=== PATIENT | male | born 1970 | race Caucasian/White ===

== ENCOUNTER 2017-08-13 09:11 | Emergency (ER) | payer BC, OTHER ==
[2017-08-13 10:04] VITALS: BP 133/90
--- NOTE | 2017-08-13 10:28 | UC ---
FLU HPI - HPI Summary HPI Summary: 47 y/o male presents to the urgent care c/o fever, sweats body aches, nasal congestion w/ clear nasal discharge since this morning. Pt reports headache, subjective fever, chills,. He also states "tingling" right lateral leg for few minutes when he woke up this morning. Patient also stated he was seen at [facility] ED for chest pain last week, they did full work up. Everything normal except w/ artery was enlarged" and has an appointment with his PCP this coming Sunday. Pt denies SOB, chest pain, abdominal pain, N/V/D. - History of Current Complaint Chief Complaint: UCGeneralIllness Stated Complaint: FEVER Time Seen by Provider: 08/13/17 10:05 Hx Obtained From: Patient Onset/Duration: Gradual Onset, Lasting Days - this morning, Still Present Severity Currently: Mild Severity Initially: Mild Pain Intensity: 3 Pain Scale Used: 0-10 Numeric Associated Signs & Symptoms: Positive: Fever, Myalgia, Nasal Congestion, Headache - Risk Factors Influenza Risk Factors: Negative - Allergy/Home Medications Allergies/Adverse Reactions: Allergies Allergy/AdvReac Type Severity Reaction Status Date / Time No Known Allergies Allergy Verified 08/13/17 09:57 Home Medications: Home Medications Fluticasone NASAL SPRAY 50MCG* [Flonase NASAL SPRAY 50MCG*] 2 spray BOTH NARES DAILY 08/13/17 [History Confirmed 08/13/17] Ibuprofen TAB* [Advil TAB*] 400 mg PO Q6H PRN 08/13/17 [History Confirmed ] PMH/Surg Hx/FS Hx/Imm Hx Previously Healthy: Yes Respiratory History: Asthma GI/ History: Gastroesophageal Reflux - Surgical History Surgical History: Yes Surgery Procedure, Year, and Place: Nasal Polyps, 2017, Dr. Carey, Cholecystectomy and Umbilical Herniorrhaphy, 2015, [facility]; Endoscopy, 04/29/15 , [facility]; Colonscopy, ~2004, [place] - Family History Known Family History: Positive: None - Pt denies FMHX - Social History Occupation: Employed Full-time Lives: With Family Alcohol Use: "couple drinks every day" Substance Use Type: None Smoking Status (MU): Never Smoked Tobacco Review of Systems Constitutional: Fever, Chills, Other - body aches Skin: Negative Eyes: Negative ENT: Nasal Discharge, Sinus Congestion Respiratory: Negative Cardiovascular: Negative Gastrointestinal: Negative Genitourinary: Negative Motor: Negative Neurovascular: Negative Musculoskeletal: Negative Neurological: Headache Psychological: Negative Is Patient Immunocompromised?: No All Other Systems Reviewed And Are Negative: Yes Physical Exam Triage Information Reviewed: Yes Vital Signs: Initial Vital Signs Temp 98.3 F 08/13/17 09:55 Pulse 76 08/13/17 09:55 Resp 16 08/13/17 09:55 BP 133/90 08/13/17 09:55 Pulse Ox 98 08/13/17 09:55 - Additional Comments VITAL SIGNS: Reviewed. GENERAL: Patient is a well developed and nourished male who is sitting comfortable in the examining table. Patient is not in any acute respiratory distress. HEAD AND FACE: No signs of trauma. No ecchymosis, hematomas or skull depressions. No sinus tenderness. edematous erythematous nasal mucosa with yellowish discharge, EYES: PERRLA, EOMI x 2, No injected conjunctiva, clear watery eyes, no nystagmus. No photophobia. EARS: Hearing grossly intact. Ear canals and tympanic membranes are within normal limits. MOUTH: Positive pharynx with erythema, no exudates,no palatal petechiae. no B/L tonsillar enlargement Uvula in midline. NECK: Supple, trachea is midline, Positive anterior cervical lymphadenopathy, no JVD, no carotid bruit, no c-spine tenderness, neck with full ROM. No meningeal signs, no Kernig's or brudzinskis signs. CHEST: Symmetric, no tenderness at palpation LUNGS: Clear to auscultation bilaterally. No wheezing or crackles. CVS: Regular rate and rhythm, S1 and S2 present, no murmurs or gallops appreciated. ABDOMEN: Soft, non-tender. No signs of distention. No rebound no guarding, and no masses palpated. Bowel sounds are normal. EXTREMITIES: FROM in all major joints, no edema, no cyanosis or clubbing. NEURO: Alert and oriented x 3. No acute neurological deficits. Speech is normal and follows commands. SKIN: Dry and warm Flu Course/Dx - Course Course Of Treatment: 47 y/o male presents to the urgent care c/o fever, sweats body aches, nasal congestion w/ clear nasal discharge since this morning. Pt reports headache, subjective fever, chills,. He also states "tingling" right lateral leg for few minutes when he woke up this morning. Patient also stated he was seen at [facility] ED for chest pain last week, they did full work up. Everything normal except w/ artery was enlarged" and has an appointment with his PCP this coming Sunday for f/u. Pt denies SOB, chest pain, abdominal pain , N/V/D.Hx obtained. Pt with URI on examination. Most likely Viral syndrome. Infliuenza A&B ordered: negative. Pt Rx ibuprofen PO and Omeprazole PO to alleviates symptoms. Advised on hand washing and wear a mask to avoid spreading. Pt advised to rest, increase fluid intake, eat well and avoid strenuous exercise. If symptoms do not improve or worsen advised to return to the urgent care or f/u with her PCP for further evaluation and treatment. Pt's BP is elevated today advised to decrease salt in diet, monitor BP and f/u with PCP for further management.Pt understood and agreed with plan of care. - Differential Dx/Diagnosis Differential Diagnosis/HQI/PQRI: Bronchitis, Influenza, Upper Respiratory Infection Provider Diagnoses: 1- Viral syndrome. 2-Elevated BP w/ Hx of HTN. 3-GERD Discharge - Discharge Plan Condition: Stable Disposition: HOME Prescriptions: Omeprazole CAP* [Prilosec CAP* 20 MG] 20 mg PO DAILY #30 cap. Patient Education Materials: Gastroesophageal Reflux Disease (ED), Viral Syndrome (ED), Low-Sodium Diet (ED) Forms: *Work Release Referrals: Filiberto ESCOBAR,Vik [Primary Care Provider] - 3 Days Additional Instructions: 1-Please continue taking Ibuprofen PO q6-8hrs prn as instructed after meals to alleviate fever, and sore throat. Increase fluid intake, eat well, rest and avoid strenuous exercise 2-If symptoms do not improve or worsen please return to the urgent care or f/u with your PCP in 2 days for further evaluation and treatment. 3-Your BP is elevated today. please decrease salt in your diet, monitor BP and if it continues to be elevated please f/u with your PCP for further management
== END 2017-08-13 10:53 | disposition home or self-care (01) ==
LOC: UCCORT 09:11
DX: B34.9 Viral infection, unspecified (principal); R03.0 Elevated blood-pressure reading, without diagnosis of hypertension; Z72.89 Other problems related to lifestyle
CPT/HCPCS: 87502; 99212; G0463

== ENCOUNTER 2017-09-03 08:32 | Emergency (ER) | payer BC ==
[2017-09-03 09:21] VITALS: BP 131/85
--- NOTE | 2017-09-03 09:34 | ED ---
GI/ HPI - HPI Summary HPI Summary: 47 yr old male with Diarrhea. He denies vomiting. He states he has had 5 episodes of diarrhea, brown color. No antibiotics in the past couple of months. No fever, chills, abdominal pain. He needs a note for work for today. - History of Current Complaint Chief Complaint: UCGI Time Seen by Provider: 09/03/17 09:22 Stated Complaint: DIARRHEA Pain Intensity: 0 - Allergy/Home Medications Allergies/Adverse Reactions: Allergies Allergy/AdvReac Type Severity Reaction Status Date / Time No Known Allergies Allergy Verified 09/03/17 09:18 PMH/Surg Hx/FS Hx/Imm Hx - Surgical History Surgery Procedure, Year, and Place: Nasal Polyps, 2017, Dr. Carey, Cholecystectomy and Umbilical Herniorrhaphy, 2014, [facility]; Endoscopy, 04/29/15 , [facility]; Colonscopy, ~2004, [place] Infectious Disease History: No Infectious Disease History: Denies: Traveled Outside the [place] in Last 30 Days - Family History Known Family History: Positive: None - Pt denies FMHX - Social History Occupation: Employed Full-time Alcohol Use: Occasionally Substance Use Type: Reports: None Smoking Status (MU): Never Smoked Tobacco Review of Systems Constitutional: Negative Positive: Diarrhea All Other Systems Reviewed And Are Negative: Yes Physical Exam Triage Information Reviewed: Yes Vital Signs On Initial Exam: Initial Vitals Temp Pulse Resp BP Pulse Ox 98 F 74 14 131/85 98 09/03/17 09:16 09/03/17 09:16 09/03/17 09:16 09/03/17 09:16 09/03/17 09:16 Vital Signs Reviewed: Yes Appearance: Positive: Well-Appearing, No Pain Distress Skin: Positive: Warm, Skin Color Reflects Adequate Perfusion Head/Face: Positive: Normal Head/Face Inspection Eyes: Positive: EOMI ENT: Positive: Pharynx normal Respiratory/Lung Sounds: Positive: Clear to Auscultation, Breath Sounds Present Cardiovascular: Positive: RRR. Negative: Murmur Abdomen Description: Positive: Nontender Musculoskeletal: Positive: Strength/ROM Intact Neurological: Positive: Sensory/Motor Intact, Alert, Oriented to Person Place, Time, CN Intact II-III Psychiatric: Positive: Normal - Dejon Coma Scale Best Eye Response: 4 - Spontaneous Best Motor Response: 6 - Obeys Commands Best Verbal Response: 5 - Oriented Coma Scale Total: 15 Diagnostics - Vital Signs Vital Signs Temp Pulse Resp BP Pulse Ox 09/03/17 09:16 98 F 74 14 131/85 98 - Laboratory Lab Statement: Any lab studies that have been ordered have been reviewed, and results considered in the medical decision making process. GIGU Course/Dx - Course Course Of Treatment: 47 yr old with diarrhea just today. recommend clear liquids, rest, and follow up with pmd. he knows if he has abdominal pain or fever or worsening symptoms to go to the ER. - Diagnoses Provider Diagnoses: Diarrhea Discharge - Discharge Plan Condition: Good Disposition: HOME Patient Education Materials: Acute Diarrhea (ED) Forms: *Work Release Referrals: Vik De Los Santos MD [Primary Care Provider] - 2 Days
== END 2017-09-03 09:37 | disposition home or self-care (01) ==
LOC: UCCORT 08:32
DX: R19.7 Diarrhea, unspecified (principal)
CPT/HCPCS: 99211; G0463

== ENCOUNTER 2018-03-28 15:27 | Emergency (ER) | payer BC ==
--- OUTSIDE RECORDS SUMMARY | 2018-03-28 15:34 | XMS REPORT ---
:1970 External Reference #:[id number] Author Organization [facility] Address [address], [address] [place] [address] Phone [phone] Support Name Relationship Address Britney Manuel Mother [address] [phone] [place] [address] Care Team Providers Name Role Phone Vik De Los Santos MD Care Team Information Web Designer Unavailable Vik De Los Santos MD Primary Care Physician Unavailable Payers Type Date Identification Numbers Payment Provider Subscriber Commercial Policy Number: [id number] [facility] Malik Ann PayID: [id number] [address] [place] [address] Problems Date Description Provider Status Onset: 09/13/2016 Cough Chuck Suarez MD Active Onset: 09/13/2016 Vomiting, unspecified Chuck Suarez MD Active Onset: 09/13/2016 Abnormal findings diagnostic Chuck Suarez MD Active imaging of liver+biliary tract Onset: 01/11/2017 Adult health examination Vik De Los Santos M.D. Active Onset: 01/11/2017 Gastroesophageal reflux disease Vik De Los Santos M.D. Active Onset: 01/11/2017 Bronchiolectasis Vik De Los Santos M.D. Active Onset: 01/11/2017 Hyperlipidemia screening Vik De Los Santos M.D. Active Onset: 01/11/2017 Encounter for screening for Vik De Los Santos M.D. Active nutritional disorder Onset: 01/11/2017 Liver function tests abnormal Vik De Los Santos M.D. Active Onset: 01/22/2017 Headache Vik De Los Santos M.D. Active Onset: 01/30/2017 Chronic sinusitis Vik De Los Santos M.D. Active Onset: 01/30/2017 Hyperlipidemia Vik De Los Santos M.D. Active Onset: 03/20/2017 Immunization Vik De Los Santos M.D. Active Onset: 04/18/2017 Anxiety state Vik De Los Santos M.D. Active Onset: 05/04/2017 Right upper quadrant pain Chuck Suarez MD Active Onset: 08/15/2017 Infectious colitis, enteritis and Vik De Los Santos M.D. Active gastroenteritis Onset: 08/15/2017 Diverticular disease of colon Vik De Los Santos M.D. Active Onset: 08/15/2017 Aneurysm of thoracic aorta Vik De Los Santos M.D. Active Onset: 08/29/2017 Hematemesis Chuck Suarez MD Active Onset: 08/29/2017 Cough variant asthma Chuck Suarez MD Active Onset: 09/04/2017 Diarrhea Darek Sloan M.D. Active Onset: 09/12/2017 Gastrointestinal tract finding Chuck Suarez MD Active Onset: 09/12/2017 Chronic nonalcoholic liver disease Chuck Suarez MD Active Onset: 10/02/2017 Nausea and vomiting Vik De Los Santos M.D. Active Onset: 10/02/2017 Taking medication Vik De Los Santos M.D. Active Onset: 10/05/2017 Lymphocytic-plasmacytic colitis Chuck Suarez MD Active Onset: 10/19/2017 Gastro-esophageal reflux disease Chuck Suarez MD Active with esophagitis Onset: 10/19/2017 Abdominal pain Chuck Suarez MD Active Onset: 10/17/2017 Left lower quadrant pain Darek Sloan M.D. Active Onset: 11/02/2017 Acute sinusitis Vik De Los Santos M.D. Active Onset: 10/31/2017 Allergic rhinitis Vik De Los Santos M.D. Active Onset: 11/02/2017 Elevated blood-pressure reading Vik De Los Santos M.D. Active without diagnosis of hypertension Onset: 01/31/2018 Disorder of male genital organ Vik De Los Santos M.D. Active Onset: 03/04/2018 Genital warts Cici Carbajal M.D. Active Onset: 03/04/2018 Disorder of adrenal gland Solomon, Mahmoud, M.D. Active Family History Date Family Member(s) Problem(s) Comments General Non Contributory Father No Current Problems Mother Arthritis Social History Type Date Description Comments Marital Status Patient is Lives With Girlfriend Home Environment Lives With Girlfriend Occupation Maintenance Work Status Currently Working Cigarette Use Never Smoked Cigarettes ETOH Use Occasionally consumes alcohol Recreational Drug Use Denies Drug Use Smoking Patient has never smoked Daily Caffeine Patient consumes minimal amounts of caffeine Daily Caffeine Consumes on average 1 cup of regular coffee per day Exercise Type/Frequency Does not exercise Allergies, Adverse Reactions, Alerts Date Description Reaction Status Severity Comments 09/02/2009 NKDA active Medications Medication Date Status Form Strength Qnty SIG Indications Ordering Provider Hydrocortisone 03/13 Active Cream 2.5% 1unit 2 Times A s Day Pantoprazole 01/[address] 20mg 90tab 1 by mouth K21.0 Young Sodium s every day MD Erick every morning Vitamin B12 10/19 Active Tablets 100mcg 30tab 1 tab by R51 s carmencita Suarez MD every day Budesonide 10/[address] 3mg 90cap 2 cap by K52.832 Part s carmencita Suarez MD every day Flonase Sensimist Active Suspension 27.5mcg/S 2 sprays Unknown /0000 pray every day Allergy Active weekly ( Unknown Injections /0000 for molds) Dexamethasone 03/08 Hx Tablets 1mg 1tabs take at 11 Solomon at night Mahmoud, - night M.D. 03/22 blood test Ondansetron 12/05 Hx Tablets 4mg 90tab 1 tab by R11.10 Dispers s carmencita Suarez MD - three 01/11 times day as needed Amoxicillin 11/02 Hx Tablets 500mg 30tab take 1 J01.90 Filiberto, s tablet Andras, daily 3 M.D. times a day for 10 days Pantoprazole 10/[address] 40mg 90tab 1 by mouth K21.0 Young Sodium s every day MD Erick - every 01/31 Work Note 10/03 Hx Malik J41.0 Omar Seth was MD Marquise seen in the office today. Please excuse him. Ondansetron HCL 09/27 Hx Tablets 8mg 30tab 1 tab by Luther s mouth , - every 8 Darek, 01/11 hours as M.D. /2017 needed for nausea Pantoprazole 09/[address] 40mg 90tab 1 by mouth s every day MD Erick every morning Dulcolax 09/[address] 5mg 4tabs 4 tablets R93.3 taken a MD Erick - 8pm the 09/27 day before /2017 the procedure Citroma 09/12 Hx Solution 1.745GM/3 296ml 1 by mouth R93.3 0ML once MD Erick - 09/27 Golytely 09/12 Hx Solution 236gm 4000m drink half R93.3 Rec l the MD Erick - evening 09/27 before and /2017 half the morning of the procedure (1 cup every 10') Flovent HFA 05/30 Hx Aerosol 110mcg/Ac 12gm inhale 2 J45.991 Omar t puffs MD Marquise - twice 08/01 daily after albuterol nebulizer treatment* shake well *rinse mouth after use Proair HFA 05/30 Hx Aerosol 108(90Bas 8.500 take 2 J45.991 Omar e) gm puffs MD Marquise mcg/Act every 6 hours as needed for shortness of breath. Hydroxyzine HCL 04/18 Hx Tablets 25mg 30tab take 1 F41.9 Filiberto s tablet by Andhudson, mouth 3 M.D. times a day as needed for anxiety. Do not drink alcohol while on this medication Ondansetron HCL 03/20 Hx Tablets 4mg 30tab 1 tab Filiberto, s every 8hr Andras, as needed M.D. for nausea No Active 02/05 Hx Unknown Medications /2016 - 02/05 Ondansetron HCL 02/05 Hx Tablets 4mg 30tab 1 tab Filiberto, s every 6hr Andras, as needed M.D. for nausea Methylprednisolon 01/22 Hx TBPK 4mg 1dose take as R51 Filiberto, pack directed Andhudson, - M.D. 02/05 No Active 07/06 Hx Unknown Medications /2016 - 01/22 Proair HFA 12/05 Hx Aerosol 108(90Bas 8.500 take 2 J47.9 Kheti, /2017 e) gm puffs MD Marquise mcg/Act every 6 hours as needed for cough No Active 10/17 Hx Unknown Medications /2016 - 12/05 No Active 11/16 Hx Unknown Medications /2015 - 09/13 Nabumetone 10/19 Hx Tablets 750mg 60tab take 1 Pompo, s tablet by Leon, - mouth 2 M.D. 11/16 times day with food Naproxen Hx 500mg Unknown /0000 - 10/18 Nortriptyline HCL Hx 50mg Jessica, /0000 Carolina Aponte MD 10/19 Hydrocodone-Aceta Hx 5-500mg Robenstei minophen /0000 Siomara brandon, - 10/18 Omeprazole Hx 20mg Alejandro, /0000 Fadi Pratt MD 10/19 Amoxicillin Hx 500mg Battels, /0000 MD Omid - 10/18 Zofran Hx Tablets 4mg 1 tablet Unknown /0000 by mouth every 8 hours as needed for nausea Protonix Hx Tablets DR 20mg 1 po every Unknown /0000 day Fluticasone Hx Suspension 50mcg/Act Unknown Propionate /0000 - 02/05 Ondansetron HCL 00 Hx Tablets 4mg take 1 Unknown /0000 tablet by - mouth 09/04 every hours if needed for nausea Omeprazole Hx Capsules DR 20mg 60cap I tablet Unknown /0000 s twice - daily 09/27 Oxycodone-Acetami 00 Hx Tablets 5-325mg take 1-2 Unknown nophen /0000 tablets by mouth every 4 to 6 hours if needed maximum daily d Ciprofloxacin HCL /00 Hx Tablets 500mg take 1 Unknown /0000 tablet by - mouth 09/27 twice a day Metronidazole Hx Tablets 500mg 1 po qd Unknown /0000 - 10/02 Ondansetron 00 Hx Tablets 8mg 1 sl every Unknown /0000 Dispers 8 hrs prn - 03/04 Pantoprazole 00/[address] 20mg take 1 Unknown Sodium /0000 tablet by - mouth 01/31 morning Medications Administered in Office Medication Date Status Form Strength Qnty SIG Indications Ordering Provider Depmaria alejandra 80 Administered Injection mg Femi Alba [facility] Immunizations CPT Code Status Date Vaccine Lot # 30150 Given 03/20/2017 Influenza Virus Vaccine, Quadrivalent, Slit [place] Use [address] Given 01/11/2017 Tdap injection [id number] Vital Signs Date Vital Result Comment 03/22/2018 BP Systolic Sitting Left Arm 132 mmHg BP Diastolic Sitting Left Arm 95 mmHg Heart Rate 77 /min Respiratory Rate 16 /min Height 69 inches 5'9" Weight 191.00 lb BMI (Body Mass Index) 28.2 kg/m2 BSA (Body Surface Area) 2.03 m2 [place] body weight in kilograms 73 O2 % BldC Oximetry 98 % 03/04/2018 BP Systolic 135 mmHg BP Diastolic 92 mmHg Body Temperature 98.0 F Heart Rate 96 /min Respiratory Rate 18 /min Height 69 inches 5'9" Weight 190.00 lb BMI (Body Mass Index) 28.1 kg/m2 BSA (Body Surface Area) 2.02 m2 [place] body weight in kilograms 73 O2 % BldC Oximetry 97 % Pain Level 0 02/18/2018 BP Systolic Sitting Left Arm 126 mmHg BP Diastolic Sitting Left Arm 88 mmHg Body Temperature 98.1 F Heart Rate 73 /min Respiratory Rate 16 /min Height 69 inches 5'9" Weight 185.00 lb BMI (Body Mass Index) 27.3 kg/m2 BSA (Body Surface Area) 2.00 m2 [place] body weight in kilograms 73 O2 % BldC Oximetry 95 % Ra 01/31/2018 BP Systolic Sitting Left Arm 138 mmHg BP Diastolic Sitting Left Arm 96 mmHg Body Temperature 97.6 F Heart Rate 72 /min Respiratory Rate 20 /min Height 69 inches 5'9" Weight 191.00 lb BMI (Body Mass Index) 28.2 kg/m2 BSA (Body Surface Area) 2.03 m2 [place] body weight in kilograms 73 O2 % BldC Oximetry 96 % 01/11/2018 BP Systolic Sitting Right Arm 142 mmHg BP Diastolic Sitting Right Arm 84 mmHg Heart Rate 68 /min Respiratory Rate 20 /min Height 69 inches 5'9" Weight 192.00 lb BMI (Body Mass Index) 28.4 kg/m2 BSA (Body Surface Area) 2.03 m2 [place] body weight in kilograms 73 O2 % BldC Oximetry 96 % Ra Pain Level 8 while vomitting 12/05/2017 BP Systolic Sitting Left Arm 132 mmHg BP Diastolic Sitting Left Arm 96 mmHg Heart Rate 82 /min Respiratory Rate 18 /min Height 69 inches 5'9" Weight 188.00 lb BMI (Body Mass Index) 27.8 kg/m2 BSA (Body Surface Area) 2.01 m2 [place] body weight in kilograms 73 11/09/2017 BP Systolic Sitting Right Arm 134 mmHg BP Diastolic Sitting Right Arm 82 mmHg Heart Rate 81 /min Respiratory Rate 18 /min Height 69 inches 5'9" Weight 190.00 lb BMI (Body Mass Index) 28.1 kg/m2 BSA (Body Surface Area) 2.02 m2 [place] body weight in kilograms 73 11/02/2017 BP Systolic 151 mmHg BP Diastolic 98 mmHg Body Temperature 98.3 F Heart Rate 81 /min Respiratory Rate 16 /min Height 69 inches 5'9" Weight 189.12 lb BMI (Body Mass Index) 27.9 kg/m2 BSA (Body Surface Area) 2.02 m2 [place] body weight in kilograms 73 O2 % BldC Oximetry 97 % 10/31/2017 BP Systolic 124 mmHg BP Diastolic 90 mmHg Body Temperature 98.2 F Heart Rate 84 /min Respiratory Rate 16 /min Height 69 inches 5'9" Weight 187.00 lb BMI (Body Mass Index) 27.6 kg/m2 BSA (Body Surface Area) 2.01 m2 [place] body weight in kilograms 73 O2 % BldC Oximetry 95 % On Room Air 10/19/2017 BP Systolic Sitting Left Arm 162 mmHg BP Diastolic Sitting Left Arm 96 mmHg Heart Rate 91 /min Respiratory Rate 16 /min Height 69 inches 5'9" Weight 190.00 lb with boots BMI (Body Mass Index) 28.1 kg/m2 BSA (Body Surface Area) 2.02 m2 [place] body weight in kilograms 73 10/17/2017 BP Systolic 151 mmHg BP Diastolic 98 mmHg Heart Rate 72 /min Respiratory Rate 14 /min Height 69 inches 5'9" Weight 185.12 lb BMI (Body Mass Index) 27.3 kg/m2 BSA (Body Surface Area) 2.00 m2 [place] body weight in kilograms 73 O2 % BldC Oximetry 97 % 10/05/2017 BP Systolic Sitting Left Arm 130 mmHg BP Diastolic Sitting Left Arm 90 mmHg Heart Rate 76 /min Respiratory Rate 16 /min Height 69 inches 5'9" Weight 192.00 lb BMI (Body Mass Index) 28.4 kg/m2 BSA (Body Surface Area) 2.03 m2 [place] body weight in kilograms 73 10/03/2017 BP Systolic Sitting Left Arm 118 mmHg BP Diastolic Sitting Left Arm 88 mmHg Heart Rate 74 /min Respiratory Rate 16 /min Height 69 inches 5'9" Weight 191.00 lb BMI (Body Mass Index) 28.2 kg/m2 BSA (Body Surface Area) 2.03 m2 [place] body weight in kilograms 73 O2 % BldC Oximetry 98 % 10/02/2017 BP Systolic 137 mmHg BP Diastolic 85 mmHg Heart Rate 72 /min Respiratory Rate 14 /min Height 69 inches 5'9" Weight 190.12 lb BMI (Body Mass Index) 28.1 kg/m2 BSA (Body Surface Area) 2.02 m2 [place] body weight in kilograms 73 O2 % BldC Oximetry 97 % 09/27/2017 BP Systolic Sitting Left Arm 123 mmHg BP Diastolic Sitting Left Arm 83 mmHg Body Temperature 98.4 F Heart Rate 76 /min Respiratory Rate 18 /min Height 69 inches 5'9" Weight 186.00 lb BMI (Body Mass Index) 27.5 kg/m2 BSA (Body Surface Area) 2.00 m2 [place] body weight in kilograms 73 O2 % BldC Oximetry 94 % 09/12/2017 BP Systolic Sitting Left Arm 128 mmHg BP Diastolic Sitting Left Arm 84 mmHg Heart Rate 84 /min Respiratory Rate 16 /min Height 69 inches 5'9" Weight 192.00 lb BMI (Body Mass Index) 28.4 kg/m2 BSA (Body Surface Area) 2.03 m2 [place] body weight in kilograms 73 09/04/2017 BP Systolic Sitting Left Arm 122 mmHg BP Diastolic Sitting Left Arm 84 mmHg Body Temperature 97.2 F Heart Rate 72 /min Respiratory Rate 16 /min Height 69 inches 5'9" Weight 196.00 lb with steel toe boots BMI (Body Mass Index) 28.9 kg/m2 BSA (Body Surface Area) 2.05 m2 [place] body weight in kilograms 73 08/29/2017 BP Systolic Sitting Left Arm 122 mmHg BP Diastolic Sitting Left Arm 80 mmHg Heart Rate 74 /min Respiratory Rate 16 /min Height 69 inches 5'9" Weight 196.00 lb BMI (Body Mass Index) 28.9 kg/m2 BSA (Body Surface Area) 2.05 m2 [place] body weight in kilograms 73 08/15/2017 BP Systolic Sitting Right Arm 118 mmHg BP Diastolic Sitting Right Arm 81 mmHg Heart Rate 75 /min Height 69 inches 5'9" Weight 195.00 lb BMI (Body Mass Index) 28.8 kg/m2 BSA (Body Surface Area) 2.04 m2 [place] body weight in kilograms 73 O2 % BldC Oximetry 92 % ra 08/01/2017 BP Systolic Sitting Left Arm 136 mmHg BP Diastolic Sitting Left Arm 92 mmHg Heart Rate 72 /min Respiratory Rate 16 /min Height 69 inches 5'9" Weight 201.00 lb BMI (Body Mass Index) 29.7 kg/m2 BSA (Body Surface Area) 2.07 m2 [place] body weight in kilograms 73 O2 % BldC Oximetry 97 % 05/30/2017 BP Systolic Sitting Left Arm 128 mmHg BP Diastolic Sitting Left Arm 88 mmHg Heart Rate 71 /min Respiratory Rate 16 /min Height 69 inches 5'9" Weight 198.00 lb BMI (Body Mass Index) 29.2 kg/m2 BSA (Body Surface Area) 2.06 m2 [place] body weight in kilograms 73 O2 % BldC Oximetry 97 % 05/04/2017 BP Systolic Sitting Left Arm 120 mmHg BP Diastolic Sitting Left Arm 80 mmHg Heart Rate 70 /min Respiratory Rate 16 /min Height 69 inches 5'9" Weight 193.00 lb BMI (Body Mass Index) 28.5 kg/m2 BSA (Body Surface Area) 2.03 m2 [place] body weight in kilograms 73 04/18/2017 BP Systolic 133 mmHg BP Diastolic 91 mmHg Heart Rate 79 /min Respiratory Rate 14 /min Height 69 inches 5'9" Weight 190.12 lb BMI (Body Mass Index) 28.1 kg/m2 BSA (Body Surface Area) 2.02 m2 [place] body weight in kilograms 73 O2 % BldC Oximetry 96 % 03/20/2017 BP Systolic 137 mmHg BP Diastolic 89 mmHg Body Temperature 97.6 F Heart Rate 72 /min Respiratory Rate 16 /min Height 69 inches 5'9" Weight 186.25 lb BMI (Body Mass Index) 27.5 kg/m2 BSA (Body Surface Area) 2.00 m2 [place] body weight in kilograms 73 O2 % BldC Oximetry 97 % 02/14/2017 BP Systolic Sitting Left Arm 122 mmHg BP Diastolic Sitting Left Arm 80 mmHg Respiratory Rate 1675 /min Height 69 inches 5'9" Weight 189.00 lb BMI (Body Mass Index) 27.9 kg/m2 BSA (Body Surface Area) 2.02 m2 [place] body weight in kilograms 73 02/05/2017 BP Systolic 121 mmHg BP Diastolic 86 mmHg Body Temperature 97.7 F Heart Rate 80 /min Respiratory Rate 16 /min Height 69 inches 5'9" Weight 185.00 lb BMI (Body Mass Index) 27.3 kg/m2 BSA (Body Surface Area) 2.00 m2 [place] body weight in kilograms 73 O2 % BldC Oximetry 94 % 01/30/2017 BP Systolic 129 mmHg BP Diastolic 83 mmHg Heart Rate 73 /min Respiratory Rate 16 /min Height 69 inches 5'9" Weight 189.00 lb With Boots BMI (Body Mass Index) 27.9 kg/m2 BSA (Body Surface Area) 2.02 m2 [place] body weight in kilograms 73 O2 % BldC Oximetry 97 % 01/22/2017 BP Systolic Sitting Left Arm 140 mmHg BP Diastolic Sitting Left Arm 88 mmHg Body Temperature 98.0 F Heart Rate 79 /min Height 69 inches 5'9" Weight 185.00 lb BMI (Body Mass Index) 27.3 kg/m2 BSA (Body Surface Area) 2.00 m2 [place] body weight in kilograms 73 O2 % BldC Oximetry 98 % 01/11/2017 BP Systolic 125 mmHg BP Diastolic 85 mmHg Body Temperature 97.7 F Heart Rate 79 /min Respiratory Rate 16 /min Height 69 inches 5'9" Weight 186.00 lb BMI (Body Mass Index) 27.5 kg/m2 BSA (Body Surface Area) 2.00 m2 [place] body weight in kilograms 73 O2 % BldC Oximetry 96 % 12/05/2016 BP Systolic Sitting Left Arm 128 mmHg BP Diastolic Sitting Left Arm 80 mmHg Heart Rate 77 /min Respiratory Rate 16 /min Height 69 inches 5'9" Weight 192.00 lb BMI (Body Mass Index) 28.4 kg/m2 BSA (Body Surface Area) 2.03 m2 [place] body weight in kilograms 73 O2 % BldC Oximetry 96 % Room Air 10/17/2016 BP Systolic Sitting Left Arm 120 mmHg BP Diastolic Sitting Left Arm 86 mmHg Heart Rate 80 /min Respiratory Rate 18 /min Height 69 inches 5'9" Weight 194.00 lb BMI (Body Mass Index) 28.6 kg/m2 BSA (Body Surface Area) 2.04 m2 O2 % BldC Oximetry 96 % 09/13/2016 BP Systolic Sitting Left Arm 138 mmHg BP Diastolic Sitting Left Arm 80 mmHg Heart Rate 78 /min Respiratory Rate 16 /min Height 69 inches 5'9" Weight 198.00 lb BMI (Body Mass Index) 29.2 kg/m2 BSA (Body Surface Area) 2.06 m2 10/20/2015 BP Systolic Sitting Left Arm 150 mmHg BP Diastolic Sitting Left Arm 98 mmHg Height 69 inches 5'9" Weight 194.00 lb BMI (Body Mass Index) 28.6 kg/m2 BSA (Body Surface Area) 2.04 m2 08/11/2009 Height 7 inches 0'7" Weight 190.00 lb BMI (Body Mass Index) 2725.9 kg/m2 Results Test Date Test Result H/L Range Note CBC W/Automated Diff 03/19/2018 White Blood Count 8.3 K/uL 3.4-10.5 1 Red Blood Count 5.11 M/uL 4.20-5.80 1 Hemoglobin 15.8 gm/dL 12.8-17.0 1 Hematocrit 44.4 % 38.0-48.0 1 Mean Cell Volume 86.9 fl 80.0-96.0 1 Mean Corpuscular HGB 30.9 pg 27.0-33.0 1 Mean Corpuscular HGB Conc 35.6 g/dL 31.7-36.0 1 Platelet Count 250 K/uL 155-360 1 Red Cell Distri Width SD 39.2 fl 36-51 1 Red Cell Distri Width %CV 12.6 % 11.6-15.8 1 Mean Platelet Volume 9.0 fL 6.6-10.6 1 Neut% 68.3 % 33.0-73.0 1 Lymph % 19.2 % Low 20.0-42.0 1 [place] % 8.7 % 0.0-10.0 1 Eo% 3.6 % 0.0-6.6 1 Bas% 0.2 % 0.0-1.1 1 Neut# 5.68 K/uL 1.8-7.0 1 Lymph # 1.60 K/uL 1.0-4.0 1 Hockley # 0.72 K/uL 0.0-0.8 1 Eos # 0.30 K/uL 0.0-0.5 1 Baso # 0.02 K/uL 0.0-0.1 1 Ua RFX Micro & Culture II 03/19/2018 Urine Color YELLOW Yellow 1 Urine Clarity CLEAR Clear 1 Urine Glucose - Dipstick NEGATIVE mg/dL Negative 1 Urine Bilirubin - Dipstick NEGATIVE Negative 1 Urine Ketone NEGATIVE mg/dL Negative 1 Urine Specific Perry 1.020 1.010-1.030 1 Urine Blood NEGATIVE Negative 1 Urine PH 6.5 6.5-7.5 1 Urine Protein - Dipstick NEGATIVE mg/dL Negative 1 Urine Urobilinogen - Dipstick 0.2 E.U./dL 0.2-1.0 1 Urine Nitrite - Dipstick NEGATIVE Negative 1 Urine Leuk Esterase NEGATIVE Negative 1 Source: URINE, CLEAN CAT <SEE NOTE> 1, 2 Laboratory test 03/09/2018 Cortisol,Am 0.8 g/dL Low 6.2-19.4 3, 4 finding Metanephrines,Frac,Zohreh 03/09/2018 Normetanephrines,Plasma 29 pg/mL 0-145 3 sma Free Metanephrine, Plasma 12 pg/mL 0-62 3, 5 Serum or plasma free 03/09/2018 Serum or plasma free 12 0-62 metanephrine measurement metanephrine measurement (mas (mass/volume) Serum or plasma 03/09/2018 Serum or plasma 29 0-145 normetanephrine measurement normetanephrine measurement (mass/ (mass/volume) Urine Dipstick 03/04/2018 Ua Color yellow Yellow Ua Clarity clearn Clear Ua Leuko neg Negative Ua Nitrite neg Negative Ua Urobilinogen 17 High 0.2 - 1.0 E.U./dL Ua Protein neg Negative Ua PH 6.5 6.5-7.5 Ua Blood neg Negative Ua Specific Perry 1.020 1.010-1.030 Ua Ketones neg Negative Ua Bilirubin neg Negative Ua Glucose neg Negative Fibrin D-dimer Feu 02/14/2018 Fibrin D-dimer Feu 1.39 measurement in platelet measurement in platelet poor pl poor plasma (mass/volume) Globulin Ser Calc-mCnc 02/14/2018 Globulin Ser Calc-mCnc 3.8 1.9-4.3 Lymphocytes/leuk NFr Bld 02/14/2018 Lymphocytes/leuk NFr 19.0 Low 20.0-42 Auto Bld Auto .0 Monocytes/leuk NFr Bld 02/14/2018 Monocytes/leuk NFr Bld 8.5 0.0-10. Auto Auto 0 Neutrophils # Bld Auto 02/14/2018 Neutrophils # Bld Auto 4.66 1.8-7.0 Neutrophils/leuk NFr Bld 02/14/2018 Neutrophils/leuk NFr 69.8 33.0-73 Auto Bld Auto .0 Potassium SerPl-sCnc 02/14/2018 Potassium SerPl-sCnc 4.0 3.5-5.1 RDW RBC Auto 02/14/2018 RDW RBC Auto 39.3 36-51 RDW RBC Auto-Rto 02/14/2018 RDW RBC Auto-Rto 12.5 11.6-15 .8 Serum carbon dioxide 02/14/2018 Serum carbon dioxide 25 21-32 measurement measurement Serum or plasma albumin 02/14/2018 Serum or plasma albumin 3.8 3.4-5.0 measurement measurement (mass/volume) (mass/volume) Serum or plasma alkaline 02/14/2018 Serum or plasma 68 45-117 phosphatase measurement alkaline phosphatase ( measurement (enzymatic activity/volume) Serum or plasma 02/14/2018 Serum or plasma 30 15-37 aspartate aspartate aminotransferase measure aminotransferase measurement (enzymatic activity/volume) Serum or plasma calcium 02/14/2018 Serum or plasma calcium 8.8 8.5-10. measurement measurement 1 (mass/volume) (mass/volume) Serum or plasma 02/14/2018 Serum or plasma 1.0 0.6-1.3 creatinine measurement creatinine measurement (mass/volum (mass/volume) Serum or plasma glucose 02/14/2018 Serum or plasma glucose 104 74-106 measurement measurement (mass/volume) (mass/volume) Serum or plasma protein 02/14/2018 Serum or plasma protein 7.6 6.4-8.2 measurement measurement (mass/volume) (mass/volume) Serum or plasma total 02/14/2018 Serum or plasma total 0.6 0.2-1.0 bilirubin measurement bilirubin measurement (mass/ (mass/volume) Serum or plasma urea 02/14/2018 Serum or plasma urea 11 7-18 nitrogen measurement nitrogen measurement (mass/vo (mass/volume) Serum sodium measurement 02/14/2018 Serum sodium 143 136-145 measurement Laboratory test finding 02/14/2018 Troponin-I < 0.015 6, 7 ng/mL Comprehensive Metabolic 02/14/2018 Glucose 104 mg/dL 74-106 6 Panel BUN 11 mg/dL 7-18 6 Creatinine 1.0 mg/dL 0.6-1.3 6 Glom Filtration Rate, Estimate >60 mL/min >60 6 If >60 mL/min >60 6, 8 BUN/Creat 11.0 ratio 6 Sodium 143 mmol/L 136-145 6 Potassium 4.0 mmol/L 3.5-5.1 6 Chloride 109 mmol/L High 98-107 6 Carbon Dioxide 25 mmol/L 21-32 6 Anion Gap 9 mEq/L 8-16 6 Calcium 8.8 mg/dL 8.5-10.1 6 Total Protein 7.6 g/dL 6.4-8.2 6 Albumin 3.8 g/dL 3.4-5.0 6 Globulin 3.8 g/dL 1.9-4.3 6 Alb/Glob 1.0 ratio 6 Bilirubin,Total 0.6 mg/dL 0.2-1.0 6 Sgot/Ast 30 U/L 15-37 6 SGPT/Alt 39 U/L 12-78 6 Alkaline Phosphatase 68 U/L 45-117 6 Laboratory test finding 02/14/2018 CK 267 U/L 39-308 6 Troponin-I < 0.015 ng/mL 6, 9 CBS W/Automated Diff 02/14/2018 White Blood Count 6.7 K/uL 3.4-10.5 6 Red Blood Count 5.00 M/uL 4.20-5.80 6 Hemoglobin 15.5 gm/dL 12.8-17.0 6 Hematocrit 43.8 % 38.0-48.0 6 Mean Cell Volume 87.6 fl 80.0-96.0 6 Mean Corpuscular HGB 31.0 pg 27.0-33.0 6 Mean Corpuscular HGB Conc 35.4 g/dL 31.7-36.0 6 Platelet Count 238 K/uL 155-360 6 Red Cell Distri Width SD 39.3 fl 36-51 6 Red Cell Distri Width %CV 12.5 % 11.6-15.8 6 Mean Platelet Volume 8.8 fL 6.6-10.6 6 Neut% 69.8 % 33.0-73.0 6 Lymph % 19.0 % Low 20.0-42.0 6 [place] % 8.5 % 0.0-10.0 6 Eo% 2.4 % 0.0-6.6 6 Bas% 0.3 % 0.0-1.1 6 Neut# 4.66 K/uL 1.8-7.0 6 Lymph # 1.27 K/uL 1.0-4.0 6 [place] # 0.57 K/uL 0.0-0.8 6 Eos # 0.16 K/uL 0.0-0.5 6 Baso # 0.02 K/uL 0.0-0.1 6 Laboratory test 02/14/2018 D-Dimer, Quantitative 1.39 ug/mL High 6, 10 finding Alt SerPl-cCnc 02/14/2018 Alt SerPl-cCnc 39 12-78 Albumin/Glob SerPl 02/14/2018 Albumin/Glob SerPl 1.0 Anion Gap SerPl-sCnc 02/14/2018 Anion Gap SerPl-sCnc 9 8-16 Automated blood 02/14/2018 Automated blood 0.02 0.0-0.1 basophil count basophil count (count/volume) (count/volume) Automated blood 02/14/2018 Automated blood 0.16 0.0-0.5 eosinophil count eosinophil count Automated blood 02/14/2018 Automated blood 43.8 38.0-48. hematocrit (volume hematocrit (volume 0 fraction) fraction) Automated blood 02/14/2018 Automated blood 1.27 1.0-4.0 lymphocyte count lymphocyte count (number/volume) (number/volume) Automated blood 02/14/2018 Automated blood 238 155-360 platelet count platelet count Automated blood 02/14/2018 Automated blood 8.8 6.6-10.6 platelet mean volume platelet mean volume measurement measurement Automated erythrocyte 02/14/2018 Automated erythrocyte 31.0 27.0-33. mean corpuscular mean corpuscular 0 hemoglobin hemoglobin (mass per erythrocyte) Automated erythrocyte 02/14/2018 Automated erythrocyte 35.4 31.7-36. mean corpuscular mean corpuscular 0 hemoglobin hemoglobin concentration measurement (mass/volume) Automated erythrocyte 02/14/2018 Automated erythrocyte 87.6 80.0-96. mean corpuscular mean corpuscular 0 volume volume BUN/Creat SerPl 02/14/2018 BUN/Creat SerPl 11.0 Basophils/leuk NFr Bld 02/14/2018 Basophils/leuk NFr Bld 0.3 0.0-1.1 Auto Auto Blood erythrocytes 02/14/2018 Blood erythrocytes 5.00 4.20-5.8 automated count automated count 0 (number/volume) (number/volume) Blood hemoglobin 02/14/2018 Blood hemoglobin 15.5 12.8-17. measurement measurement 0 (mass/volume) (mass/volume) Eosinophil/leuk NFr 02/14/2018 Eosinophil/leuk NFr 2.4 0.0-6.6 Bld Auto Bld Auto Chloride SerPl-sCnc 02/14/2018 Chloride SerPl-sCnc 109 High 98-107 Blood monocytes 02/14/2018 Blood monocytes 0.57 0.0-0.8 automated count automated count (number/volume) (number/volume) Blood leukocytes 02/14/2018 Blood leukocytes 6.7 3.4-10.5 automated count automated count (number/volume) (number/volume) Comprehensive 12/05/2017 Glucose 100 mg/dL 74-106 11 Metabolic Panel BUN 12 mg/dL 7-18 11 Creatinine 0.9 mg/dL 0.6-1.3 11 Glom Filtration Rate, Estimate >60 mL/min >60 11 If >60 mL/min >60 11, 12 BUN/Creat 13.3 ratio 11 Sodium 139 mmol/L 136-145 11 Potassium 4.4 mmol/L 3.5-5.1 11 Chloride 106 mmol/L 98-107 11 Carbon Dioxide 25 mmol/L 21-32 11 Anion Gap 8 mEq/L 8-16 11 Calcium 9.5 mg/dL 8.5-10.1 11 Total Protein 8.2 g/dL 6.4-8.2 11 Albumin 4.0 g/dL 3.4-5.0 11 Globulin 4.2 g/dL 1.9-4.3 11 Alb/Glob 1.0 ratio 11 Bilirubin,Total 0.6 mg/dL 0.2-1.0 11 Sgot/Ast 38 U/L High 15-37 11 SGPT/Alt 45 U/L 12-78 11 Alkaline Phosphatase 74 U/L 45-117 11 Laboratory test finding 12/05/2017 Lipase 72 U/L 56-289 11 CBS W/Automated Diff 12/05/2017 White Blood Count 8.4 K/uL 3.4-10.5 11 Red Blood Count 5.25 M/uL 4.20-5.80 11 Hemoglobin 16.3 gm/dL 12.8-17.0 11 Hematocrit 46.7 % 38.0-48.0 11 Mean Cell Volume 89.0 fl 80.0-96.0 11 Mean Corpuscular HGB 31.0 pg 27.0-33.0 11 Mean Corpuscular HGB Conc 34.9 g/dL 31.7-36.0 11 Platelet Count 235 K/uL 155-360 11 Red Cell Distri Width SD 42.7 fl 36-51 11 Red Cell Distri Width %CV 13.2 % 11.6-15.8 11 Mean Platelet Volume 9.1 fL 6.6-10.6 11 Neut% 72.4 % 33.0-73.0 11 Lymph % 18.2 % Low 20.0-42.0 11 [place] % 7.3 % 0.0-10.0 11 Eo% 1.7 % 0.0-6.6 11 Bas% 0.4 % 0.0-1.1 11 Neut# 6.06 K/uL 1.8-7.0 11 Lymph # 1.52 K/uL 1.0-4.0 11 [place] # 0.61 K/uL 0.0-0.8 11 Eos # 0.14 K/uL 0.0-0.5 11 Baso # 0.03 K/uL 0.0-0.1 11 Serum or plasma lipase 12/05/2017 Serum or plasma lipase 72 56-289 measurement (enzymatic measurement (enzymatic acti activity/volume) Porphobilinogen,QN,24HR 10/26/2017 Porphobilinogen,QN,Urine 0.7 mg/L 0.0- 2.0 11 Urine Porphobilinogen, 24HR (U) 0.7 mg/24hr 0.0-1.5 11, 13 Ala Delta, 24 Hour Urine 10/26/2017 Delta Ala 3.2 mg/L Undefined 11 Delta Ala 3.4 mg/24hr 0.5-5.1 11, 14 Porphobilinogen 10/26/2017 Porphobilinogen 0.7 0.0-2.0 [Mass/volume] in 24 hour [Mass/volume] in 24 hour Urine Urine 24 hour urine 10/26/2017 24 hour urine 0.7 0.0-1.5 porphobilinogen porphobilinogen measurement (mass/ti measurement (mass/time) 24 hour urine delta 10/26/2017 24 hour urine delta 3.2 Undefined aminolevulinate aminolevulinate measurement (m measurement (mass/volume) 24 hour urine delta 10/26/2017 24 hour urine delta 3.4 0.5-5.1 aminolevulinate aminolevulinate measurement (m measurement (mass/time) RDW RBC Auto-Rto 10/15/2017 RDW RBC Auto-Rto 12.9 11.6-15.8 RDW RBC Auto 10/15/2017 RDW RBC Auto 40.3 36-51 Potassium SerPl-sCnc 10/15/2017 Potassium SerPl-sCnc 4.1 3.5-5.1 Neutrophils/leuk NFr Bld 10/15/2017 Neutrophils/leuk NFr Bld 63.3 33.0- 73.0 Auto Auto Neutrophils # Bld Auto 10/15/2017 Neutrophils # Bld Auto 4.28 1.8-7.0 Monocytes/leuk NFr Bld 10/15/2017 Monocytes/leuk NFr Bld 8.9 0.0-10.0 Auto Auto Lymphocytes/leuk NFr Bld 10/15/2017 Lymphocytes/leuk NFr Bld 25.0 20.0- 42.0 Auto Auto Hgb A1c MFr Bld 10/15/2017 Hgb A1c MFr Bld 5.3 4.2-6.3 Globulin Ser Calc-mCnc 10/15/2017 Globulin Ser Calc-mCnc 4.3 1.9-4.3 Eosinophil/leuk NFr Bld 10/15/2017 Eosinophil/leuk NFr Bld 2.4 0.0-6.6 Auto Auto Chloride SerPl-sCnc 10/15/2017 Chloride SerPl-sCnc 108 High 98-107 Blood monocytes 10/15/2017 Blood monocytes 0.60 0.0-0.8 automated count automated count (number/volume) (number/volume) Serum carbon dioxide 10/15/2017 Serum carbon dioxide 28 21-32 measurement measurement Serum or plasma albumin 10/15/2017 Serum or plasma albumin 3.9 3.4-5.0 measurement measurement (mass/volume) (mass/volume) Serum or plasma alkaline 10/15/2017 Serum or plasma alkaline 67 45-117 phosphatase measurement phosphatase measurement ( (enzymatic activity/volume) Serum or plasma 10/15/2017 Serum or plasma 20 15-37 aspartate aspartate aminotransferase measure aminotransferase measurement (enzymatic activity/volume) Serum or plasma calcium 10/15/2017 Serum or plasma calcium 9.3 8.5-10.1 measurement measurement (mass/volume) (mass/volume) Serum or plasma creatine 10/15/2017 Serum or plasma creatine 188 39-308 kinase measurement kinase measurement (enzym (enzymatic activity/volume) Serum or plasma 10/15/2017 Serum or plasma 0.9 0.6-1.3 creatinine measurement creatinine measurement (mass/volum (mass/volume) Serum or plasma glucose 10/15/2017 Serum or plasma glucose 101 74-106 measurement measurement (mass/volume) (mass/volume) Serum or plasma protein 10/15/2017 Serum or plasma protein 8.2 6.4-8.2 measurement measurement (mass/volume) (mass/volume) Serum or plasma total 10/15/2017 Serum or plasma total 0.5 0.2-1.0 bilirubin measurement bilirubin measurement (mass/ (mass/volume) Serum or plasma urea 10/15/2017 Serum or plasma urea 9 7-18 nitrogen measurement nitrogen measurement (mass/vo (mass/volume) Serum sodium measurement 10/15/2017 Serum sodium measurement 143 136-145 Ua RFX Micro & Culture 10/15/2017 Urine Color YELLOW Yellow 15 II Urine Clarity CLEAR Clear 15 Urine Glucose - Dipstick NEGATIVE mg/dL Negative 15 Urine Bilirubin - Dipstick NEGATIVE Negative 15 Urine Ketone NEGATIVE mg/dL Negative 15 Urine Specific [place] 1.020 1.010-1.030 15 Urine Blood NEGATIVE Negative 15 Urine PH 6.0 Low 6.5-7.5 15 Urine Protein - Dipstick NEGATIVE mg/dL Negative 15 Urine Urobilinogen - Dipstick 0.2 E.U./dL 0.2-1.0 15 Urine Nitrite - Dipstick NEGATIVE Negative 15 Urine Leuk Esterase NEGATIVE Negative 15 Source: URINE, CLEAN CAT <SEE NOTE> 15, 16 Color Ur 10/15/2017 Color Ur Yellow Yellow Ketones Ur 10/15/2017 Ketones Ur Negative Negative Strip.auto-mCnc Strip.auto-mCnc Leukocyte esterase Ur 10/15/2017 Leukocyte esterase Ur Negative Negative Ql Strip.auto Ql Strip.auto Nitrite Ur Ql 10/15/2017 Nitrite Ur Ql Negative Negative Strip.auto Strip.auto Prot Ur Strip.auto-mCnc 10/15/2017 Prot Ur Negative Negative Strip.auto-mCnc Specific gravity of 10/15/2017 Specific gravity of 1.020 1.010-1.030 Urine by Automated test Urine by Automated strip test strip Urine appearance 10/15/2017 Urine appearance Clear Clear determination determination Urine glucose 10/15/2017 Urine glucose Negative Negative measurement by measurement by automated test strip automated test strip (mass/volume) Urine hemoglobin 10/15/2017 Urine hemoglobin Negative Negative detection by automated detection by automated test strip test strip Urine total bilirubin 10/15/2017 Urine total bilirubin Negative Negative detection by automated detection by automated test test strip Urobilinogen Ur 10/15/2017 Urobilinogen Ur 0.2 0.2-1.0 Strip-aCnc Strip-aCnc pH Ur Strip.auto 10/15/2017 pH Ur Strip.auto 6.0 Low 6.5-7.5 CBS W/Automated Diff 10/15/2017 White Blood Count 6.8 K/uL 3.4-10.5 15 Red Blood Count 5.03 M/uL 4.20-5.80 15 Hemoglobin 15.4 gm/dL 12.8-17.0 15 Hematocrit 44.2 % 38.0-48.0 15 Mean Cell Volume 87.9 fl 80.0-96.0 15 Mean Corpuscular HGB 30.6 pg 27.0-33.0 15 Mean Corpuscular HGB Conc 34.8 g/dL 31.7-36.0 15 Platelet Count 246 K/uL 155-360 15 Red Cell Distri Width SD 40.3 fl 36-51 15 Red Cell Distri Width %CV 12.9 % 11.6-15.8 15 Mean Platelet Volume 9.1 fL 6.6-10.6 15 Neut% 63.3 % 33.0-73.0 15 Lymph % 25.0 % 20.0-42.0 15 [place] % 8.9 % 0.0-10.0 15 Eo% 2.4 % 0.0-6.6 15 Bas% 0.4 % 0.0-1.1 15 Neut# 4.28 K/uL 1.8-7.0 15 Lymph # 1.69 K/uL 1.0-4.0 15 [place] # 0.60 K/uL 0.0-0.8 15 Eos # 0.16 K/uL 0.0-0.5 15 Baso # 0.03 K/uL 0.0-0.1 15 Glycohemoglobin A1c 10/15/2017 Glycohemoglobin (A1c) 5.3 % 4.2-6.3 15, 17 eAG 105 mg/dL 15 Alt SerPl-cCnc 10/15/2017 Alt SerPl-cCnc 31 12-78 Blood leukocytes 10/15/2017 Blood leukocytes 6.8 3.4-10.5 automated count automated count (number/volume) (number/volume) Blood hemoglobin 10/15/2017 Blood hemoglobin 15.4 12.8-17.0 measurement measurement (mass/volume) (mass/volume) Blood estimated 10/15/2017 Blood estimated 105 average glucose average glucose determination by e determination by estimation from glycated hemoglobin (mass/volume) Blood erythrocytes 10/15/2017 Blood erythrocytes 5.03 4.20-5.80 automated count automated count (number/volume) (number/volume) Basophils/leuk NFr 10/15/2017 Basophils/leuk NFr 0.4 0.0-1.1 Bld Auto Bld Auto BUN/Creat SerPl 10/15/2017 BUN/Creat SerPl 10.0 Automated erythrocyte 10/15/2017 Automated erythrocyte 87.9 80.0-96.0 mean corpuscular mean corpuscular volume volume Automated erythrocyte 10/15/2017 Automated erythrocyte 34.8 31.7-36.0 mean corpuscular mean corpuscular hemoglobin hemoglobin concentration measurement (mass/volume) Automated erythrocyte 10/15/2017 Automated erythrocyte 30.6 27.0-33.0 mean corpuscular mean corpuscular hemoglobin hemoglobin (mass per erythrocyte) Albumin/Glob SerPl 10/15/2017 Albumin/Glob SerPl 0.9 Automated blood 10/15/2017 Automated blood 9.1 6.6-10.6 platelet mean volume platelet mean volume measurement measurement Automated blood 10/15/2017 Automated blood 246 155-360 platelet count platelet count Automated blood 10/15/2017 Automated blood 1.69 1.0-4.0 lymphocyte count lymphocyte count (number/volume) (number/volume) Automated blood 10/15/2017 Automated blood 44.2 38.0-48.0 hematocrit (volume hematocrit (volume fraction) fraction) Automated blood 10/15/2017 Automated blood 0.16 0.0-0.5 eosinophil count eosinophil count Automated blood 10/15/2017 Automated blood 0.03 0.0-0.1 basophil count basophil count (count/volume) (count/volume) Anion Gap SerPl-sCnc 10/15/2017 Anion Gap SerPl-sCnc 7 Low 8-16 Erythrocyte 09/12/2017 Erythrocyte 4 0-15 sedimentation rate by sedimentation rate by 15 minute readin 15 minute reading Laboratory test 09/12/2017 Triglycerides 220 mg/dL High <150 18, 19 finding Hepatitis C Antibody < 0.1 s/corat 0.0-0.9 18, 20 Ceruloplasmin 24.4 mg/dL 16.0-31.0 18, 21 Sedimentation Rate 4 mm/hr 0-15 18, 22 C-Reactive Protein,Cardiac 0.69 mg/L <3.0 18 Chloride SerPl-sCnc 09/11/2017 Chloride SerPl-sCnc 108 High 98-107 Eosinophil/leuk NFr 09/11/2017 Eosinophil/leuk NFr 3.5 0.0-6.6 Bld Auto Bld Auto Globulin Ser Calc-mCnc 09/11/2017 Globulin Ser Calc-mCnc 4.3 1.9-4.3 Lymphocytes/leuk NFr 09/11/2017 Lymphocytes/leuk NFr 22.1 20.0-42.0 Bld Auto Bld Auto Monocytes/leuk NFr Bld 09/11/2017 Monocytes/leuk NFr Bld 7.2 0.0-10.0 Auto Auto Neutrophils # Bld Auto 09/11/2017 Neutrophils # Bld Auto 4.57 1.8-7.0 Neutrophils/leuk NFr 09/11/2017 Neutrophils/leuk NFr 66.9 33.0-73.0 Bld Auto Bld Auto Potassium SerPl-sCnc 09/11/2017 Potassium SerPl-sCnc 4.1 3.5-5.1 RDW RBC Auto 09/11/2017 RDW RBC Auto 41.0 36-51 RDW RBC Auto-Rto 09/11/2017 RDW RBC Auto-Rto 13.1 11.6-15.8 Serum carbon dioxide 09/11/2017 Serum carbon dioxide 29 21-32 measurement measurement Serum or plasma 09/11/2017 Serum or plasma 4.1 3.4-5.0 albumin measurement albumin measurement (mass/volume) (mass/volume) Serum or plasma 09/11/2017 Serum or plasma 75 45-117 alkaline phosphatase alkaline phosphatase measurement ( measurement (enzymatic activity/volume) Serum or plasma 09/11/2017 Serum or plasma 41 High 15-37 aspartate aspartate aminotransferase aminotransferase measure measurement (enzymatic activity/volume) Serum or plasma 09/11/2017 Serum or plasma 9.3 8.5-10.1 calcium measurement calcium measurement (mass/volume) (mass/volume) Serum or plasma 09/11/2017 Serum or plasma 1.0 0.6-1.3 creatinine measurement creatinine measurement (mass/volum (mass/volume) Serum or plasma 09/11/2017 Serum or plasma 108 High 74-106 glucose measurement glucose measurement (mass/volume) (mass/volume) Serum or plasma lipase 09/11/2017 Serum or plasma lipase 72 56-289 measurement (enzymatic measurement (enzymatic acti activity/volume) Serum or plasma 09/11/2017 Serum or plasma 8.4 High 6.4-8.2 protein measurement protein measurement (mass/volume) (mass/volume) Serum or plasma total 09/11/2017 Serum or plasma total 0.8 0.2-1.0 bilirubin measurement bilirubin measurement (mass/ (mass/volume) Serum or plasma urea 09/11/2017 Serum or plasma urea 13 7-18 nitrogen measurement nitrogen measurement (mass/vo (mass/volume) Serum sodium 09/11/2017 Serum sodium 142 136-145 measurement measurement Urine glucose 09/11/2017 Urine glucose Negative Negative measurement by measurement by automated test strip automated test strip (mass/volume) Urine appearance 09/11/2017 Urine appearance Clear Clear determination determination Specific gravity of 09/11/2017 Specific gravity of 1.020 1.010-1.030 Urine by Automated Urine by Automated test strip test strip Prot Ur 09/11/2017 Prot Ur Negative Negative Strip.auto-mCnc Strip.auto-mCnc Nitrite Ur Ql 09/11/2017 Nitrite Ur Ql Negative Negative Strip.auto Strip.auto Leukocyte esterase Ur 09/11/2017 Leukocyte esterase Ur Negative Negative Ql Strip.auto Ql Strip.auto Ketones Ur 09/11/2017 Ketones Ur Negative Negative Strip.auto-mCnc Strip.auto-mCnc Color Ur 09/11/2017 Color Ur Yellow Yellow Ua RFX Micro & Culture 09/11/2017 Urine Color YELLOW Yellow 23 II Urine Clarity CLEAR Clear 23 Urine Glucose - Dipstick NEGATIVE mg/dL Negative 23 Urine Bilirubin - Dipstick NEGATIVE Negative 23 Urine Ketone NEGATIVE mg/dL Negative 23 Urine Specific [place] 1.020 1.010-1.030 23 Urine Blood TRACE Negative 23 Urine PH 6.0 Low 6.5-7.5 23 Urine Protein - Dipstick NEGATIVE mg/dL Negative 23 Urine Urobilinogen - Dipstick 0.2 E.U./dL 0.2-1.0 23 Urine Nitrite - Dipstick NEGATIVE Negative 23 Urine Leuk Esterase NEGATIVE Negative 23 Source: URINE, CLEAN CAT <SEE NOTE> 23, 24 Urine hemoglobin 09/11/2017 Urine hemoglobin Trace Negative detection by automated detection by automated test strip test strip Urine total bilirubin 09/11/2017 Urine total bilirubin Negative Negative detection by automated detection by automated test test strip Urobilinogen Ur 09/11/2017 Urobilinogen Ur 0.2 0.2-1.0 Strip-aCnc Strip-aCnc pH Ur Strip.auto 09/11/2017 pH Ur Strip.auto 6.0 Low 6.5-7.5 CBS W/Automated Diff 09/11/2017 White Blood Count 6.8 K/uL 3.4-10.5 23 Red Blood Count 5.56 M/uL 4.20-5.80 23 Hemoglobin 17.0 gm/dL 12.8-17.0 23 Hematocrit 48.1 % High 38.0-48.0 23 Mean Cell Volume 86.5 fl 80.0-96.0 23 Mean Corpuscular HGB 30.6 pg 27.0-33.0 23 Mean Corpuscular HGB Conc 35.3 g/dL 31.7-36.0 23 Platelet Count 233 K/uL 155-360 23 Red Cell Distri Width SD 41.0 fl 36-51 23 Red Cell Distri Width %CV 13.1 % 11.6-15.8 23 Mean Platelet Volume 9.3 fL 6.6-10.6 23 Neut% 66.9 % 33.0-73.0 23 Lymph % 22.1 % 20.0-42.0 23 [place] % 7.2 % 0.0-10.0 23 Eo% 3.5 % 0.0-6.6 23 Bas% 0.3 % 0.0-1.1 23 Neut# 4.57 K/uL 1.8-7.0 23 Lymph # 1.51 K/uL 1.0-4.0 23 [place] # 0.49 K/uL 0.0-0.8 23 Eos # 0.24 K/uL 0.0-0.5 23 Baso # 0.02 K/uL 0.0-0.1 23 Alt SerPl-cCnc 09/11/2017 Alt SerPl-cCnc 53 12-78 Albumin/Glob SerPl 09/11/2017 Albumin/Glob SerPl 1.0 Blood monocytes 09/11/2017 Blood monocytes 0.49 0.0-0.8 automated count automated count (number/volume) (number/volume) Blood leukocytes 09/11/2017 Blood leukocytes 6.8 3.4-10.5 automated count automated count (number/volume) (number/volume) Blood hemoglobin 09/11/2017 Blood hemoglobin 17.0 12.8-17.0 measurement measurement (mass/volume) (mass/volume) Blood erythrocytes 09/11/2017 Blood erythrocytes 5.56 4.20-5.80 automated count automated count (number/volume) (number/volume) Basophils/leuk NFr 09/11/2017 Basophils/leuk NFr 0.3 0.0-1.1 Bld Auto Bld Auto BUN/Creat SerPl 09/11/2017 BUN/Creat SerPl 13.0 Automated 09/11/2017 Automated 86.5 80.0-96.0 erythrocyte mean erythrocyte mean corpuscular volume corpuscular volume Automated 09/11/2017 Automated 35.3 31.7-36.0 erythrocyte mean erythrocyte mean corpuscular corpuscular hemoglobin hemoglobin concentration measurement (mass/volume) Automated 09/11/2017 Automated 30.6 27.0-33.0 erythrocyte mean erythrocyte mean corpuscular corpuscular hemoglobin hemoglobin (mass per erythrocyte) Anion Gap SerPl-sCnc 09/11/2017 Anion Gap 5 Low 8-16 SerPl-sCnc Automated blood 09/11/2017 Automated blood 0.02 0.0-0.1 basophil count basophil count (count/volume) (count/volume) Automated blood 09/11/2017 Automated blood 0.24 0.0-0.5 eosinophil count eosinophil count Automated blood 09/11/2017 Automated blood 48.1 High 38.0-48.0 hematocrit (volume hematocrit (volume fraction) fraction) Automated blood 09/11/2017 Automated blood 1.51 1.0-4.0 lymphocyte count lymphocyte count (number/volume) (number/volume) Automated blood 09/11/2017 Automated blood 233 155-360 platelet count platelet count Automated blood 09/11/2017 Automated blood 9.3 6.6-10.6 platelet mean volume platelet mean measurement volume measurement Giardia lamblia 09/10/2017 Giardia lamblia Negative For antigen assay antigen assay Giardia Specific Antigen. Stool 09/10/2017 Stool Negative For Cryptosporidium Cryptosporidium Cryptosporidium parvum antigen parvum antigen Specific Antigen detection by detection by immunoassay Stool bacteria 09/10/2017 Stool bacteria Organism: No identification by identification by Enteric Pathogens culture culture Isolated Stool Escherichia 09/10/2017 Stool Escherichia Shiga Toxin 1 Not coli Shiga-like coli Shiga-like Detected toxin 1 detectio toxin 1 detection by immunoassay Stool Escherichia 09/10/2017 Stool Escherichia See Note 25 coli Shiga toxin 2 coli Shiga toxin 2 detection by detection by immunoassay Clostridium 09/10/2017 Clostridium Negative for difficile Dna difficile Dna toxigenic C. detection by probe detection by probe difficile by PCR and t and target amplification method Serum carbon dioxide 09/07/2017 Serum carbon 27 21-32 measurement dioxide measurement RDW RBC Auto-Rto 09/07/2017 RDW RBC Auto-Rto 12.8 11.6-15.8 RDW RBC Auto 09/07/2017 RDW RBC Auto 39.8 36-51 Potassium SerPl-sCnc 09/07/2017 Potassium 3.7 3.5-5.1 SerPl-sCnc Neutrophils/leuk NFr 09/07/2017 Neutrophils/leuk 71.7 33.0-73.0 Bld Auto NFr Bld Auto Neutrophils # Bld 09/07/2017 Neutrophils # Bld 6.11 1.8-7.0 Auto Auto Monocytes/leuk NFr 09/07/2017 Monocytes/leuk NFr 7.8 0.0-10.0 Bld Auto Bld Auto Lymphocytes/leuk NFr 09/07/2017 Lymphocytes/leuk 17.9 Low 20.0-42.0 Bld Auto NFr Bld Auto Globulin Ser 09/07/2017 Globulin Ser 4.4 High 1.9-4.3 Calc-mCnc Calc-mCnc Eosinophil/leuk NFr 09/07/2017 Eosinophil/leuk NFr 2.4 0.0-6.6 Bld Auto Bld Auto Chloride SerPl-sCnc 09/07/2017 Chloride SerPl-sCnc 108 High 98-107 Serum or plasma 09/07/2017 Serum or plasma 3.9 3.4-5.0 albumin measurement albumin measurement (mass/volume) (mass/volume) Serum or plasma 09/07/2017 Serum or plasma 68 45-117 alkaline phosphatase alkaline measurement ( phosphatase measurement (enzymatic activity/volume) Serum or plasma 09/07/2017 Serum or plasma 31 15-37 aspartate aspartate aminotransferase aminotransferase measure measurement (enzymatic activity/volume) Serum or plasma 09/07/2017 Serum or plasma 9.1 8.5-10.1 calcium measurement calcium measurement (mass/volume) (mass/volume) Serum or plasma 09/07/2017 Serum or plasma 0.9 0.6-1.3 creatinine creatinine measurement measurement (mass/volum (mass/volume) Serum or plasma 09/07/2017 Serum or plasma 87 74-106 glucose measurement glucose measurement (mass/volume) (mass/volume) Serum or plasma 09/07/2017 Serum or plasma 74 56-289 lipase measurement lipase measurement (enzymatic acti (enzymatic activity/volume) Serum or plasma 09/07/2017 Serum or plasma 8.3 High 6.4-8.2 protein measurement protein measurement (mass/volume) (mass/volume) Serum or plasma 09/07/2017 Serum or plasma 0.6 0.2-1.0 total bilirubin total bilirubin measurement (mass/ measurement (mass/volume) Serum or plasma urea 09/07/2017 Serum or plasma 13 7-18 nitrogen measurement urea nitrogen (mass/vo measurement (mass/volume) Serum sodium 09/07/2017 Serum sodium 142 136-145 measurement measurement Ua RFX Micro & 09/07/2017 Urine Color YELLOW Yellow 26 Culture II Urine Clarity CLEAR Clear 26 Urine Glucose - Dipstick NEGATIVE mg/dL Negative 26 Urine Bilirubin - Dipstick NEGATIVE Negative 26 Urine Ketone NEGATIVE mg/dL Negative 26 Urine Specific [place] 1.010 1.010-1.030 26 Urine Blood NEGATIVE Negative 26 Urine PH 6.0 Low 6.5-7.5 26 Urine Protein - Dipstick NEGATIVE mg/dL Negative 26 Urine Urobilinogen - Dipstick 0.2 E.U./dL 0.2-1.0 26 Urine Nitrite - Dipstick NEGATIVE Negative 26 Urine Leuk Esterase NEGATIVE Negative 26 Source: URINE, CLEAN CAT <SEE NOTE> 26, 27 Color Ur 09/07/2017 Color Ur Yellow Yellow Ketones Ur 09/07/2017 Ketones Ur Negative Negative Strip.auto-mCnc Strip.auto-mCnc Leukocyte esterase Ur 09/07/2017 Leukocyte esterase Ur Negative Negative Ql Strip.auto Ql Strip.auto Nitrite Ur Ql 09/07/2017 Nitrite Ur Ql Negative Negative Strip.auto Strip.auto Prot Ur Strip.auto-mCnc 09/07/2017 Prot Ur Negative Negative Strip.auto-mCnc Specific gravity of 09/07/2017 Specific gravity of 1.010 1.010-1.030 Urine by Automated test Urine by Automated strip test strip Urine appearance 09/07/2017 Urine appearance Clear Clear determination determination Urine glucose 09/07/2017 Urine glucose Negative Negative measurement by measurement by automated test strip automated test strip (mass/volume) Urine hemoglobin 09/07/2017 Urine hemoglobin Negative Negative detection by automated detection by automated test strip test strip Urine total bilirubin 09/07/2017 Urine total bilirubin Negative Negative detection by automated detection by automated test test strip Urobilinogen Ur 09/07/2017 Urobilinogen Ur 0.2 0.2-1.0 Strip-aCnc Strip-aCnc pH Ur Strip.auto 09/07/2017 pH Ur Strip.auto 6.0 Low 6.5-7.5 CBS W/Automated Diff 09/07/2017 White Blood Count 8.5 K/uL 3.4-10.5 26 Red Blood Count 5.37 M/uL 4.20-5.80 26 Hemoglobin 16.5 gm/dL 12.8-17.0 26 Hematocrit 46.3 % 38.0-48.0 26 Mean Cell Volume 86.2 fl 80.0-96.0 26 Mean Corpuscular HGB 30.7 pg 27.0-33.0 26 Mean Corpuscular HGB Conc 35.6 g/dL 31.7-36.0 26 Platelet Count 230 K/uL 155-360 26 Red Cell Distri Width SD 39.8 fl 36-51 26 Red Cell Distri Width %CV 12.8 % 11.6-15.8 26 Mean Platelet Volume 9.1 fL 6.6-10.6 26 Neut% 71.7 % 33.0-73.0 26 Lymph % 17.9 % Low 20.0-42.0 26 [place] % 7.8 % 0.0-10.0 26 Eo% 2.4 % 0.0-6.6 26 Bas% 0.2 % 0.0-1.1 26 Neut# 6.11 K/uL 1.8-7.0 26 Lymph # 1.52 K/uL 1.0-4.0 26 [place] # 0.66 K/uL 0.0-0.8 26 Eos # 0.20 K/uL 0.0-0.5 26 Baso # 0.02 K/uL 0.0-0.1 26 Alt SerPl-cCnc 09/07/2017 Alt SerPl-cCnc 43 12-78 Albumin/Glob SerPl 09/07/2017 Albumin/Glob SerPl 0.9 Blood monocytes 09/07/2017 Blood monocytes 0.66 0.0-0.8 automated count automated count (number/volume) (number/volume) Blood leukocytes 09/07/2017 Blood leukocytes 8.5 3.4-10.5 automated count automated count (number/volume) (number/volume) Blood hemoglobin 09/07/2017 Blood hemoglobin 16.5 12.8-17.0 measurement measurement (mass/volume) (mass/volume) Blood erythrocytes 09/07/2017 Blood erythrocytes 5.37 4.20-5.80 automated count automated count (number/volume) (number/volume) Basophils/leuk NFr Bld 09/07/2017 Basophils/leuk NFr Bld 0.2 0.0-1.1 Auto Auto BUN/Creat SerPl 09/07/2017 BUN/Creat SerPl 14.4 Automated erythrocyte 09/07/2017 Automated erythrocyte 86.2 80.0-96.0 mean corpuscular volume mean corpuscular volume Automated erythrocyte 09/07/2017 Automated erythrocyte 35.6 31.7-36.0 mean corpuscular mean corpuscular hemoglobin hemoglobin concentration measurement (mass/volume) Automated erythrocyte 09/07/2017 Automated erythrocyte 30.7 27.0-33.0 mean corpuscular mean corpuscular hemoglobin hemoglobin (mass per erythrocyte) Automated blood platelet 09/07/2017 Automated blood platelet 9.1 6.6- 10.6 mean volume measurement mean volume measurement Automated blood platelet 09/07/2017 Automated blood platelet 230 155-360 count count Automated blood 09/07/2017 Automated blood 1.52 1.0-4.0 lymphocyte count lymphocyte count (number/volume) (number/volume) Automated blood 09/07/2017 Automated blood 46.3 38.0-48.0 hematocrit (volume hematocrit (volume fraction) fraction) Automated blood 09/07/2017 Automated blood 0.20 0.0-0.5 eosinophil count eosinophil count Automated blood basophil 09/07/2017 Automated blood basophil 0.02 0.0- 0.1 count (count/volume) count (count/volume) Anion Gap SerPl-sCnc 09/07/2017 Anion Gap SerPl-sCnc 7 Low 8-16 Ketones Ur 08/14/2017 Ketones Ur Trace High Negative Strip.auto-mCnc Strip.auto-mCnc Color Ur 08/14/2017 Color Ur Yellow Yellow Ua RFX Micro & Culture 08/14/2017 Urine Color YELLOW Yellow 28 II Urine Clarity CLEAR Clear 28 Urine Glucose - Dipstick NEGATIVE mg/dL Negative 28 Urine Bilirubin - Dipstick NEGATIVE Negative 28 Urine Ketone TRACE mg/dL High Negative 28 Urine Specific [place] 1.015 1.010-1.030 28 Urine Blood NEGATIVE Negative 28 Urine PH 6.0 Low 6.5-7.5 28 Urine Protein - Dipstick NEGATIVE mg/dL Negative 28 Urine Urobilinogen - Dipstick 0.2 E.U./dL 0.2-1.0 28 Urine Nitrite - Dipstick NEGATIVE Negative 28 Urine Leuk Esterase NEGATIVE Negative 28 Source: URINE, CLEAN CAT <SEE NOTE> 28, 29 WBC # Bld Auto 08/14/2017 WBC # Bld Auto 7.6 3.4-10.5 Serum sodium 08/14/2017 Serum sodium 140 136-145 measurement measurement Serum or plasma urea 08/14/2017 Serum or plasma urea 13 7-18 nitrogen measurement nitrogen measurement (mass/vo (mass/volume) Serum or plasma total 08/14/2017 Serum or plasma total 0.8 0.2-1.0 bilirubin measurement bilirubin measurement (mass/ (mass/volume) Serum or plasma 08/14/2017 Serum or plasma 8.2 6.4-8.2 protein measurement protein measurement (mass/volume) (mass/volume) Serum or plasma lipase 08/14/2017 Serum or plasma lipase 88 56-289 measurement (enzymatic measurement (enzymatic acti activity/volume) Serum or plasma 08/14/2017 Serum or plasma 107 High 74-106 glucose measurement glucose measurement (mass/volume) (mass/volume) Serum or plasma 08/14/2017 Serum or plasma 1.0 0.6-1.3 creatinine measurement creatinine measurement (mass/volum (mass/volume) Serum or plasma 08/14/2017 Serum or plasma 9.2 8.5-10.1 calcium measurement calcium measurement (mass/volume) (mass/volume) Leukocyte esterase Ur 08/14/2017 Leukocyte esterase Ur Negative Negative Ql Strip.auto Ql Strip.auto Nitrite Ur Ql 08/14/2017 Nitrite Ur Ql Negative Negative Strip.auto Strip.auto Prot Ur 08/14/2017 Prot Ur Negative Negative Strip.auto-mCnc Strip.auto-mCnc Specific gravity of 08/14/2017 Specific gravity of 1.015 1.010-1.030 Urine by Automated Urine by Automated test strip test strip Urine appearance 08/14/2017 Urine appearance Clear Clear determination determination Urine glucose 08/14/2017 Urine glucose Negative Negative measurement by measurement by automated test strip automated test strip (mass/volume) Urine hemoglobin 08/14/2017 Urine hemoglobin Negative Negative detection by automated detection by automated test strip test strip Urine total bilirubin 08/14/2017 Urine total bilirubin Negative Negative detection by automated detection by automated test test strip Urobilinogen Ur 08/14/2017 Urobilinogen Ur 0.2 0.2-1.0 Strip-aCnc Strip-aCnc pH Ur Strip.auto 08/14/2017 pH Ur Strip.auto 6.0 Low 6.5-7.5 Basophils/leuk NFr Bld 08/14/2017 Basophils/leuk NFr Bld 0.3 0.0-1.1 Auto Auto BUN/Creat SerPl 08/14/2017 BUN/Creat SerPl 13.0 Automated erythrocyte 08/14/2017 Automated erythrocyte 88.1 80.0-96.0 mean corpuscular mean corpuscular volume volume Automated erythrocyte 08/14/2017 Automated erythrocyte 35.2 31.7-36.0 mean corpuscular mean corpuscular hemoglobin hemoglobin concentration measurement (mass/volume) Automated erythrocyte 08/14/2017 Automated erythrocyte 31.0 27.0-33.0 mean corpuscular mean corpuscular hemoglobin hemoglobin (mass per erythrocyte) Automated blood 08/14/2017 Automated blood 9.1 6.6-10.6 platelet mean volume platelet mean volume measurement measurement Automated blood 08/14/2017 Automated blood 236 155-360 platelet count platelet count Automated blood 08/14/2017 Automated blood 1.30 1.0-4.0 lymphocyte count lymphocyte count (number/volume) (number/volume) Automated blood 08/14/2017 Automated blood 45.8 38.0-48.0 hematocrit (volume hematocrit (volume fraction) fraction) Automated blood 08/14/2017 Automated blood 0.19 0.0-0.5 eosinophil count eosinophil count Automated blood 08/14/2017 Automated blood 0.02 0.0-0.1 basophil count basophil count (count/volume) (count/volume) Anion Gap SerPl-sCnc 08/14/2017 Anion Gap SerPl-sCnc 5 Low 8-16 Albumin/Glob SerPl 08/14/2017 Albumin/Glob SerPl 1.0 Alt SerPl-cCnc 08/14/2017 Alt SerPl-cCnc 51 12-78 Laboratory test 08/14/2017 Lipase 88 U/L 56-289 28 finding Comprehensive 08/14/2017 Glucose 107 mg/dL High 74-106 28 Metabolic Panel BUN 13 mg/dL 7-18 28 Creatinine 1.0 mg/dL 0.6-1.3 28 Glom Filtration Rate, Estimate >60 mL/min >60 28 If >60 mL/min >60 28, 30 BUN/Creat 13.0 ratio 28 Sodium 140 mmol/L 136-145 28 Potassium 4.2 mmol/L 3.5-5.1 28 Chloride 107 mmol/L 98-107 28 Carbon Dioxide 28 mmol/L 21-32 28 Anion Gap 5 mEq/L Low 8-16 28 Calcium 9.2 mg/dL 8.5-10.1 28 Total Protein 8.2 g/dL 6.4-8.2 28 Albumin 4.1 g/dL 3.4-5.0 28 Globulin 4.1 g/dL 1.9-4.3 28 Alb/Glob 1.0 ratio 28 Bilirubin,Total 0.8 mg/dL 0.2-1.0 28 Sgot/Ast 36 U/L 15-37 28 SGPT/Alt 51 U/L 12-78 28 Alkaline Phosphatase 78 U/L 45-117 28 CBS W/Automated Diff 08/14/2017 White Blood Count 7.6 K/uL 3.4-10.5 28 Red Blood Count 5.20 M/uL 4.20-5.80 28 Hemoglobin 16.1 gm/dL 12.8-17.0 28 Hematocrit 45.8 % 38.0-48.0 28 Mean Cell Volume 88.1 fl 80.0-96.0 28 Mean Corpuscular HGB 31.0 pg 27.0-33.0 28 Mean Corpuscular HGB Conc 35.2 g/dL 31.7-36.0 28 Platelet Count 236 K/uL 155-360 28 Red Cell Distri Width SD 41.8 fl 36-51 28 Red Cell Distri Width %CV 13.1 % 11.6-15.8 28 Mean Platelet Volume 9.1 fL 6.6-10.6 28 Neut% 72.6 % 33.0-73.0 28 Lymph % 17.1 % Low 20.0-42.0 28 [place] % 7.5 % 0.0-10.0 28 Eo% 2.5 % 0.0-6.6 28 Bas% 0.3 % 0.0-1.1 28 Neut# 5.53 K/uL 1.8-7.0 28 Lymph # 1.30 K/uL 1.0-4.0 28 [place] # 0.57 K/uL 0.0-0.8 28 Eos # 0.19 K/uL 0.0-0.5 28 Baso # 0.02 K/uL 0.0-0.1 28 Serum or plasma 08/14/2017 Serum or plasma 36 15-37 aspartate aspartate aminotransferase measure aminotransferase measurement (enzymatic activity/volume) Serum or plasma alkaline 08/14/2017 Serum or plasma 78 45-117 phosphatase measurement alkaline phosphatase ( measurement (enzymatic activity/volume) Serum or plasma albumin 08/14/2017 Serum or plasma albumin 4.1 3.4-5.0 measurement measurement (mass/volume) (mass/volume) Serum carbon dioxide 08/14/2017 Serum carbon dioxide 28 21-32 measurement measurement RDW RBC Auto-Rto 08/14/2017 RDW RBC Auto-Rto 13.1 11.6-15.8 RDW RBC Auto 08/14/2017 RDW RBC Auto 41.8 36-51 Potassium SerPl-sCnc 08/14/2017 Potassium SerPl-sCnc 4.2 3.5-5.1 Neutrophils/leuk NFr Bld 08/14/2017 Neutrophils/leuk NFr 72.6 33.0-73.0 Auto Bld Auto Neutrophils # Bld Auto 08/14/2017 Neutrophils # Bld Auto 5.53 1.8-7.0 Monocytes/leuk NFr Bld 08/14/2017 Monocytes/leuk NFr Bld 7.5 0.0-10.0 Auto Auto Lymphocytes/leuk NFr Bld 08/14/2017 Lymphocytes/leuk NFr 17.1 Low 20.0- 42.0 Auto Bld Auto Globulin Ser Calc-mCnc 08/14/2017 Globulin Ser Calc-mCnc 4.1 1.9-4.3 Eosinophil/leuk NFr Bld 08/14/2017 Eosinophil/leuk NFr Bld 2.5 0.0-6.6 Auto Auto Chloride SerPl-sCnc 08/14/2017 Chloride SerPl-sCnc 107 98-107 Blood monocytes 08/14/2017 Blood monocytes 0.57 0.0-0.8 automated count automated count (number/volume) (number/volume) Blood hemoglobin 08/14/2017 Blood hemoglobin 16.1 12.8-17.0 measurement measurement (mass/volume) (mass/volume) Blood erythrocytes 08/14/2017 Blood erythrocytes 5.20 4.20-5.80 automated count automated count (number/volume) (number/volume) Rapid Influenza A & B 08/13/2017 Influenza A Molecular NEGATIVE Negative 31 Molecular Influenza B Molecular NEGATIVE Negative Serum or plasma 08/03/2017 Serum or plasma 101 74-106 glucose measurement glucose measurement (mass/volume) (mass/volume) Serum or plasma 08/03/2017 Serum or plasma 1.0 0.6-1.3 creatinine measurement creatinine measurement (mass/volum (mass/volume) Serum or plasma 08/03/2017 Serum or plasma 405 High 39-308 creatine kinase creatine kinase measurement (enzym measurement (enzymatic activity/volume) Serum or plasma 08/03/2017 Serum or plasma 9.2 8.5-10.1 calcium measurement calcium measurement (mass/volume) (mass/volume) Serum or plasma 08/03/2017 Serum or plasma 35 15-37 aspartate aspartate aminotransferase aminotransferase measure measurement (enzymatic activity/volume) Serum or plasma 08/03/2017 Serum or plasma 77 45-117 alkaline phosphatase alkaline phosphatase measurement ( measurement (enzymatic activity/volume) Serum or plasma 08/03/2017 Serum or plasma 4.1 3.4-5.0 albumin measurement albumin measurement (mass/volume) (mass/volume) Serum carbon dioxide 08/03/2017 Serum carbon dioxide 29 21-32 measurement measurement Serum or plasma 08/03/2017 Serum or plasma 8.2 6.4-8.2 protein measurement protein measurement (mass/volume) (mass/volume) Serum or plasma total 08/03/2017 Serum or plasma total 0.6 0.2-1.0 bilirubin measurement bilirubin measurement (mass/ (mass/volume) Serum or plasma urea 08/03/2017 Serum or plasma urea 16 7-18 nitrogen measurement nitrogen measurement (mass/vo (mass/volume) Serum sodium 08/03/2017 Serum sodium 140 136-145 measurement measurement WBC # Bld Auto 08/03/2017 WBC # Bld Auto 7.8 3.4-10.5 Laboratory test 08/03/2017 Troponin-I < 0.015 32, 33 finding ng/mL CBS W/Automated Diff 08/03/2017 White Blood Count 7.8 K/uL 3.4-10.5 32 Red Blood Count 5.28 M/uL 4.20-5.80 32 Hemoglobin 15.9 gm/dL 12.8-17.0 32 Hematocrit 45.6 % 38.0-48.0 32 Mean Cell Volume 86.4 fl 80.0-96.0 32 Mean Corpuscular HGB 30.1 pg 27.0-33.0 32 Mean Corpuscular HGB Conc 34.9 g/dL 31.7-36.0 32 Platelet Count 257 K/uL 155-360 32 Red Cell Distri Width SD 40.2 fl 36-51 32 Red Cell Distri Width %CV 13.0 % 11.6-15.8 32 Mean Platelet Volume 9.0 fL 6.6-10.6 32 Neut% 63.3 % 33.0-73.0 32 Lymph % 25.8 % 20.0-42.0 32 [place] % 7.3 % 0.0-10.0 32 Eo% 3.2 % 0.0-6.6 32 Bas% 0.4 % 0.0-1.1 32 Neut# 4.93 K/uL 1.8-7.0 32 Lymph # 2.01 K/uL 1.0-4.0 32 [place] # 0.57 K/uL 0.0-0.8 32 Eos # 0.25 K/uL 0.0-0.5 32 Baso # 0.03 K/uL 0.0-0.1 32 Alt SerPl-cCnc 08/03/2017 Alt SerPl-cCnc 50 12-78 Albumin/Glob SerPl 08/03/2017 Albumin/Glob SerPl 1.0 Anion Gap SerPl-sCnc 08/03/2017 Anion Gap SerPl-sCnc 4 Low 8-16 Automated blood basophil 08/03/2017 Automated blood basophil 0.03 0.0- 0.1 count (count/volume) count (count/volume) Automated blood 08/03/2017 Automated blood 0.25 0.0-0.5 eosinophil count eosinophil count Automated blood 08/03/2017 Automated blood 45.6 38.0-48.0 hematocrit (volume hematocrit (volume fraction) fraction) Automated blood 08/03/2017 Automated blood 2.01 1.0-4.0 lymphocyte count lymphocyte count (number/volume) (number/volume) Automated blood platelet 08/03/2017 Automated blood platelet 257 155-360 count count Automated blood platelet 08/03/2017 Automated blood platelet 9.0 6.6- 10.6 mean volume measurement mean volume measurement Automated erythrocyte 08/03/2017 Automated erythrocyte 30.1 27.0-33.0 mean corpuscular mean corpuscular hemoglobin hemoglobin (mass per erythrocyte) Automated erythrocyte 08/03/2017 Automated erythrocyte 34.9 31.7-36.0 mean corpuscular mean corpuscular hemoglobin hemoglobin concentration measurement (mass/volume) Automated erythrocyte 08/03/2017 Automated erythrocyte 86.4 80.0-96.0 mean corpuscular volume mean corpuscular volume RDW RBC Auto-Rto 08/03/2017 RDW RBC Auto-Rto 13.0 11.6-15.8 RDW RBC Auto 08/03/2017 RDW RBC Auto 40.2 36-51 Potassium SerPl-sCnc 08/03/2017 Potassium SerPl-sCnc 4.1 3.5-5.1 Neutrophils/leuk NFr Bld 08/03/2017 Neutrophils/leuk NFr Bld 63.3 33.0- 73.0 Auto Auto Neutrophils # Bld Auto 08/03/2017 Neutrophils # Bld Auto 4.93 1.8-7.0 Monocytes/leuk NFr Bld 08/03/2017 Monocytes/leuk NFr Bld 7.3 0.0-10.0 Auto Auto Lymphocytes/leuk NFr Bld 08/03/2017 Lymphocytes/leuk NFr Bld 25.8 20.0- 42.0 Auto Auto Globulin Ser Calc-mCnc 08/03/2017 Globulin Ser Calc-mCnc 4.1 1.9-4.3 Eosinophil/leuk NFr Bld 08/03/2017 Eosinophil/leuk NFr Bld 3.2 0.0-6.6 Auto Auto Chloride SerPl-sCnc 08/03/2017 Chloride SerPl-sCnc 107 98-107 Blood monocytes 08/03/2017 Blood monocytes automated 0.57 0.0-0.8 automated count count (number/volume) (number/volume) Blood hemoglobin 08/03/2017 Blood hemoglobin 15.9 12.8-17.0 measurement measurement (mass/volume) (mass/volume) Blood erythrocytes 08/03/2017 Blood erythrocytes 5.28 4.20-5.80 automated count automated count (number/volume) (number/volume) Basophils/leuk NFr Bld 08/03/2017 Basophils/leuk NFr Bld 0.4 0.0-1.1 Auto Auto BUN/Creat SerPl 08/03/2017 BUN/Creat SerPl 16.0 RDW RBC Auto-Rto 05/02/2017 RDW RBC Auto-Rto 12.9 11.6-15.8 RDW RBC Auto 05/02/2017 RDW RBC Auto 39.8 36-51 Potassium SerPl-sCnc 05/02/2017 Potassium SerPl-sCnc 4.3 3.5-5.1 Platelets [#/volume] in 05/02/2017 Platelets [#/volume] in 229 150-400 Blood by Automated count Blood by Automated count PMV Bld Auto 05/02/2017 PMV Bld Auto 9.0 6.6-10.6 Neutrophils/leuk NFr Bld 05/02/2017 Neutrophils/leuk NFr Bld 62.4 33.0- 73.0 Auto Auto Neutrophils # Bld Auto 05/02/2017 Neutrophils # Bld Auto 4.18 1.8-7.0 Monocytes/leuk NFr Bld 05/02/2017 Monocytes/leuk NFr Bld 8.7 0.0-10.0 Auto Auto Lymphocytes/leuk NFr Bld 05/02/2017 Lymphocytes/leuk NFr Bld 25.0 20.0- 42.0 Auto Auto Serum or plasma albumin 05/02/2017 Serum or plasma albumin 3.7 3.4-5.0 measurement measurement (mass/volume) (mass/volume) Serum or plasma alkaline 05/02/2017 Serum or plasma alkaline 79 45-117 phosphatase measurement phosphatase measurement ( (enzymatic activity/volume) Serum or plasma calcium 05/02/2017 Serum or plasma calcium 9.1 8.5-10.1 measurement measurement (mass/volume) (mass/volume) Serum or plasma 05/02/2017 Serum or plasma 1.0 0.6-1.3 creatinine measurement creatinine measurement (mass/volum (mass/volume) Serum or plasma lipase 05/02/2017 Serum or plasma lipase 92 56-289 measurement (enzymatic measurement (enzymatic acti activity/volume) Serum or plasma protein 05/02/2017 Serum or plasma protein 7.9 6.4-8.2 measurement measurement (mass/volume) (mass/volume) Serum or plasma total 05/02/2017 Serum or plasma total 0.6 0.2-1.0 bilirubin measurement bilirubin measurement (mass/ (mass/volume) Serum or plasma urea 05/02/2017 Serum or plasma urea 13 7-18 nitrogen measurement nitrogen measurement (mass/vo (mass/volume) Sodium SerPl-sCnc 05/02/2017 Sodium SerPl-sCnc 141 136-145 WBC # Bld Auto 05/02/2017 WBC # Bld Auto 6.7 3.4-10.5 Albumin/Glob SerPl 05/02/2017 Albumin/Glob SerPl 0.9 Ua RFX Micro & Culture 05/02/2017 Urine Color YELLOW Yellow 34 II Urine Clarity CLEAR Clear 34 Urine Glucose - Dipstick NEGATIVE mg/dL Negative 34 Urine Bilirubin - Dipstick NEGATIVE Negative 34 Urine Ketone NEGATIVE mg/dL Negative 34 Urine Specific [place] 1.020 1.010-1.030 34 Urine Blood NEGATIVE Negative 34 Urine PH 6.5 6.5-7.5 34 Urine Protein - Dipstick NEGATIVE mg/dL Negative 34 Urine Urobilinogen - Dipstick 0.2 E.U./dL 0.2-1.0 34 Urine Nitrite - Dipstick NEGATIVE Negative 34 Urine Leuk Esterase NEGATIVE Negative 34 Source: URINE, CLEAN CAT <SEE NOTE> 34, 35 Color Ur 05/02/2017 Color Ur Yellow Yellow Ketones Ur 05/02/2017 Ketones Ur Negative Negative Strip.auto-mCnc Strip.auto-mCnc Leukocyte esterase Ur Ql 05/02/2017 Leukocyte esterase Ur Negative Negative Strip.auto Ql Strip.auto Nitrite Ur Ql Strip.auto 05/02/2017 Nitrite Ur Ql Negative Negative Strip.auto Prot Ur Strip.auto-mCnc 05/02/2017 Prot Ur Strip.auto-mCnc Negative Negative Specific gravity of 05/02/2017 Specific gravity of 1.020 1.010-1.030 Urine by Automated test Urine by Automated test strip strip Urine appearance 05/02/2017 Urine appearance Clear Clear determination determination Urine glucose 05/02/2017 Urine glucose Negative Negative measurement by automated measurement by test strip automated test strip (mass/volume) Urine hemoglobin 05/02/2017 Urine hemoglobin Negative Negative detection by automated detection by automated test strip test strip Urine total bilirubin 05/02/2017 Urine total bilirubin Negative Negative detection by automated detection by automated test test strip Urobilinogen Ur 05/02/2017 Urobilinogen Ur 0.2 0.2-1.0 Strip-aCnc Strip-aCnc pH Ur Strip.auto 05/02/2017 pH Ur Strip.auto 6.5 6.5-7.5 CBS W/Automated Diff 05/02/2017 White Blood Count 6.7 K/uL 3.4-10.5 34 Red Blood Count 5.40 M/uL 4.20-5.80 34 Hemoglobin 16.2 gm/dL 12.8-17.0 34 Hematocrit 46.0 % 38.0-48.0 34 Mean Cell Volume 85.2 fl 80.0-96.0 34 Mean Corpuscular HGB 30.0 pg 27.0-33.0 34 Mean Corpuscular HGB Conc 35.2 g/dL 31.7-36.0 34 Platelet Count 229 K/uL 150-400 34 Red Cell Distri Width SD 39.8 fl 36-51 34 Red Cell Distri Width %CV 12.9 % 11.6-15.8 34 Mean Platelet Volume 9.0 fL 6.6-10.6 34 Neut% 62.4 % 33.0-73.0 34 Lymph % 25.0 % 20.0-42.0 34 [place] % 8.7 % 0.0-10.0 34 Eo% 3.6 % 0.0-6.6 34 Bas% 0.3 % 0.0-1.1 34 Neut# 4.18 K/uL 1.8-7.0 34 Lymph # 1.67 K/uL 1.0-4.0 34 [place] # 0.58 K/uL 0.0-0.8 34 Eos # 0.24 K/uL 0.0-0.5 34 Baso # 0.02 K/uL 0.0-0.1 34 Comprehensive Metabolic Panel 05/02/2017 Glucose 104 mg/dL 74-106 34 BUN 13 mg/dL 7-18 34 Creatinine 1.0 mg/dL 0.6-1.3 34 Glom Filtration Rate, Estimate >60 mL/min >60 34 If >60 mL/min >60 34, 36 BUN/Creat 13.0 ratio 34 Sodium 141 mmol/L 136-145 34 Potassium 4.3 mmol/L 3.5-5.1 34 Chloride 108 mmol/L High 98-107 34 Carbon Dioxide 29 mmol/L 21-32 34 Anion Gap 4 mEq/L Low 8-16 34 Calcium 9.1 mg/dL 8.5-10.1 34 Total Protein 7.9 g/dL 6.4-8.2 34 Albumin 3.7 g/dL 3.4-5.0 34 Globulin 4.2 g/dL 1.9-4.3 34 Alb/Glob 0.9 ratio 34 Bilirubin,Total 0.6 mg/dL 0.2-1.0 34 Sgot/Ast 34 U/L 15-37 34 SGPT/Alt 44 U/L 12-78 34 Alkaline Phosphatase 79 U/L 45-117 34 Laboratory test 05/02/2017 Lipase 92 U/L 56-289 34 finding Alt SerPl-cCnc 05/02/2017 Alt SerPl-cCnc 44 12-78 Lymphocytes [#/volume] 05/02/2017 Lymphocytes 1.67 1.0-4.0 in Blood by Automated [#/volume] in Blood count by Automated count Hct VFr Bld Auto 05/02/2017 Hct VFr Bld Auto 46.0 38.0-48.0 Glucose [Mass/volume] 05/02/2017 Glucose [Mass/volume] 104 74-106 in Serum or Plasma in Serum or Plasma Globulin Ser Calc-mCnc 05/02/2017 Globulin Ser 4.2 1.9-4.3 Calc-mCnc Eosinophil/leuk NFr 05/02/2017 Eosinophil/leuk NFr 3.6 0.0-6.6 Bld Auto Bld Auto Eosinophil # Bld Auto 05/02/2017 Eosinophil # Bld Auto 0.24 0.0-0.5 Chloride SerPl-sCnc 05/02/2017 Chloride SerPl-sCnc 108 High 98-107 Co2 SerPl-sCnc 05/02/2017 Co2 SerPl-sCnc 29 21-32 Blood monocytes 05/02/2017 Blood monocytes 0.58 0.0-0.8 automated count automated count (number/volume) (number/volume) Blood hemoglobin 05/02/2017 Blood hemoglobin 16.2 12.8-17.0 measurement measurement (mass/volume) (mass/volume) Blood erythrocytes 05/02/2017 Blood erythrocytes 5.40 4.20-5.80 automated count automated count (number/volume) (number/volume) Anion Gap SerPl-sCnc 05/02/2017 Anion Gap SerPl-sCnc 4 Low 8-16 Aspartate 05/02/2017 Aspartate 34 15-37 aminotransferase aminotransferase [Enzymatic [Enzymatic activity/vol activity/volume] in Serum or Plasma Automated erythrocyte 05/02/2017 Automated erythrocyte 30.0 27.0-33.0 mean corpuscular mean corpuscular hemoglobin hemoglobin (mass per erythrocyte) Automated erythrocyte 05/02/2017 Automated erythrocyte 35.2 31.7-36.0 mean corpuscular mean corpuscular hemoglobin hemoglobin concentration measurement (mass/volume) Automated erythrocyte 05/02/2017 Automated erythrocyte 85.2 80.0-96.0 mean corpuscular mean corpuscular volume volume BUN/Creat SerPl 05/02/2017 BUN/Creat SerPl 13.0 Basophils [#/volume] 05/02/2017 Basophils [#/volume] 0.02 0.0-0.1 in Blood by Automated in Blood by Automated count count Basophils/leuk NFr Bld 05/02/2017 Basophils/leuk NFr 0.3 0.0-1.1 Auto Bld Auto Serum or plasma 01/12/2017 Serum or plasma 31.3 30.0-100.0 25-hydroxyvitamin D 25-hydroxyvitamin D measurement (m measurement (mass/volume) Serum or plasma 01/12/2017 Serum or plasma 46 >40 cholesterol in HDL cholesterol in HDL measurement (ma measurement (mass/volume) Serum or plasma 01/12/2017 Serum or plasma 125 High 0-99 cholesterol in LDL cholesterol in LDL measurement by measurement by direct assay (mass/volume) Serum or plasma gamma 01/12/2017 Serum or plasma gamma 54 5-85 glutamyl transferase glutamyl transferase measure measurement (enzymatic activity/volume) Serum or plasma total 01/12/2017 Serum or plasma total 0.5 0.2-1.0 bilirubin measurement bilirubin measurement (mass/ (mass/volume) Serum or plasma 01/12/2017 Serum or plasma 109 <150 triglyceride triglyceride measurement (mass/vol measurement (mass/volume) Serum or plasma 01/12/2017 Serum or plasma 477 193-986 vitamin B12 vitamin B12 measurement (mass/volu measurement (mass/volume) Sodium SerPl-sCnc 01/12/2017 Sodium SerPl-sCnc 141 136-145 WBC # Bld Auto 01/12/2017 WBC # Bld Auto 7.9 3.4-10.5 Laboratory test 01/12/2017 Triglycerides 109 <150 37, 38 finding mg/dL Direct LDL Cholesterol 01/12/2017 LDL Chol. (Direct) 125 High 0-99 37, 39 mg/dL Laboratory test 01/12/2017 HDL Cholesterol 46 mg/dL >40 37, 40 finding Vitamin D,25-Hydroxy 31.3 ng/mL 30.0-100.0 37, 41 Vitamin B12 477 pg/mL 193-986 37, 42 Comprehensive Metabolic Panel 01/12/2017 Glucose 100 mg/dL 74-106 37 BUN 11 mg/dL 7-18 37 Creatinine 0.9 mg/dL 0.6-1.3 37 Glom Filtration Rate, Estimate >60 mL/min >60 37 If >60 mL/min >60 37, 43 BUN/Creat 12.2 ratio 37 Sodium 141 mmol/L 136-145 37 Potassium 4.5 mmol/L 3.5-5.1 37 Chloride 106 mmol/L 98-107 37 Carbon Dioxide 27 mmol/L 21-32 37 Anion Gap 8 mEq/L 8-16 37 Calcium 8.6 mg/dL 8.5-10.1 37 Total Protein 7.1 g/dL 6.4-8.2 37 Albumin 3.5 g/dL 3.4-5.0 37 Globulin 3.6 g/dL 1.9-4.3 37 Alb/Glob 1.0 ratio 37 Bilirubin,Total 0.5 mg/dL 0.2-1.0 37 Sgot/Ast 33 U/L 15-37 37 SGPT/Alt 38 U/L 12-78 37 Alkaline Phosphatase 73 U/L 45-117 37 CBS W/Automated Diff 01/12/2017 White Blood Count 7.9 K/uL 3.4-10.5 37 Red Blood Count 4.56 M/uL 4.20-5.80 37 Hemoglobin 14.0 gm/dL 12.8-17.0 37 Hematocrit 40.4 % 38.0-48.0 37 Mean Cell Volume 88.6 fl 80.0-96.0 37 Mean Corpuscular HGB 30.7 pg 27.0-33.0 37 Mean Corpuscular HGB Conc 34.7 g/dL 31.7-36.0 37 Platelet Count 300 K/uL 150-400 37 Red Cell Distri Width SD 40.0 fl 36-51 37 Red Cell Distri Width %CV 12.7 % 11.6-15.8 37 Mean Platelet Volume 9.8 fL 6.6-10.6 37 Neut% 65.3 % 33.0-73.0 37 Lymph % 21.7 % 20.0-42.0 37 [place] % 10.1 % High 0.0-10.0 37 Eo% 2.5 % 0.0-6.6 37 Bas% 0.4 % 0.0-1.1 37 Neut# 5.18 K/uL 1.8-7.0 37 Lymph # 1.72 K/uL 1.0-4.0 37 [place] # 0.80 K/uL 0.0-0.8 37 Eos # 0.20 K/uL 0.0-0.5 37 Baso # 0.03 K/uL 0.0-0.1 37 Laboratory test 01/12/2017 Gamma Glutamyl 54 U/L 5-85 37, 44 finding Transpeptidase Eosinophil # Bld 01/12/2017 Eosinophil # Bld 0.20 0.0-0.5 Auto Auto Creat SerPl-mCnc 01/12/2017 Creat SerPl-mCnc 0.9 0.6-1.3 Chloride SerPl-sCnc 01/12/2017 Chloride SerPl-sCnc 106 98-107 Calcium SerPl-mCnc 01/12/2017 Calcium SerPl-mCnc 8.6 8.5-10.1 Co2 SerPl-sCnc 01/12/2017 Co2 SerPl-sCnc 27 21-32 Blood monocytes 01/12/2017 Blood monocytes 0.80 0.0-0.8 automated count automated count (number/volume) (number/volume) Blood hemoglobin 01/12/2017 Blood hemoglobin 14.0 12.8-17.0 measurement measurement (mass/volume) (mass/volume) Blood erythrocytes 01/12/2017 Blood erythrocytes 4.56 4.20-5.80 automated count automated count (number/volume) (number/volume) Basophils/leuk NFr 01/12/2017 Basophils/leuk NFr 0.4 0.0-1.1 Bld Auto Bld Auto Basophils [#/volume] 01/12/2017 Basophils [#/volume] 0.03 0.0-0.1 in Blood by in Blood by Automated count Automated count BUN/Creat SerPl 01/12/2017 BUN/Creat SerPl 12.2 BUN SerPl-mCnc 01/12/2017 BUN SerPl-mCnc 11 7-18 Automated 01/12/2017 Automated 34.7 31.7-36.0 erythrocyte mean erythrocyte mean corpuscular corpuscular hemoglobin hemoglobin concentration measurement (mass/volume) Automated 01/12/2017 Automated 30.7 27.0-33.0 erythrocyte mean erythrocyte mean corpuscular corpuscular hemoglobin hemoglobin (mass per erythrocyte) Aspartate 01/12/2017 Aspartate 33 15-37 aminotransferase aminotransferase [Enzymatic [Enzymatic activity/vol activity/volume] in Serum or Plasma Anion Gap SerPl-sCnc 01/12/2017 Anion Gap SerPl-sCnc 8 8-16 Albumin/Glob SerPl 01/12/2017 Albumin/Glob SerPl 1.0 Albumin SerPl-mCnc 01/12/2017 Albumin SerPl-mCnc 3.5 3.4-5.0 Alt SerPl-cCnc 01/12/2017 Alt SerPl-cCnc 38 12-78 Alp SerPl-cCnc 01/12/2017 Alp SerPl-cCnc 73 45-117 Eosinophil/leuk NFr 01/12/2017 Eosinophil/leuk NFr 2.5 0.0-6.6 Bld Auto Bld Auto Globulin Ser 01/12/2017 Globulin Ser 3.6 1.9-4.3 Calc-mCnc Calc-mCnc PMV Bld Auto 01/12/2017 PMV Bld Auto 9.8 6.6-10.6 Platelets [#/volume] 01/12/2017 Platelets [#/volume] 300 150-400 in Blood by in Blood by Automated count Automated count Potassium SerPl-sCnc 01/12/2017 Potassium SerPl-sCnc 4.5 3.5-5.1 Prot SerPl-mCnc 01/12/2017 Prot SerPl-mCnc 7.1 6.4-8.2 RDW RBC Auto 01/12/2017 RDW RBC Auto 40.0 36-51 RDW RBC Auto-Rto 01/12/2017 RDW RBC Auto-Rto 12.7 11.6-15.8 Glucose 01/12/2017 Glucose 100 74-106 [Mass/volume] in [Mass/volume] in Serum or Plasma Serum or Plasma Hct VFr Bld Auto 01/12/2017 Hct VFr Bld Auto 40.4 38.0-48.0 Lymphocytes 01/12/2017 Lymphocytes 1.72 1.0-4.0 [#/volume] in Blood [#/volume] in Blood by Automated count by Automated count Lymphocytes/leuk NFr 01/12/2017 Lymphocytes/leuk NFr 21.7 20.0-42.0 Bld Auto Bld Auto MCV RBC Auto 01/12/2017 MCV RBC Auto 88.6 80.0-96.0 Monocytes/leuk NFr 01/12/2017 Monocytes/leuk NFr 10.1 High 0.0-10.0 Bld Auto Bld Auto Neutrophils # Bld 01/12/2017 Neutrophils # Bld 5.18 1.8-7.0 Auto Auto Neutrophils/leuk NFr 01/12/2017 Neutrophils/leuk NFr 65.3 33.0-73.0 Bld Auto Bld Auto Color Ur 12/11/2016 Color Ur Yellow Yellow Ketones Ur 12/11/2016 Ketones Ur Trace High Negative Strip.auto-mCnc Strip.auto-mCnc Leukocyte esterase 12/11/2016 Leukocyte esterase Negative Negative Ur Ql Strip.auto Ur Ql Strip.auto Nitrite Ur Ql 12/11/2016 Nitrite Ur Ql Negative Negative Strip.auto Strip.auto pH Ur Strip.auto 12/11/2016 pH Ur Strip.auto 5.5 Low 6.5-7.5 Urobilinogen Ur 12/11/2016 Urobilinogen Ur 0.2 0.2-1.0 Strip-aCnc Strip-aCnc Urine total 12/11/2016 Urine total Negative Negative bilirubin detection bilirubin detection by automated test by automated test strip Urine hemoglobin 12/11/2016 Urine hemoglobin Negative Negative detection by detection by automated test strip automated test strip Urine glucose 12/11/2016 Urine glucose Negative Negative measurement by measurement by automated test strip automated test strip (mass/volume) Urine appearance 12/11/2016 Urine appearance Clear Clear determination determination Prot Ur 12/11/2016 Prot Ur Negative Negative Strip.auto-mCnc Strip.auto-mCnc Laboratory test 09/13/2016 Anti-Nuclear Negative Negative 45 finding Antibodies Direct AU/mL Actin (Smooth Muscle) Antibody 7 units 0-19 45, 46 Mitochondrial (M2) Antibodies 3.0 units 0.0-20.0 45, 47 Obgdv-4-Tqiqqazrzqo,Serum 129 mg/dL 90-200 45 Ceruloplasmin 30.9 mg/dL 16.0-31.0 45 Protein Electro.,S 09/13/2016 Protein,Total,Serum 7.4 g/dL 6.0-8.5 45 Albumin 3.8 g/dL 2.9-4.4 45 Tikaw-6-Fdcgrydp 0.2 g/dL 0.0-0.4 45 Zkydu-6-Urclhtqk 0.6 g/dL 0.4-1.0 45 Beta Globulin 1.4 g/dL High 0.7-1.3 45 Gamma Globulin 1.3 g/dL 0.4-1.8 45 M-Mohamud Not Observed g/dL Not Observed 45 Globulin, Total 3.6 g/dL 2.2-3.9 45 A/G Ratio 1.1 0.7-1.7 45 Please Note: (SEE NOTE) 45, 48 P E Interpretation, Serum (SEE NOTE) 45, 49 Laboratory test 09/13/2016 Hepatitis A Nonreactive Nonreactive 45, 50 finding Antibody -IgM Hepatitis A AB, Total Negative Negative 45 Hepatitis B Core Antibody-IgM Nonreactive Nonreactive 45, 51 Hep B Core AB Total Negative Negative 45 Hepatitis C Antibody 09/13/2016 Hepatitis C Antibody Nonreactive Nonreactive 45 Signal/Cutoff ratio < 0.02 <0.80 45, 52 Iron-Tibc-%Sat 09/13/2016 Serum Iron 75 g/dL 65-175 45 Total Iron Binding Capacity 401 g/dL 250-450 45 Transferrin %Saturation 19 % 12-57 45 Laboratory test finding 09/13/2016 Ferritin 85 ng/mL 26-388 45 Hepatitis C Virus Rna (PCR)-QL Negative Negative 45, 53 Liver Function Tests 03/03/2009 Total Protein 7.4 g/dL 6.3-8.0 Albumin 3.9 g/dL 3.5-5.0 Bilirubin,Total 1.1 mg/dL 0.2-1.2 Bilirubin,Direct 0.2 mg/dL 0.1-0.4 Bilirubin,Indirect 0.9 mg/dL 0.0-0.9 Sgot/Ast 124 U/L High 16-40 SGPT/Alt 178 U/L High 30-65 Alkaline Phosphatase 87 U/L 50-136 Globulin 3.5 gm/dL 1.9-4.3 Alb/Glob 1.1 1 VOMITING SINCE THIS AM 2 URINE, CLEAN CATCH 3 E27.8 4 Performed at: - [facility] [address] [id number] Rn Behavioral Health: Lissett Perez MD, Phone: [phone] 5 Concentrations of Normetanephrine between 146 and 487 pg/mL, and Metanephrine between 63 and 255 pg/mL are considered indeterminate. Follow-up biochemical testing is recommended when patient levels fall within this indeterminate range. These tests include repeat testing of plasma/urinary fractionated metanephrines and plasma catecholamines. Performed at: - [facility] [address] [id number] Rn Behavioral Health: Kei London MD, Phone: [phone] 6 FEELS WARM 7 0.0 - 0.045 ng/mL: Normal 0.046 - 0.5 ng/mL: Suggestive 0.6 - 1.5 ng/mL: Consistent 8 Note: Persistent reduction for 3 months or more in an eGFR <60 mL/min/1.73 m2 defines CKD. Patients with eGFR values >/=60 mL/min/1.73 m2 may also have CKD if evidence of persistent proteinuria is present. The original MDRD equation for estimated GFR is not valid for patients less than 18 years of age. Additional information may be found at www.kdoqi.org. 9 0.0 - 0.045 ng/mL: Normal 0.046 - 0.5 ng/mL: Suggestive 0.6 - 1.5 ng/mL: Consistent 10 <=0.49 ug/mL - Low likelihood of DIC, DVT or Pulmonary Embolism >0.49 ug/mL - Additional testing should be done to rule out DIC, DVT, or Pulmonary embolism as clinically indicated. ([facility] has established a 97.89% negative predictive value for thrombotic disease when a cutoff value of 0.5 ug/mL is used.) 11 R10.9 12 Note: Persistent reduction for 3 months or more in an eGFR <60 mL/min/1.73 m2 defines CKD. Patients with eGFR values >/=60 mL/min/1.73 m2 may also have CKD if evidence of persistent proteinuria is present. The original MDRD equation for estimated GFR is not valid for patients less than 18 years of age. Additional information may be found at www.kdoqi.org. 13 This test was developed and its performance characteristics determined by [employer]. It has not been cleared or approved by the Food and Drug Administration. 14 This test was developed and its performance characteristics determined by [employer]. It has not been cleared or approved by the Food and Drug Administration. Performed at: [facility] [id number] Rn Behavioral Health: Kei London MD, Phone: [phone] 15 POSS REACTION TO MILK,BLURRED VISION,DIZZY 16 URINE, CLEAN CATCH 17 Elevated levels of HbA1c suggest the need for more aggressive treatment of glycemia. The [place] [employer] recommends that a primary goal of therapy should be a HbA1c of <7% and that physicians should re-evaluate the treatment regimen in patients with HbA1c values consistently >8%. 18 K76.0 19 Reference Guidelines*: Normal: ............. < 150 mg/dL Borderline High: .... 150-199 mg/dL High: ............... 200-499 mg/dL Very High: .......... > 500 mg/dL * Source: National Cholesterol Education Program (NCEP) 20 INFCE Result Units: s/co ratio Negative: < 0.8 Indeterminate: 0.8 - 0.9 Positive: > 0.9 The CDC recommends that a positive HCV antibody result be followed up with a HCV Nucleic Acid Amplification test (025321). Performed at: [address] [id number] Rn Behavioral Health: Lissett Perez MD, Phone: [phone] 21 Performed at: [facility] [address] [id number] Rn Behavioral Health: Lissett Perez MD, Phone: [phone] 22 Method: Sediplast Modified Westergren 23 DIARRHEA, POSSIBLE DEHYDRATION 24 URINE, CLEAN CATCH 25 Shiga Toxin 2 Not Detected Method: ImmunoCard Stat/Ehec Rapid Immunochromatographic Assay 26 DIARRHEA 27 URINE, CLEAN CATCH 28 N/V/D 29 URINE, CLEAN CATCH 30 Note: Persistent reduction for 3 months or more in an eGFR <60 mL/min/1.73 m2 defines CKD. Patients with eGFR values >/=60 mL/min/1.73 m2 may also have CKD if evidence of persistent proteinuria is present. The original MDRD equation for estimated GFR is not valid for patients less than 18 years of age. Additional information may be found at www.kdoqi.org. 31 V Belt Finisher: [id number] 32 CP, COLD CHILLS 33 0.0 - 0.045 ng/mL: Normal 0.046 - 0.5 ng/mL: Suggestive 0.6 - 1.5 ng/mL: Consistent 34 VOMITING 35 URINE, CLEAN CATCH 36 Note: Persistent reduction for 3 months or more in an eGFR <60 mL/min/1.73 m2 defines CKD. Patients with eGFR values >/=60 mL/min/1.73 m2 may also have CKD if evidence of persistent proteinuria is present. The original MDRD equation for estimated GFR is not valid for patients less than 18 years of age. Additional information may be found at www.kdoqi.org. 37 Z13.220 K21.9 R94.5 Z13.220 K21.9 R94.5 Z13.21 Z13.220 K21.9 R94.5 Z13.21 38 Reference Guidelines*: Normal: ............. < 150 mg/dL Borderline High: .... 150-199 mg/dL High: ............... 200-499 mg/dL Very High: .......... > 500 mg/dL * Source: National Cholesterol Education Program (NCEP) 39 Performed at: RN - [facility] [address] [place], [place] [id number] Rn Behavioral Health: Lissett Perez MD, Phone: [phone] 40 Reference Guidelines*: Low HDL: ..... < 40 mg/dL Normal: ..... 40-60 mg/dL Desirable: ... > 60 mg/dL *The National Cholesterol Education Program(NCEP) 41 Vitamin D deficiency has been defined by the [place] of Medicine and an Endocrine Society practice guideline as a level of serum 25-OH vitamin D less than 20 ng/mL (1,2). The Endocrine Society went on to further define vitamin D insufficiency as a level between 21 and 29 ng/mL (2). 1. IOM ([place] of Medicine). 2010. Dietary reference intakes for calcium and D. [place]: The National Academies Press. 2. Trena MF, Matthew NC, Loly-Tray WAYNE, et al. Evaluation, treatment, and prevention of vitamin D deficiency: an Endocrine Society clinical practice guideline. JCEM. 2010; 96(7):1911-30. Performed at: RN - [facility] [address] [id number] Rn Behavioral Health: Lissett Perez MD, Phone: [phone] 42 Is Patient Fasting? Fasting 43 Note: Persistent reduction for 3 months or more in an eGFR <60 mL/min/1.73 m2 defines CKD. Patients with eGFR values >/=60 mL/min/1.73 m2 may also have CKD if evidence of persistent proteinuria is present. The original MDRD equation for estimated GFR is not valid for patients less than 18 years of age. Additional information may be found at www.kdoqi.org. 44 Is Patient Fasting? Fasting 45 R93.2 46 Negative 0 - 19 Weak positive 20 - 30 Moderate to strong positive >30 Actin Antibodies are found in 52-85% of patients with autoimmune hepatitis or chronic active hepatitis and in 22% of patients with primary biliary cirrhosis. 47 Negative 0.0 - 20.0 Equivocal 20.1 - 24.9 Positive >24.9 Mitochondrial (M2) Antibodies are found in 90-96% of patients with primary biliary cirrhosis. 48 Protein electrophoresis scan will follow via computer, mail, or pinball machine repairer delivery. 49 The SPE pattern appears essentially unremarkable. Evidence of monoclonal protein is not apparent. 50 IgM antibodies to HAV not detected; does not exclude early acute or recovered HAV infection. 51 IgM anti-HBc not detected. Does not exclude the possibility of exposure to or infection with HBV. 52 Antibodies to HCV not detected; does not exclude early acute HCV infection. 53 Negative: HCV RNA Not Detected Performed at: - [facility] [id number] Rn Behavioral Health: Lissett Perez MD, Phone: [phone] Performed at: [facility] [id number] Rn Behavioral Health: Kei London MD, Phone: [phone] Procedures Date CPT Code Description Status Comment 03/04/2018 99129 Measurement Post Voiding Completed Residual Urine By Ultrasound,Non-Imaging 03/04/2018 15942 complex uroflowmetry Completed electronic 09/20/2017 90450 Colonoscopy With Biopsy Completed 09/20/2017 99528 EGD With Biopsy Completed 11/07/2016 77796 Bronchospasm Provocation Completed Evaluation Multi Spirometric Determinati 11/07/2016 47076 Spirometry Completed 11/17/2015 03598 Asp./Injection major joint Completed 02/05/2008 84278 Colonoscopy With Polypectomy Completed 02/05/2008 79440 EGD With Biopsy Completed 02/05/2008 Colonoscopy Completed Document: 02/05/08 - Op Report - Colon Document: 02/05/08 - Final Pathology Report Encounters Type Date Location Provider CPT E/M Dx Office Visit 03/22/2018 3:00[place] [address] R11.10 K76.0 K52.832 K21.0 Office Visit 03/04/2018 3:15p Urology Cici Carbajal M.D. 58869 A63.0 E27.8 Office Visit 02/18/2018 3:20p Primary Care Office Vik De Los Santos M.D. 90701 I71.2 R11.10 Office Visit 01/31/2018 2:40p Primary Care Office Vik De Los Santos M.D. 56880 R11.10 K76.0 R51 N50.89 Z79.899 Office Visit 01/11/2018 3:00[place] [address] R11.10 K52.832 K21.0 Office Visit 12/05/2017 10:15[place] [address] R11.10 R10.9 K52.832 K21.0 Office Visit 11/09/2017 2:45[place] [address] K52.832 K21.0 R51 J45.991 Office Visit 11/02/2017 11:00a Primary Care Office Vik De Los Santos M.D. 01878 J01.90 R51 R03.0 Office Visit 10/31/2017 3:40p Primary Care Office Vik De Los Santos M.D. 88417 R11.10 K21.0 K52.832 J30.9 Office Visit 10/19/2017 1:30[place] [address] R51 K52.832 K21.0 J45.991 R10.9 Office Visit 10/17/2017 10:30a Primary Care Office Darek Sloan 49606 R10.32 M.DLupe Office Visit 10/05/2017 3:15[place] [address] K52.832 K21.0 J45.991 R11.10 K76.0 Office Visit 10/03/2017 2:45p [place] [address] J41.0 Office Visit 10/02/2017 11:40a Primary Care Office Vik De Los Santos M.D. 45896 R11.2 K21.0 R19.7 Z79.899 Office Visit 09/27/2017 10:00a Primary Care Office Darek Sloan 86932 R11.2 M.D. Office Visit 09/12/2017 4:30[place] [address] R93.3 R19.7 K76.0 Office Visit 09/04/2017 9:00a Primary Care Office Darek Sloan 02637 R19.7 MLupeDLupe Office Visit 08/29/2017 3:00[place] [address] K92.0 J45.991 R11.10 Office Visit 08/15/2017 2:40p Primary Care Office Vik De Los Santos M.D. 94184 R11.10 A09 K57.30 I71.2 Office Visit 08/01/2017 2:45p [place] [address] J45.991 J47.9 Office Visit 05/30/2017 3:00[place] [address] R11.10 J45.991 Office Visit 05/04/2017 2:40[place] [address] R05 R11.10 R10.11 Office Visit 04/18/2017 2:20p Primary Care Office Vik De Los Santos M.D. 08512 F41.9 R11.10 Office Visit 03/20/2017 11:00a Primary Care Office Vik De Los Santos M.D. 71736 R11.10 Z23 Office Visit 02/14/2017 2:45[place] [address] R93.2 R11.10 Office Visit 02/05/2017 11:40a Primary Care Office Vik De Los Santos M.D. 78803 R11.10 R05 J32.9 Office Visit 01/30/2017 3:40p Primary Care Office Vik De Los Santos M.D. 00554 J32.9 E78.5 Office Visit 01/22/2017 10:40a Primary Care Office Vik De Los Santos M.D. 02550 R51 Office Visit 12/05/2016 3:15p [place] [address] J47.9 Office Visit 10/17/2016 2:00p [place] [address] J41.0 Office Visit 09/13/2016 10:15[place] [address] R05 R11.10 R93.2 Office Visit 12/16/2015 3:00p Orthopaedic Office Vianey Alba, 36613 M25.562 [facility] M76.52 Office Visit 10/20/2015 2:45p Orthopaedic Office Vianey Alba Jar[place], 10597 M25.562 [facility] M76.52 Office Visit 08/11/2009 9:00a Orthopaedic Office Fausto Leroy Jarrod, [address]9040 845.00 719.06 Office Visit 02/20/2008 2:45p [place] [address] 211.3 Office Visit 01/30/2008 2:45p [place] [address] 578.0 536.2 Plan of Care Future Appointment(s):05/07/2018 3:00 pm - Emiliano Bates MD at GI03/27/2018 11:30 am - Cici Carbajal M.D. at Operating Room04/08/2018 3:00 pm - Latha Perdue MD at Cardiology Oabsmg0005/16/2018 3:40 pm - Vik De Los Santos M.D. at Primary Care Bbbelf3203/22/2018 - Chuck Suarez, MDR11.10 Vomiting, unspecifiedComments:Excessive coughing triggering gag reflex resulting in vomiting - Dr Nelson has seen him but the etiology is unclearAwaiting Neurology inputFollow up:F/U in 6 bcuroU35.0 Fatty (change of) liver, not elsewhere classifiedComments:Lifestyle modification including exercise d/w pt Fortunately , his recent CT scan does not show evidence of fatty liver idpjgcfO98.832 Lymphocytic colitisComments:Diarrhea is resuming after lowering the dose to 6mg or 2 tablets once a day - because of his recent low cortisol he is concerned and would like to taper off budesonide now - will lower budesonide to 3mg or 1tablet once a day for one month and off - he is going use imodium as cahxxeZ16.0 Gastro-esophageal reflux disease with esophagitis
--- OUTSIDE RECORDS SUMMARY | 2018-03-28 15:35 | XMS REPORT ---
:1970 External Reference #:[id number] Author Organization [facility] Address [address], [address] [place] [address] Phone [phone] Support Name Relationship Address Britney Manuel Mother [address] [phone] [place] [address] Care Team Providers Name Role Phone Vik De Los Santos MD Care Team Information [employer] Consultant Unavailable Vik De Los Santos MD Primary Care Physician Unavailable Payers Type Date Identification Numbers Payment Provider Subscriber Commercial Policy Number: [id number] [facility] Malik Ann PayID: [id number] [address] [place] [address] Problems Date Description Provider Status Onset: 09/13/2016 [...] Liver function tests abnormal Vik De Los Sanots M.D. Active Onset: 01/22/2017 Headache Vik De [...] organ Vik De Los Santos M.D. Active Family History Date Family Member(s) [...] Form Strength Qnty SIG Indications Ordering Provider Pantoprazole 01/[address] 20mg 90tab 1 by mouth K21.0 Young Sodium s every day MD Erick every morning Vitamin B12 10/19 Active Tablets 100mcg 30tab 1 tab by R51 s mouth MD Erick every day Budesonide 10/[address] 3mg 90cap 2 cap by K52.832 Part s carmencita Suarez MD every day Flonase Sensimist Active Suspension 27.5mcg/S 2 sprays Unknown /0000 pray every day Allergy Active weekly ( Unknown Injections /0000 for molds) Ondansetron 12/05 Hx Tablets 4mg 90tab 1 tab by R11.10 Dispers s mouth MD Erick - three 01/11 times a day as needed Amoxicillin 11/02 Hx Tablets 500mg 30tab take 1 J01.90 Filiberto, s tablet Andras, daily 3 M.D. times a day for 10 days Pantoprazole 10/[address] 40mg 90tab 1 by mouth K21.0 Young Sodium s every day MD Erick - every 01/31 Work Note 10/03 Hx Malik J41.0 Marshalleti Wood was MD Marquise seen in the office today. Please excuse him. Ondansetron HCL 09/27 Hx Tablets 8mg 30tab 1 tab by Steencken s mouth , - every 8 Darek, 01/11 hours as M.D. needed for nausea Pantoprazole 09/[address] 40mg 90tab 1 by mouth Young Sodium s every day MD Erick every morning Dulcolax 09/[address] 5mg 4tabs 4 tablets R93.3 taken a MD Erick - 8pm the 09/27 day before the procedure Citroma 09/12 Hx Solution 1.745GM/3 296ml 1 by mouth R93.3 2018 0ML once MD Erick - 09/27 Golytely 09/12 Hx Solution 236gm 4000m drink half R93.3 2018 Rec l the MD Erick - evening 09/27 before and /2017 half the morning of the procedure (1 cup every 10') Flovent HFA 05/30 Hx Aerosol 110mcg/Ac 12gm inhale 2 J45.991 Marshalleti, t pujonathan [place] MD - twice 08/01 daily after albuterol nebulizer treatment* shake well *rinse mouth after use Proair HFA 05/30 Hx Aerosol 108(90Bas 8.500 take 2 J45.991 Kheti e) gm puffs MD Marquise mcg/Act every 6 hours as needed for shortness of breath. Hydroxyzine HCL 04/18 Hx Tablets 25mg 30tab take 1 F41.9 Filiberto, s tablet by Andhudson, mouth 3 M.D. [...] directed Andhudson, - M.D. 02/05 No Active 01/11 Hx Unknown Medications /2016 - 01/22 Proair HFA 12/05 Hx Aerosol 108(90Bas 8.500 take 2 J47.9 Kheti e) gm puffs MD Marquise mcg/Act every 6 hours as needed for cough No Active 10/17 Hx Unknown Medications /2016 - 12/05 No Active 11/16 Hx Unknown Medications /2015 - 09/13 Nabumetone 10/19 Hx Tablets 750mg 60tab take 1 Pompo, s tablet by Leon, - mouth 2 M.D. 11/16 times a day with food Naproxen 00 Hx 500mg Unknown /0000 - 10/18 Nortriptyline HCL 00 Hx 50mg Jessica, Carolina Aponte MD 10/19 Hydrocodone-Aceta Hx 5-500mg Robenstei minophen /0000 Siomara brandon - 10/18 Omeprazole Hx 20mg Syam, Fadi Pratt MD 10/19 Amoxicillin / Hx 500mg Battels, 0000 MD Omid - 10/18 Zofran Hx Tablets 4mg 1 tablet Unknown /0000 by mouth every 8 hours as needed for nausea Protonix [address] 20mg 1 po every Unknown /0000 day Fluticasone Hx Suspension 50mcg/Act Unknown Propionate /0000 - 02/05 Ondansetron HCL Hx Tablets 4mg take 1 Unknown /0000 tablet by - mouth 09/04 hours if needed for nausea Omeprazole 00/[address] 20mg 60cap I tablet Unknown / s twice - daily 09/27 Oxycodone-Acetami 00 Hx Tablets 5-325mg take 1-2 Unknown nophen /0000 tablets by mouth every 4 to 6 hours if needed maximum daily d Ciprofloxacin HCL Hx Tablets 500mg take 1 Unknown /0000 tablet by - mouth 09/27 twice day Metronidazole 00/ Hx Tablets 500mg 1 po qd Unknown /0000 - 10/02 Ondansetron 00 Hx Tablets 8mg 1 sl every Unknown /0000 Dispers 8 hrs prn - 03/[address] 20mg take 1 Unknown Sodium /0000 tablet by - mouth 01/31 morning Medications Administered in Office Medication Date Status Form Strength Qnty SIG Indications Ordering Provider Depomedrol 80 Administered Injection mg Femi Alba [facility] Immunizations CPT Code Status Date Vaccine Lot # [id number] Given 03/20/2017 Influenza Virus Vaccine, Quadrivalent, [place] [id number] Given 01/11/2017 Tdap injection [id number] Vital Signs Date Vital Result Comment 03/04/2018 BP Systolic 135 mmHg BP Diastolic 92 mmHg Body Temperature 98.0 F Heart Rate 96 /min Respiratory Rate 18 /min Height 69 inches 5'9" Weight 190.00 lb BMI (Body Mass Index) 28.1 kg/m2 BSA (Body Surface Area) 2.02 m2 [place] body weight in kilograms 73 O2 % BldC Oximetry 97 % Pain Level 0 02/18/2018 BP Systolic Sitting Left Arm 126 mmHg BP Diastolic Sitting Left Arm 88 mmHg Body Temperature 98.1 F Heart Rate 73 /min Respiratory Rate 16 /min Height 69 inches 5'9" Weight 185.00 lb BMI (Body Mass Index) 27.3 kg/m2 BSA (Body Surface Area) 2.00 m2 [place] body weight in kilograms 73 O2 % BldC Oximetry 95 % Ra 01/31/2018 BP Systolic Sitting Left Arm 138 mmHg BP Diastolic Sitting Left Arm 96 mmHg Body Temperature 97.6 F Heart Rate 72 /min Respiratory Rate 20 /min Height 69 inches 5'9" Weight 191.00 lb BMI (Body Mass Index) 28.2 kg/m2 BSA (Body Surface Area) 2.03 m2 [place] body weight in kilograms 73 O2 % BldC Oximetry 96 % 01/11/2018 BP Systolic Sitting Right Arm 142 mmHg BP Diastolic Sitting Right Arm 84 mmHg Heart Rate 68 /min Respiratory Rate 20 /min Height 69 inches 5'9" Weight 192.00 lb BMI (Body Mass Index) 28.4 kg/m2 BSA (Body Surface Area) 2.03 m2 [place] body weight in kilograms 73 O2 % BldC Oximetry 96 % Ra Pain Level 8 while vomitting 12/05/2017 BP Systolic Sitting Left Arm 132 mmHg BP Diastolic Sitting Left Arm 96 mmHg Heart Rate 82 /min Respiratory Rate 18 /min Height 69 inches 5'9" Weight 188.00 lb BMI (Body Mass Index) 27.8 kg/m2 BSA (Body Surface Area) 2.01 m2 [place] body weight in kilograms 73 11/09/2017 BP Systolic Sitting Right Arm 134 mmHg BP Diastolic Sitting Right Arm 82 mmHg Heart Rate 81 /min Respiratory Rate 18 /min Height 69 inches 5'9" Weight 190.00 lb BMI (Body Mass Index) 28.1 kg/m2 BSA (Body Surface Area) 2.02 m2 [place] body weight in kilograms 73 11/02/2017 BP Systolic 151 mmHg BP Diastolic 98 mmHg Body Temperature 98.3 F Heart Rate 81 /min Respiratory Rate 16 /min Height 69 inches 5'9" Weight 189.12 lb BMI (Body Mass Index) 27.9 kg/m2 BSA (Body Surface Area) 2.02 m2 [place] body weight in kilograms 73 O2 % BldC Oximetry 97 % 10/31/2017 BP Systolic 124 mmHg BP Diastolic 90 mmHg Body Temperature 98.2 F Heart Rate 84 /min Respiratory Rate 16 /min Height 69 inches 5'9" Weight 187.00 lb BMI (Body Mass Index) 27.6 kg/m2 BSA (Body Surface Area) 2.01 m2 [place] body weight in kilograms 73 O2 % BldC Oximetry 95 % On Room Air 10/19/2017 BP Systolic Sitting Left Arm 162 mmHg BP Diastolic Sitting Left Arm 96 mmHg Heart Rate 91 /min Respiratory Rate 16 /min Height 69 inches 5'9" Weight 190.00 lb with boots BMI (Body Mass Index) 28.1 kg/m2 BSA (Body Surface Area) 2.02 m2 [place] body weight in kilograms 73 10/17/2017 BP Systolic 151 mmHg BP Diastolic 98 mmHg Heart Rate 72 /min Respiratory Rate 14 /min Height 69 inches 5'9" Weight 185.12 lb BMI (Body Mass Index) 27.3 kg/m2 BSA (Body Surface Area) 2.00 m2 [place] body weight in kilograms 73 O2 % BldC Oximetry 97 % 10/05/2017 BP Systolic Sitting Left Arm 130 mmHg BP Diastolic Sitting Left Arm 90 mmHg Heart Rate 76 /min Respiratory Rate 16 /min Height 69 inches 5'9" Weight 192.00 lb BMI (Body Mass Index) 28.4 kg/m2 BSA (Body Surface Area) 2.03 m2 [place] body weight in kilograms 73 10/03/2017 BP Systolic Sitting Left Arm 118 mmHg BP Diastolic Sitting Left Arm 88 mmHg Heart Rate 74 /min Respiratory Rate 16 /min Height 69 inches 5'9" Weight 191.00 lb BMI (Body Mass Index) 28.2 kg/m2 BSA (Body Surface Area) 2.03 m2 [place] body weight in kilograms 73 O2 % BldC Oximetry 98 % 10/02/2017 BP Systolic 137 mmHg BP Diastolic 85 mmHg Heart Rate 72 /min Respiratory Rate 14 /min Height 69 inches 5'9" Weight 190.12 lb BMI (Body Mass Index) 28.1 kg/m2 BSA (Body Surface Area) 2.02 m2 [place] body weight in kilograms 73 O2 % BldC Oximetry 97 % 09/27/2017 BP Systolic Sitting Left Arm 123 mmHg BP Diastolic Sitting Left Arm 83 mmHg Body Temperature 98.4 F Heart Rate 76 /min Respiratory Rate 18 /min Height 69 inches 5'9" Weight 186.00 lb BMI (Body Mass Index) 27.5 kg/m2 BSA (Body Surface Area) 2.00 m2 [place] body weight in kilograms 73 O2 % BldC Oximetry 94 % 09/12/2017 BP Systolic Sitting Left Arm 128 mmHg BP Diastolic Sitting Left Arm 84 mmHg Heart Rate 84 /min Respiratory Rate 16 /min Height 69 inches 5'9" Weight 192.00 lb BMI (Body Mass Index) 28.4 kg/m2 BSA (Body Surface Area) 2.03 m2 [place] body weight in kilograms 73 09/04/2017 BP Systolic Sitting Left Arm 122 mmHg BP Diastolic Sitting Left Arm 84 mmHg Body Temperature 97.2 F Heart Rate 72 /min Respiratory Rate 16 /min Height 69 inches 5'9" Weight 196.00 lb with steel toe boots BMI (Body Mass Index) 28.9 kg/m2 BSA (Body Surface Area) 2.05 m2 [place] body weight in kilograms 73 08/29/2017 BP Systolic Sitting Left Arm 122 mmHg BP Diastolic Sitting Left Arm 80 mmHg Heart Rate 74 /min Respiratory Rate 16 /min Height 69 inches 5'9" Weight 196.00 lb BMI (Body Mass Index) 28.9 kg/m2 BSA (Body Surface Area) 2.05 m2 [place] body weight in kilograms 73 08/15/2017 BP Systolic Sitting Right Arm 118 mmHg BP Diastolic Sitting Right Arm 81 mmHg Heart Rate 75 /min Height 69 inches 5'9" Weight 195.00 lb BMI (Body Mass Index) 28.8 kg/m2 BSA (Body Surface Area) 2.04 m2 [place] body weight in kilograms 73 O2 % BldC Oximetry 92 % ra 08/01/2017 BP Systolic Sitting Left Arm 136 mmHg BP Diastolic Sitting Left Arm 92 mmHg Heart Rate 72 /min Respiratory Rate 16 /min Height 69 inches 5'9" Weight 201.00 lb BMI (Body Mass Index) 29.7 kg/m2 BSA (Body Surface Area) 2.07 m2 [place] body weight in kilograms 73 O2 % BldC Oximetry 97 % 05/30/2017 BP Systolic Sitting Left Arm 128 mmHg BP Diastolic Sitting Left Arm 88 mmHg Heart Rate 71 /min Respiratory Rate 16 /min Height 69 inches 5'9" Weight 198.00 lb BMI (Body Mass Index) 29.2 kg/m2 BSA (Body Surface Area) 2.06 m2 [place] body weight in kilograms 73 O2 % BldC Oximetry 97 % 05/04/2017 BP Systolic Sitting Left Arm 120 mmHg BP Diastolic Sitting Left Arm 80 mmHg Heart Rate 70 /min Respiratory Rate 16 /min Height 69 inches 5'9" Weight 193.00 lb BMI (Body Mass Index) 28.5 kg/m2 BSA (Body Surface Area) 2.03 m2 [place] body weight in kilograms 73 04/18/2017 BP Systolic 133 mmHg BP Diastolic 91 mmHg Heart Rate 79 /min Respiratory Rate 14 /min Height 69 inches 5'9" Weight 190.12 lb BMI (Body Mass Index) 28.1 kg/m2 BSA (Body Surface Area) 2.02 m2 [place] body weight in kilograms 73 O2 % BldC Oximetry 96 % 03/20/2017 BP Systolic 137 mmHg BP Diastolic 89 mmHg Body Temperature 97.6 F Heart Rate 72 /min Respiratory Rate 16 /min Height 69 inches 5'9" Weight 186.25 lb BMI (Body Mass Index) 27.5 kg/m2 BSA (Body Surface Area) 2.00 m2 [place] body weight in kilograms 73 O2 % BldC Oximetry 97 % 02/14/2017 BP Systolic Sitting Left Arm 122 mmHg BP Diastolic Sitting Left Arm 80 mmHg Respiratory Rate 1675 /min Height 69 inches 5'9" Weight 189.00 lb BMI (Body Mass Index) 27.9 kg/m2 BSA (Body Surface Area) 2.02 m2 [place] body weight in kilograms 73 02/05/2017 BP Systolic 121 mmHg BP Diastolic 86 mmHg Body Temperature 97.7 F Heart Rate 80 /min Respiratory Rate 16 /min Height 69 inches 5'9" Weight 185.00 lb BMI (Body Mass Index) 27.3 kg/m2 BSA (Body Surface Area) 2.00 m2 [place] body weight in kilograms 73 O2 % BldC Oximetry 94 % 01/30/2017 BP Systolic 129 mmHg BP Diastolic 83 mmHg Heart Rate 73 /min Respiratory Rate 16 /min Height 69 inches 5'9" Weight 189.00 lb With Boots BMI (Body Mass Index) 27.9 kg/m2 BSA (Body Surface Area) 2.02 m2 [place] body weight in kilograms 73 O2 % BldC Oximetry 97 % 01/22/2017 BP Systolic Sitting Left Arm 140 mmHg BP Diastolic Sitting Left Arm 88 mmHg Body Temperature 98.0 F Heart Rate 79 /min Height 69 inches 5'9" Weight 185.00 lb BMI (Body Mass Index) 27.3 kg/m2 BSA (Body Surface Area) 2.00 m2 [place] body weight in kilograms 73 O2 % BldC Oximetry 98 % 01/11/2017 BP Systolic 125 mmHg BP Diastolic 85 mmHg Body Temperature 97.7 F Heart Rate 79 /min Respiratory Rate 16 /min Height 69 inches 5'9" Weight 186.00 lb BMI (Body Mass Index) 27.5 kg/m2 BSA (Body Surface Area) 2.00 m2 [place] body weight in kilograms 73 O2 % BldC Oximetry 96 % 12/05/2016 BP Systolic Sitting Left Arm 128 mmHg BP Diastolic Sitting Left Arm 80 mmHg Heart Rate 77 /min Respiratory Rate 16 /min Height 69 inches 5'9" Weight 192.00 lb BMI (Body Mass Index) 28.4 kg/m2 BSA (Body Surface Area) 2.03 m2 [place] body weight in kilograms 73 O2 % [...] Test Date Test Result H/L Range Note Urine Dipstick 03/04/2018 Ua Color yellow Yellow Ua Clarity clearn Clear Ua Leuko neg Negative Ua Nitrite neg Negative Ua Urobilinogen 17 High 0.2 - 1.0 E.U./dL Ua Protein neg Negative Ua PH 6.5 6.5-7.5 Ua Blood neg Negative Ua Specific [place] 1.020 1.010-1.030 Ua Ketones neg Negative Ua Bilirubin neg Negative Ua Glucose neg Negative Eosinophil/leuk NFr Bld 02/14/2018 Eosinophil/leuk NFr Bld 2.4 0.0-6.6 Auto Auto Fibrin D-dimer Feu 02/14/2018 Fibrin D-dimer Feu 1.39 measurement in platelet measurement in platelet poor pl poor plasma (mass/volume) Globulin Ser Calc-mCnc 02/14/2018 Globulin Ser Calc-mCnc 3.8 1.9-4.3 Lymphocytes/leuk NFr 02/14/2018 Lymphocytes/leuk NFr 19.0 Low 20.0-42.0 Bld Auto Bld Auto Monocytes/leuk NFr Bld 02/14/2018 Monocytes/leuk NFr Bld 8.5 0.0-10.0 Auto Auto Neutrophils # Bld Auto 02/14/2018 Neutrophils # Bld Auto 4.66 1.8-7.0 Neutrophils/leuk NFr 02/14/2018 Neutrophils/leuk NFr 69.8 33.0-73.0 Bld Auto Bld Auto Potassium SerPl-sCnc 02/14/2018 Potassium SerPl-sCnc 4.0 3.5-5.1 RDW RBC Auto 02/14/2018 RDW RBC Auto 39.3 36-51 RDW RBC Auto-Rto 02/14/2018 RDW RBC Auto-Rto 12.5 11.6-15.8 Serum carbon dioxide 02/14/2018 Serum carbon dioxide 25 21-32 measurement measurement Serum or plasma albumin 02/14/2018 Serum or plasma albumin 3.8 3.4-5.0 measurement measurement (mass/volume) (mass/volume) Serum or plasma 02/14/2018 Serum or plasma 68 45-117 alkaline phosphatase alkaline phosphatase measurement ( measurement (enzymatic activity/volume) Serum or plasma 02/14/2018 Serum or plasma 30 15-37 aspartate aspartate aminotransferase aminotransferase measure measurement (enzymatic activity/volume) Serum or plasma calcium 02/14/2018 Serum or plasma calcium 8.8 8.5-10.1 measurement measurement (mass/volume) (mass/volume) Serum or plasma 02/14/2018 Serum [...] measurement nitrogen measurement (mass/vo (mass/volume) Serum sodium 02/14/2018 Serum sodium 143 136-145 measurement measurement Laboratory test finding 02/14/2018 Troponin-I < 0.015 1, 2 ng/mL Comprehensive Metabolic 02/14/2018 Glucose 104 mg/dL 74-106 1 Panel BUN 11 mg/dL 7-18 1 Creatinine 1.0 mg/dL 0.6-1.3 1 Glom Filtration Rate, Estimate >60 mL/min >60 1 If >60 mL/min >60 1, 3 BUN/Creat 11.0 ratio 1 Sodium 143 mmol/L 136-145 1 Potassium 4.0 mmol/L 3.5-5.1 1 Chloride 109 mmol/L High 98-107 1 Carbon Dioxide 25 mmol/L 21-32 1 Anion Gap 9 mEq/L 8-16 1 Calcium 8.8 mg/dL 8.5-10.1 1 Total Protein 7.6 g/dL 6.4-8.2 1 Albumin 3.8 g/dL 3.4-5.0 1 Globulin 3.8 g/dL 1.9-4.3 1 Alb/Glob 1.0 ratio 1 Bilirubin,Total 0.6 mg/dL 0.2-1.0 1 Sgot/Ast 30 U/L 15-37 1 SGPT/Alt 39 U/L 12-78 1 Alkaline Phosphatase 68 U/L 45-117 1 Laboratory test finding 02/14/2018 CK 267 U/L 39-308 1 Troponin-I < 0.015 ng/mL 1, 4 CBS W/Automated Diff 02/14/2018 White Blood Count 6.7 K/uL 3.4-10.5 1 Red Blood Count 5.00 M/uL 4.20-5.80 1 Hemoglobin 15.5 gm/dL 12.8-17.0 1 Hematocrit 43.8 % 38.0-48.0 1 Mean Cell Volume 87.6 fl 80.0-96.0 1 Mean Corpuscular HGB 31.0 pg 27.0-33.0 1 Mean Corpuscular HGB Conc 35.4 g/dL 31.7-36.0 1 Platelet Count 238 K/uL 155-360 1 Red Cell Distri Width SD 39.3 fl 36-51 1 Red Cell Distri Width %CV 12.5 % 11.6-15.8 1 Mean Platelet Volume 8.8 fL 6.6-10.6 1 Neut% 69.8 % 33.0-73.0 1 Lymph % 19.0 % Low 20.0-42.0 1 Emmet % 8.5 % 0.0-10.0 1 Eo% 2.4 % 0.0-6.6 1 Bas% 0.3 % 0.0-1.1 1 Neut# 4.66 K/uL 1.8-7.0 1 Lymph # 1.27 K/uL 1.0-4.0 1 Emmet # 0.57 K/uL 0.0-0.8 1 Eos # 0.16 K/uL 0.0-0.5 1 Baso # 0.02 K/uL 0.0-0.1 1 Laboratory test 02/14/2018 D-Dimer, Quantitative 1.39 ug/mL High 1, 5 finding Alt SerPl-cCnc 02/14/2018 Alt SerPl-cCnc 39 12-78 Albumin/Glob SerPl 02/14/2018 Albumin/Glob SerPl 1.0 Anion Gap SerPl-sCnc 02/14/2018 Anion Gap SerPl-sCnc 9 8-16 Automated blood 02/14/2018 Automated blood 0.02 0.0-0.1 basophil count basophil count (count/volume) (count/volume) Automated blood 02/14/2018 Automated blood 0.16 0.0-0.5 eosinophil count eosinophil count Automated blood 02/14/2018 Automated blood 43.8 38.0-48.0 hematocrit (volume hematocrit (volume fraction) fraction) Automated blood 02/14/2018 Automated blood 1.27 1.0-4.0 lymphocyte count lymphocyte count (number/volume) (number/volume) Automated blood 02/14/2018 Automated blood 238 155-360 platelet count platelet count Automated blood 02/14/2018 Automated blood 8.8 6.6-10.6 platelet mean volume platelet mean volume measurement measurement Automated erythrocyte 02/14/2018 Automated erythrocyte 31.0 27.0-33.0 mean corpuscular mean corpuscular hemoglobin hemoglobin (mass per erythrocyte) Automated erythrocyte 02/14/2018 Automated erythrocyte 35.4 31.7-36.0 mean corpuscular mean corpuscular hemoglobin hemoglobin concentration measurement (mass/volume) Automated erythrocyte 02/14/2018 Automated erythrocyte 87.6 80.0-96.0 mean corpuscular mean corpuscular volume volume BUN/Creat SerPl 02/14/2018 BUN/Creat SerPl 11.0 Basophils/leuk NFr Bld 02/14/2018 Basophils/leuk NFr Bld 0.3 0.0-1.1 Auto Auto Blood erythrocytes 02/14/2018 Blood erythrocytes 5.00 4.20-5.80 automated count automated count (number/volume) (number/volume) Blood hemoglobin 02/14/2018 Blood hemoglobin 15.5 12.8-17.0 measurement measurement (mass/volume) (mass/volume) Chloride SerPl-sCnc 02/14/2018 Chloride SerPl-sCnc 109 High 98-107 Blood monocytes 02/14/2018 Blood monocytes 0.57 0.0-0.8 automated count automated count (number/volume) (number/volume) Blood leukocytes 02/14/2018 Blood leukocytes 6.7 3.4-10.5 automated count automated count (number/volume) (number/volume) Comprehensive 12/05/2017 Glucose 100 mg/dL 74-106 6 Metabolic Panel BUN 12 mg/dL 7-18 6 Creatinine 0.9 mg/dL 0.6-1.3 6 Glom Filtration Rate, Estimate >60 mL/min >60 6 If >60 mL/min >60 6, 7 BUN/Creat 13.3 ratio 6 Sodium 139 mmol/L 136-145 6 Potassium 4.4 mmol/L 3.5-5.1 6 Chloride 106 mmol/L 98-107 6 Carbon Dioxide 25 mmol/L 21-32 6 Anion Gap 8 mEq/L 8-16 6 Calcium 9.5 mg/dL 8.5-10.1 6 Total Protein 8.2 g/dL 6.4-8.2 6 Albumin 4.0 g/dL 3.4-5.0 6 Globulin 4.2 g/dL 1.9-4.3 6 Alb/Glob 1.0 ratio 6 Bilirubin,Total 0.6 mg/dL 0.2-1.0 6 Sgot/Ast 38 U/L High 15-37 6 SGPT/Alt 45 U/L 12-78 6 Alkaline Phosphatase 74 U/L 45-117 6 Laboratory test finding 12/05/2017 Lipase 72 U/L 56-289 6 CBS W/Automated Diff 12/05/2017 White Blood Count 8.4 K/uL 3.4-10.5 6 Red Blood Count 5.25 M/uL 4.20-5.80 6 Hemoglobin 16.3 gm/dL 12.8-17.0 6 Hematocrit 46.7 % 38.0-48.0 6 Mean Cell Volume 89.0 fl 80.0-96.0 6 Mean Corpuscular HGB 31.0 pg 27.0-33.0 6 Mean Corpuscular HGB Conc 34.9 g/dL 31.7-36.0 6 Platelet Count 235 K/uL 155-360 6 Red Cell Distri Width SD 42.7 fl 36-51 6 Red Cell Distri Width %CV 13.2 % 11.6-15.8 6 Mean Platelet Volume 9.1 fL 6.6-10.6 6 Neut% 72.4 % 33.0-73.0 6 Lymph % 18.2 % Low 20.0-42.0 6 Emmet % 7.3 % 0.0-10.0 6 Eo% 1.7 % 0.0-6.6 6 Bas% 0.4 % 0.0-1.1 6 Neut# 6.06 K/uL 1.8-7.0 6 Lymph # 1.52 K/uL 1.0-4.0 6 Emmet # 0.61 K/uL 0.0-0.8 6 Eos # 0.14 K/uL 0.0-0.5 6 Baso # 0.03 K/uL 0.0-0.1 6 Serum or plasma lipase 12/05/2017 Serum or plasma lipase 72 56-289 measurement (enzymatic measurement (enzymatic acti activity/volume) Porphobilinogen,QN,24HR 10/26/2017 Porphobilinogen,QN,Urine 0.7 mg/L 0.0- 2.0 6 Urine Porphobilinogen, 24HR (U) 0.7 mg/24hr 0.0-1.5 6, 8 Porphobilinogen 10/26/2017 Porphobilinogen 0.7 0.0-2.0 [Mass/volume] in [...] 0.5-5.1 aminolevulinate aminolevulinate measurement (m measurement (mass/time) Ala Delta, 24 Hour Urine 10/26/2017 Delta Ala 3.2 mg/L Undefined 6 Delta Ala 3.4 mg/24hr 0.5-5.1 6, 9 RDW RBC Auto 10/15/2017 RDW RBC Auto [...] count automated count (number/volume) (number/volume) Blood leukocytes 10/15/2017 Blood leukocytes 6.8 3.4-10.5 automated count automated count (number/volume) (number/volume) RDW RBC Auto-Rto 10/15/2017 RDW RBC Auto-Rto 12.9 11.6-15.8 Serum carbon dioxide 10/15/2017 Serum carbon dioxide [...] & Culture 10/15/2017 Urine Color YELLOW Yellow 10 II Urine Clarity CLEAR Clear 10 Urine Glucose - Dipstick NEGATIVE mg/dL Negative 10 Urine Bilirubin - Dipstick NEGATIVE Negative 10 Urine Ketone NEGATIVE mg/dL Negative 10 Urine Specific [place] 1.020 1.010-1.030 10 Urine Blood NEGATIVE Negative 10 Urine PH 6.0 Low 6.5-7.5 10 Urine Protein - Dipstick NEGATIVE mg/dL Negative 10 Urine Urobilinogen - Dipstick 0.2 E.U./dL 0.2-1.0 10 Urine Nitrite - Dipstick NEGATIVE Negative 10 Urine Leuk Esterase NEGATIVE Negative 10 Source: URINE, CLEAN CAT <SEE NOTE> 10, 11 Color Ur 10/15/2017 Color Ur Yellow Yellow [...] 10/15/2017 White Blood Count 6.8 K/uL 3.4-10.5 10 Red Blood Count 5.03 M/uL 4.20-5.80 10 Hemoglobin 15.4 gm/dL 12.8-17.0 10 Hematocrit 44.2 % 38.0-48.0 10 Mean Cell Volume 87.9 fl 80.0-96.0 10 Mean Corpuscular HGB 30.6 pg 27.0-33.0 10 Mean Corpuscular HGB Conc 34.8 g/dL 31.7-36.0 10 Platelet Count 246 K/uL 155-360 10 Red Cell Distri Width SD 40.3 fl 36-51 10 Red Cell Distri Width %CV 12.9 % 11.6-15.8 10 Mean Platelet Volume 9.1 fL 6.6-10.6 10 Neut% 63.3 % 33.0-73.0 10 Lymph % 25.0 % 20.0-42.0 10 Emmet % 8.9 % 0.0-10.0 10 Eo% 2.4 % 0.0-6.6 10 Bas% 0.4 % 0.0-1.1 10 Neut# 4.28 K/uL 1.8-7.0 10 Lymph # 1.69 K/uL 1.0-4.0 10 Emmet # 0.60 K/uL 0.0-0.8 10 Eos # 0.16 K/uL 0.0-0.5 10 Baso # 0.03 K/uL 0.0-0.1 10 Glycohemoglobin A1c 10/15/2017 Glycohemoglobin (A1c) 5.3 % 4.2-6.3 10, 12 eAG 105 mg/dL 10 Alt SerPl-cCnc 10/15/2017 Alt SerPl-cCnc 31 12-78 Blood hemoglobin 10/15/2017 Blood hemoglobin 15.4 12.8-17.0 [...] hemoglobin hemoglobin (mass per erythrocyte) Automated blood 10/15/2017 Automated blood 9.1 6.6-10.6 [...] 10/15/2017 Anion Gap SerPl-sCnc 7 Low 8-16 Albumin/Glob SerPl 10/15/2017 Albumin/Glob SerPl 0.9 Laboratory test 09/12/2017 Triglycerides 220 mg/dL High <150 13, 14 finding Hepatitis C Antibody < 0.1 s/corat 0.0-0.9 13, 15 Ceruloplasmin 24.4 mg/dL 16.0-31.0 13, 16 Sedimentation Rate 4 mm/hr 0-15 13, 17 C-Reactive Protein,Cardiac 0.69 mg/L <3.0 13 Erythrocyte 09/12/2017 Erythrocyte 4 0-15 sedimentation rate by sedimentation rate by 15 minute readin 15 minute reading RDW RBC Auto-Rto 09/11/2017 RDW RBC Auto-Rto 13.1 11.6-15.8 RDW RBC Auto 09/11/2017 RDW RBC Auto 41.0 36-51 Potassium SerPl-sCnc 09/11/2017 Potassium SerPl-sCnc 4.1 3.5-5.1 Neutrophils/leuk NFr 09/11/2017 Neutrophils/leuk NFr 66.9 33.0-73.0 Bld Auto Bld Auto Neutrophils # Bld Auto 09/11/2017 Neutrophils # Bld Auto 4.57 1.8-7.0 Monocytes/leuk NFr Bld 09/11/2017 Monocytes/leuk NFr Bld 7.2 0.0-10.0 Auto Auto Lymphocytes/leuk NFr 09/11/2017 Lymphocytes/leuk NFr 22.1 20.0-42.0 Bld Auto Bld Auto Globulin Ser Calc-mCnc 09/11/2017 Globulin Ser Calc-mCnc 4.3 1.9-4.3 Eosinophil/leuk NFr 09/11/2017 Eosinophil/leuk NFr 3.5 0.0-6.6 Bld Auto Bld Auto Chloride SerPl-sCnc 09/11/2017 Chloride SerPl-sCnc 108 High 98-107 Blood monocytes 09/11/2017 Blood monocytes 0.49 0.0-0.8 automated count automated count (number/volume) (number/volume) Serum carbon dioxide 09/11/2017 Serum carbon dioxide [...] Serum sodium 142 136-145 measurement measurement Urine appearance 09/11/2017 Urine appearance Clear Clear [...] & Culture 09/11/2017 Urine Color YELLOW Yellow 18 II Urine Clarity CLEAR Clear 18 Urine Glucose - Dipstick NEGATIVE mg/dL Negative 18 Urine Bilirubin - Dipstick NEGATIVE Negative 18 Urine Ketone NEGATIVE mg/dL Negative 18 Urine Specific [place] 1.020 1.010-1.030 18 Urine Blood TRACE Negative 18 Urine PH 6.0 Low 6.5-7.5 18 Urine Protein - Dipstick NEGATIVE mg/dL Negative 18 Urine Urobilinogen - Dipstick 0.2 E.U./dL 0.2-1.0 18 Urine Nitrite - Dipstick NEGATIVE Negative 18 Urine Leuk Esterase NEGATIVE Negative 18 Source: URINE, CLEAN CAT <SEE NOTE> 18, 19 Urine glucose 09/11/2017 Urine glucose Negative Negative measurement by automated measurement by automated test strip test strip (mass/volume) Urine hemoglobin 09/11/2017 Urine hemoglobin Trace Negative [...] 09/11/2017 White Blood Count 6.8 K/uL 3.4-10.5 18 Red Blood Count 5.56 M/uL 4.20-5.80 18 Hemoglobin 17.0 gm/dL 12.8-17.0 18 Hematocrit 48.1 % High 38.0-48.0 18 Mean Cell Volume 86.5 fl 80.0-96.0 18 Mean Corpuscular HGB 30.6 pg 27.0-33.0 18 Mean Corpuscular HGB Conc 35.3 g/dL 31.7-36.0 18 Platelet Count 233 K/uL 155-360 18 Red Cell Distri Width SD 41.0 fl 36-51 18 Red Cell Distri Width %CV 13.1 % 11.6-15.8 18 Mean Platelet Volume 9.3 fL 6.6-10.6 18 Neut% 66.9 % 33.0-73.0 18 Lymph % 22.1 % 20.0-42.0 18 Emmet % 7.2 % 0.0-10.0 18 Eo% 3.5 % 0.0-6.6 18 Bas% 0.3 % 0.0-1.1 18 Neut# 4.57 K/uL 1.8-7.0 18 Lymph # 1.51 K/uL 1.0-4.0 18 Emmet # 0.49 K/uL 0.0-0.8 18 Eos # 0.24 K/uL 0.0-0.5 18 Baso # 0.02 K/uL 0.0-0.1 18 Alt SerPl-cCnc 09/11/2017 Alt SerPl-cCnc 53 12-78 Blood leukocytes 09/11/2017 Blood leukocytes 6.8 3.4-10.5 [...] corpuscular corpuscular hemoglobin hemoglobin (mass per erythrocyte) Albumin/Glob SerPl 09/11/2017 Albumin/Glob SerPl 1.0 Anion Gap SerPl-sCnc 09/11/2017 Anion Gap 5 [...] (number/volume) (number/volume) Automated blood 09/11/2017 Automated blood 9.3 6.6-10.6 platelet mean volume platelet mean measurement volume measurement Automated blood 09/11/2017 Automated blood 233 155-360 platelet count platelet count Stool bacteria 09/10/2017 Stool bacteria Organism: No identification by identification by Enteric Pathogens culture culture Isolated Stool Escherichia 09/10/2017 Stool Escherichia Shiga Toxin 1 Not coli Shiga-like coli Shiga-like Detected toxin 1 detectio toxin 1 detection by immunoassay Stool Escherichia 09/10/2017 Stool Escherichia See Note 20 coli Shiga toxin 2 coli Shiga toxin 2 detection by detection by immunoassay Clostridium 09/10/2017 Clostridium Negative for difficile Dna difficile Dna toxigenic C. detection by probe detection by probe difficile by PCR and t and target amplification method Stool 09/10/2017 Stool Negative For Cryptosporidium Cryptosporidium Cryptosporidium parvum antigen parvum antigen Specific Antigen detection by detection by immunoassay Giardia lamblia 09/10/2017 Giardia lamblia Negative For antigen assay antigen assay Giardia Specific Antigen. Serum carbon dioxide 09/07/2017 Serum carbon 27 [...] Micro & 09/07/2017 Urine Color YELLOW Yellow 21 Culture II Urine Clarity CLEAR Clear 21 Urine Glucose - Dipstick NEGATIVE mg/dL Negative 21 Urine Bilirubin - Dipstick NEGATIVE Negative 21 Urine Ketone NEGATIVE mg/dL Negative 21 Urine Specific [place] 1.010 1.010-1.030 21 Urine Blood NEGATIVE Negative 21 Urine PH 6.0 Low 6.5-7.5 21 Urine Protein - Dipstick NEGATIVE mg/dL Negative 21 Urine Urobilinogen - Dipstick 0.2 E.U./dL 0.2-1.0 21 Urine Nitrite - Dipstick NEGATIVE Negative 21 Urine Leuk Esterase NEGATIVE Negative 21 Source: URINE, CLEAN CAT <SEE NOTE> 21, 22 Color Ur 09/07/2017 Color Ur Yellow Yellow [...] 09/07/2017 White Blood Count 8.5 K/uL 3.4-10.5 21 Red Blood Count 5.37 M/uL 4.20-5.80 21 Hemoglobin 16.5 gm/dL 12.8-17.0 21 Hematocrit 46.3 % 38.0-48.0 21 Mean Cell Volume 86.2 fl 80.0-96.0 21 Mean Corpuscular HGB 30.7 pg 27.0-33.0 21 Mean Corpuscular HGB Conc 35.6 g/dL 31.7-36.0 21 Platelet Count 230 K/uL 155-360 21 Red Cell Distri Width SD 39.8 fl 36-51 21 Red Cell Distri Width %CV 12.8 % 11.6-15.8 21 Mean Platelet Volume 9.1 fL 6.6-10.6 21 Neut% 71.7 % 33.0-73.0 21 Lymph % 17.9 % Low 20.0-42.0 21 Emmet % 7.8 % 0.0-10.0 21 Eo% 2.4 % 0.0-6.6 21 Bas% 0.2 % 0.0-1.1 21 Neut# 6.11 K/uL 1.8-7.0 21 Lymph # 1.52 K/uL 1.0-4.0 21 Emmet # 0.66 K/uL 0.0-0.8 21 Eos # 0.20 K/uL 0.0-0.5 21 Baso # 0.02 K/uL 0.0-0.1 21 Alt SerPl-cCnc 09/07/2017 Alt SerPl-cCnc 43 12-78 [...] & Culture 08/14/2017 Urine Color YELLOW Yellow 23 II Urine Clarity CLEAR Clear 23 Urine Glucose - Dipstick NEGATIVE mg/dL Negative 23 Urine Bilirubin - Dipstick NEGATIVE Negative 23 Urine Ketone TRACE mg/dL High Negative 23 Urine Specific [place] 1.015 1.010-1.030 23 Urine Blood NEGATIVE Negative 23 Urine PH 6.0 Low 6.5-7.5 23 Urine Protein - Dipstick NEGATIVE mg/dL Negative 23 Urine Urobilinogen - Dipstick 0.2 E.U./dL 0.2-1.0 23 Urine Nitrite - Dipstick NEGATIVE Negative 23 Urine Leuk Esterase NEGATIVE Negative 23 Source: URINE, CLEAN CAT <SEE NOTE> 23, 24 WBC # Bld Auto 08/14/2017 WBC # [...] Laboratory test 08/14/2017 Lipase 88 U/L 56-289 23 finding Comprehensive 08/14/2017 Glucose 107 mg/dL High 74-106 23 Metabolic Panel BUN 13 mg/dL 7-18 23 Creatinine 1.0 mg/dL 0.6-1.3 23 Glom Filtration Rate, Estimate >60 mL/min >60 23 If >60 mL/min >60 23, 25 BUN/Creat 13.0 ratio 23 Sodium 140 mmol/L 136-145 23 Potassium 4.2 mmol/L 3.5-5.1 23 Chloride 107 mmol/L 98-107 23 Carbon Dioxide 28 mmol/L 21-32 23 Anion Gap 5 mEq/L Low 8-16 23 Calcium 9.2 mg/dL 8.5-10.1 23 Total Protein 8.2 g/dL 6.4-8.2 23 Albumin 4.1 g/dL 3.4-5.0 23 Globulin 4.1 g/dL 1.9-4.3 23 Alb/Glob 1.0 ratio 23 Bilirubin,Total 0.8 mg/dL 0.2-1.0 23 Sgot/Ast 36 U/L 15-37 23 SGPT/Alt 51 U/L 12-78 23 Alkaline Phosphatase 78 U/L 45-117 23 CBS W/Automated Diff 08/14/2017 White Blood Count 7.6 K/uL 3.4-10.5 23 Red Blood Count 5.20 M/uL 4.20-5.80 23 Hemoglobin 16.1 gm/dL 12.8-17.0 23 Hematocrit 45.8 % 38.0-48.0 23 Mean Cell Volume 88.1 fl 80.0-96.0 23 Mean Corpuscular HGB 31.0 pg 27.0-33.0 23 Mean Corpuscular HGB Conc 35.2 g/dL 31.7-36.0 23 Platelet Count 236 K/uL 155-360 23 Red Cell Distri Width SD 41.8 fl 36-51 23 Red Cell Distri Width %CV 13.1 % 11.6-15.8 23 Mean Platelet Volume 9.1 fL 6.6-10.6 23 Neut% 72.6 % 33.0-73.0 23 Lymph % 17.1 % Low 20.0-42.0 23 Emmet % 7.5 % 0.0-10.0 23 Eo% 2.5 % 0.0-6.6 23 Bas% 0.3 % 0.0-1.1 23 Neut# 5.53 K/uL 1.8-7.0 23 Lymph # 1.30 K/uL 1.0-4.0 23 Emmet # 0.57 K/uL 0.0-0.8 23 Eos # 0.19 K/uL 0.0-0.5 23 Baso # 0.02 K/uL 0.0-0.1 23 Serum or plasma 08/14/2017 Serum or plasma [...] B 08/13/2017 Influenza A Molecular NEGATIVE Negative 26 Molecular Influenza B Molecular NEGATIVE Negative Serum [...] 3.4-10.5 Laboratory test 08/03/2017 Troponin-I < 0.015 27, 28 finding ng/mL CBS W/Automated Diff 08/03/2017 White Blood Count 7.8 K/uL 3.4-10.5 27 Red Blood Count 5.28 M/uL 4.20-5.80 27 Hemoglobin 15.9 gm/dL 12.8-17.0 27 Hematocrit 45.6 % 38.0-48.0 27 Mean Cell Volume 86.4 fl 80.0-96.0 27 Mean Corpuscular HGB 30.1 pg 27.0-33.0 27 Mean Corpuscular HGB Conc 34.9 g/dL 31.7-36.0 27 Platelet Count 257 K/uL 155-360 27 Red Cell Distri Width SD 40.2 fl 36-51 27 Red Cell Distri Width %CV 13.0 % 11.6-15.8 27 Mean Platelet Volume 9.0 fL 6.6-10.6 27 Neut% 63.3 % 33.0-73.0 27 Lymph % 25.8 % 20.0-42.0 27 Emmet % 7.3 % 0.0-10.0 27 Eo% 3.2 % 0.0-6.6 27 Bas% 0.4 % 0.0-1.1 27 Neut# 4.93 K/uL 1.8-7.0 27 Lymph # 2.01 K/uL 1.0-4.0 27 Emmet # 0.57 K/uL 0.0-0.8 27 Eos # 0.25 K/uL 0.0-0.5 27 Baso # 0.03 K/uL 0.0-0.1 27 Alt SerPl-cCnc 08/03/2017 Alt SerPl-cCnc 50 12-78 [...] NFr Bld 25.0 20.0- 42.0 Auto Auto Lymphocytes [#/volume] 05/02/2017 Lymphocytes [#/volume] in 1.67 1.0-4.0 in Blood by Automated Blood by Automated count count Serum or plasma albumin 05/02/2017 Serum or [...] 3.4-10.5 Albumin/Glob SerPl 05/02/2017 Albumin/Glob SerPl 0.9 Alt SerPl-cCnc 05/02/2017 Alt SerPl-cCnc 44 12-78 Ua RFX Micro & Culture 05/02/2017 Urine Color YELLOW Yellow 29 II Urine Clarity CLEAR Clear 29 Urine Glucose - Dipstick NEGATIVE mg/dL Negative 29 Urine Bilirubin - Dipstick NEGATIVE Negative 29 Urine Ketone NEGATIVE mg/dL Negative 29 Urine Specific [place] 1.020 1.010-1.030 29 Urine Blood NEGATIVE Negative 29 Urine PH 6.5 6.5-7.5 29 Urine Protein - Dipstick NEGATIVE mg/dL Negative 29 Urine Urobilinogen - Dipstick 0.2 E.U./dL 0.2-1.0 29 Urine Nitrite - Dipstick NEGATIVE Negative 29 Urine Leuk Esterase NEGATIVE Negative 29 Source: URINE, CLEAN CAT <SEE NOTE> 29, 30 Color Ur 05/02/2017 Color Ur Yellow Yellow [...] 05/02/2017 White Blood Count 6.7 K/uL 3.4-10.5 29 Red Blood Count 5.40 M/uL 4.20-5.80 29 Hemoglobin 16.2 gm/dL 12.8-17.0 29 Hematocrit 46.0 % 38.0-48.0 29 Mean Cell Volume 85.2 fl 80.0-96.0 29 Mean Corpuscular HGB 30.0 pg 27.0-33.0 29 Mean Corpuscular HGB Conc 35.2 g/dL 31.7-36.0 29 Platelet Count 229 K/uL 150-400 29 Red Cell Distri Width SD 39.8 fl 36-51 29 Red Cell Distri Width %CV 12.9 % 11.6-15.8 29 Mean Platelet Volume 9.0 fL 6.6-10.6 29 Neut% 62.4 % 33.0-73.0 29 Lymph % 25.0 % 20.0-42.0 29 Emmet % 8.7 % 0.0-10.0 29 Eo% 3.6 % 0.0-6.6 29 Bas% 0.3 % 0.0-1.1 29 Neut# 4.18 K/uL 1.8-7.0 29 Lymph # 1.67 K/uL 1.0-4.0 29 Emmet # 0.58 K/uL 0.0-0.8 29 Eos # 0.24 K/uL 0.0-0.5 29 Baso # 0.02 K/uL 0.0-0.1 29 Comprehensive Metabolic Panel 05/02/2017 Glucose 104 mg/dL 74-106 29 BUN 13 mg/dL 7-18 29 Creatinine 1.0 mg/dL 0.6-1.3 29 Glom Filtration Rate, Estimate >60 mL/min >60 29 If >60 mL/min >60 29, 31 BUN/Creat 13.0 ratio 29 Sodium 141 mmol/L 136-145 29 Potassium 4.3 mmol/L 3.5-5.1 29 Chloride 108 mmol/L High 98-107 29 Carbon Dioxide 29 mmol/L 21-32 29 Anion Gap 4 mEq/L Low 8-16 29 Calcium 9.1 mg/dL 8.5-10.1 29 Total Protein 7.9 g/dL 6.4-8.2 29 Albumin 3.7 g/dL 3.4-5.0 29 Globulin 4.2 g/dL 1.9-4.3 29 Alb/Glob 0.9 ratio 29 Bilirubin,Total 0.6 mg/dL 0.2-1.0 29 Sgot/Ast 34 U/L 15-37 29 SGPT/Alt 44 U/L 12-78 29 Alkaline Phosphatase 79 U/L 45-117 29 Laboratory test 05/02/2017 Lipase 92 U/L 56-289 29 finding Hct VFr Bld Auto 05/02/2017 Hct VFr [...] Basophils/leuk NFr 0.3 0.0-1.1 Auto Bld Auto RDW RBC Auto-Rto 01/12/2017 RDW RBC Auto-Rto 12.7 11.6-15.8 Serum or plasma 01/12/2017 Serum or plasma [...] 3.4-10.5 Laboratory test 01/12/2017 Triglycerides 109 <150 32, 33 finding mg/dL Direct LDL Cholesterol 01/12/2017 LDL Chol. (Direct) 125 High 0-99 32, 34 mg/dL Laboratory test 01/12/2017 HDL Cholesterol 46 mg/dL >40 32, 35 finding Vitamin D,25-Hydroxy 31.3 ng/mL 30.0-100.0 32, 36 Vitamin B12 477 pg/mL 193-986 32, 37 Comprehensive Metabolic Panel 01/12/2017 Glucose 100 mg/dL 74-106 32 BUN 11 mg/dL 7-18 32 Creatinine 0.9 mg/dL 0.6-1.3 32 Glom Filtration Rate, Estimate >60 mL/min >60 32 If >60 mL/min >60 32, 38 BUN/Creat 12.2 ratio 32 Sodium 141 mmol/L 136-145 32 Potassium 4.5 mmol/L 3.5-5.1 32 Chloride 106 mmol/L 98-107 32 Carbon Dioxide 27 mmol/L 21-32 32 Anion Gap 8 mEq/L 8-16 32 Calcium 8.6 mg/dL 8.5-10.1 32 Total Protein 7.1 g/dL 6.4-8.2 32 Albumin 3.5 g/dL 3.4-5.0 32 Globulin 3.6 g/dL 1.9-4.3 32 Alb/Glob 1.0 ratio 32 Bilirubin,Total 0.5 mg/dL 0.2-1.0 32 Sgot/Ast 33 U/L 15-37 32 SGPT/Alt 38 U/L 12-78 32 Alkaline Phosphatase 73 U/L 45-117 32 CBS W/Automated Diff 01/12/2017 White Blood Count 7.9 K/uL 3.4-10.5 32 Red Blood Count 4.56 M/uL 4.20-5.80 32 Hemoglobin 14.0 gm/dL 12.8-17.0 32 Hematocrit 40.4 % 38.0-48.0 32 Mean Cell Volume 88.6 fl 80.0-96.0 32 Mean Corpuscular HGB 30.7 pg 27.0-33.0 32 Mean Corpuscular HGB Conc 34.7 g/dL 31.7-36.0 32 Platelet Count 300 K/uL 150-400 32 Red Cell Distri Width SD 40.0 fl 36-51 32 Red Cell Distri Width %CV 12.7 % 11.6-15.8 32 Mean Platelet Volume 9.8 fL 6.6-10.6 32 Neut% 65.3 % 33.0-73.0 32 Lymph % 21.7 % 20.0-42.0 32 Emmet % 10.1 % High 0.0-10.0 32 Eo% 2.5 % 0.0-6.6 32 Bas% 0.4 % 0.0-1.1 32 Neut# 5.18 K/uL 1.8-7.0 32 Lymph # 1.72 K/uL 1.0-4.0 32 Emmet # 0.80 K/uL 0.0-0.8 32 Eos # 0.20 K/uL 0.0-0.5 32 Baso # 0.03 K/uL 0.0-0.1 32 Laboratory test 01/12/2017 Gamma Glutamyl 54 U/L 5-85 32, 39 finding Transpeptidase Creat SerPl-mCnc 01/12/2017 Creat SerPl-mCnc 0.9 0.6-1.3 [...] Basophils [#/volume] 0.03 0.0-0.1 in Blood by Automated in Blood by Automated count count BUN/Creat SerPl 01/12/2017 BUN/Creat SerPl 12.2 BUN SerPl-mCnc 01/12/2017 BUN SerPl-mCnc 11 7-18 Automated erythrocyte 01/12/2017 Automated erythrocyte 34.7 31.7-36.0 mean corpuscular mean corpuscular hemoglobin hemoglobin concentration measurement (mass/volume) Automated erythrocyte 01/12/2017 Automated erythrocyte 30.7 27.0-33.0 mean corpuscular mean corpuscular hemoglobin hemoglobin (mass per erythrocyte) Aspartate 01/12/2017 Aspartate 33 15-37 aminotransferase aminotransferase [Enzymatic [Enzymatic activity/vol activity/volume] in Serum or Plasma Anion Gap SerPl-sCnc 01/12/2017 Anion Gap SerPl-sCnc 8 8-16 Albumin/Glob SerPl 01/12/2017 Albumin/Glob SerPl 1.0 Albumin SerPl-mCnc 01/12/2017 Albumin SerPl-mCnc 3.5 3.4-5.0 Alt SerPl-cCnc 01/12/2017 Alt SerPl-cCnc 38 12-78 Alp SerPl-cCnc 01/12/2017 Alp SerPl-cCnc 73 45-117 Eosinophil # Bld Auto 01/12/2017 Eosinophil # Bld Auto 0.20 0.0-0.5 Eosinophil/leuk NFr 01/12/2017 Eosinophil/leuk NFr 2.5 0.0-6.6 Bld Auto Bld Auto Globulin Ser 01/12/2017 Globulin Ser 3.6 1.9-4.3 Calc-mCnc Calc-mCnc Glucose [Mass/volume] 01/12/2017 Glucose [Mass/volume] 100 74-106 in Serum or Plasma in Serum or Plasma Hct VFr Bld Auto [...] NFr 65.3 33.0-73.0 Bld Auto Bld Auto PMV Bld Auto 01/12/2017 PMV Bld Auto 9.8 6.6-10.6 Platelets [#/volume] 01/12/2017 Platelets [#/volume] 300 150-400 in Blood by Automated in Blood by Automated count count Potassium SerPl-sCnc 01/12/2017 Potassium SerPl-sCnc 4.5 3.5-5.1 Prot SerPl-mCnc 01/12/2017 Prot SerPl-mCnc 7.1 6.4-8.2 RDW RBC Auto 01/12/2017 RDW RBC Auto 40.0 36-51 Color Ur 12/11/2016 Color Ur Yellow Yellow Ketones Ur 12/11/2016 Ketones Ur Trace High Negative Strip.auto-mCnc Strip.auto-mCnc Leukocyte esterase Ur 12/11/2016 Leukocyte esterase Ur Negative Negative Ql Strip.auto Ql Strip.auto Nitrite Ur Ql 12/11/2016 Nitrite Ur Ql Negative Negative Strip.auto Strip.auto Prot Ur 12/11/2016 Prot Ur Negative Negative Strip.auto-mCnc Strip.auto-mCnc Urine appearance 12/11/2016 Urine appearance Clear Clear determination determination Urine glucose 12/11/2016 Urine glucose Negative Negative measurement by measurement by automated test strip automated test strip (mass/volume) Urine hemoglobin 12/11/2016 Urine hemoglobin Negative Negative detection by detection by automated test strip automated test strip Urine total bilirubin 12/11/2016 Urine total bilirubin Negative Negative detection by detection by automated test automated test strip pH Ur Strip.auto 12/11/2016 pH Ur Strip.auto 5.5 Low 6.5-7.5 Urobilinogen Ur 12/11/2016 Urobilinogen Ur 0.2 0.2-1.0 Strip-aCnc Strip-aCnc Laboratory test 09/13/2016 Ferritin 85 ng/mL 26-388 40 finding Hepatitis C Virus Rna (PCR)-QL Negative Negative 40, 41 Iron-Tibc-%Sat 09/13/2016 Serum Iron 75 g/dL 65-175 40 Total Iron Binding Capacity 401 g/dL 250-450 40 Transferrin %Saturation 19 % 12-57 40 Hepatitis C Antibody 09/13/2016 Hepatitis C Antibody Nonreactive Nonreactive 40 Signal/Cutoff ratio < 0.02 <0.80 40, 42 Laboratory test 09/13/2016 Hepatitis A Nonreactive Nonreactive 40, 43 finding Antibody -IgM Hepatitis A AB, Total Negative Negative 40 Hepatitis B Core Antibody-IgM Nonreactive Nonreactive 40, 44 Hep B Core AB Total Negative Negative 40 Protein Electro.,S 09/13/2016 Protein,Total,Serum 7.4 g/dL 6.0-8.5 40 Albumin 3.8 g/dL 2.9-4.4 40 Ncrqo-7-Nonryrvg 0.2 g/dL 0.0-0.4 40 Gqitx-9-Qffraozr 0.6 g/dL 0.4-1.0 40 Beta Globulin 1.4 g/dL High 0.7-1.3 40 Gamma Globulin 1.3 g/dL 0.4-1.8 40 M-Mohamud Not Observed g/dL Not Observed 40 Globulin, Total 3.6 g/dL 2.2-3.9 40 A/G Ratio 1.1 0.7-1.7 40 Please Note: (SEE NOTE) 40, 45 P E Interpretation, Serum (SEE NOTE) 40, 46 Laboratory test 09/13/2016 Anti-Nuclear Antibodies Negative AU/mL Negative 40 finding Direct Actin (Smooth Muscle) Antibody 7 units 0-19 40, 47 Mitochondrial (M2) Antibodies 3.0 units 0.0-20.0 40, 48 Nmcjl-7-Dfurifsbdfg,Serum 129 mg/dL 90-200 40 Ceruloplasmin 30.9 mg/dL 16.0-31.0 40 Liver Function Tests 03/03/2009 Total Protein 7.4 g/dL 6.3-8.0 Albumin 3.9 g/dL 3.5-5.0 Bilirubin,Total 1.1 mg/dL 0.2-1.2 Bilirubin,Direct 0.2 mg/dL 0.1-0.4 Bilirubin,Indirect 0.9 mg/dL 0.0-0.9 Sgot/Ast 124 U/L High 16-40 SGPT/Alt 178 U/L High 30-65 Alkaline Phosphatase 87 U/L 50-136 Globulin 3.5 gm/dL 1.9-4.3 Alb/Glob 1.1 1 FEELS WARM 2 0.0 - 0.045 ng/mL: Normal 0.046 - 0.5 ng/mL: Suggestive 0.6 - 1.5 ng/mL: Consistent 3 Note: Persistent reduction for 3 months or more in an eGFR <60 mL/min/1.73 m2 defines CKD. Patients with eGFR values >/=60 mL/min/1.73 m2 may also have CKD if evidence of persistent proteinuria is present. The original MDRD equation for estimated GFR is not valid for patients less than 18 years of age. Additional information may be found at www.kdoqi.org. 4 0.0 - 0.045 ng/mL: Normal 0.046 - 0.5 ng/mL: Suggestive 0.6 - 1.5 ng/mL: Consistent 5 <=0.49 ug/mL - Low likelihood of DIC, DVT or Pulmonary Embolism >0.49 ug/mL - Additional testing should be done to rule out DIC, DVT, or Pulmonary embolism as clinically indicated. ([facility] has established a 97.89% negative predictive value for thrombotic disease when a cutoff value of 0.5 ug/mL is used.) 6 R10.9 7 Note: Persistent reduction for 3 months or more in an eGFR <60 mL/min/1.73 m2 defines CKD. Patients with eGFR values >/=60 mL/min/1.73 m2 may also have CKD if evidence of persistent proteinuria is present. The original MDRD equation for estimated GFR is not valid for patients less than 18 years of age. Additional information may be found at www.kdoqi.org. 8 This test was developed and its performance characteristics determined by [facility]. It has not been cleared or approved by the Food and Drug Administration. 9 This test was developed and its performance characteristics determined by [facility]. It has not been cleared or approved by the Food and Drug Administration. Performed at: [address] [id number] [employer] Driver: Kei London MD, Phone: [phone] 10 POSS REACTION TO MILK,BLURRED VISION,DIZZY 11 URINE, CLEAN CATCH 12 Elevated levels of HbA1c suggest the need for more aggressive treatment of glycemia. The [place] [employer] recommends that a primary goal of therapy should be a HbA1c of <7% and that physicians should re-evaluate the treatment regimen in patients with HbA1c values consistently >8%. 13 K76.0 14 Reference Guidelines*: Normal: ............. < 150 mg/dL Borderline High: .... 150-199 mg/dL High: ............... 200-499 mg/dL Very High: .......... > 500 mg/dL * Source: National Cholesterol Education Program (NCEP) 15 INFCE Result Units: s/co ratio Negative: < 0.8 Indeterminate: 0.8 - 0.9 Positive: > 0.9 The CDC recommends that a positive HCV antibody result be followed up with a HCV Nucleic Acid Amplification test (995504). Performed at: RN - [facility] [address] [id number] [employer] Driver: Lissett Perez MD, Phone: [phone] 16 Performed at: RN - [facility] [address] [id number] [employer] Driver: Lissett Perez MD, Phone: [phone] 17 Method: Sediplast Modified Westergren 18 DIARRHEA, POSSIBLE DEHYDRATION 19 URINE, CLEAN CATCH 20 Shiga Toxin 2 Not Detected Method: ImmunoCard Stat/Ehec Rapid Immunochromatographic Assay 21 DIARRHEA 22 URINE, CLEAN CATCH 23 N/V/D 24 URINE, CLEAN CATCH 25 Note: Persistent reduction for 3 months or more in an eGFR <60 mL/min/1.73 m2 defines CKD. Patients with eGFR values >/=60 mL/min/1.73 m2 may also have CKD if evidence of persistent proteinuria is present. The original MDRD equation for estimated GFR is not valid for patients less than 18 years of age. Additional information may be found at www.kdoqi.org. 26 Prepress Specialist: [id number] 27 CP, COLD CHILLS 28 0.0 - 0.045 ng/mL: Normal 0.046 - 0.5 ng/mL: Suggestive 0.6 - 1.5 ng/mL: Consistent 29 VOMITING 30 URINE, CLEAN CATCH 31 Note: Persistent reduction for 3 months or more in an eGFR <60 mL/min/1.73 m2 defines CKD. Patients with eGFR values >/=60 mL/min/1.73 m2 may also have CKD if evidence of persistent proteinuria is present. The original MDRD equation for estimated GFR is not valid for patients less than 18 years of age. Additional information may be found at www.kdoqi.org. 32 Z13.220 K21.9 R94.5 Z13.220 K21.9 R94.5 Z13.21 Z13.220 K21.9 R94.5 Z13.21 33 Reference Guidelines*: Normal: ............. < 150 mg/dL Borderline High: .... 150-199 mg/dL High: ............... 200-499 mg/dL Very High: .......... > 500 mg/dL * Source: National Cholesterol Education Program (NCEP) 34 Performed at: - [facility] [address] [id number] [employer] Driver: Lissett Perez MD, Phone: [phone] 35 Reference Guidelines*: Low HDL: ..... < 40 mg/dL Normal: ..... 40-60 mg/dL Desirable: ... > 60 mg/dL *The National Cholesterol Education Program(NCEP) 36 Vitamin D deficiency has been defined by the [place] of [employer] and an Endocrine Society practice guideline as a level of serum 25-OH vitamin D less than 20 ng/mL (1,2). The Endocrine Society went on to further define vitamin D insufficiency as a level between 21 and 29 ng/mL (2). 1. IOM ([place] of [employer]). 2010. Dietary reference intakes for calcium and D. [place]: The National Academies Press. 2. Trena MF, Matthew NC, Spencer WAYNE, et al. Evaluation, treatment, and prevention of vitamin D deficiency: an Endocrine Society clinical practice guideline. JCEM. 2010; 96(7):1911-30. Performed at: [facility] [address] [id number] [employer] Wel[employer] Driver: Lissett Perez MD, Phone: [phone] 37 Is Patient Fasting? Fasting 38 Note: Persistent reduction for 3 months or more in an eGFR <60 mL/min/1.73 m2 defines CKD. Patients with eGFR values >/=60 mL/min/1.73 m2 may also have CKD if evidence of persistent proteinuria is present. The original MDRD equation for estimated GFR is not valid for patients less than 18 years of age. Additional information may be found at www.kdoqi.org. 39 Is Patient Fasting? Fasting 40 R93.2 41 Negative: HCV RNA Not Detected Performed at: RN - [facility] [address] [id number] [employer] Driver: Lissett Perez MD, Phone: [phone] Performed at: - [facility] [address] [id number] [employer] Driver: Kei London MD, Phone: [phone] 42 Antibodies to HCV not detected; does not exclude early acute HCV infection. 43 IgM antibodies to HAV not detected; does not exclude early acute or recovered HAV infection. 44 IgM anti-HBc not detected. Does not exclude the possibility of exposure to or infection with HBV. 45 Protein electrophoresis scan will follow via computer, mail, or professor of spanish delivery. 46 The SPE pattern appears essentially unremarkable. Evidence of monoclonal protein is not apparent. 47 Negative 0 - 19 Weak positive 20 - 30 Moderate to strong positive >30 Actin Antibodies are found in 52-85% of patients with autoimmune hepatitis or chronic active hepatitis and in 22% of patients with primary biliary cirrhosis. 48 Negative 0.0 - 20.0 Equivocal 20.1 - 24.9 Positive >24.9 Mitochondrial (M2) Antibodies are found in 90-96% of patients with primary biliary cirrhosis. Procedures Date CPT Code Description Status Comment 09/20/2017 98792 Colonoscopy With Biopsy Completed 09/20/2017 73919 EGD With Biopsy Completed 11/07/2016 81570 Bronchospasm Provocation Completed Evaluation Multi Spirometric Determinati 11/07/2016 49077 Spirometry Completed 11/17/2015 79156 Asp./Injection major joint Completed 02/05/2008 61119 Colonoscopy With Polypectomy Completed 02/05/2008 61057 EGD With Biopsy Completed 02/05/2008 Colonoscopy Completed Document: 02/05/08 - Op Report - Colon Document: 02/05/08 - Final Pathology Report Encounters Type Date Location Provider CPT E/M Dx Office Visit 02/18/2018 3:20p [facility] Office Vik De Los Santos M.D. 51951 I71.2 R11.10 Office Visit 01/31/2018 2:40p [facility] Office Vik De Los Santos M.D. 71530 R11.10 K76.0 R51 N50.89 Z79.899 Office Visit 01/11/2018 3:00p [place] [address] R11.10 K52.832 K21.0 Office Visit 12/05/2017 10:15a [place] [address] R11.10 R10.9 K52.832 K21.0 Office Visit 11/09/2017 2:45p [place] [address] K52.832 K21.0 R51 J45.991 Office Visit 11/02/2017 11:00a Primary Care Office Vik De Los Santos M.D. 12238 J01.90 R51 R03.0 Office Visit 10/31/2017 3:40p Primary Care Office Vik De Los Santos M.D. 53327 R11.10 K21.0 K52.832 J30.9 Office Visit 10/19/2017 1:30[place] [address] R51 K52.832 K21.0 J45.991 R10.9 Office Visit 10/17/2017 10:30a Primary Care Office Darek Sloan 17770 R10.32 M.D. Office Visit 10/05/2017 3:15p [place] [address] K52.832 K21.0 J45.991 R11.10 K76.0 Office Visit 10/03/2017 2:45p [place] [address] J41.0 Office Visit 10/02/2017 11:40a Primary Care Office Vik De Los Santos M.D. 04675 R11.2 K21.0 R19.7 Z79.899 Office Visit 09/27/2017 10:00a Primary Care Office Darek Sloan 04481 R11.2 M.D. Office Visit 09/12/2017 4:30[place] [address] R93.3 R19.7 K76.0 Office Visit 09/04/2017 9:00a Primary Care Office Darek Sloan 76760 R19.7 M.D. Office Visit 08/29/2017 3:00[place] [address] K92.0 J45.991 R11.10 Office Visit 08/15/2017 2:40p Primary Care Office Vik De Los Santos M.D. 93448 R11.10 A09 K57.30 I71.2 Office Visit 08/01/2017 2:45p [place] [address] J45.991 J47.9 Office Visit 05/30/2017 3:00p [place] [address] R11.10 J45.991 Office Visit 05/04/2017 2:40p [place] [address] R05 R11.10 R10.11 Office Visit 04/18/2017 2:20p Primary Care Office Vik De Los Santos M.D. 24339 F41.9 R11.10 Office Visit 03/20/2017 11:00a Primary Care Office Vik De Los Santos M.D. 03817 R11.10 Z23 Office Visit 02/14/2017 2:45p [place] [address] R93.2 R11.10 Office Visit 02/05/2017 11:40a Primary Care Office Vik De Los Santos M.D. 22647 R11.10 R05 J32.9 Office Visit 01/30/2017 3:40p Primary Care Office Vik De Los Santos M.D. 50394 J32.9 E78.5 Office Visit 01/22/2017 10:40a Primary Care Office Vik De Los Santos M.D. 96862 R51 Office Visit 12/05/2016 3:15p [place] [address] J47.9 Office Visit 10/17/2016 2:00p [place] [address] J41.0 Office Visit 09/13/2016 10:15[place] [address] R05 R11.10 R93.2 Office Visit 12/16/2015 3:00p Orthopaedic Office Vianey Alba 35004 M25.562 RPAC M76.52 Office Visit 10/20/2015 2:45p Orthopaedic Office Vianey Alba 33389 M25.562 RPAC M76.52 Office Visit 08/11/2009 9:00a Orthopaedic Office Fausto Leroy, 67961 845.00 719.06 Office Visit 02/20/2008 2:45[place] [address] 211.3 Office Visit 01/30/2008 2:45[place] [address] 578.0 536.2 Plan of Care Future Appointment(s):03/22/2018 3:00 pm - Chuck Suarez MD at GI04/08/2018 3:00 pm - Latha Perdue MD at Cardiology [facility]0905/16/2018 3:40 pm - Vik De Los Santos M.D. at Primary Care Office
--- OUTSIDE RECORDS SUMMARY | 2018-03-28 15:37 | XMS REPORT ---
:1970 External Reference #:[id number] Author Organization [facility] Address [address], [address] [place] [address] Phone [phone] Support Name Relationship Address Britney Manuel Mother [address] [phone] [place] [address] Care Team Providers Name Role Phone Vik De Los Santos MD Care Team Information Career Professional Unavailable Vik De Los Santos MD Primary Care Physician Unavailable Payers Type Date Identification Numbers Payment Provider Subscriber Commercial Policy Number: [id number] [facility] Malik Ann PayID: [id number] [address] [place] [address] Problems Date Description Provider Status Onset: 09/13/2016 Cough Chuck Suarez MD Active Onset: 09/13/2016 Vomiting, unspecified Chuck Suarez MD Active Onset: 09/13/2016 Abnormal findings diagnostic imaging Chuck Suarez MD Active of liver+biliary tract Onset: 01/11/2017 Adult health [...] Date Description Comments Marital Status Patient is Home Environment Lives With Girlfriend Occupation Maintenance Work Status Currently Working Cigarette Use Never Smoked Cigarettes ETOH Use Occasionally consumes alcohol Recreational Drug Use Denies Drug Use Smoking Patient has never smoked Daily Caffeine Patient consumes minimal amounts of caffeine Exercise Type/Frequency Does not exercise Allergies, Adverse [...] 90cap 2 cap by K52.832 Part s mouth MD Erick every day Flonase Sensimist Active Suspension 27.5mcg/S 2 sprays Unknown /0000 pray every day Allergy Active weekly ( Unknown Injections / for molds) Ondansetron Active Tablets 8mg 1 sl every Unknown /0000 Dispers 8 hrs prn Ondansetron 12/05 Hx Tablets 4mg 90tab 1 tab by R11.10 Dispers s mouth MD Erick - three 01/11 times day as needed Amoxicillin 11/02 Hx Tablets 500mg 30tab take 1 J01.90 And s tablet Filiberto, daily 3 M.D. times a day for 10 days Pantoprazole 10/[address] 40mg 90tab 1 by mouth K21.0 s every day MD Erick - every 01/31 Work Note 10/03 Hx Malik J41.0 Wood was MD Omar seen in the office today. Please excuse him. Ondansetron HCL 09/27 Hx Tablets 8mg 30tab 1 tab by Darek s mouth [place] - every 8 , M.D. 07/06 hours needed for nausea Pantoprazole 09/[address] 40mg 90tab 1 by mouth Sodium s every day MD Erick every morning Dulcolax 09/[address] 5mg 4tabs 4 tablets R93.3 taken tatyana Suarez MD - 8pm the 09/27 day before the [...] Hx Aerosol 110mcg/Ac 12gm inhale 2 J45.991 t puffs MD Omar - twice 08/01 daily /2017 after albuterol nebulizer treatment* shake well *rinse mouth after use Proair HFA 05/30 Hx Aerosol 108(90Bas 8.500 take 2 J45.991 Marquise e) gm puffs MD Omar mcg/Act every 6 hours as needed for shortness of breath. Hydroxyzine HCL 04/18 Hx Tablets 25mg 30tab take 1 F41.9 And s tablet by Filiberto, mouth 3 M.D. times a day as needed for anxiety. Do not drink alcohol while on this medication Ondansetron HCL 03/20 Hx Tablets 4mg 30tab 1 tab And s every 8hr Filiberto, as needed M.D. for nausea No Active 02/05 Hx Unknown Medications /2016 - 02/05 Ondansetron HCL 02/05 Hx Tablets 4mg 30tab 1 tab And s every 6hr Filiberto, as needed M.D. for nausea Methylprednisolon 01/22 Hx TBPK 4mg 1dose take as R51 Andras e pack directed Fadi De Los Santos M.D. 02/05 No Active 01/11 Hx Unknown Medications /2016 - 01/22 Proair HFA 12/05 Hx Aerosol 108(90Bas 8.500 take 2 J47.9 e) gm puffs MD Omar mcg/Act every 6 hours as needed for cough No Active 10/17 Hx Unknown Medications /2016 - 12/05 No Active 11/16 Hx Unknown Medications /2015 - 09/13 Nabumetone 10/19 Hx Tablets 750mg 60tab take 1 s tablet by Leti, - mouth 2 M.D. 11/16 times day with food Naproxen 00/00 Hx 500mg Unknown /0000 - 10/18 Nortriptyline HCL 00/00 Hx 50mg Jessica, /0000 Carolina Aponte MD 10/19 Hydrocodone-Aceta 00/00 Hx 5-500mg Robenstei minophen /0000 Siomara brandon, - 10/18 Omeprazole 00/ Hx 20mg Ruam, /0000 Fadi Pratt MD 10/19 Amoxicillin / Hx 500mg Battels, /0000 MD Omid - 10/18 Zofran 00/00 Hx Tablets 4mg 1 tablet Unknown /0000 by mouth every 8 hours as needed for nausea Protonix 00/ Hx Tablets DR 20mg 1 po every Unknown /0000 day Fluticasone Hx Suspension 50mcg/Act Unknown Propionate /0000 - 02/05 Ondansetron HCL 00/ Hx Tablets 4mg take 1 Unknown /0000 tablet by - mouth 09/04 every hours if needed for nausea Omeprazole [address] 20mg 60cap I tablet Unknown /0000 s twice - daily 09/27 Oxycodone-Acetami 00/ Hx Tablets 5-325mg take 1-2 Unknown nophen /0000 tablets by mouth every 4 to 6 hours if needed maximum daily d Ciprofloxacin HCL 0000 Hx Tablets 500mg take 1 Unknown /0000 tablet by - mouth 09/27 twice day Metronidazole 00/00 Hx Tablets 500mg 1 po qd Unknown /0000 - 10/02 Pantoprazole [address] 20mg take 1 Unknown Sodium /0000 tablet by - mouth 01/31 morning Medications Administered in Office Medication Date Status Form Strength Qnty SIG Indications Ordering Provider Depomedrol 80 Administered Injection Vianey SLupe mg 016 AVIVA Alba Immunizations CPT Code Status Date Vaccine Lot # [id number] Given 03/20/2017 Influenza Virus Vaccine, Quadrivalent, Slit Virus, Im Use [id number] Given 01/11/2017 Tdap injection [id number] Vital Signs Date Vital Result Comment 02/18/2018 BP Systolic Sitting Left Arm 126 mmHg BP Diastolic Sitting Left Arm 88 mmHg Body Temperature 98.1 F Heart Rate 73 /min Respiratory Rate 16 /min Height 69 inches 5'9" Weight 185.00 lb BMI (Body Mass Index) 27.3 kg/m2 BSA (Body Surface Area) 2.00 m2 [place] body weight in kilograms 73 O2 % BldC Oximetry 95 % Ra 01/31/2018 BP Systolic Sitting Left Arm 138 mmHg BP Diastolic Sitting Left Arm 96 mmHg Body Temperature 97.6 F Heart Rate 72 /min Respiratory Rate 20 /min Height 69 inches 5'9" Weight 191.00 lb BMI (Body Mass Index) 28.2 kg/m2 BSA (Body Surface Area) 2.03 m2 [place] body weight in kilograms 73 O2 % BldC Oximetry 96 % 01/11/2018 BP Systolic Sitting Right Arm 142 mmHg BP Diastolic Sitting Right Arm 84 mmHg Heart Rate 68 /min Respiratory Rate 20 /min Height 69 inches 5'9" Weight 192.00 lb BMI (Body Mass Index) 28.4 kg/m2 BSA (Body Surface Area) 2.03 m2 [place] body weight in kilograms 73 O2 % BldC Oximetry 96 % Ra Pain Level 8 while vomitting 12/05/2017 BP Systolic Sitting Left Arm 132 mmHg BP Diastolic Sitting Left Arm 96 mmHg Heart Rate 82 /min Respiratory Rate 18 /min Height 69 inches 5'9" Weight 188.00 lb BMI (Body Mass Index) 27.8 kg/m2 BSA (Body Surface Area) 2.01 m2 [place] body weight in kilograms 73 11/09/2017 BP Systolic Sitting Right Arm 134 mmHg BP Diastolic Sitting Right Arm 82 mmHg Heart Rate 81 /min Respiratory Rate 18 /min Height 69 inches 5'9" Weight 190.00 lb BMI (Body Mass Index) 28.1 kg/m2 BSA (Body Surface Area) 2.02 m2 [place] body weight in kilograms 73 11/02/2017 BP Systolic 151 mmHg BP Diastolic 98 mmHg Body Temperature 98.3 F Heart Rate 81 /min Respiratory Rate 16 /min Height 69 inches 5'9" Weight 189.12 lb BMI (Body Mass Index) 27.9 kg/m2 BSA (Body Surface Area) 2.02 m2 [place] body weight in kilograms 73 O2 % BldC Oximetry 97 % 10/31/2017 BP Systolic 124 mmHg BP Diastolic 90 mmHg Body Temperature 98.2 F Heart Rate 84 /min Respiratory Rate 16 /min Height 69 inches 5'9" Weight 187.00 lb BMI (Body Mass Index) 27.6 kg/m2 BSA (Body Surface Area) 2.01 m2 [place] body weight in kilograms 73 O2 % BldC Oximetry 95 % On Room Air 10/19/2017 BP Systolic Sitting Left Arm 162 mmHg BP Diastolic Sitting Left Arm 96 mmHg Heart Rate 91 /min Respiratory Rate 16 /min Height 69 inches 5'9" Weight 190.00 lb with boots BMI (Body Mass Index) 28.1 kg/m2 BSA (Body Surface Area) 2.02 m2 [place] body weight in kilograms 73 10/17/2017 BP Systolic 151 mmHg BP Diastolic 98 mmHg Heart Rate 72 /min Respiratory Rate 14 /min Height 69 inches 5'9" Weight 185.12 lb BMI (Body Mass Index) 27.3 kg/m2 BSA (Body Surface Area) 2.00 m2 [place] body weight in kilograms 73 O2 % BldC Oximetry 97 % 10/05/2017 BP Systolic Sitting Left Arm 130 mmHg BP Diastolic Sitting Left Arm 90 mmHg Heart Rate 76 /min Respiratory Rate 16 /min Height 69 inches 5'9" Weight 192.00 lb BMI (Body Mass Index) 28.4 kg/m2 BSA (Body Surface Area) 2.03 m2 [place] body weight in kilograms 73 10/03/2017 BP Systolic Sitting Left Arm 118 mmHg BP Diastolic Sitting Left Arm 88 mmHg Heart Rate 74 /min Respiratory Rate 16 /min Height 69 inches 5'9" Weight 191.00 lb BMI (Body Mass Index) 28.2 kg/m2 BSA (Body Surface Area) 2.03 m2 [place] body weight in kilograms 73 O2 % BldC Oximetry 98 % 10/02/2017 BP Systolic 137 mmHg BP Diastolic 85 mmHg Heart Rate 72 /min Respiratory Rate 14 /min Height 69 inches 5'9" Weight 190.12 lb BMI (Body Mass Index) 28.1 kg/m2 BSA (Body Surface Area) 2.02 m2 [place] body weight in kilograms 73 O2 % BldC Oximetry 97 % 09/27/2017 BP Systolic Sitting Left Arm 123 mmHg BP Diastolic Sitting Left Arm 83 mmHg Body Temperature 98.4 F Heart Rate 76 /min Respiratory Rate 18 /min Height 69 inches 5'9" Weight 186.00 lb BMI (Body Mass Index) 27.5 kg/m2 BSA (Body Surface Area) 2.00 m2 [place] body weight in kilograms 73 O2 % BldC Oximetry 94 % 09/12/2017 BP Systolic Sitting Left Arm 128 mmHg BP Diastolic Sitting Left Arm 84 mmHg Heart Rate 84 /min Respiratory Rate 16 /min Height 69 inches 5'9" Weight 192.00 lb BMI (Body Mass Index) 28.4 kg/m2 BSA (Body Surface Area) 2.03 m2 [place] body weight in kilograms 73 09/04/2017 BP Systolic Sitting Left Arm 122 mmHg BP Diastolic Sitting Left Arm 84 mmHg Body Temperature 97.2 F Heart Rate 72 /min Respiratory Rate 16 /min Height 69 inches 5'9" Weight 196.00 lb with steel toe boots BMI (Body Mass Index) 28.9 kg/m2 BSA (Body Surface Area) 2.05 m2 [place] body weight in kilograms 73 08/29/2017 BP Systolic Sitting Left Arm 122 mmHg BP Diastolic Sitting Left Arm 80 mmHg Heart Rate 74 /min Respiratory Rate 16 /min Height 69 inches 5'9" Weight 196.00 lb BMI (Body Mass Index) 28.9 kg/m2 BSA (Body Surface Area) 2.05 m2 [place] body weight in kilograms 73 08/15/2017 BP Systolic Sitting Right Arm 118 mmHg BP Diastolic Sitting Right Arm 81 mmHg Heart Rate 75 /min Height 69 inches 5'9" Weight 195.00 lb BMI (Body Mass Index) 28.8 kg/m2 BSA (Body Surface Area) 2.04 m2 [place] body weight in kilograms 73 O2 % BldC Oximetry 92 % ra 08/01/2017 BP Systolic Sitting Left Arm 136 mmHg BP Diastolic Sitting Left Arm 92 mmHg Heart Rate 72 /min Respiratory Rate 16 /min Height 69 inches 5'9" Weight 201.00 lb BMI (Body Mass Index) 29.7 kg/m2 BSA (Body Surface Area) 2.07 m2 [place] body weight in kilograms 73 O2 % BldC Oximetry 97 % 05/30/2017 BP Systolic Sitting Left Arm 128 mmHg BP Diastolic Sitting Left Arm 88 mmHg Heart Rate 71 /min Respiratory Rate 16 /min Height 69 inches 5'9" Weight 198.00 lb BMI (Body Mass Index) 29.2 kg/m2 BSA (Body Surface Area) 2.06 m2 [place] body weight in kilograms 73 O2 % BldC Oximetry 97 % 05/04/2017 BP Systolic Sitting Left Arm 120 mmHg BP Diastolic Sitting Left Arm 80 mmHg Heart Rate 70 /min Respiratory Rate 16 /min Height 69 inches 5'9" Weight 193.00 lb BMI (Body Mass Index) 28.5 kg/m2 BSA (Body Surface Area) 2.03 m2 [place] body weight in kilograms 73 04/18/2017 BP Systolic 133 mmHg BP Diastolic 91 mmHg Heart Rate 79 /min Respiratory Rate 14 /min Height 69 inches 5'9" Weight 190.12 lb BMI (Body Mass Index) 28.1 kg/m2 BSA (Body Surface Area) 2.02 m2 [place] body weight in kilograms 73 O2 % BldC Oximetry 96 % 03/20/2017 BP Systolic 137 mmHg BP Diastolic 89 mmHg Body Temperature 97.6 F Heart Rate 72 /min Respiratory Rate 16 /min Height 69 inches 5'9" Weight 186.25 lb BMI (Body Mass Index) 27.5 kg/m2 BSA (Body Surface Area) 2.00 m2 [place] body weight in kilograms 73 O2 % BldC Oximetry 97 % 02/14/2017 BP Systolic Sitting Left Arm 122 mmHg BP Diastolic Sitting Left Arm 80 mmHg Respiratory Rate 1675 /min Height 69 inches 5'9" Weight 189.00 lb BMI (Body Mass Index) 27.9 kg/m2 BSA (Body Surface Area) 2.02 m2 [place] body weight in kilograms 73 02/05/2017 BP Systolic 121 mmHg BP Diastolic 86 mmHg Body Temperature 97.7 F Heart Rate 80 /min Respiratory Rate 16 /min Height 69 inches 5'9" Weight 185.00 lb BMI (Body Mass Index) 27.3 kg/m2 BSA (Body Surface Area) 2.00 m2 [place] body weight in kilograms 73 O2 % BldC Oximetry 94 % 01/30/2017 BP Systolic 129 mmHg BP Diastolic 83 mmHg Heart Rate 73 /min Respiratory Rate 16 /min Height 69 inches 5'9" Weight 189.00 lb With Boots BMI (Body Mass Index) 27.9 kg/m2 BSA (Body Surface Area) 2.02 m2 [place] body weight in kilograms 73 O2 % BldC Oximetry 97 % 01/22/2017 BP Systolic Sitting Left Arm 140 mmHg BP Diastolic Sitting Left Arm 88 mmHg Body Temperature 98.0 F Heart Rate 79 /min Height 69 inches 5'9" Weight 185.00 lb BMI (Body Mass Index) 27.3 kg/m2 BSA (Body Surface Area) 2.00 m2 [place] body weight in kilograms 73 O2 % BldC Oximetry 98 % 01/11/2017 BP Systolic 125 mmHg BP Diastolic 85 mmHg Body Temperature 97.7 F Heart Rate 79 /min Respiratory Rate 16 /min Height 69 inches 5'9" Weight 186.00 lb BMI (Body Mass Index) 27.5 kg/m2 BSA (Body Surface Area) 2.00 m2 [place] body weight in kilograms 73 O2 % BldC Oximetry 96 % 12/05/2016 BP Systolic Sitting Left Arm 128 mmHg BP Diastolic Sitting Left Arm 80 mmHg Heart Rate 77 /min Respiratory Rate 16 /min Height 69 inches 5'9" Weight 192.00 lb BMI (Body Mass Index) 28.4 kg/m2 BSA (Body Surface Area) 2.03 m2 [place] body weight in kilograms 73 O2 % [...] Test Date Test Result H/L Range Note Eosinophil/leuk NFr 02/14/2018 Eosinophil/leuk NFr 2.4 0.0-6.6 Bld Auto Bld Auto Fibrin D-dimer Feu 02/14/2018 Fibrin D-dimer Feu 1.39 measurement in measurement in platelet poor pl platelet poor plasma (mass/volume) Globulin Ser Calc-mCnc 02/14/2018 [...] 25 21-32 measurement measurement Serum or plasma 02/14/2018 Serum or plasma 3.8 3.4-5.0 albumin measurement albumin measurement (mass/volume) (mass/volume) Serum or plasma 02/14/2018 Serum or plasma 68 45-117 alkaline phosphatase alkaline phosphatase measurement ( measurement (enzymatic activity/volume) Serum or plasma 02/14/2018 Serum or plasma 30 15-37 aspartate aspartate aminotransferase aminotransferase measure measurement (enzymatic activity/volume) Serum or plasma 02/14/2018 Serum or plasma 8.8 8.5-10.1 calcium measurement calcium measurement (mass/volume) (mass/volume) Serum or plasma 02/14/2018 Serum or plasma 1.0 0.6-1.3 creatinine measurement creatinine measurement (mass/volum (mass/volume) Serum or plasma 02/14/2018 Serum or plasma 104 74-106 glucose measurement glucose measurement (mass/volume) (mass/volume) Serum or plasma 02/14/2018 Serum or plasma 7.6 6.4-8.2 protein measurement protein measurement (mass/volume) (mass/volume) Serum or plasma total 02/14/2018 Serum or plasma total 0.6 0.2-1.0 bilirubin measurement bilirubin measurement (mass/ (mass/volume) Serum or plasma urea 02/14/2018 Serum or plasma urea 11 7-18 nitrogen measurement nitrogen measurement (mass/vo (mass/volume) Serum sodium 02/14/2018 Serum sodium 143 136-145 measurement measurement Laboratory test 02/14/2018 Troponin-I < 0.015 1, 2 finding ng/mL Comprehensive 02/14/2018 Glucose 104 mg/dL 74-106 1 Metabolic Panel BUN 11 mg/dL 7-18 1 Creatinine [...] Lymph % 19.0 % Low 20.0-42.0 1 [place] % 8.5 % 0.0-10.0 1 Eo% 2.4 % 0.0-6.6 1 Bas% 0.3 % 0.0-1.1 1 Neut# 4.66 K/uL 1.8-7.0 1 Lymph # 1.27 K/uL 1.0-4.0 1 [place] # 0.57 K/uL 0.0-0.8 1 Eos # [...] measurement (mass/volume) (mass/volume) Chloride SerPl-sCnc 02/14/2018 Chloride [facility] 109 High 98-107 Blood monocytes 02/14/2018 Blood [...] Lymph % 18.2 % Low 20.0-42.0 6 [place] % 7.3 % 0.0-10.0 6 Eo% 1.7 % 0.0-6.6 6 Bas% 0.4 % 0.0-1.1 6 Neut# 6.06 K/uL 1.8-7.0 6 Lymph # 1.52 K/uL 1.0-4.0 6 [place] # 0.61 K/uL 0.0-0.8 6 Eos # [...] Ketone NEGATIVE mg/dL Negative 10 Urine Specific [place] 1.020 1.010-1.030 10 Urine Blood NEGATIVE Negative [...] 10 Lymph % 25.0 % 20.0-42.0 10 [place] % 8.9 % 0.0-10.0 10 Eo% 2.4 % 0.0-6.6 10 Bas% 0.4 % 0.0-1.1 10 Neut# 4.28 K/uL 1.8-7.0 10 Lymph # 1.69 K/uL 1.0-4.0 10 [place] # 0.60 K/uL 0.0-0.8 10 Eos # [...] Ketone NEGATIVE mg/dL Negative 18 Urine Specific [place] 1.020 1.010-1.030 18 Urine Blood TRACE Negative [...] 18 Lymph % 22.1 % 20.0-42.0 18 [place] % 7.2 % 0.0-10.0 18 Eo% 3.5 % 0.0-6.6 18 Bas% 0.3 % 0.0-1.1 18 Neut# 4.57 K/uL 1.8-7.0 18 Lymph # 1.51 K/uL 1.0-4.0 18 [place] # 0.49 K/uL 0.0-0.8 18 Eos # [...] Ketone NEGATIVE mg/dL Negative 21 Urine Specific [place] 1.010 1.010-1.030 21 Urine Blood NEGATIVE Negative [...] Lymph % 17.9 % Low 20.0-42.0 21 [place] % 7.8 % 0.0-10.0 21 Eo% 2.4 % 0.0-6.6 21 Bas% 0.2 % 0.0-1.1 21 Neut# 6.11 K/uL 1.8-7.0 21 Lymph # 1.52 K/uL 1.0-4.0 21 [place] # 0.66 K/uL 0.0-0.8 21 Eos # [...] TRACE mg/dL High Negative 23 Urine Specific [place] 1.015 1.010-1.030 23 Urine Blood NEGATIVE Negative [...] Lymph % 17.1 % Low 20.0-42.0 23 [place] % 7.5 % 0.0-10.0 23 Eo% 2.5 % 0.0-6.6 23 Bas% 0.3 % 0.0-1.1 23 Neut# 5.53 K/uL 1.8-7.0 23 Lymph # 1.30 K/uL 1.0-4.0 23 [place] # 0.57 K/uL 0.0-0.8 23 Eos # [...] 27 Lymph % 25.8 % 20.0-42.0 27 [place] % 7.3 % 0.0-10.0 27 Eo% 3.2 % 0.0-6.6 27 Bas% 0.4 % 0.0-1.1 27 Neut# 4.93 K/uL 1.8-7.0 27 Lymph # 2.01 K/uL 1.0-4.0 27 [place] # 0.57 K/uL 0.0-0.8 27 Eos # [...] Ketone NEGATIVE mg/dL Negative 29 Urine Specific [place] 1.020 1.010-1.030 29 Urine Blood NEGATIVE Negative [...] 29 Lymph % 25.0 % 20.0-42.0 29 [place] % 8.7 % 0.0-10.0 29 Eo% 3.6 % 0.0-6.6 29 Bas% 0.3 % 0.0-1.1 29 Neut# 4.18 K/uL 1.8-7.0 29 Lymph # 1.67 K/uL 1.0-4.0 29 [place] # 0.58 K/uL 0.0-0.8 29 Eos # [...] 32 Lymph % 21.7 % 20.0-42.0 32 [place] % 10.1 % High 0.0-10.0 32 Eo% 2.5 % 0.0-6.6 32 Bas% 0.4 % 0.0-1.1 32 Neut# 5.18 K/uL 1.8-7.0 32 Lymph # 1.72 K/uL 1.0-4.0 32 [place] # 0.80 K/uL 0.0-0.8 32 Eos # [...] 6.0-8.5 40 Albumin 3.8 g/dL 2.9-4.4 40 Rumep-0-Zkvmtxwe 0.2 g/dL 0.0-0.4 40 Voijh-8-Yskojyhb 0.6 g/dL 0.4-1.0 40 Beta Globulin 1.4 [...] (M2) Antibodies 3.0 units 0.0-20.0 40, 48 Twkln-9-Ldrzreoxwjg,Serum 129 mg/dL 90-200 40 Ceruloplasmin 30.9 mg/dL [...] DVT, or Pulmonary embolism as clinically indicated. ([facility] has established a 97.89% negative predictive [...] developed and its performance characteristics determined by [facility]. It has not been cleared or approved by the Food and Drug Administration. 9 This test was developed and its performance characteristics determined by [facility]. It has not been cleared or approved by the Food and Drug Administration. Performed at: [address] [id number] Inorganic Chemistry Professor: Kei London MD, Phone: [phone] POSS REACTION TO MILK,BLURRED VISION,DIZZY 11 URINE, CLEAN CATCH 12 Elevated levels of HbA1c suggest the need for more aggressive treatment of glycemia. The [place] [employer] recommends that a primary goal [...] with a HCV Nucleic Acid Amplification test (651125). Performed at: [address] [id number] Inorganic Chemistry Professor: Lissett Perez MD, Phone: [phone] 16 Performed at: [address] [id number] Inorganic Chemistry Professor: Lissett Perez MD, Phone: [phone] 17 Method: Sediplast Modified Westergren 18 DIARRHEA, [...] information may be found at www.[email or web address].org. 26 Thread Grinder: [id number] 27 CP, COLD CHILLS 28 0.0 - [...] Cholesterol Education Program (NCEP) 34 Performed at: RN - [facility] [address] [id number] Inorganic Chemistry Professor: Lissett Perez MD, Phone: [phone] 35 Reference Guidelines*: Low HDL: ..... < 40 mg/dL Normal: ..... 40-60 mg/dL Desirable: ... > 60 mg/dL *The National Cholesterol Education Program(NCEP) 36 Vitamin D deficiency has been defined by the [place] of Medicine and an Endocrine Society practice guideline as a level of serum 25-OH vitamin D less than 20 ng/mL (1,2). The Endocrine Society went on to further define vitamin D insufficiency as a level between 21 and 29 ng/mL (2). 1. IOM ([place] of Medicine). 2010. Dietary reference intakes for calcium and D. [place]: The National Academies Press. 2. Trena MF, Matthew RODNEY, Spencer WAYNE, et al. Evaluation, treatment, and prevention of vitamin D deficiency: an Endocrine Society clinical practice guideline. JCEM. 2010; 96(7):1911-30. Performed at: - [facility] [address] [id number] Inorganic Chemistry Professor: Lissett Perez MD, Phone: [phone] 37 Is Patient Fasting? Fasting 38 Note: [...] Negative: HCV RNA Not Detected Performed at: [facility] [address] [id number] Inorganic Chemistry Professor: Lissett Perez MD, Phone: [phone] Performed at: [facility] [address] [id number] Inorganic Chemistry Professor: Kei London MD, Phone: [phone] 42 Antibodies to HCV not detected; does not exclude early acute HCV infection. 43 IgM antibodies to HAV not detected; does not exclude early acute or recovered HAV infection. 44 IgM anti-HBc not detected. Does not exclude the possibility of exposure to or infection with HBV. 45 Protein electrophoresis scan will follow via computer, mail, or professor of genetics delivery. 46 The SPE pattern appears essentially [...] Date CPT Code Description Status Comment 09/20/2017 91034 Colonoscopy With Biopsy Completed 09/20/2017 50061 EGD With Biopsy Completed 11/07/2016 81719 Bronchospasm Provocation Completed Evaluation Multi Spirometric Determinati 11/07/2016 82473 Spirometry Completed 11/17/2015 41234 Asp./Injection major joint Completed 02/05/2008 37343 Colonoscopy With Polypectomy Completed 02/05/2008 56235 EGD With Biopsy Completed 02/05/2008 Colonoscopy Completed Document: 02/05/08 - Op Report - Colon Document: 02/05/08 - Final Pathology Report Encounters Type Date Location Provider CPT E/M Dx Office Visit 02/18/2018 3:20p Primary Care Office Vik De Los Santos M.D. 99127 I71.2 R11.10 Office Visit 01/31/2018 2:40p Primary Care Office Vik De Los Santos M.D. 86141 R11.10 K76.0 R51 N50.89 Z79.899 Office Visit 01/11/2018 3:00p [place] [address] R11.10 K52.832 K21.0 Office Visit 12/05/2017 10:15a [place] [address] R11.10 R10.9 K52.832 K21.0 Office Visit 11/09/2017 2:45p [place] [address] K52.832 K21.0 R51 J45.991 Office Visit 11/02/2017 11:00a Primary Care Office Vik De Los Santos M.D. 24422 J01.90 R51 R03.0 Office Visit 10/31/2017 3:40p Primary Care Office Vik De Los Santos M.D. 86386 R11.10 K21.0 K52.832 J30.9 Office Visit 10/19/2017 1:30[place] [address] R51 K52.832 K21.0 J45.991 R10.9 Office Visit 10/17/2017 10:30a Primary Care Office Darek Sloan 57749 R10.32 MLupeDLupe Office Visit 10/05/2017 3:15[place] [address] K52.832 K21.0 J45.991 R11.10 K76.0 Office Visit 10/03/2017 2:45p [place] [address] J41.0 Office Visit 10/02/2017 11:40a Primary Care Office Vik De Los Santos M.D. 18960 R11.2 K21.0 R19.7 Z79.899 Office Visit 09/27/2017 10:00a Primary Care Office Darek Sloan 03269 R11.2 M.D. Office Visit 09/12/2017 4:30[place] [address] R93.3 R19.7 K76.0 Office Visit 09/04/2017 9:00a Primary Care Office Darek Sloan 49320 R19.7 M.D. Office Visit 08/29/2017 3:00p [place] [address] K92.0 J45.991 R11.10 Office Visit 08/15/2017 2:40p Primary Care Office Vik De Los Santos M.D. 22704 R11.10 A09 K57.30 I71.2 Office Visit 08/01/2017 2:45p [place] [address] J45.991 J47.9 Office Visit 05/30/2017 3:00p [place] [address] R11.10 J45.991 Office Visit 05/04/2017 2:40p [place] [address] R05 R11.10 R10.11 Office Visit 04/18/2017 2:20p Primary Care Office Vik De Los Santos M.D. 68599 F41.9 R11.10 Office Visit 03/20/2017 11:00a Primary Care Office Vik De Los Santos M.D. 00755 R11.10 Z23 Office Visit 02/14/2017 2:45[place] [address] R93.2 R11.10 Office Visit 02/05/2017 11:40a Primary Care Office Vik De Los Santos M.D. 85022 R11.10 R05 J32.9 Office Visit 01/30/2017 3:40p Primary Care Office Vik De Los Santos M.D. 55982 J32.9 E78.5 Office Visit 01/22/2017 10:40a Primary Care Office Vik De Los Santos M.D. 34275 R51 Office Visit 12/05/2016 3:15p [place] [address] J47.9 Office Visit 10/17/2016 2:00p [place] [address] J41.0 Office Visit 09/13/2016 10:15[place] [address] R05 R11.10 R93.2 Office Visit 12/16/2015 3:00p Orthopaedic Office Vianey Alba, 25854 M25.562 RPAC M76.52 Office Visit 10/20/2015 2:45p Orthopaedic Office Vianey Alba, [address] M25.562 RPAC M76.52 Office Visit 08/11/2009 9:00a Orthopaedic Office Fausto Leroy, [address] 845.00 M.DLupe 719.06 Office Visit 02/20/2008 2:45p [place] [address] 211.3 Office Visit 01/30/2008 2:45p [place] [address] 578.0 536.2 Plan of Care Future Appointment(s):03/22/2018 3:00 pm - Chuck Suarez MD at GI04/08/2018 3:00 pm - Latha Perdue MD at Cardiology Raoryd7005/16/2018 3:40 pm - Vik De Los Santos M.D. at Primary Care Office
--- NOTE | 2018-03-28 16:17 | UC ---
Neck Pain HPI - HPI Summary HPI Summary: 2 day history of neck and low back pain, began over a short period of time evening of 03/26 without precipitating acitivity. Aware of having bilateral hand tingling for the past 2 days, without hand weakness. Paresthesias involve the palm and all digits of both hands. Has not used analgesics, did use a topical rub with mild relief. 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 Has upcoming visit with Dr. Butler, neurologist, for evaluation of cyclic vomiting , but has also realized in the past several weeks that he has a left arm tremor , worsened when he places weight on the elbow. No balance loss, gait disturbance or leg weakness. - History of Current Complaint Stated Complaint: NECK/BACK PAIN Time Seen by Provider: 03/28/18 16:07 Hx Obtained From: Patient Onset/Duration Of Injury/Symptoms: Days - 2 Onset/Duration: Sudden Onset Severity: Moderate Pain Intensity: 8 Pain Scale Used: 0-10 Numeric Character: Dull, Aching, Throbbing Aggravating Factors: Movement Alleviating Factors: Position Associated Signs & Symptoms: Positive: Paresthesia - both hands - Allergies/Home Medications Allergies/Adverse Reactions: Allergies Allergy/AdvReac Type Severity Reaction Status Date / Time No Known Allergies Allergy Verified 09/03/17 09:18 PMH/Surg Hx/FS Hx/Imm Hx Previously Healthy: No - history of vomiting 5 days per week for the past 15 years. GI/ History: Gastroesophageal Reflux Neurological History: Other - vomiting syndrome - Surgical History Surgical History: Yes Surgery Procedure, Year, and Place: Nasal Polyps, 2017, Dr. Carey, Cholecystectomy and Umbilical Herniorrhaphy, 2014, [facility]; Endoscopy, 04/29/15 , [facility]; Colonscopy, ~[facility] - Family History Known Family History: Positive: None - No history of degenerative neuro conditions, parents living and well. - Social History Occupation: Employed Full-time Alcohol Use: Daily - about 2 beers per night Substance Use Type: None Smoking Status (MU): Never Smoked Tobacco Review Of Systems Constitutional: Positive: Negative Skin: Positive: Other - excision of nevus from scrotal area yesterday. Eyes: Positive: Negative ENT: Positive: Negative Respiratory: Positive: Negative Cardiovascular: Positive: Negative Gastrointestinal: Positive: Negative Genitourinary: Positive: Negative Musculoskeletal: Positive: Negative Neurological: Positive: Paresthesia - bilateral hands, Other - new onset tremor Psychological: Positive: Negative All Other Systems Reviewed And Are Negative: Yes Physical Exam Triage Information Reviewed: Yes Appearance: Well-Nourished, Ill-Appearing - looks chronically unwell., Pain Distress - moderate Eyes: Positive: Conjunctiva Clear ENT: Positive: Pharynx normal Neck: Positive: Supple - limited range of motion with FF to 20 degrees, rotation to right to 30 degrees, decreased lateral bending, No Lymphadenopathy Respiratory: Positive: Lungs clear, Normal breath sounds Cardiovascular: Positive: RRR, No Murmur Musculoskeletal: Positive: Strength Intact, ROM Intact Neurological: Positive: Alert, Muscle Tone Normal, Other: - DTR's in UE are 2+, symmetrical. Has a hand tremor, bilateral, both are resting tremor, increases on the left side. Skin Exam: Normal Diagnostics - Laboratory Diagnostic Studies Completed/Ordered: cervical and lumbar spine films with mild lumbar degenerative change, otherwise normal. reviewed. Dr. Das confirmed radiology read. Neck Pain Course/Dx - Course Course Of Treatment: ibuprofen for pain control, heat and stretching. - Differential Dx/Diagnosis Differential Dx/HQI/PQRI: Strain, Torticollis Provider Diagnoses: cervical and lumbar strain, unknown precipitant. Discharge - Sign-Out/Discharge Documenting (check all that apply): Patient Departure All imaging exams completed and their final reports reviewed: Yes - Discharge Plan Condition: Stable Disposition: HOME Patient Education Materials: Low Back Strain (ED), Cervical Sprain (ED) Forms: *Work Release Referrals: Vik De Los Santos MD [Primary Care Provider] - Additional Instructions: Use ibuprofen 600mg three times daily for control of pain, and use additional heat to the neck and low back. Follow up with Dr. Butler as arranged. I would avoid chiropractic treatment until you have a neurological evaluation. Follow up with Dr. De Los Santos as needed. - Billing Disposition and Condition Condition: STABLE Disposition: Home
[2018-03-28] MEDS ORDERED: Ibuprofen TAB* 400 MG PO ONE (16:48)
--- NOTE | 2018-03-28 17:16 | RAD ---
HISTORY: neck pain with bilateral hand tingling x 2 days COMPARISONS: None VIEWS: 6 , Frontal, lateral, open-mouth odontoid, and bilateral oblique views of the cervical spine. FINDINGS: The cervical spine is visualized from the skull base through T1 . ALIGNMENT: The alignment is normal. VERTEBRAL BODIES: The odontoid process is intact. The atlantoaxial intervals are symmetric. JOINTS: There is no subluxation or dislocation. The facet joints are unremarkable. There is no osseous neural foraminal narrowing on the oblique views. INTERVERTEBRAL DISCS: There is mild diffuse loss of intervertebral disc height. SOFT TISSUE: The prevertebral soft tissues are normal. OTHER: The skull base is normal. The lung apices are clear. IMPRESSION: UNREMARKABLE RADIOGRAPHS OF THE CERVICAL SPINE
--- NOTE | 2018-03-28 17:17 | RAD ---
HISTORY: cervical and low back pain COMPARISONS: March 17, 2016 VIEWS: 5 , Frontal, lateral, coned-down lateral sacral, and bilateral oblique views of the lumbar spine. FINDINGS: ALIGNMENT: The alignment is normal. VERTEBRAL BODIES: There is mild anterolateral marginal osteophyte formation at L3-L4 and L4-L5. JOINTS: The facet joints are normal. INTERVERTEBRAL DISCS: There is mild diffuse loss of intervertebral disc height. SOFT TISSUE: Unremarkable. OTHER: The pelvis is unremarkable. The lung bases are clear. IMPRESSION: MILD DEGENERATIVE DISC DISEASE.
== END 2018-03-28 17:44 | disposition home or self-care (01) ==
LOC: UCCORT 15:27
DX: S16.1XXA Strain of muscle, fascia and tendon at neck level, initial encounter (principal); S39.012A Strain of muscle, fascia and tendon of lower back, initial encounter; X58.XXXA Exposure to other specified factors, initial encounter; Y93.9 Activity, unspecified; Y92.9 Unspecified place or not applicable
CPT/HCPCS: 72050; 72110; 99212; A9270-GY; G0463

== ENCOUNTER 2018-10-07 15:38 | Emergency (ER) | payer BC, OTHER ==
--- OUTSIDE RECORDS SUMMARY | 2018-10-07 15:55 | XMS REPORT | Continuity of Care Document ---
:1970 External Reference #:[id number] Author Name Liss Reese Care Team Providers Name Role Phone Lavelle Garcia MD Primary Care Physician Unavailable Payers Date Identification Numbers Payment Provider Subscriber Policy Number: [id number] [facility] Malik Ann PayID: [id number] [address] [place] [address] Advance Directives Description No Information Available Problems Date Description Provider Status Onset: 09/11/2018 Nausea and vomiting Prasanna Butler M.D. Active Onset: 05/07/2018 Headache Prasanna Butler M.D. Active Family History Date Family Member(s) Observation Comments Father No Current Problems Mother No Current Problems Social History Type Date Description Comments Sex Unknown Hand Dominance Right-handed Tobacco Use Start: Unknown Never Smoked Cigarettes Smoking Status Reviewed: 09/11/18 Never Smoked Cigarettes ETOH Use Currently consumes alcohol 2 drinks per day Tobacco Use Start: Unknown Patient has never smoked Recreational Drug Use Denies Drug Use Allergies, Adverse Reactions, Alerts Description No Known Drug Allergies Medications Medication Date Status Form Strength Qnty SIG Indications Ordering Provider Topamax 09/11 Active Tablets 25mg 60tab 1 pill by R51 Prasanna /Sana s mouth twice Alfonso Butler a day Pantoprazole Active Tablets DR 20mg 1 by mouth Unknown Sodium /0000 every day Vitamin B-12 Active Tablets 100mcg 1 by mouth Unknown /0000 every day Flonase Active Suspension 27.5mcg/S 1 squirt Unknown Sensimist / pray each nostril once a day Allergy Active injections Unknown Relief /0000 Ondansetron Active Tablets 4mg take 1 Unknown /0000 Dispers tablet by mouth every 8 hours if needed for nausea Prednisone Active Tablets 10mg take 5 Unknown /0000 tablets by mouth once daily for 3 days [address] Hx C[address] 3mg take three Unknown /0000 Part capsules by - mouth every Ondansetron Hx Tablets 8mg one by Unknown HCL /0000 mouth every - 8 hours as 05/06 needed for nausea and vomiting Immunizations Description No Information Available Vital Signs Date Vital Result Comment 09/11/2018 10:09am Height 70 inches 5'10" Weight 201.50 lb with boots Heart Rate 81 /min BP Systolic Sitting 126 mmHg BP Diastolic Sitting 88 mmHg Respiratory Rate 16 /min Pain Level 0 O2 % BldC Oximetry 96 % BMI (Body Mass Index) 28.9 kg/m2 05/07/2018 8:25am Height 70 inches 5'10" Weight 185.00 lb Heart Rate 68 /min BP Systolic 104 mmHg BP Diastolic 80 mmHg Respiratory Rate 14 /min BMI (Body Mass Index) 26.5 kg/m2 Results Description No Information Available Procedures Description No Information Available Encounters Type Date Location Provider Dx Diagnosis Office Visit 05/07/2018 [facility] Prasanna Butler M.D. R51 Headache 8:[facility]a [facility] Plan of Treatment Future Appointment(s):01/01/2019 8:15 am - Prasanna Butler M.D. at [place]/ [facility]09/11/2018 - Prasanna Butler M.D.R51 HeadacheNew Medication:Topamax 25 mg - 1 pill by mouth twice a dayFollow up:3 monthsRecommendations:stay well hydrated.R11.2 Nausea with vomiting, unspecified
--- OUTSIDE RECORDS SUMMARY | 2018-10-07 15:55 | XMS REPORT | Continuity of Care Document ---
:1970 External Reference #:[id number] Author Name Lavelle Garcia MD Address [address] [place] [address] Care Team Providers Name Role Phone Lavelle Garcia MD Care Team Information Manager Code Unavailable Lavelle Garcia MD Primary Care Physician Unavailable Payers Date Identification Numbers Payment Provider Subscriber Policy Number: [id number] [facility] Malik Ann PayID: [id number] [address] [place] [address] Advance Directives Description No Information Available Problems Date Description Provider Status Onset: 09/13/2016 [...] Active Onset: 03/04/2018 Disorder of adrenal gland Cici Carbajal M.D. Active Onset: 04/11/2018 Senile hyperkerCici Gonzalez M.D. Active Family History Date Family Member(s) Observation Comments General Non Contributory Father No Current Problems Mother Arthritis Social History Type Date Description Comments Sex Unknown Marital Status Patient is Lives With Girlfriend Home Environment Lives With Girlfriend Occupation Maintenance Work Status Currently Working Tobacco Use Start: Unknown Never Smoked Cigarettes ETOH Use Occasionally consumes alcohol Recreational Drug Use Denies Drug Use Tobacco Use Start: Unknown Patient has never smoked Smoking Status Reviewed: 09/23/18 Patient has never smoked Exercise Type/Frequency Does not exercise Allergies, Adverse Reactions, Alerts Description No Known Drug Allergies Medications Medication Date Status Form Strength Qnty SIG Indications Ordering Provider Flonase Active Suspension 27.5mcg/S 2 sprays Unknown Sensimist 00 pray every day Allergy Active weekly ( Unknown Injections 00 for molds) Omeprazole Active Capsules 20mg [address] mouth every day Topiramate Active Tablets 25mg 1 tab bid Unknown 00 Allergy 04/08/20 Hx Perdue, Injections Mini Azul MD Unknown Hydrocortisone 03/13/20 Hx Cream 2.5% 1unit 2 Times A Unknown 18 - s Day 06/17/20 18 Dexamethasone 03/08/20 Hx Tablets 1mg 1tabs take at [facility], 18 - at [facility], 03/22/20 night M.D. 18 night before blood test Pantoprazole 01/12/[address] 20mg 90tab 1 by K21.0 Chuck Sodium Mini Aponte s carmencita Suarez MD 06/17/20 every day 18 every morning Ondansetron 12/06/19 Hx Tablets 4mg 90tab 1 tab by R11.10 Chuck Aponte Dispers stevenson Suarez MD 01/12/20 three 18 times a day as needed Amoxicillin 11/03/19 Hx Tablets 500mg 30tab take 1 J01.90 Filiberto 18 - s tablet Andras, Unknown daily 3 M.D. times a day for 10 days Vitamin B12 10/20/19 Hx Tablets 100mcg 30tab 1 tab by R51 Chuck Suarez MD 09/24/19 every day 19 Budesonide 10/06/[address] 3mg 90cap 2 cap by K52.832 Young 18 - Part s mouth MD Erick 05/07/20 every day 18 Pantoprazole 10/06/[address] 40mg 90tab 1 by K21.0 Chuck Sodium 18 - s mouth MD Erick 02/01/20 every day 18 every morning Work Note 10/04/19 Hx Malik J41.0 Mini Nelson - Wood was MD Marquise Unknown seen in the office today. Please excuse him. Ondansetron HCL 09/28/19 Hx Tablets 8mg 30tab 1 tab by Luther 18 - s mouth , 01/12/20 every 8 Darek, 18 hours as M.D. needed for nausea Pantoprazole 09/21/[address] 40mg 90tab 1 by Chuck Sodium 18 - s mouth MD Erick Unknown every day every morning Dulcolax 09/13/[address] 5mg 4tabs 4 tablets R93.3 Chuck 18 - taken a MD Erick 09/28/19 8pm the 18 day before the procedure Citroma 09/13/19 Hx Solution 1.745GM/3 296ml 1 by Luke93.3 Chuck 18 - 0ML mouth MD Erick 09/28/19 once 18 Golytely 09/13/19 Hx Solution 236gm 4000m drink R93.3 Chuck 18 - Rec l half the MD Erick 09/28/19 evening 18 before and half the morning of the procedure (1 cup every 10') Flovent HFA 05/30/20 Hx Aerosol 110mcg/Ac 12gm inhale 2 J45.991 Omar 17 - t puffs MD Marquise 08/01/19 twice 18 daily after albuterol nebulizer treatment *shake well *rinse mouth after use Proair HFA 05/30/20 Hx Aerosol 108(90Bas 8.500 take 2 J45.991 Omar 17 - e) gm puffs MD Marquise Unknown mcg/Act every 6 hours as needed for shortness of breath. Hydroxyzine HCL 04/18/20 Hx Tablets 25mg 30tab take 1 F41.9 Filiberto, 17 - s tablet by Vik, Unknown mouth 3 M.D. times a day as needed for anxiety. Do not drink alcohol while on this medicatio n Ondansetron HCL 03/20/20 Hx Tablets 4mg 30tab 1 tab Filiberto, 17 - s every 8hr Andras, Unknown as needed M.D. for nausea No Active 02/06/20 Hx Unknown Medications - 02/06/20 17 Ondansetron HCL 02/06/20 Hx Tablets 4mg 30tab 1 tab Filiberto, 17 - s every 6hr Andras, Unknown as needed M.D. for nausea Methylprednisolo 01/23/20 Hx TBPK 4mg 1dose take as R51 barb De Los Santos 17 - pack directed Andras, 02/06/20 M.D. 17 No Active 01/12/20 Hx Unknown Medications - 01/23/20 17 Proair HFA 12/06/19 Hx Aerosol 108(90Bas 8.500 take 2 J47.9 Marshalleti, 17 - e) gm puffs MD Marquise Unknown mcg/Act every 6 hours as needed for cough No Active 10/18/19 Hx Unknown Medications - 12/06/19 17 No Active 11/17/19 Hx Unknown Medications - 09/14/19 17 Nabumetone 10/20/19 Hx Tablets 750mg 60tab take 1 Pompo, 16 - s tablet by Leon, 11/17/19 mouth 2 M.D. 16 times a day with food Naproxen Hx 500mg Unknown - 10/19/19 16 Nortriptyline Hx 50mg Jessica, HCL 00 - Carolina 10/20/19 MD 16 Hydrocodone-Acet Hx 5-500mg Robenstei aminophen 00 - Siomara brandon, 10/19/19 DO 16 Omeprazole Hx 20mg Syam, 00 - Bisadina, 10/20/19 16 Amoxicillin Hx 500mg Battels, 00 - MD Omid 10/19/19 16 Zofran Hx Tablets 4mg 1 tablet Unknown 00 - by mouth Unknown every 8 hours as needed for nausea Protonix Hx Tablets DR 20mg 1 po Unknown 00 - every day Unknown Fluticasone Hx Suspension 50mcg/Act Unknown Propionate - 02/06/20 17 Ondansetron HCL Hx Tablets 4mg take 1 Unknown 00 - tablet by 09/04/19 mouth 18 every 8 hours if needed for nausea Omeprazole Hx Capsules 20mg 60cap I tablet Unknown 00 - DR s twice 09/28/19 daily 18 Oxycodone-Acetam Hx Tablets 5-325mg take 1-2 Unknown inophen 00 - tablets Unknown by mouth every 4 to 6 hours if needed maximum daily d Ciprofloxacin Hx Tablets 500mg take 1 Unknown HCL 00 - tablet by 09/28/19 mouth 18 twice a day Metronidazole Hx Tablets 500mg 1 po qd Unknown - 10/03/19 18 Ondansetron Hx Tablets 8mg 1 sl Unknown 00 - Dispers every 8 03/04/20 hrs prn [address] 20mg take 1 Unknown Sodium 00 - tablet by 02/01/20 mouth 18 every morning Prednisone Hx Tablets 20mg take one Unknown 00 - tablet 06/17/20 daily 18 Amoxicillin/Clav Hx Tablets 875-125mg take 1 jake Carey 00 - tablet by MD Godwin Potassium 06/17/20 mouth 18 twice a day for 7 days Medications Administered in Office Medication Date Status Form Strength Qnty SIG Indications Ordering Provider Methylprednisolone 11/16 Administered Injection rodney Alba Vianey (Depomedrol) 80mg S., RPA injection Immunizations CPT Code Status Date Vaccine Lot # [id number] Given 03/20/2017 Influenza Virus Vaccine, Quadrivalent, Slit Virus, [place] Use [id number] Given 01/11/2017 Tdap injection [id number] Vital Signs Date Vital Result Comment 09/23/2018 9:41am BP Systolic 122 mmHg BP Diastolic 88 mmHg Heart Rate 72 /min Respiratory Rate 18 /min Height 69 inches 5'9" Weight 185.00 lb BMI (Body Mass Index) 27.3 kg/m2 BSA (Body Surface Area) 2.00 m2 [place] body weight in kilograms 73 kg O2 % BldC Oximetry 96 % Ra 06/17/2018 10:31am BP Systolic Sitting Left Arm 118 mmHg BP Diastolic Sitting Left Arm 84 mmHg Body Temperature 98.0 F Heart Rate 70 /min Respiratory Rate 18 /min Height 69 inches 5'9" Weight 191.00 lb BMI (Body Mass Index) 28.2 kg/m2 BSA (Body Surface Area) 2.03 m2 [place] body weight in kilograms 73 kg O2 % BldC Oximetry 96 % Ra 05/07/2018 3:18pm BP Systolic Sitting Left Arm 122 mmHg BP Diastolic Sitting Left Arm 90 mmHg Heart Rate 83 /min Respiratory Rate 16 /min Height 69 inches 5'9" Weight 192.00 lb BMI (Body Mass Index) 28.4 kg/m2 BSA (Body Surface Area) 2.03 m2 [place] body weight in kilograms 73 kg O2 % BldC Oximetry 97 % 04/11/2018 2:19pm BP Systolic 134 mmHg BP Diastolic 88 mmHg Body Temperature 98.1 F Heart Rate 77 /min Respiratory Rate 16 /min Height 69 inches 5'9" Weight 188.25 lb BMI (Body Mass Index) 27.8 kg/m2 BSA (Body Surface Area) 2.01 m2 [place] body weight in kilograms 73 kg O2 % BldC Oximetry 95 % Pain Level 0 04/10/2018 11:17am BP Systolic Sitting Left Arm 135 mmHg BP Diastolic Sitting Left Arm 90 mmHg Body Temperature 97.3 F Heart Rate 75 /min Respiratory Rate 18 /min Height 69 inches 5'9" Weight 188.00 lb BMI (Body Mass Index) 27.8 kg/m2 BSA (Body Surface Area) 2.01 m2 [place] body weight in kilograms 73 kg O2 % BldC Oximetry 98 % Ra 04/08/2018 2:52pm BP Systolic Sitting Left Arm 120 mmHg BP Diastolic Sitting Left Arm 65 mmHg Heart Rate 74 /min Respiratory Rate 16 /min Height 69 inches 5'9" Weight 191.00 lb BMI (Body Mass Index) 28.2 kg/m2 BSA (Body Surface Area) 2.03 m2 [place] body weight in kilograms 73 kg O2 % BldC Oximetry 96 % 03/22/2018 2:57pm BP Systolic Sitting Left Arm 132 mmHg BP Diastolic Sitting Left Arm 95 mmHg Heart Rate 77 /min Respiratory Rate 16 /min Height 69 inches 5'9" Weight 191.00 lb BMI (Body Mass Index) 28.2 kg/m2 BSA (Body Surface Area) 2.03 m2 [place] body weight in kilograms 73 kg O2 % BldC Oximetry 98 % 03/04/2018 2:55pm BP Systolic 135 mmHg BP Diastolic 92 mmHg Body Temperature 98.0 F Heart Rate 96 /min Respiratory Rate 18 /min Height 69 inches 5'9" Weight 190.00 lb BMI (Body Mass Index) 28.1 kg/m2 BSA (Body Surface Area) 2.02 m2 [place] body weight in kilograms 73 kg O2 % BldC Oximetry 97 % Pain Level 0 02/18/2018 4:08pm BP Systolic Sitting Left Arm 126 mmHg BP Diastolic Sitting Left Arm 88 mmHg Body Temperature 98.1 F Heart Rate 73 /min Respiratory Rate 16 /min Height 69 inches 5'9" Weight 185.00 lb BMI (Body Mass Index) 27.3 kg/m2 BSA (Body Surface Area) 2.00 m2 [place] body weight in kilograms 73 kg O2 % BldC Oximetry 95 % Ra 01/31/2018 2:52pm BP Systolic Sitting Left Arm 138 mmHg BP Diastolic Sitting Left Arm 96 mmHg Body Temperature 97.6 F Heart Rate 72 /min Respiratory Rate 20 /min Height 69 inches 5'9" Weight 191.00 lb BMI (Body Mass Index) 28.2 kg/m2 BSA (Body Surface Area) 2.03 m2 [place] body weight in kilograms 73 kg O2 % BldC Oximetry 96 % 01/11/2018 2:50pm BP Systolic Sitting Right Arm 142 mmHg BP Diastolic Sitting Right Arm 84 mmHg Heart Rate 68 /min Respiratory Rate 20 /min Height 69 inches 5'9" Weight 192.00 lb BMI (Body Mass Index) 28.4 kg/m2 BSA (Body Surface Area) 2.03 m2 [place] body weight in kilograms 73 kg O2 % BldC Oximetry 96 % Ra Pain Level 8 while vomitting 12/05/2017 10:10am BP Systolic Sitting Left Arm 132 mmHg BP Diastolic Sitting Left Arm 96 mmHg Heart Rate 82 /min Respiratory Rate 18 /min Height 69 inches 5'9" Weight 188.00 lb BMI (Body Mass Index) 27.8 kg/m2 BSA (Body Surface Area) 2.01 m2 [place] body weight in kilograms 73 kg 11/09/2017 2:45pm BP Systolic Sitting Right Arm 134 mmHg BP Diastolic Sitting Right Arm 82 mmHg Heart Rate 81 /min Respiratory Rate 18 /min Height 69 inches 5'9" Weight 190.00 lb BMI (Body Mass Index) 28.1 kg/m2 BSA (Body Surface Area) 2.02 m2 [place] body weight in kilograms 73 kg 11/02/2017 10:53am BP Systolic 151 mmHg BP Diastolic 98 mmHg Body Temperature 98.3 F Heart Rate 81 /min Respiratory Rate 16 /min Height 69 inches 5'9" Weight 189.12 lb BMI (Body Mass Index) 27.9 kg/m2 BSA (Body Surface Area) 2.02 m2 [place] body weight in kilograms 73 kg O2 % BldC Oximetry 97 % 10/31/2017 3:41pm BP Systolic 124 mmHg BP Diastolic 90 mmHg Body Temperature 98.2 F Heart Rate 84 /min Respiratory Rate 16 /min Height 69 inches 5'9" Weight 187.00 lb BMI (Body Mass Index) 27.6 kg/m2 BSA (Body Surface Area) 2.01 m2 [place] body weight in kilograms 73 kg O2 % BldC Oximetry 95 % On Room Air 10/19/2017 1:23pm BP Systolic Sitting Left Arm 162 mmHg BP Diastolic Sitting Left Arm 96 mmHg Heart Rate 91 /min Respiratory Rate 16 /min Height 69 inches 5'9" Weight 190.00 lb with boots BMI (Body Mass Index) 28.1 kg/m2 BSA (Body Surface Area) 2.02 m2 [place] body weight in kilograms 73 kg 10/17/2017 10:19am BP Systolic 151 mmHg BP Diastolic 98 mmHg Heart Rate 72 /min Respiratory Rate 14 /min Height 69 inches 5'9" Weight 185.12 lb BMI (Body Mass Index) 27.3 kg/m2 BSA (Body Surface Area) 2.00 m2 [place] body weight in kilograms 73 kg O2 % BldC Oximetry 97 % 10/05/2017 3:04pm BP Systolic Sitting Left Arm 130 mmHg BP Diastolic Sitting Left Arm 90 mmHg Heart Rate 76 /min Respiratory Rate 16 /min Height 69 inches 5'9" Weight 192.00 lb BMI (Body Mass Index) 28.4 kg/m2 BSA (Body Surface Area) 2.03 m2 [place] body weight in kilograms 73 kg 10/03/2017 2:49pm BP Systolic Sitting Left Arm 118 mmHg BP Diastolic Sitting Left Arm 88 mmHg Heart Rate 74 /min Respiratory Rate 16 /min Height 69 inches 5'9" Weight 191.00 lb BMI (Body Mass Index) 28.2 kg/m2 BSA (Body Surface Area) 2.03 m2 [place] body weight in kilograms 73 kg O2 % BldC Oximetry 98 % 10/02/2017 11:39am BP Systolic 137 mmHg BP Diastolic 85 mmHg Heart Rate 72 /min Respiratory Rate 14 /min Height 69 inches 5'9" Weight 190.12 lb BMI (Body Mass Index) 28.1 kg/m2 BSA (Body Surface Area) 2.02 m2 [place] body weight in kilograms 73 kg O2 % BldC Oximetry 97 % 09/27/2017 9:54am BP Systolic Sitting Left Arm 123 mmHg BP Diastolic Sitting Left Arm 83 mmHg Body Temperature 98.4 F Heart Rate 76 /min Respiratory Rate 18 /min Height 69 inches 5'9" Weight 186.00 lb BMI (Body Mass Index) 27.5 kg/m2 BSA (Body Surface Area) 2.00 m2 [place] body weight in kilograms 73 kg O2 % BldC Oximetry 94 % 09/12/2017 4:17pm BP Systolic Sitting Left Arm 128 mmHg BP Diastolic Sitting Left Arm 84 mmHg Heart Rate 84 /min Respiratory Rate 16 /min Height 69 inches 5'9" Weight 192.00 lb BMI (Body Mass Index) 28.4 kg/m2 BSA (Body Surface Area) 2.03 m2 [place] body weight in kilograms 73 kg 09/04/2017 9:06am BP Systolic Sitting Left Arm 122 mmHg BP Diastolic Sitting Left Arm 84 mmHg Body Temperature 97.2 F Heart Rate 72 /min Respiratory Rate 16 /min Height 69 inches 5'9" Weight 196.00 lb with steel toe boots BMI (Body Mass Index) 28.9 kg/m2 BSA (Body Surface Area) 2.05 m2 [place] body weight in kilograms 73 kg 08/29/2017 3:11pm BP Systolic Sitting Left Arm 122 mmHg BP Diastolic Sitting Left Arm 80 mmHg Heart Rate 74 /min Respiratory Rate 16 /min Height 69 inches 5'9" Weight 196.00 lb BMI (Body Mass Index) 28.9 kg/m2 BSA (Body Surface Area) 2.05 m2 [place] body weight in kilograms 73 kg 08/15/2017 2:42pm BP Systolic Sitting Right Arm 118 mmHg BP Diastolic Sitting Right Arm 81 mmHg Heart Rate 75 /min Height 69 inches 5'9" Weight 195.00 lb BMI (Body Mass Index) 28.8 kg/m2 BSA (Body Surface Area) 2.04 m2 [place] body weight in kilograms 73 kg O2 % BldC Oximetry 92 % ra 08/01/2017 2:55pm BP Systolic Sitting Left Arm 136 mmHg BP Diastolic Sitting Left Arm 92 mmHg Heart Rate 72 /min Respiratory Rate 16 /min Height 69 inches 5'9" Weight 201.00 lb BMI (Body Mass Index) 29.7 kg/m2 BSA (Body Surface Area) 2.07 m2 [place] body weight in kilograms 73 kg O2 % BldC Oximetry 97 % 05/30/2017 3:08pm BP Systolic Sitting Left Arm 128 mmHg BP Diastolic Sitting Left Arm 88 mmHg Heart Rate 71 /min Respiratory Rate 16 /min Height 69 inches 5'9" Weight 198.00 lb BMI (Body Mass Index) 29.2 kg/m2 BSA (Body Surface Area) 2.06 m2 [place] body weight in kilograms 73 kg O2 % BldC Oximetry 97 % 05/04/2017 3:14pm BP Systolic Sitting Left Arm 120 mmHg BP Diastolic Sitting Left Arm 80 mmHg Heart Rate 70 /min Respiratory Rate 16 /min Height 69 inches 5'9" Weight 193.00 lb BMI (Body Mass Index) 28.5 kg/m2 BSA (Body Surface Area) 2.03 m2 [place] body weight in kilograms 73 kg 04/18/2017 2:30pm BP Systolic 133 mmHg BP Diastolic 91 mmHg Heart Rate 79 /min Respiratory Rate 14 /min Height 69 inches 5'9" Weight 190.12 lb BMI (Body Mass Index) 28.1 kg/m2 BSA (Body Surface Area) 2.02 m2 [place] body weight in kilograms 73 kg O2 % BldC Oximetry 96 % 03/20/2017 11:00am BP Systolic 137 mmHg BP Diastolic 89 mmHg Body Temperature 97.6 F Heart Rate 72 /min Respiratory Rate 16 /min Height 69 inches 5'9" Weight 186.25 lb BMI (Body Mass Index) 27.5 kg/m2 BSA (Body Surface Area) 2.00 m2 [place] body weight in kilograms 73 kg O2 % BldC Oximetry 97 % 02/14/2017 2:57pm BP Systolic Sitting Left Arm 122 mmHg BP Diastolic Sitting Left Arm 80 mmHg Respiratory Rate 1675 /min Height 69 inches 5'9" Weight 189.00 lb BMI (Body Mass Index) 27.9 kg/m2 BSA (Body Surface Area) 2.02 m2 [place] body weight in kilograms 73 kg 02/05/2017 11:29am BP Systolic 121 mmHg BP Diastolic 86 mmHg Body Temperature 97.7 F Heart Rate 80 /min Respiratory Rate 16 /min Height 69 inches 5'9" Weight 185.00 lb BMI (Body Mass Index) 27.3 kg/m2 BSA (Body Surface Area) 2.00 m2 [place] body weight in kilograms 73 kg O2 % BldC Oximetry 94 % 01/30/2017 3:01pm BP Systolic 129 mmHg BP Diastolic 83 mmHg Heart Rate 73 /min Respiratory Rate 16 /min Height 69 inches 5'9" Weight 189.00 lb With Boots BMI (Body Mass Index) 27.9 kg/m2 BSA (Body Surface Area) 2.02 m2 [place] body weight in kilograms 73 kg O2 % BldC Oximetry 97 % 01/22/2017 10:39am BP Systolic Sitting Left Arm 140 mmHg BP Diastolic Sitting Left Arm 88 mmHg Body Temperature 98.0 F Heart Rate 79 /min Height 69 inches 5'9" Weight 185.00 lb BMI (Body Mass Index) 27.3 kg/m2 BSA (Body Surface Area) 2.00 m2 [place] body weight in kilograms 73 kg O2 % BldC Oximetry 98 % 01/11/2017 2:44pm BP Systolic 125 mmHg BP Diastolic 85 mmHg Body Temperature 97.7 F Heart Rate 79 /min Respiratory Rate 16 /min Height 69 inches 5'9" Weight 186.00 lb BMI (Body Mass Index) 27.5 kg/m2 BSA (Body Surface Area) 2.00 m2 [place] body weight in kilograms 73 kg O2 % BldC Oximetry 96 % 12/05/2016 3:22pm BP Systolic Sitting Left Arm 128 mmHg BP Diastolic Sitting Left Arm 80 mmHg Heart Rate 77 /min Respiratory Rate 16 /min Height 69 inches 5'9" Weight 192.00 lb BMI (Body Mass Index) 28.4 kg/m2 BSA (Body Surface Area) 2.03 m2 [place] body weight in kilograms 73 kg O2 % BldC Oximetry 96 % Room Air 10/17/2016 1:49pm BP Systolic Sitting Left Arm 120 mmHg BP Diastolic Sitting Left Arm 86 mmHg Heart Rate 80 /min Respiratory Rate 18 /min Height 69 inches 5'9" Weight 194.00 lb BMI (Body Mass Index) 28.6 kg/m2 BSA (Body Surface Area) 2.04 m2 O2 % BldC Oximetry 96 % 09/13/2016 10:38am BP Systolic Sitting Left Arm 138 mmHg BP Diastolic Sitting Left Arm 80 mmHg Heart Rate 78 /min Respiratory Rate 16 /min Height 69 inches 5'9" Weight 198.00 lb BMI (Body Mass Index) 29.2 kg/m2 BSA (Body Surface Area) 2.06 m2 10/20/2015 2:58pm BP Systolic Sitting Left Arm 150 mmHg BP Diastolic Sitting Left Arm 98 mmHg Height 69 inches 5'9" Weight 194.00 lb BMI (Body Mass Index) 28.6 kg/m2 BSA (Body Surface Area) 2.04 m2 08/11/2009 3:17pm Height 7 inches 0'7" Weight 190.00 lb BMI (Body Mass Index) 2725.9 kg/m2 Results Test Date Facility Test Result H/L Range Note Basic Metabolic Panel 09/05/2018 [facility] Glucose 97 mg/dL N 74-106 [address] [place], [place] [id number] [phone] BUN 11 mg/dL N 7-18 Creatinine 1.1 mg/dL N 0.6-1.3 Glom Filtration Rate, Estimate >60 mL/min >60 If >60 mL/min >60 2 BUN/Creat 10.0 ratio Sodium 142 mmol/L N 136-145 Potassium 3.8 mmol/L N 3.5-5.1 Chloride 107 mmol/L N 98-107 Carbon Dioxide 27 mmol/L N 21-32 Anion Gap 8 mEq/L N 8-16 Calcium 8.9 mg/dL N 8.5-10.1 Laboratory test 09/05/2018 [facility] Rapid Strep A Negative Negative 3 finding [address] [place] [address] [phone] Throat Strep Screen NO BETA STREPTOC <SEE NOTE> 4 Serum carbon 04/12/2018 N2N/CCD Import Serum carbon 27 21-32 dioxide measurement dioxide measurement RDW RBC Auto-Rto 04/12/2018 N2N/CCD Import RDW RBC Auto-Rto 12.6 11.6- 15.8 RDW RBC Auto 04/12/2018 N2N/CCD Import RDW RBC Auto 39.8 36-51 Potassium 04/12/2018 N2N/CCD Import Potassium 4.2 3.5-5.1 SerPl-sCnc SerPl-sCnc Neutrophils/leuk 04/12/2018 N2N/CCD Import Neutrophils/leuk 69.6 33.0- 73.0 NFr Bld Auto NFr Bld Auto Neutrophils # Bld 04/12/2018 N2N/CCD Import Neutrophils # Bld 4.59 1.8- 7.0 Auto Auto Monocytes/leuk NFr 04/12/2018 N2N/CCD Import Monocytes/leuk NFr 7.4 0.0- 10.0 Bld Auto Bld Auto Lymphocytes/leuk 04/12/2018 N2N/CCD Import Lymphocytes/leuk 20.5 20.0- 42.0 NFr Bld Auto NFr Bld Auto Globulin Ser 04/12/2018 N2N/CCD Import Globulin Ser 4.7 High 1.9-4.3 Calc-mCnc Calc-mCnc Eosinophil/leuk NFr 04/12/2018 N2N/CCD Import Eosinophil/leuk 2.0 0.0- 6.6 Bld Auto NFr Bld Auto Chloride SerPl-sCnc 04/12/2018 N2N/CCD Import Chloride 106 98-107 SerPl-sCnc Blood monocytes 04/12/2018 N2N/CCD Import Blood monocytes 0.49 0.0-0.8 automated count automated count (number/volume) (number/volume) Serum or plasma 04/12/2018 N2N/CCD Import Serum or plasma 4.1 3.4-5.0 albumin measurement albumin (mass/volume) measurement (mass/volume) Serum or plasma 04/12/2018 N2N/CCD Import Serum or plasma 77 45-117 alkaline alkaline phosphatase phosphatase measurement ( measurement (enzymatic activity/volume) Serum or plasma 04/12/2018 N2N/CCD Import Serum or plasma 26 15-37 aspartate aspartate aminotransferase aminotransferase measure measurement (enzymatic activity/volume) Serum or plasma 04/12/2018 N2N/CCD Import Serum or plasma 9.3 8.5-10.1 calcium measurement calcium (mass/volume) measurement (mass/volume) Serum or plasma 04/12/2018 N2N/CCD Import Serum or plasma 1.0 0.6-1.3 creatinine creatinine measurement measurement (mass/volum (mass/volume) Serum or plasma 04/12/2018 N2N/CCD Import Serum or plasma 101 74-106 glucose measurement glucose (mass/volume) measurement (mass/volume) Serum or plasma 04/12/2018 N2N/CCD Import Serum or plasma 84 56-289 lipase measurement lipase measurement (enzymatic acti (enzymatic activity/volume) Serum or plasma 04/12/2018 N2N/CCD Import Serum or plasma 8.8 High 6.4- 8.2 protein measurement protein (mass/volume) measurement (mass/volume) Serum or plasma 04/12/2018 N2N/CCD Import Serum or plasma 0.5 0.2-1.0 total bilirubin total bilirubin measurement (mass/ measurement (mass/volume) Serum or plasma 04/12/2018 N2N/CCD Import Serum or plasma 7 7-18 urea nitrogen urea nitrogen measurement measurement (mass/vo (mass/volume) Serum or plasma 04/12/2018 N2N/CCD Import Serum or plasma 7.0 urea urea nitrogen/creatinine nitrogen/creatinin mass rati e mass ratio Serum sodium 04/12/2018 N2N/CCD Import Serum sodium 142 136-145 measurement measurement Ketones Ur 04/12/2018 N2N/CCD Import Ketones Ur Negative Negative Strip.auto-mCnc Strip.auto-mCnc Leukocyte esterase 04/12/2018 N2N/CCD Import Leukocyte esterase Negative Negative Ur Ql Strip.auto Ur Ql Strip.auto Nitrite Ur Ql 04/12/2018 N2N/CCD Import Nitrite Ur Ql Negative Negative Strip.auto Strip.auto Color Ur 04/12/2018 N2N/CCD Import Color Ur Yellow Yellow Prot Ur 04/12/2018 N2N/CCD Import Prot Ur Negative Negative Strip.auto-mCnc Strip.auto-mCnc Ua RFX Micro & 04/12/2018 [facility] Urine Color YELLOW Yellow 5 Culture II [address] [place] [address] [phone] Urine Clarity CLEAR Clear Urine Glucose - Dipstick NEGATIVE mg/dL Negative Urine Bilirubin - Dipstick NEGATIVE Negative Urine Ketone NEGATIVE mg/dL Negative Urine Specific [place] 1.010 N 1.010-1.030 Urine Blood NEGATIVE Negative Urine PH 7.0 N 6.5-7.5 Urine Protein - Dipstick NEGATIVE mg/dL Negative Urine Urobilinogen - Dipstick 0.2 E.U./dL N 0.2-1.0 Urine Nitrite - Dipstick NEGATIVE Negative Urine Leuk Esterase NEGATIVE Negative Source: URINE, CLEAN CAT <SEE NOTE> 6 Specific gravity 04/12/2018 N2N/CCD Import Specific gravity 1.010 1.010- 1.030 of Urine by of Urine by Automated test Automated test strip strip Urine appearance 04/12/2018 N2N/CCD Import Urine appearance Clear Clear determination determination Urine glucose 04/12/2018 N2N/CCD Import Urine glucose Negative Negative measurement by measurement by automated test automated test strip strip (mass/volume) Urine hemoglobin 04/12/2018 N2N/CCD Import Urine hemoglobin Negative Negative detection by detection by automated test automated test strip strip Urine total 04/12/2018 N2N/CCD Import Urine total Negative Negative bilirubin bilirubin detection by detection by automated test automated test strip Urobilinogen Ur 04/12/2018 N2N/CCD Import Urobilinogen Ur 0.2 0.2-1.0 Strip-aCnc Strip-aCnc pH Ur Strip.auto 04/12/2018 N2N/CCD Import pH Ur Strip.auto 7.0 6.5-7.5 CBC W/Automated 04/12/2018 [facility] White Blood Count 6.6 K/uL N 3.4-10.5 Diff [address] [place] [address] [phone] Red Blood Count 5.34 M/uL N 4.20-5.80 Hemoglobin 16.4 gm/dL N 12.8-17.0 Hematocrit 46.7 % N 38.0-48.0 Mean Cell Volume 87.5 fl N 80.0-96.0 Mean Corpuscular HGB 30.7 pg N 27.0-33.0 Mean Corpuscular HGB Conc 35.1 g/dL N 31.7-36.0 Platelet Count 253 K/uL N 155-360 Red Cell Distri Width SD 39.8 fl N 36-51 Red Cell Distri Width %CV 12.6 % N 11.6-15.8 Mean Platelet Volume 9.1 fL N 6.6-10.6 Neut% 69.6 % N 33.0-73.0 Lymph % 20.5 % N 20.0-42.0 Henderson % 7.4 % N 0.0-10.0 Eo% 2.0 % N 0.0-6.6 Bas% 0.5 % N 0.0-1.1 Neut# 4.59 K/uL N 1.8-7.0 Lymph # 1.35 K/uL N 1.0-4.0 Henderson # 0.49 K/uL N 0.0-0.8 Eos # 0.13 K/uL N 0.0-0.5 Baso # 0.03 K/uL N 0.0-0.1 Alt SerPl-cCnc 04/12/2018 N2N/CCD Import Alt SerPl-cCnc 40 12-78 Albumin/Glob SerPl 04/12/2018 N2N/CCD Import Albumin/Glob SerPl 0.9 Anion Gap SerPl-sCnc 04/12/2018 N2N/CCD Import Anion Gap SerPl-sCnc 9 8- 16 Automated blood 04/12/2018 N2N/CCD Import Automated blood 0.03 0.0-0.1 basophil count basophil count (count/volume) (count/volume) Automated blood 04/12/2018 N2N/CCD Import Automated blood 0.13 0.0-0.5 eosinophil count eosinophil count Automated blood 04/12/2018 N2N/CCD Import Automated blood 46.7 38.0- 48.0 hematocrit (volume hematocrit (volume fraction) fraction) Automated blood 04/12/2018 N2N/CCD Import Automated blood 1.35 1.0-4.0 lymphocyte count lymphocyte count (number/volume) (number/volume) Automated blood 04/12/2018 N2N/CCD Import Automated blood 253 155-360 platelet count platelet count Automated blood 04/12/2018 N2N/CCD Import Automated blood 9.1 6.6-10.6 platelet mean volume platelet mean volume measurement measurement Automated erythrocyte 04/12/2018 N2N/CCD Import Automated erythrocyte 30.7 27.0-33.0 mean corpuscular mean corpuscular hemoglobin hemoglobin (mass per erythrocyte) Automated erythrocyte 04/12/2018 N2N/CCD Import Automated erythrocyte 35.1 31.7-36.0 mean corpuscular mean corpuscular hemoglobin hemoglobin concentration measurement (mass/volume) Automated erythrocyte 04/12/2018 N2N/CCD Import Automated erythrocyte 87.5 80.0-96.0 mean corpuscular mean corpuscular volume volume Basophils/leuk NFr 04/12/2018 N2N/CCD Import Basophils/leuk NFr 0.5 0.0- 1.1 Bld Auto Bld Auto Blood erythrocytes 04/12/2018 N2N/CCD Import Blood erythrocytes 5.34 4.20-5.80 automated count automated count (number/volume) (number/volume) Blood hemoglobin 04/12/2018 N2N/CCD Import Blood hemoglobin 16.4 12.8- 17.0 measurement measurement (mass/volume) (mass/volume) Blood leukocytes 04/12/2018 N2N/CCD Import Blood leukocytes 6.6 3.4- 10.5 automated count automated count (number/volume) (number/volume) Neutrophils/leuk NFr 04/07/2018 N2N/CCD Import Neutrophils/leuk NFr 56.1 33.0-73.0 Bld Auto Bld Auto Potassium SerPl-sCnc 04/07/2018 N2N/CCD Import Potassium SerPl-sCnc 3.5 3.5-5.1 RDW RBC Auto 04/07/2018 N2N/CCD Import RDW RBC Auto 38.8 36-51 RDW RBC Auto-Rto 04/07/2018 N2N/CCD Import RDW RBC Auto-Rto 12.5 11.6- 15.8 Serum carbon dioxide 04/07/2018 N2N/CCD Import Serum carbon dioxide 26 21-32 measurement measurement Serum or plasma 04/07/2018 N2N/CCD Import Serum or plasma 4.0 3.4-5.0 albumin measurement albumin measurement (mass/volume) (mass/volume) Serum or plasma 04/07/2018 N2N/CCD Import Serum or plasma 77 45-117 alkaline phosphatase alkaline phosphatase measurement ( measurement (enzymatic activity/volume) Serum or plasma 04/07/2018 N2N/CCD Import Serum or plasma 33 15-37 aspartate aspartate aminotransferase aminotransferase measure measurement (enzymatic activity/volume) Serum or plasma 04/07/2018 N2N/CCD Import Serum or plasma 8.5 8.5-10.1 calcium measurement calcium measurement (mass/volume) (mass/volume) Serum or plasma 04/07/2018 N2N/CCD Import Serum or plasma 0.9 0.6-1.3 creatinine creatinine measurement measurement (mass/volum (mass/volume) Serum or plasma 04/07/2018 N2N/CCD Import Serum or plasma 89 74-106 glucose measurement glucose measurement (mass/volume) (mass/volume) Serum or plasma 04/07/2018 N2N/CCD Import Serum or plasma 8.2 6.4-8.2 protein measurement protein measurement (mass/volume) (mass/volume) Serum or plasma total 04/07/2018 N2N/CCD Import Serum or plasma total 0.6 0.2-1.0 bilirubin measurement bilirubin measurement (mass/ (mass/volume) Serum or plasma urea 04/07/2018 N2N/CCD Import Serum or plasma urea 10 7 -18 nitrogen measurement nitrogen measurement (mass/vo (mass/volume) Serum or plasma urea 04/07/2018 N2N/CCD Import Serum or plasma urea 11.1 nitrogen/creatinine nitrogen/creatinine mass rati mass ratio Serum sodium 04/07/2018 N2N/CCD Import Serum sodium 139 136-145 measurement measurement Automated blood 04/07/2018 N2N/CCD Import Automated blood 2.82 1.0-4.0 lymphocyte count lymphocyte count (number/volume) (number/volume) Automated blood 04/07/2018 N2N/CCD Import Automated blood 43.9 38.0- 48.0 hematocrit (volume hematocrit (volume fraction) fraction) Automated blood 04/07/2018 N2N/CCD Import Automated blood 0.30 0.0-0.5 eosinophil count eosinophil count Automated blood 04/07/2018 N2N/CCD Import Automated blood 0.04 0.0-0.1 basophil count basophil count (count/volume) (count/volume) Anion Gap SerPl-sCnc 04/07/2018 N2N/CCD Import Anion Gap SerPl-sCnc 10 8 -16 Albumin/Glob SerPl 04/07/2018 N2N/CCD Import Albumin/Glob SerPl 1.0 Alt SerPl-cCnc 04/07/2018 N2N/CCD Import Alt SerPl-cCnc 44 12-78 CBC W/Automated Diff 04/07/2018 [facility] White Blood Count 8.7 N 3.4-10.[address] K/[place] [address] [phone] Red Blood Count 5.07 M/uL N 4.20-5.80 Hemoglobin 15.7 gm/dL N 12.8-17.0 Hematocrit 43.9 % N 38.0-48.0 Mean Cell Volume 86.6 fl N 80.0-96.0 Mean Corpuscular HGB 31.0 pg N 27.0-33.0 Mean Corpuscular HGB Conc 35.8 g/dL N 31.7-36.0 Platelet Count 248 K/uL N 155-360 Red Cell Distri Width SD 38.8 fl N 36-51 Red Cell Distri Width %CV 12.5 % N 11.6-15.8 Mean Platelet Volume 8.8 fL N 6.6-10.6 Neut% 56.1 % N 33.0-73.0 Lymph % 32.5 % N 20.0-42.0 Henderson % 7.4 % N 0.0-10.0 Eo% 3.5 % N 0.0-6.6 Bas% 0.5 % N 0.0-1.1 Neut# 4.87 K/uL N 1.8-7.0 Lymph # 2.82 K/uL N 1.0-4.0 Henderson # 0.64 K/uL N 0.0-0.8 Eos # 0.30 K/uL N 0.0-0.5 Baso # 0.04 K/uL N 0.0-0.1 Automated blood 04/07/2018 N2N/CCD Import Automated blood 248 155-360 platelet count platelet count Automated blood 04/07/2018 N2N/CCD Import Automated blood 8.8 6.6-10.6 platelet mean platelet mean volume measurement volume measurement Automated 04/07/2018 N2N/CCD Import Automated 31.0 27.0-33.0 erythrocyte mean erythrocyte mean corpuscular corpuscular hemoglobin hemoglobin (mass per erythrocyte) Automated 04/07/2018 N2N/CCD Import Automated 35.8 31.7-36.0 erythrocyte mean erythrocyte mean corpuscular corpuscular hemoglobin hemoglobin concentration measurement (mass/volume) Neutrophils # Bld 04/07/2018 N2N/CCD Import Neutrophils # Bld 4.87 1.8- 7.0 Auto Auto Monocytes/leuk NFr 04/07/2018 N2N/CCD Import Monocytes/leuk NFr 7.4 0.0- 10.0 Bld Auto Bld Auto Lymphocytes/leuk 04/07/2018 N2N/CCD Import Lymphocytes/leuk 32.5 20.0- 42.0 NFr Bld Auto NFr Bld Auto Globulin Ser 04/07/2018 N2N/CCD Import Globulin Ser 4.2 1.9-4.3 Calc-mCnc Calc-mCnc Eosinophil/leuk NFr 04/07/2018 N2N/CCD Import Eosinophil/leuk NFr 3.5 0.0-6.6 Bld Auto Bld Auto Chloride SerPl-sCnc 04/07/2018 N2N/CCD Import Chloride SerPl-sCnc 103 98 -107 Blood monocytes 04/07/2018 N2N/CCD Import Blood monocytes 0.64 0.0-0.8 automated count automated count (number/volume) (number/volume) Blood leukocytes 04/07/2018 N2N/CCD Import Blood leukocytes 8.7 3.4- 10.5 automated count automated count (number/volume) (number/volume) Blood hemoglobin 04/07/2018 N2N/CCD Import Blood hemoglobin 15.7 12.8- 17.0 measurement measurement (mass/volume) (mass/volume) Blood erythrocytes 04/07/2018 N2N/CCD Import Blood erythrocytes 5.07 4.20-5.80 automated count automated count (number/volume) (number/volume) Basophils/leuk NFr 04/07/2018 N2N/CCD Import Basophils/leuk NFr 0.5 0.0- 1.1 Bld Auto Bld Auto Automated 04/07/2018 N2N/CCD Import Automated 86.6 80.0-96.0 erythrocyte mean erythrocyte mean corpuscular volume corpuscular volume Color Ur 03/19/2018 N2N/CCD Import Color Ur Yellow Yellow Ua RFX Micro & 03/19/2018 [facility] Urine Color YELLOW Yellow 8 Culture II [address] [place] [address] [phone] Urine Clarity CLEAR Clear Urine Glucose - Dipstick NEGATIVE mg/dL Negative Urine Bilirubin - Dipstick NEGATIVE Negative Urine Ketone NEGATIVE mg/dL Negative Urine Specific [place] 1.020 N 1.010-1.030 Urine Blood NEGATIVE Negative Urine PH 6.5 N 6.5-7.5 Urine Protein - Dipstick NEGATIVE mg/dL Negative Urine Urobilinogen - Dipstick 0.2 E.U./dL N 0.2-1.0 Urine Nitrite - Dipstick NEGATIVE Negative Urine Leuk Esterase NEGATIVE Negative Source: URINE, CLEAN CAT <SEE NOTE> 9 Serum sodium 03/19/2018 N2N/CCD Import Serum sodium 142 136-145 measurement measurement Serum or plasma 03/19/2018 N2N/CCD Import Serum or plasma 10.0 urea urea nitrogen/creatinin nitrogen/creatinin e mass rati e mass ratio Serum or plasma 03/19/2018 N2N/CCD Import Serum or plasma 11 7-18 urea nitrogen urea nitrogen measurement measurement (mass/vo (mass/volume) Serum or plasma 03/19/2018 N2N/CCD Import Serum or plasma 0.8 0.2-1.0 total bilirubin total bilirubin measurement (mass/ measurement (mass/volume) Serum or plasma 03/19/2018 N2N/CCD Import Serum or plasma 7.8 6.4-8.2 protein protein measurement measurement (mass/volume) (mass/volume) Serum or plasma 03/19/2018 N2N/CCD Import Serum or plasma 75 56-289 lipase measurement lipase measurement (enzymatic acti (enzymatic activity/volume) Serum or plasma 03/19/2018 N2N/CCD Import Serum or plasma 104 74-106 glucose glucose measurement measurement (mass/volume) (mass/volume) Serum or plasma 03/19/2018 N2N/CCD Import Serum or plasma 1.1 0.6-1.3 creatinine creatinine measurement measurement (mass/volum (mass/volume) Ketones Ur 03/19/2018 N2N/CCD Import Ketones Ur Negative Negative Strip.auto-mCnc Strip.auto-mCnc Leukocyte esterase 03/19/2018 N2N/CCD Import Leukocyte esterase Negative Negative Ur Ql Strip.auto Ur Ql Strip.auto Nitrite Ur Ql 03/19/2018 N2N/CCD Import Nitrite Ur Ql Negative Negative Strip.auto Strip.auto Prot Ur 03/19/2018 N2N/CCD Import Prot Ur Negative Negative Strip.auto-mCnc Strip.auto-mCnc Specific gravity 03/19/2018 N2N/CCD Import Specific gravity 1.020 1.010- 1.030 of Urine by of Urine by Automated test Automated test strip strip Urine appearance 03/19/2018 N2N/CCD Import Urine appearance Clear Clear determination determination Urine glucose 03/19/2018 N2N/CCD Import Urine glucose Negative Negative measurement by measurement by automated test automated test strip strip (mass/volume) Urine hemoglobin 03/19/2018 N2N/CCD Import Urine hemoglobin Negative Negative detection by detection by automated test automated test strip strip Urine total 03/19/2018 N2N/CCD Import Urine total Negative Negative bilirubin bilirubin detection by detection by automated test automated test strip Urobilinogen Ur 03/19/2018 N2N/CCD Import Urobilinogen Ur 0.2 0.2-1.0 Strip-aCnc Strip-aCnc pH Ur Strip.auto 03/19/2018 N2N/CCD Import pH Ur Strip.auto 6.5 6.5-7.5 CBC W/Automated 03/19/2018 [facility] White Blood Count 8.3 K/uL N 3.4-10.5 Diff [address] [place] [address] [phone] Red Blood Count 5.11 M/uL N 4.20-5.80 Hemoglobin 15.8 gm/dL N 12.8-17.0 Hematocrit 44.4 % N 38.0-48.0 Mean Cell Volume 86.9 fl N 80.0-96.0 Mean Corpuscular HGB 30.9 pg N 27.0-33.0 Mean Corpuscular HGB Conc 35.6 g/dL N 31.7-36.0 Platelet Count 250 K/uL N 155-360 Red Cell Distri Width SD 39.2 fl N 36-51 Red Cell Distri Width %CV 12.6 % N 11.6-15.8 Mean Platelet Volume 9.0 fL N 6.6-10.6 Neut% 68.3 % N 33.0-73.0 Lymph % 19.2 % Low 20.0-42.0 Henderson % 8.7 % N 0.0-10.0 Eo% 3.6 % N 0.0-6.6 Bas% 0.2 % N 0.0-1.1 Neut# 5.68 K/uL N 1.8-7.0 Lymph # 1.60 K/uL N 1.0-4.0 Henderson # 0.72 K/uL N 0.0-0.8 Eos # 0.30 K/uL N 0.0-0.5 Baso # 0.02 K/uL N 0.0-0.1 Alt SerPl-cCnc 03/19/2018 N2N/CCD Import Alt SerPl-cCnc 35 12-78 Albumin/Glob SerPl 03/19/2018 N2N/CCD Import Albumin/Glob SerPl 0.9 Anion Gap SerPl-sCnc 03/19/2018 N2N/CCD Import Anion Gap SerPl-sCnc 5 Low 8-16 Automated blood 03/19/2018 N2N/CCD Import Automated blood 0.02 0.0-0.1 basophil count basophil count (count/volume) (count/volume) Automated blood 03/19/2018 N2N/CCD Import Automated blood 0.30 0.0-0.5 eosinophil count eosinophil count Automated blood 03/19/2018 N2N/CCD Import Automated blood 44.4 38.0-48. hematocrit (volume hematocrit (volume 0 fraction) fraction) Automated blood 03/19/2018 N2N/CCD Import Automated blood 1.60 1.0-4.0 lymphocyte count lymphocyte count (number/volume) (number/volume) Automated blood 03/19/2018 N2N/CCD Import Automated blood 250 155-360 platelet count platelet count Automated blood 03/19/2018 N2N/CCD Import Automated blood 9.0 6.6-10.6 platelet mean volume platelet mean volume measurement measurement Automated 03/19/2018 N2N/CCD Import Automated 30.9 27.0-33. erythrocyte mean erythrocyte mean 0 corpuscular corpuscular hemoglobin hemoglobin (mass per erythrocyte) Automated 03/19/2018 N2N/CCD Import Automated 35.6 31.7-36. erythrocyte mean erythrocyte mean 0 corpuscular corpuscular hemoglobin hemoglobin concentration measurement (mass/volume) Automated 03/19/2018 N2N/CCD Import Automated 86.9 80.0-96. erythrocyte mean erythrocyte mean 0 corpuscular volume corpuscular volume Basophils/leuk NFr 03/19/2018 N2N/CCD Import Basophils/leuk NFr 0.2 0.0- 1.1 Bld Auto Bld Auto Blood erythrocytes 03/19/2018 N2N/CCD Import Blood erythrocytes 5.11 4.20-5.8 automated count automated count 0 (number/volume) (number/volume) Blood hemoglobin 03/19/2018 N2N/CCD Import Blood hemoglobin 15.8 12.8- 17. measurement measurement 0 (mass/volume) (mass/volume) Serum or plasma 03/19/2018 N2N/CCD Import Serum or plasma 9.0 8.5-10.1 calcium measurement calcium measurement (mass/volume) (mass/volume) Serum or plasma 03/19/2018 N2N/CCD Import Serum or plasma 25 15-37 aspartate aspartate aminotransferase aminotransferase measure measurement (enzymatic activity/volume) Serum or plasma 03/19/2018 N2N/CCD Import Serum or plasma 73 45-117 alkaline phosphatase alkaline phosphatase measurement ( measurement (enzymatic activity/volume) Serum or plasma 03/19/2018 N2N/CCD Import Serum or plasma 3.7 3.4-5.0 albumin measurement albumin measurement (mass/volume) (mass/volume) Serum carbon dioxide 03/19/2018 N2N/CCD Import Serum carbon dioxide 29 21-32 measurement measurement RDW RBC Auto-Rto 03/19/2018 N2N/CCD Import RDW RBC Auto-Rto 12.6 11.6- 15. 8 RDW RBC Auto 03/19/2018 N2N/CCD Import RDW RBC Auto 39.2 36-51 Potassium SerPl-sCnc 03/19/2018 N2N/CCD Import Potassium SerPl-sCnc 4.1 3.5-5.1 Neutrophils/leuk NFr 03/19/2018 N2N/CCD Import Neutrophils/leuk NFr 68.3 33.0-73. Bld Auto Bld Auto 0 Neutrophils # Bld 03/19/2018 N2N/CCD Import Neutrophils # Bld 5.68 1.8- 7.0 Auto Auto Monocytes/leuk NFr 03/19/2018 N2N/CCD Import Monocytes/leuk NFr 8.7 0.0- 10.0 Bld Auto Bld Auto Blood leukocytes 03/19/2018 N2N/CCD Import Blood leukocytes 8.3 3.4- 10.5 automated count automated count (number/volume) (number/volume) Lymphocytes/leuk NFr 03/19/2018 N2N/CCD Import Lymphocytes/leuk NFr 19.2 Low 20.0-42. Bld Auto Bld Auto 0 Globulin Ser 03/19/2018 N2N/CCD Import Globulin Ser 4.1 1.9-4.3 Calc-mCnc Calc-mCnc Eosinophil/leuk NFr 03/19/2018 N2N/CCD Import Eosinophil/leuk NFr 3.6 0.0-6.6 Bld Auto Bld Auto Chloride SerPl-sCnc 03/19/2018 N2N/CCD Import Chloride SerPl-sCnc 108 High 98-107 Blood monocytes 03/19/2018 N2N/CCD Import Blood monocytes 0.72 0.0-0.8 automated count automated count (number/volume) (number/volume) Serum or plasma 03/09/2018 N2N/CCD Import Serum or plasma 29 0-145 normetanephrine normetanephrine measurement (mass/ measurement (mass/volume) Serum or plasma free 03/09/2018 N2N/CCD Import Serum or plasma free 12 0 -62 metanephrine metanephrine measurement (mas measurement (mass/volume) Metanephrines,Frac,P 03/09/2018 [facility] Normetanephrines,Zohreh 29 0-145 [address] sma pg/[place] [address] [phone] Metanephrine, Plasma 12 pg/mL 0-62 11 Laboratory test 03/09/2018 [facility] Cortisol,Am 0.8 g/dL Low 6.2-19.4 12 finding [address] [place] [address] [phone] Urine Dipstick 03/04/2018 [facility] Ua Color yellow Yellow Ua Clarity clearn Clear Ua Leuko neg Negative Ua Nitrite neg Negative Ua Urobilinogen 17 High 0.2 - 1.0 E.U./dL Ua Protein neg Negative Ua PH 6.5 6.5-7.5 Ua Blood neg Negative Ua Specific [place] 1.020 1.010-1.030 Ua Ketones neg Negative Ua Bilirubin neg Negative Ua Glucose neg Negative Serum or plasma 02/14/2018 N2N/CCD Import Serum or plasma 30 15-37 aspartate aspartate aminotransferase aminotransferase measure measurement (enzymatic activity/volume) Serum or plasma 02/14/2018 N2N/CCD Import Serum or plasma 8.8 8.5-10.1 calcium measurement calcium measurement (mass/volume) (mass/volume) Serum or plasma 02/14/2018 N2N/CCD Import Serum or plasma 68 45-117 alkaline phosphatase alkaline measurement ( phosphatase measurement (enzymatic activity/volume) Serum or plasma 02/14/2018 N2N/CCD Import Serum or plasma 3.8 3.4-5.0 albumin measurement albumin measurement (mass/volume) (mass/volume) Serum carbon dioxide 02/14/2018 N2N/CCD Import Serum carbon 25 21-32 measurement dioxide measurement RDW RBC Auto-Rto 02/14/2018 N2N/CCD Import RDW RBC Auto-Rto 12.5 11.6- 15. 8 RDW RBC Auto 02/14/2018 N2N/CCD Import RDW RBC Auto 39.3 36-51 Potassium SerPl-sCnc 02/14/2018 N2N/CCD Import Potassium 4.0 3.5-5.1 SerPl-sCnc Serum or plasma 02/14/2018 N2N/CCD Import Serum or plasma 1.0 0.6-1.3 creatinine creatinine measurement measurement (mass/volum (mass/volume) Serum or plasma 02/14/2018 N2N/CCD Import Serum or plasma 104 74-106 glucose measurement glucose measurement (mass/volume) (mass/volume) Serum or plasma 02/14/2018 N2N/CCD Import Serum or plasma 7.6 6.4-8.2 protein measurement protein measurement (mass/volume) (mass/volume) Serum or plasma 02/14/2018 N2N/CCD Import Serum or plasma 0.6 0.2-1.0 total bilirubin total bilirubin measurement (mass/ measurement (mass/volume) Serum or plasma urea 02/14/2018 N2N/CCD Import Serum or plasma 11 7-18 nitrogen measurement urea nitrogen (mass/vo measurement (mass/volume) Serum sodium 02/14/2018 N2N/CCD Import Serum sodium 143 136-145 measurement measurement Automated blood 02/14/2018 N2N/CCD Import Automated blood 43.8 38.0-48. hematocrit (volume hematocrit (volume 0 fraction) fraction) Automated blood 02/14/2018 N2N/CCD Import Automated blood 0.16 0.0-0.5 eosinophil count eosinophil count Automated blood 02/14/2018 N2N/CCD Import Automated blood 0.02 0.0-0.1 basophil count basophil count (count/volume) (count/volume) Automated blood 02/14/2018 N2N/CCD Import Automated blood 1.27 1.0-4.0 lymphocyte count lymphocyte count (number/volume) (number/volume) Automated blood 02/14/2018 N2N/CCD Import Automated blood 238 155-360 platelet count platelet count Automated blood 02/14/2018 N2N/CCD Import Automated blood 8.8 6.6-10.6 platelet mean volume platelet mean measurement volume measurement Automated 02/14/2018 N2N/CCD Import Automated 31.0 27.0-33. erythrocyte mean erythrocyte mean 0 corpuscular corpuscular hemoglobin hemoglobin (mass per erythrocyte) Automated 02/14/2018 N2N/CCD Import Automated 35.4 31.7-36. erythrocyte mean erythrocyte mean 0 corpuscular corpuscular hemoglobin hemoglobin concentration measurement (mass/volume) Anion Gap SerPl-sCnc 02/14/2018 N2N/CCD Import Anion Gap 9 8-16 SerPl-sCnc Albumin/Glob SerPl 02/14/2018 N2N/CCD Import Albumin/Glob SerPl 1.0 Alt SerPl-cCnc 02/14/2018 N2N/CCD Import Alt SerPl-cCnc 39 12-78 Laboratory test 02/14/2018 [facility] D-Dimer, 1.39 High 13, finding [address] Quantitative ug/mL 14 [place] [address] [phone] CBS W/Automated Diff 02/14/2018 [facility] White Blood Count 6.7 N 3.4-10.[address] K/[place] [address] [phone] Red Blood Count 5.00 M/uL N 4.20-5.80 Hemoglobin 15.5 gm/dL N 12.8-17.0 Hematocrit 43.8 % N 38.0-48.0 Mean Cell Volume 87.6 fl N 80.0-96.0 Mean Corpuscular HGB 31.0 pg N 27.0-33.0 Mean Corpuscular HGB Conc 35.4 g/dL N 31.7-36.0 Platelet Count 238 K/uL N 155-360 Red Cell Distri Width SD 39.3 fl N 36-51 Red Cell Distri Width %CV 12.5 % N 11.6-15.8 Mean Platelet Volume 8.8 fL N 6.6-10.6 Neut% 69.8 % N 33.0-73.0 Lymph % 19.0 % Low 20.0-42.0 [place] % 8.5 % N 0.0-10.0 Eo% 2.4 % N 0.0-6.6 Bas% 0.3 % N 0.0-1.1 Neut# 4.66 K/uL N 1.8-7.0 Lymph # 1.27 K/uL N 1.0-4.0 [place] # 0.57 K/uL N 0.0-0.8 Eos # 0.16 K/uL N 0.0-0.5 Baso # 0.02 K/uL N 0.0-0.1 Laboratory test finding 02/14/2018 [facility] CK 267 U/L N 39-308 [address] [place] [address] [phone] Troponin-I < 0.015 ng/mL 15 Comprehensive Metabolic 02/14/2018 [facility] Glucose 104 mg/dL N 74-106 Panel [address] [place] [address] [phone] BUN 11 mg/dL N 7-18 Creatinine 1.0 mg/dL N 0.6-1.3 Glom Filtration Rate, Estimate >60 mL/min >60 If >60 mL/min >60 16 BUN/Creat 11.0 ratio Sodium 143 mmol/L N 136-145 Potassium 4.0 mmol/L N 3.5-5.1 Chloride 109 mmol/L High 98-107 Carbon Dioxide 25 mmol/L N 21-32 Anion Gap 9 mEq/L N 8-16 Calcium 8.8 mg/dL N 8.5-10.1 Total Protein 7.6 g/dL N 6.4-8.2 Albumin 3.8 g/dL N 3.4-5.0 Globulin 3.8 g/dL N 1.9-4.3 Alb/Glob 1.0 ratio Bilirubin,Total 0.6 mg/dL N 0.2-1.0 Sgot/Ast 30 U/L N 15-37 SGPT/Alt 39 U/L N 12-78 Alkaline Phosphatase 68 U/L N 45-117 Laboratory test 02/14/2018 [facility] Troponin-I < 0.015 [address] ng/[place] [address] [phone] Neutrophils/leuk 02/14/2018 N2N/CCD Import Neutrophils/leuk 69.8 33.0 NFr Bld Auto NFr Bld Auto -73. 0 Neutrophils # Bld 02/14/2018 N2N/CCD Import Neutrophils # 4.66 1.8- Auto Bld Auto 7.0 Monocytes/leuk NFr 02/14/2018 N2N/CCD Import Monocytes/leuk 8.5 0.0- Bld Auto NFr Bld Auto 10.0 Lymphocytes/leuk 02/14/2018 N2N/CCD Import Lymphocytes/leuk 19.0 Low 20.0 NFr Bld Auto NFr Bld Auto -42. 0 Globulin Ser 02/14/2018 N2N/CCD Import Globulin Ser 3.8 1.9- Calc-mCnc Calc-mCnc 4.3 Fibrin D-dimer Feu 02/14/2018 N2N/CCD Import Fibrin D-dimer 1.39 *H measurement in Feu measurement platelet poor pl in platelet poor plasma (mass/volume) Eosinophil/leuk 02/14/2018 N2N/CCD Import Eosinophil/leuk 2.4 0.0- NFr Bld Auto NFr Bld Auto 6.6 Chloride 02/14/2018 N2N/CCD Import Chloride 109 High 98-1 SerPl-sCnc SerPl-sCnc 07 Blood monocytes 02/14/2018 N2N/CCD Import Blood monocytes 0.57 0.0- automated count automated count 0.8 (number/volume) (number/volume) Blood leukocytes 02/14/2018 N2N/CCD Import Blood leukocytes 6.7 3.4- automated count automated count 10.5 (number/volume) (number/volume) Blood hemoglobin 02/14/2018 N2N/CCD Import Blood hemoglobin 15.5 12.8 measurement measurement -17. (mass/volume) (mass/volume) 0 Blood erythrocytes 02/14/2018 N2N/CCD Import Blood 5.00 4.20 automated count erythrocytes -5.8 (number/volume) automated count 0 (number/volume) Basophils/leuk NFr 02/14/2018 N2N/CCD Import Basophils/leuk 0.3 0.0- Bld Auto NFr Bld Auto 1.1 BUN/Creat SerPl 02/14/2018 N2N/CCD Import BUN/Creat SerPl 11.0 Automated 02/14/2018 N2N/CCD Import Automated 87.6 80.0 erythrocyte mean erythrocyte mean -96. corpuscular volume corpuscular 0 volume Comprehensive 12/05/2017 [facility] Glucose 100 mg/dL N 74-1 18 Metabolic Panel [address] [place] [address] [phone] BUN 12 mg/dL N 7-18 Creatinine 0.9 mg/dL N 0.6-1.3 Glom Filtration Rate, Estimate >60 mL/min >60 If >60 mL/min >60 19 BUN/Creat 13.3 ratio Sodium 139 mmol/L N 136-145 Potassium 4.4 mmol/L N 3.5-5.1 Chloride 106 mmol/L N 98-107 Carbon Dioxide 25 mmol/L N 21-32 Anion Gap 8 mEq/L N 8-16 Calcium 9.5 mg/dL N 8.5-10.1 Total Protein 8.2 g/dL N 6.4-8.2 Albumin 4.0 g/dL N 3.4-5.0 Globulin 4.2 g/dL N 1.9-4.3 Alb/Glob 1.0 ratio Bilirubin,Total 0.6 mg/dL N 0.2-1.0 Sgot/Ast 38 U/L High 15-37 SGPT/Alt 45 U/L N 12-78 Alkaline Phosphatase 74 U/L N 45-117 Laboratory test 12/05/2017 [facility] Lipase 72 U/L N 56-[address] [place] [address] [phone] CBS W/Automated 12/05/2017 [facility] White Blood 8.4 K/uL N 3.4-10.[address] [place] [address] [phone] Red Blood Count 5.25 M/uL N 4.20-5.80 Hemoglobin 16.3 gm/dL N 12.8-17.0 Hematocrit 46.7 % N 38.0-48.0 Mean Cell Volume 89.0 fl N 80.0-96.0 Mean Corpuscular HGB 31.0 pg N 27.0-33.0 Mean Corpuscular HGB Conc 34.9 g/dL N 31.7-36.0 Platelet Count 235 K/uL N 155-360 Red Cell Distri Width SD 42.7 fl N 36-51 Red Cell Distri Width %CV 13.2 % N 11.6-15.8 Mean Platelet Volume 9.1 fL N 6.6-10.6 Neut% 72.4 % N 33.0-73.0 Lymph % 18.2 % Low 20.0-42.0 Henderson % 7.3 % N 0.0-10.0 Eo% 1.7 % N 0.0-6.6 Bas% 0.4 % N 0.0-1.1 Neut# 6.06 K/uL N 1.8-7.0 Lymph # 1.52 K/uL N 1.0-4.0 Henderson # 0.61 K/uL N 0.0-0.8 Eos # 0.14 K/uL N 0.0-0.5 Baso # 0.03 K/uL N 0.0-0.1 Serum or plasma 12/05/2017 N2N/CCD Import Serum or plasma 72 56-289 lipase measurement lipase measurement (enzymatic acti (enzymatic activity/volume) 24 hour urine delta 10/26/2017 N2N/CCD Import 24 hour urine delta 3.2 Undefined aminolevulinate aminolevulinate measurement (m measurement (mass/volume) 24 hour urine delta 10/26/2017 N2N/CCD Import 24 hour urine delta 3.4 0.5-5.1 aminolevulinate aminolevulinate measurement (m measurement (mass/time) Ala Delta, 24 Hour 10/26/2017 [facility] Delta Ala 3.2 Undefined Urine [address] mg/L [place], [place] [id number] [phone] Delta Ala 3.4 mg/24hr 0.5-5.1 20 Porphobilinogen,QN,24HR 10/26/2017 [facility] Porphobilinogen,QN,Urine 0.7 0.0 -2.[address] mg/L [place], [place] [id number] [phone] Porphobilinogen, 24HR (U) 0.7 mg/24hr 0.0-1.5 21 24 hour urine 10/26/2017 N2N/CCD Import 24 hour urine 0.7 0.0-1.5 porphobilinogen porphobilinogen measurement (mass/ti measurement (mass/time) Porphobilinogen 10/26/2017 N2N/CCD Import Porphobilinogen 0.7 0.0-2.0 [Mass/volume] in 24 [Mass/volume] in 24 hour Urine hour Urine Serum or plasma 10/15/2017 N2N/CCD Import Serum or plasma 67 45-117 alkaline phosphatase alkaline measurement ( phosphatase measurement (enzymatic activity/volume) Serum or plasma 10/15/2017 N2N/CCD Import Serum or plasma 3.9 3.4-5.0 albumin measurement albumin measurement (mass/volume) (mass/volume) Serum carbon dioxide 10/15/2017 N2N/CCD Import Serum carbon 28 21-32 measurement dioxide measurement RDW RBC Auto-Rto 10/15/2017 N2N/CCD Import RDW RBC Auto-Rto 12.9 11.6- 15.8 RDW RBC Auto 10/15/2017 N2N/CCD Import RDW RBC Auto 40.3 36-51 Potassium SerPl-sCnc 10/15/2017 N2N/CCD Import Potassium 4.1 3.5-5.1 SerPl-sCnc Neutrophils/leuk NFr 10/15/2017 N2N/CCD Import Neutrophils/leuk 63.3 33.0-73.0 Bld Auto NFr Bld Auto Neutrophils # Bld 10/15/2017 N2N/CCD Import Neutrophils # Bld 4.28 1.8- 7.0 Auto Auto Monocytes/leuk NFr 10/15/2017 N2N/CCD Import Monocytes/leuk NFr 8.9 0.0- 10.0 Bld Auto Bld Auto Serum or plasma 10/15/2017 N2N/CCD Import Serum or plasma 20 15-37 aspartate aspartate aminotransferase aminotransferase measure measurement (enzymatic activity/volume) Serum or plasma 10/15/2017 N2N/CCD Import Serum or plasma 9.3 8.5-10.1 calcium measurement calcium measurement (mass/volume) (mass/volume) Serum or plasma 10/15/2017 N2N/CCD Import Serum or plasma 188 39-308 creatine kinase creatine kinase measurement (enzym measurement (enzymatic activity/volume) Serum or plasma 10/15/2017 N2N/CCD Import Serum or plasma 0.9 0.6-1.3 creatinine creatinine measurement measurement (mass/volum (mass/volume) Serum or plasma 10/15/2017 N2N/CCD Import Serum or plasma 101 74-106 glucose measurement glucose measurement (mass/volume) (mass/volume) Serum or plasma 10/15/2017 N2N/CCD Import Serum or plasma 8.2 6.4-8.2 protein measurement protein measurement (mass/volume) (mass/volume) Serum or plasma 10/15/2017 N2N/CCD Import Serum or plasma 0.5 0.2-1.0 total bilirubin total bilirubin measurement (mass/ measurement (mass/volume) Serum or plasma urea 10/15/2017 N2N/CCD Import Serum or plasma 9 7-18 nitrogen measurement urea nitrogen (mass/vo measurement (mass/volume) Serum sodium 10/15/2017 N2N/CCD Import Serum sodium 143 136-145 measurement measurement Automated blood 10/15/2017 N2N/CCD Import Automated blood 0.16 0.0-0.5 eosinophil count eosinophil count Automated blood 10/15/2017 N2N/CCD Import Automated blood 0.03 0.0-0.1 basophil count basophil count (count/volume) (count/volume) Anion Gap SerPl-sCnc 10/15/2017 N2N/CCD Import Anion Gap 7 Low 8-16 SerPl-sCnc Albumin/Glob SerPl 10/15/2017 N2N/CCD Import Albumin/Glob SerPl 0.9 Alt SerPl-cCnc 10/15/2017 N2N/CCD Import Alt SerPl-[facility] 31 12-78 Glycohemoglobin A1c 10/15/2017 [facility] Glycohemoglobin 5.3 % N 4.2-6.3 22, [address] (A1c) 23 [place] [address] [phone] eAG 105 mg/dL CBS W/Automated Diff 10/15/2017 [facility] White Blood 6.8 K/uL N 3.4-10.[address] [place] [address] [phone] Red Blood Count 5.03 M/uL N 4.20-5.80 Hemoglobin 15.4 gm/dL N 12.8-17.0 Hematocrit 44.2 % N 38.0-48.0 Mean Cell Volume 87.9 fl N 80.0-96.0 Mean Corpuscular HGB 30.6 pg N 27.0-33.0 Mean Corpuscular HGB Conc 34.8 g/dL N 31.7-36.0 Platelet Count 246 K/uL N 155-360 Red Cell Distri Width SD 40.3 fl N 36-51 Red Cell Distri Width %CV 12.9 % N 11.6-15.8 Mean Platelet Volume 9.1 fL N 6.6-10.6 Neut% 63.3 % N 33.0-73.0 Lymph % 25.0 % N 20.0-42.0 Henderson % 8.9 % N 0.0-10.0 Eo% 2.4 % N 0.0-6.6 Bas% 0.4 % N 0.0-1.1 Neut# 4.28 K/uL N 1.8-7.0 Lymph # 1.69 K/uL N 1.0-4.0 Henderson # 0.60 K/uL N 0.0-0.8 Eos # 0.16 K/uL N 0.0-0.5 Baso # 0.03 K/uL N 0.0-0.1 pH Ur Strip.auto 10/15/2017 N2N/CCD Import pH Ur Strip.auto 6.0 Low 6.5- 7.5 Urobilinogen Ur 10/15/2017 N2N/CCD Import Urobilinogen Ur 0.2 0.2-1.0 Strip-aCnc Strip-aCnc Urine total 10/15/2017 N2N/CCD Import Urine total Negative Negative bilirubin bilirubin detection by detection by automated test automated test strip Urine hemoglobin 10/15/2017 N2N/CCD Import Urine hemoglobin Negative Negative detection by detection by automated test automated test strip strip Urine glucose 10/15/2017 N2N/CCD Import Urine glucose Negative Negative measurement by measurement by automated test automated test strip strip (mass/volume) Urine appearance 10/15/2017 N2N/CCD Import Urine appearance Clear Clear determination determination Specific gravity 10/15/2017 N2N/CCD Import Specific gravity 1.020 1.010- 1.030 of Urine by of Urine by Automated test Automated test strip strip Prot Ur 10/15/2017 N2N/CCD Import Prot Ur Negative Negative Strip.auto-mCnc Strip.auto-mCnc Nitrite Ur Ql 10/15/2017 N2N/CCD Import Nitrite Ur Ql Negative Negative Strip.auto Strip.auto Leukocyte esterase 10/15/2017 N2N/CCD Import Leukocyte Negative Negative Ur Ql Strip.auto esterase Ur Ql Strip.auto Ketones Ur 10/15/2017 N2N/CCD Import Ketones Ur Negative Negative Strip.auto-mCnc Strip.auto-mCnc Color Ur 10/15/2017 N2N/CCD Import Color Ur Yellow Yellow Ua RFX Micro & 10/15/2017 [facility] Urine Color YELLOW Yellow Culture II [address] [place] [address] [phone] Urine Clarity CLEAR Clear Urine Glucose - Dipstick NEGATIVE mg/dL Negative Urine Bilirubin - Dipstick NEGATIVE Negative Urine Ketone NEGATIVE mg/dL Negative Urine Specific [place] 1.020 N 1.010-1.030 Urine Blood NEGATIVE Negative Urine PH 6.0 Low 6.5-7.5 Urine Protein - Dipstick NEGATIVE mg/dL Negative Urine Urobilinogen - Dipstick 0.2 E.U./dL N 0.2-1.0 Urine Nitrite - Dipstick NEGATIVE Negative Urine Leuk Esterase NEGATIVE Negative Source: URINE, CLEAN CAT <SEE NOTE> 24 Hgb A1c MFr Bld 10/15/2017 N2N/CCD Import Hgb A1c MFr Bld 5.3 4.2-6.3 Globulin Ser 10/15/2017 N2N/CCD Import Globulin Ser 4.3 1.9-4.3 Calc-mCnc Calc-mCnc Eosinophil/leuk 10/15/2017 N2N/CCD Import Eosinophil/leuk 2.4 0.0-6.6 NFr Bld Auto NFr Bld Auto Chloride 10/15/2017 N2N/CCD Import Chloride 108 High 98-107 SerPl-sCnc SerPl-sCnc Blood monocytes 10/15/2017 N2N/CCD Import Blood monocytes 0.60 0.0-0.8 automated count automated count (number/volume) (number/volume) Blood leukocytes 10/15/2017 N2N/CCD Import Blood leukocytes 6.8 3.4- 10.5 automated count automated count (number/volume) (number/volume) Blood hemoglobin 10/15/2017 N2N/CCD Import Blood hemoglobin 15.4 12.8- 17.0 measurement measurement (mass/volume) (mass/volume) Blood estimated 10/15/2017 N2N/CCD Import Blood estimated 105 average glucose average glucose determination by e determination by estimation from glycated hemoglobin (mass/volume) Blood erythrocytes 10/15/2017 N2N/CCD Import Blood 5.03 4.20-5.80 automated count erythrocytes (number/volume) automated count (number/volume) Basophils/leuk NFr 10/15/2017 N2N/CCD Import Basophils/leuk 0.4 0.0-1.1 Bld Auto NFr Bld Auto BUN/Creat SerPl 10/15/2017 N2N/CCD Import BUN/Creat SerPl 10.0 Automated 10/15/2017 N2N/CCD Import Automated 87.9 80.0-96.0 erythrocyte mean erythrocyte mean corpuscular volume corpuscular volume Automated 10/15/2017 N2N/CCD Import Automated 34.8 31.7-36.0 erythrocyte mean erythrocyte mean corpuscular corpuscular hemoglobin hemoglobin concentration measurement (mass/volume) Automated 10/15/2017 N2N/CCD Import Automated 30.6 27.0-33.0 erythrocyte mean erythrocyte mean corpuscular corpuscular hemoglobin hemoglobin (mass per erythrocyte) Automated blood 10/15/2017 N2N/CCD Import Automated blood 9.1 6.6-10.6 platelet mean platelet mean volume measurement volume measurement Automated blood 10/15/2017 N2N/CCD Import Automated blood 246 155-360 platelet count platelet count Automated blood 10/15/2017 N2N/CCD Import Automated blood 1.69 1.0-4.0 lymphocyte count lymphocyte count (number/volume) (number/volume) Automated blood 10/15/2017 N2N/CCD Import Automated blood 44.2 38.0- 48.0 hematocrit (volume hematocrit fraction) (volume fraction) Lymphocytes/leuk 10/15/2017 N2N/CCD Import Lymphocytes/leuk 25.0 20.0- 42.0 NFr Bld Auto NFr Bld Auto Laboratory test 09/12/2017 [facility] Triglycerides 220 High <150 25, [address] mg/[place] [address] [phone] Hepatitis C Antibody < 0.1 s/corat 0.0-0.9 27 Ceruloplasmin 24.4 mg/dL 16.0-31.0 28 Sedimentation Rate 4 mm/hr N 0-15 29 C-Reactive Protein,Cardiac 0.69 mg/L <3.0 Erythrocyte 09/12/2017 N2N/CCD Import Erythrocyte 4 0-15 sedimentation rate sedimentation rate by 15 minute readin by 15 minute reading Neutrophils/leuk NFr 09/11/2017 N2N/CCD Import Neutrophils/leuk NFr 66.9 33.0-73. Bld Auto Bld Auto 0 Potassium SerPl-sCnc 09/11/2017 N2N/CCD Import Potassium SerPl-sCnc 4.1 3.5-5.1 RDW RBC Auto 09/11/2017 N2N/CCD Import RDW RBC Auto 41.0 36-51 RDW RBC Auto-Rto 09/11/2017 N2N/CCD Import RDW RBC Auto-Rto 13.1 11.6- 15. 8 Serum carbon dioxide 09/11/2017 N2N/CCD Import Serum carbon dioxide 29 21-32 measurement measurement Serum or plasma 09/11/2017 N2N/CCD Import Serum or plasma 4.1 3.4-5.0 albumin measurement albumin measurement (mass/volume) (mass/volume) Serum or plasma 09/11/2017 N2N/CCD Import Serum or plasma 75 45-117 alkaline phosphatase alkaline phosphatase measurement ( measurement (enzymatic activity/volume) Serum or plasma 09/11/2017 N2N/CCD Import Serum or plasma 41 High 15-37 aspartate aspartate aminotransferase aminotransferase measure measurement (enzymatic activity/volume) Serum or plasma 09/11/2017 N2N/CCD Import Serum or plasma 9.3 8.5-10.1 calcium measurement calcium measurement (mass/volume) (mass/volume) Serum or plasma 09/11/2017 N2N/CCD Import Serum or plasma 1.0 0.6-1.3 creatinine creatinine measurement measurement (mass/volum (mass/volume) Serum or plasma 09/11/2017 N2N/CCD Import Serum or plasma 108 High 74- 106 glucose measurement glucose measurement (mass/volume) (mass/volume) Serum or plasma 09/11/2017 N2N/CCD Import Serum or plasma 72 56-289 lipase measurement lipase measurement (enzymatic acti (enzymatic activity/volume) Serum or plasma 09/11/2017 N2N/CCD Import Serum or plasma 8.4 High 6.4- 8.2 protein measurement protein measurement (mass/volume) (mass/volume) Serum or plasma 09/11/2017 N2N/CCD Import Serum or plasma 0.8 0.2-1.0 total bilirubin total bilirubin measurement (mass/ measurement (mass/volume) Serum or plasma urea 09/11/2017 N2N/CCD Import Serum or plasma urea 13 7 -18 nitrogen measurement nitrogen measurement (mass/vo (mass/volume) Serum sodium 09/11/2017 N2N/CCD Import Serum sodium 142 136-145 measurement measurement Automated blood 09/11/2017 N2N/CCD Import Automated blood 1.51 1.0-4.0 lymphocyte count lymphocyte count (number/volume) (number/volume) Automated blood 09/11/2017 N2N/CCD Import Automated blood 48.1 High 38.0- 48. hematocrit (volume hematocrit (volume 0 fraction) fraction) Automated blood 09/11/2017 N2N/CCD Import Automated blood 0.24 0.0-0.5 eosinophil count eosinophil count Automated blood 09/11/2017 N2N/CCD Import Automated blood 0.02 0.0-0.1 basophil count basophil count (count/volume) (count/volume) Anion Gap SerPl-sCnc 09/11/2017 N2N/CCD Import Anion Gap SerPl-sCnc 5 Low 8-16 Albumin/Glob SerPl 09/11/2017 N2N/CCD Import Albumin/Glob SerPl 1.0 Alt SerPl-cCnc 09/11/2017 N2N/CCD Import Alt SerPl-cCnc 53 12-78 CBS W/Automated Diff 09/11/2017 [facility] White Blood Count 6.8 N 3.4-10.[address] K/[place] [address] [phone] Red Blood Count 5.56 M/uL N 4.20-5.80 Hemoglobin 17.0 gm/dL N 12.8-17.0 Hematocrit 48.1 % High 38.0-48.0 Mean Cell Volume 86.5 fl N 80.0-96.0 Mean Corpuscular HGB 30.6 pg N 27.0-33.0 Mean Corpuscular HGB Conc 35.3 g/dL N 31.7-36.0 Platelet Count 233 K/uL N 155-360 Red Cell Distri Width SD 41.0 fl N 36-51 Red Cell Distri Width %CV 13.1 % N 11.6-15.8 Mean Platelet Volume 9.3 fL N 6.6-10.6 Neut% 66.9 % N 33.0-73.0 Lymph % 22.1 % N 20.0-42.0 Henderson % 7.2 % N 0.0-10.0 Eo% 3.5 % N 0.0-6.6 Bas% 0.3 % N 0.0-1.1 Neut# 4.57 K/uL N 1.8-7.0 Lymph # 1.51 K/uL N 1.0-4.0 Henderson # 0.49 K/uL N 0.0-0.8 Eos # 0.24 K/uL N 0.0-0.5 Baso # 0.02 K/uL N 0.0-0.1 pH Ur Strip.auto 09/11/2017 N2N/CCD Import pH Ur Strip.auto 6.0 Low 6.5- 7.5 Urobilinogen Ur 09/11/2017 N2N/CCD Import Urobilinogen Ur 0.2 0.2-1.0 Strip-aCnc Strip-aCnc Urine total 09/11/2017 N2N/CCD Import Urine total Negative Negative bilirubin bilirubin detection by detection by automated test automated test strip Urine hemoglobin 09/11/2017 N2N/CCD Import Urine hemoglobin Trace Negative detection by detection by automated test automated test strip strip Urine glucose 09/11/2017 N2N/CCD Import Urine glucose Negative Negative measurement by measurement by automated test automated test strip strip (mass/volume) Urine appearance 09/11/2017 N2N/CCD Import Urine appearance Clear Clear determination determination Specific gravity 09/11/2017 N2N/CCD Import Specific gravity 1.020 1.010- 1.030 of Urine by of Urine by Automated test Automated test strip strip Prot Ur 09/11/2017 N2N/CCD Import Prot Ur Negative Negative Strip.auto-mCnc Strip.auto-mCnc Nitrite Ur Ql 09/11/2017 N2N/CCD Import Nitrite Ur Ql Negative Negative Strip.auto Strip.auto Leukocyte esterase 09/11/2017 N2N/CCD Import Leukocyte Negative Negative Ur Ql Strip.auto esterase Ur Ql Strip.auto Ketones Ur 09/11/2017 N2N/CCD Import Ketones Ur Negative Negative Strip.auto-mCnc Strip.auto-mCnc Color Ur 09/11/2017 N2N/CCD Import Color Ur Yellow Yellow Ua RFX Micro & 09/11/2017 [facility] Urine Color YELLOW Yellow Culture II [address] [place] [id number] [phone] Urine Clarity CLEAR Clear Urine Glucose - Dipstick NEGATIVE mg/dL Negative Urine Bilirubin - Dipstick NEGATIVE Negative Urine Ketone NEGATIVE mg/dL Negative Urine Specific [place] 1.020 N 1.010-1.030 Urine Blood TRACE Negative Urine PH 6.0 Low 6.5-7.5 Urine Protein - Dipstick NEGATIVE mg/dL Negative Urine Urobilinogen - Dipstick 0.2 E.U./dL N 0.2-1.0 Urine Nitrite - Dipstick NEGATIVE Negative Urine Leuk Esterase NEGATIVE Negative Source: URINE, CLEAN CAT <SEE NOTE> 31 Blood leukocytes 09/11/2017 N2N/CCD Import Blood leukocytes 6.8 3.4- 10.5 automated count automated count (number/volume) (number/volume) Blood hemoglobin 09/11/2017 N2N/CCD Import Blood hemoglobin 17.0 12.8- 17.0 measurement measurement (mass/volume) (mass/volume) Blood 09/11/2017 N2N/CCD Import Blood 5.56 4.20-5.80 erythrocytes erythrocytes automated count automated count (number/volume) (number/volume) Basophils/leuk 09/11/2017 N2N/CCD Import Basophils/leuk 0.3 0.0-1.1 NFr Bld Auto NFr Bld Auto BUN/Creat SerPl 09/11/2017 N2N/CCD Import BUN/Creat SerPl 13.0 Automated 09/11/2017 N2N/CCD Import Automated 86.5 80.0-96.0 erythrocyte mean erythrocyte mean corpuscular corpuscular volume volume Automated 09/11/2017 N2N/CCD Import Automated 35.3 31.7-36.0 erythrocyte mean erythrocyte mean corpuscular corpuscular hemoglobin hemoglobin concentration measurement (mass/volume) Automated 09/11/2017 N2N/CCD Import Automated 30.6 27.0-33.0 erythrocyte mean erythrocyte mean corpuscular corpuscular hemoglobin hemoglobin (mass per erythrocyte) Blood monocytes 09/11/2017 N2N/CCD Import Blood monocytes 0.49 0.0-0.8 automated count automated count (number/volume) (number/volume) Automated blood 09/11/2017 N2N/CCD Import Automated blood 9.3 6.6-10.6 platelet mean platelet mean volume volume measurement measurement Automated blood 09/11/2017 N2N/CCD Import Automated blood 233 155-360 platelet count platelet count Chloride 09/11/2017 N2N/CCD Import Chloride 108 High 98-107 SerPl-sCnc SerPl-sCnc Eosinophil/leuk 09/11/2017 N2N/CCD Import Eosinophil/leuk 3.5 0.0-6.6 NFr Bld Auto NFr Bld Auto Globulin Ser 09/11/2017 N2N/CCD Import Globulin Ser 4.3 1.9-4.3 Calc-mCnc Calc-mCnc Lymphocytes/leuk 09/11/2017 N2N/CCD Import Lymphocytes/leuk 22.1 20.0- 42.0 NFr Bld Auto NFr Bld Auto Monocytes/leuk 09/11/2017 N2N/CCD Import Monocytes/leuk 7.2 0.0-10.0 NFr Bld Auto NFr Bld Auto Neutrophils # Bld 09/11/2017 N2N/CCD Import Neutrophils # Bld 4.57 1.8- 7.0 Auto Auto Giardia lamblia 09/10/2017 N2N/CCD Import Giardia lamblia Negative For antigen assay antigen assay Giardia Specific Antigen. Stool 09/10/2017 N2N/CCD Import Stool Negative For Cryptosporidium Cryptosporidium Cryptosporidium parvum antigen parvum antigen Specific detection by detection by Antigen immunoassay Clostridium 09/10/2017 N2N/CCD Import Clostridium Negative for difficile Dna difficile Dna toxigenic C. detection by detection by difficile by probe and t probe and target PCR amplification method Stool Escherichia 09/10/2017 N2N/CCD Import Stool Escherichia See Note 32 coli Shiga toxin coli Shiga toxin 2 detection by 2 detection by immunoassay Stool bacteria 09/10/2017 N2N/CCD Import Stool bacteria Organism: No identification by identification by Enteric culture culture Pathogens Isolated Stool Escherichia 09/10/2017 N2N/CCD Import Stool Escherichia Shiga Toxin 1 coli Shiga-like coli Shiga-like Not Detected toxin 1 detectio toxin 1 detection by immunoassay Neutrophils/leuk 09/07/2017 N2N/CCD Import Neutrophils/leuk 71.7 33.0- 73.0 NFr Bld Auto NFr Bld Auto Potassium 09/07/2017 N2N/CCD Import Potassium 3.7 3.5-5.1 SerPl-sCnc SerPl-sCnc RDW RBC Auto 09/07/2017 N2N/CCD Import RDW RBC Auto 39.8 36-51 RDW RBC Auto-Rto 09/07/2017 N2N/CCD Import RDW RBC Auto-Rto 12.8 11.6- 15.8 Serum carbon 09/07/2017 N2N/CCD Import Serum carbon 27 21-32 dioxide dioxide measurement measurement Serum or plasma 09/07/2017 N2N/CCD Import Serum or plasma 3.9 3.4-5.0 albumin albumin measurement measurement (mass/volume) (mass/volume) Serum or plasma 09/07/2017 N2N/CCD Import Serum or plasma 68 45-117 alkaline alkaline phosphatase phosphatase measurement ( measurement (enzymatic activity/volume) Serum or plasma 09/07/2017 N2N/CCD Import Serum or plasma 31 15-37 aspartate aspartate aminotransferase aminotransferase measure measurement (enzymatic activity/volume) Serum or plasma 09/07/2017 N2N/CCD Import Serum or plasma 9.1 8.5-10.1 calcium calcium measurement measurement (mass/volume) (mass/volume) Serum or plasma 09/07/2017 N2N/CCD Import Serum or plasma 0.9 0.6-1.3 creatinine creatinine measurement measurement (mass/volum (mass/volume) Serum or plasma 09/07/2017 N2N/CCD Import Serum or plasma 87 74-106 glucose glucose measurement measurement (mass/volume) (mass/volume) Serum or plasma 09/07/2017 N2N/CCD Import Serum or plasma 74 56-289 lipase lipase measurement measurement (enzymatic acti (enzymatic activity/volume) Serum or plasma 09/07/2017 N2N/CCD Import Serum or plasma 8.3 High 6.4- 8.2 protein protein measurement measurement (mass/volume) (mass/volume) Serum or plasma 09/07/2017 N2N/CCD Import Serum or plasma 0.6 0.2-1.0 total bilirubin total bilirubin measurement measurement (mass/ (mass/volume) Serum or plasma 09/07/2017 N2N/CCD Import Serum or plasma 13 7-18 urea nitrogen urea nitrogen measurement measurement (mass/vo (mass/volume) Serum sodium 09/07/2017 N2N/CCD Import Serum sodium 142 136-145 measurement measurement Leukocyte 09/07/2017 N2N/CCD Import Leukocyte Negative Negative esterase Ur Ql esterase Ur Ql Strip.auto Strip.auto Nitrite Ur Ql 09/07/2017 N2N/CCD Import Nitrite Ur Ql Negative Negative Strip.auto Strip.auto Prot Ur 09/07/2017 N2N/CCD Import Prot Ur Negative Negative Strip.auto-mCnc Strip.auto-mCnc Specific gravity 09/07/2017 N2N/CCD Import Specific gravity 1.010 1.010- 1.0 of Urine by of Urine by 30 Automated test Automated test strip strip Urine appearance 09/07/2017 N2N/CCD Import Urine appearance Clear Clear determination determination Urine glucose 09/07/2017 N2N/CCD Import Urine glucose Negative Negative measurement by measurement by automated test automated test strip strip (mass/volume) Urine hemoglobin 09/07/2017 N2N/CCD Import Urine hemoglobin Negative Negative detection by detection by automated test automated test strip strip Urine total 09/07/2017 N2N/CCD Import Urine total Negative Negative bilirubin bilirubin detection by detection by automated test automated test strip Urobilinogen Ur 09/07/2017 N2N/CCD Import Urobilinogen Ur 0.2 0.2-1.0 Strip-aCnc Strip-aCnc pH Ur Strip.auto 09/07/2017 N2N/CCD Import pH Ur Strip.auto 6.0 Low 6.5- 7.5 CBS W/Automated 09/07/2017 [facility] White Blood Count 8.5 K/uL N 3.4-10.5 33 Diff [address] [place] [address] [phone] Red Blood Count 5.37 M/uL N 4.20-5.80 Hemoglobin 16.5 gm/dL N 12.8-17.0 Hematocrit 46.3 % N 38.0-48.0 Mean Cell Volume 86.2 fl N 80.0-96.0 Mean Corpuscular HGB 30.7 pg N 27.0-33.0 Mean Corpuscular HGB Conc 35.6 g/dL N 31.7-36.0 Platelet Count 230 K/uL N 155-360 Red Cell Distri Width SD 39.8 fl N 36-51 Red Cell Distri Width %CV 12.8 % N 11.6-15.8 Mean Platelet Volume 9.1 fL N 6.6-10.6 Neut% 71.7 % N 33.0-73.0 Lymph % 17.9 % Low 20.0-42.0 [place] % 7.8 % N 0.0-10.0 Eo% 2.4 % N 0.0-6.6 Bas% 0.2 % N 0.0-1.1 Neut# 6.11 K/uL N 1.8-7.0 Lymph # 1.52 K/uL N 1.0-4.0 [place] # 0.66 K/uL N 0.0-0.8 Eos # 0.20 K/uL N 0.0-0.5 Baso # 0.02 K/uL N 0.0-0.1 Alt SerPl-cCnc 09/07/2017 N2N/CCD Import Alt SerPl-cCnc 43 12-78 Albumin/Glob SerPl 09/07/2017 N2N/CCD Import Albumin/Glob 0.9 SerPl Anion Gap 09/07/2017 N2N/CCD Import Anion Gap 7 Low 8-16 SerPl-sCnc SerPl-sCnc Automated blood 09/07/2017 N2N/CCD Import Automated blood 0.02 0.0-0.1 basophil count basophil count (count/volume) (count/volume) Automated blood 09/07/2017 N2N/CCD Import Automated blood 0.20 0.0-0.5 eosinophil count eosinophil count Automated blood 09/07/2017 N2N/CCD Import Automated blood 46.3 38.0- 48.0 hematocrit (volume hematocrit fraction) (volume fraction) Automated blood 09/07/2017 N2N/CCD Import Automated blood 1.52 1.0-4.0 lymphocyte count lymphocyte count (number/volume) (number/volume) Automated blood 09/07/2017 N2N/CCD Import Automated blood 230 155-360 platelet count platelet count Neutrophils # Bld 09/07/2017 N2N/CCD Import Neutrophils # Bld 6.11 1.8- 7.0 Auto Auto Monocytes/leuk NFr 09/07/2017 N2N/CCD Import Monocytes/leuk 7.8 0.0- 10.0 Bld Auto NFr Bld Auto Lymphocytes/leuk 09/07/2017 N2N/CCD Import Lymphocytes/leuk 17.9 Low 20.0 -42.0 NFr Bld Auto NFr Bld Auto Globulin Ser 09/07/2017 N2N/CCD Import Globulin Ser 4.4 High 1.9-4.3 Calc-mCnc Calc-mCnc Eosinophil/leuk 09/07/2017 N2N/CCD Import Eosinophil/leuk 2.4 0.0-6.6 NFr Bld Auto NFr Bld Auto Chloride 09/07/2017 N2N/CCD Import Chloride 108 High 98-107 SerPl-sCnc SerPl-sCnc Blood monocytes 09/07/2017 N2N/CCD Import Blood monocytes 0.66 0.0-0.8 automated count automated count (number/volume) (number/volume) Blood leukocytes 09/07/2017 N2N/CCD Import Blood leukocytes 8.5 3.4- 10.5 automated count automated count (number/volume) (number/volume) Blood hemoglobin 09/07/2017 N2N/CCD Import Blood hemoglobin 16.5 12.8- 17.0 measurement measurement (mass/volume) (mass/volume) Blood erythrocytes 09/07/2017 N2N/CCD Import Blood 5.37 4.20-5.80 automated count erythrocytes (number/volume) automated count (number/volume) Ketones Ur 09/07/2017 N2N/CCD Import Ketones Ur Negative Negative Strip.auto-mCnc Strip.auto-mCnc Color Ur 09/07/2017 N2N/CCD Import Color Ur Yellow Yellow Ua RFX Micro & 09/07/2017 [facility] Urine Color YELLOW Yellow Culture II [address] [place] [address] [phone] Urine Clarity CLEAR Clear Urine Glucose - Dipstick NEGATIVE mg/dL Negative Urine Bilirubin - Dipstick NEGATIVE Negative Urine Ketone NEGATIVE mg/dL Negative Urine Specific [place] 1.010 N 1.010-1.030 Urine Blood NEGATIVE Negative Urine PH 6.0 Low 6.5-7.5 Urine Protein - Dipstick NEGATIVE mg/dL Negative Urine Urobilinogen - Dipstick 0.2 E.U./dL N 0.2-1.0 Urine Nitrite - Dipstick NEGATIVE Negative Urine Leuk Esterase NEGATIVE Negative Source: URINE, CLEAN CAT <SEE NOTE> 34 Automated blood 09/07/2017 N2N/CCD Import Automated blood 9.1 6.6-10.6 platelet mean platelet mean volume measurement volume measurement Automated 09/07/2017 N2N/CCD Import Automated 30.7 27.0-33.0 erythrocyte mean erythrocyte mean corpuscular corpuscular hemoglobin hemoglobin (mass per erythrocyte) Automated 09/07/2017 N2N/CCD Import Automated 35.6 31.7-36.0 erythrocyte mean erythrocyte mean corpuscular corpuscular hemoglobin hemoglobin concentration measurement (mass/volume) Automated 09/07/2017 N2N/CCD Import Automated 86.2 80.0-96.0 erythrocyte mean erythrocyte mean corpuscular volume corpuscular volume BUN/Creat SerPl 09/07/2017 N2N/CCD Import BUN/Creat SerPl 14.4 Basophils/leuk NFr 09/07/2017 N2N/CCD Import Basophils/leuk NFr 0.2 0.0- 1.1 Bld Auto Bld Auto Serum or plasma 08/14/2017 N2N/CCD Import Serum or plasma 13 7-18 urea nitrogen urea nitrogen measurement measurement (mass/vo (mass/volume) Serum sodium 08/14/2017 N2N/CCD Import Serum sodium 140 136-145 measurement measurement WBC # Bld Auto 08/14/2017 N2N/CCD Import WBC # Bld Auto 7.6 3.4-10.5 Ua RFX Micro & 08/14/2017 [facility] Urine Color YELLOW Yellow 35 Culture II [address] [place] [address] [phone] Urine Clarity CLEAR Clear Urine Glucose - Dipstick NEGATIVE mg/dL Negative Urine Bilirubin - Dipstick NEGATIVE Negative Urine Ketone TRACE mg/dL High Negative Urine Specific [place] 1.015 N 1.010-1.030 Urine Blood NEGATIVE Negative Urine PH 6.0 Low 6.5-7.5 Urine Protein - Dipstick NEGATIVE mg/dL Negative Urine Urobilinogen - Dipstick 0.2 E.U./dL N 0.2-1.0 Urine Nitrite - Dipstick NEGATIVE Negative Urine Leuk Esterase NEGATIVE Negative Source: URINE, CLEAN CAT <SEE NOTE> 36 Color Ur 08/14/2017 N2N/CCD Import Color Ur Yellow Yellow Ketones Ur 08/14/2017 N2N/CCD Import Ketones Ur Trace High Negative Strip.auto-mCnc Strip.auto-mCnc Leukocyte 08/14/2017 N2N/CCD Import Leukocyte Negative Negative esterase Ur Ql esterase Ur Ql Strip.auto Strip.auto Nitrite Ur Ql 08/14/2017 N2N/CCD Import Nitrite Ur Ql Negative Negative Strip.auto Strip.auto Prot Ur 08/14/2017 N2N/CCD Import Prot Ur Negative Negative Strip.auto-mCnc Strip.auto-mCnc Specific gravity 08/14/2017 N2N/CCD Import Specific gravity 1.015 1.010- 1.030 of Urine by of Urine by Automated test Automated test strip strip Urine appearance 08/14/2017 N2N/CCD Import Urine appearance Clear Clear determination determination Urine glucose 08/14/2017 N2N/CCD Import Urine glucose Negative Negative measurement by measurement by automated test automated test strip strip (mass/volume) Urine hemoglobin 08/14/2017 N2N/CCD Import Urine hemoglobin Negative Negative detection by detection by automated test automated test strip strip Urine total 08/14/2017 N2N/CCD Import Urine total Negative Negative bilirubin bilirubin detection by detection by automated test automated test strip Urobilinogen Ur 08/14/2017 N2N/CCD Import Urobilinogen Ur 0.2 0.2-1.0 Strip-aCnc Strip-aCnc pH Ur Strip.auto 08/14/2017 N2N/CCD Import pH Ur Strip.auto 6.0 Low 6.5- 7.5 Blood monocytes 08/14/2017 N2N/CCD Import Blood monocytes 0.57 0.0-0.8 automated count automated count (number/volume) (number/volume) Blood hemoglobin 08/14/2017 N2N/CCD Import Blood hemoglobin 16.1 12.8- 17.0 measurement measurement (mass/volume) (mass/volume) Blood 08/14/2017 N2N/CCD Import Blood 5.20 4.20-5.80 erythrocytes erythrocytes automated count automated count (number/volume) (number/volume) Basophils/leuk 08/14/2017 N2N/CCD Import Basophils/leuk 0.3 0.0-1.1 NFr Bld Auto NFr Bld Auto BUN/Creat SerPl 08/14/2017 N2N/CCD Import BUN/Creat SerPl 13.0 Automated 08/14/2017 N2N/CCD Import Automated 88.1 80.0-96.0 erythrocyte mean erythrocyte mean corpuscular corpuscular volume volume Automated 08/14/2017 N2N/CCD Import Automated 35.2 31.7-36.0 erythrocyte mean erythrocyte mean corpuscular corpuscular hemoglobin hemoglobin concentration measurement (mass/volume) Automated 08/14/2017 N2N/CCD Import Automated 31.0 27.0-33.0 erythrocyte mean erythrocyte mean corpuscular corpuscular hemoglobin hemoglobin (mass per erythrocyte) Automated blood 08/14/2017 N2N/CCD Import Automated blood 9.1 6.6-10.6 platelet mean platelet mean volume volume measurement measurement Automated blood 08/14/2017 N2N/CCD Import Automated blood 236 155-360 platelet count platelet count Automated blood 08/14/2017 N2N/CCD Import Automated blood 1.30 1.0-4.0 lymphocyte count lymphocyte count (number/volume) (number/volume) Automated blood 08/14/2017 N2N/CCD Import Automated blood 45.8 38.0- 48.0 hematocrit hematocrit (volume fraction) (volume fraction) Automated blood 08/14/2017 N2N/CCD Import Automated blood 0.19 0.0-0.5 eosinophil count eosinophil count Automated blood 08/14/2017 N2N/CCD Import Automated blood 0.02 0.0-0.1 basophil count basophil count (count/volume) (count/volume) Anion Gap 08/14/2017 N2N/CCD Import Anion Gap 5 Low 8-16 SerPl-sCnc SerPl-sCnc Albumin/Glob 08/14/2017 N2N/CCD Import Albumin/Glob 1.0 SerPl SerPl Alt SerPl-cCnc 08/14/2017 N2N/CCD Import Alt SerPl-cCnc 51 12-78 Laboratory test 08/14/2017 [facility] Lipase 88 U/L N 56-289 finding [address] [place] [address] [phone] Comprehensive 08/14/2017 [facility] Glucose 107 mg/dL High 74-106 Metabolic Panel [address] [place] [address] [phone] BUN 13 mg/dL N 7-18 Creatinine 1.0 mg/dL N 0.6-1.3 Glom Filtration Rate, Estimate >60 mL/min >60 If >60 mL/min >60 37 BUN/Creat 13.0 ratio Sodium 140 mmol/L N 136-145 Potassium 4.2 mmol/L N 3.5-5.1 Chloride 107 mmol/L N 98-107 Carbon Dioxide 28 mmol/L N 21-32 Anion Gap 5 mEq/L Low 8-16 Calcium 9.2 mg/dL N 8.5-10.1 Total Protein 8.2 g/dL N 6.4-8.2 Albumin 4.1 g/dL N 3.4-5.0 Globulin 4.1 g/dL N 1.9-4.3 Alb/Glob 1.0 ratio Bilirubin,Total 0.8 mg/dL N 0.2-1.0 Sgot/Ast 36 U/L N 15-37 SGPT/Alt 51 U/L N 12-78 Alkaline Phosphatase 78 U/L N 45-117 CBS W/Automated Diff 08/14/2017 [facility] White Blood 7.6 K/uL N 3.4-10.[address] [place] [address] [phone] Red Blood Count 5.20 M/uL N 4.20-5.80 Hemoglobin 16.1 gm/dL N 12.8-17.0 Hematocrit 45.8 % N 38.0-48.0 Mean Cell Volume 88.1 fl N 80.0-96.0 Mean Corpuscular HGB 31.0 pg N 27.0-33.0 Mean Corpuscular HGB Conc 35.2 g/dL N 31.7-36.0 Platelet Count 236 K/uL N 155-360 Red Cell Distri Width SD 41.8 fl N 36-51 Red Cell Distri Width %CV 13.1 % N 11.6-15.8 Mean Platelet Volume 9.1 fL N 6.6-10.6 Neut% 72.6 % N 33.0-73.0 Lymph % 17.1 % Low 20.0-42.0 [place] % 7.5 % N 0.0-10.0 Eo% 2.5 % N 0.0-6.6 Bas% 0.3 % N 0.0-1.1 Neut# 5.53 K/uL N 1.8-7.0 Lymph # 1.30 K/uL N 1.0-4.0 [place] # 0.57 K/uL N 0.0-0.8 Eos # 0.19 K/uL N 0.0-0.5 Baso # 0.02 K/uL N 0.0-0.1 Serum or plasma 08/14/2017 N2N/CCD Import Serum or plasma 0.8 0.2-1.0 total bilirubin total bilirubin measurement (mass/ measurement (mass/volume) Serum or plasma 08/14/2017 N2N/CCD Import Serum or plasma 8.2 6.4-8.2 protein protein measurement measurement (mass/volume) (mass/volume) Serum or plasma 08/14/2017 N2N/CCD Import Serum or plasma 88 56-289 lipase measurement lipase measurement (enzymatic acti (enzymatic activity/volume) Serum or plasma 08/14/2017 N2N/CCD Import Serum or plasma 107 High 74- 106 glucose glucose measurement measurement (mass/volume) (mass/volume) Serum or plasma 08/14/2017 N2N/CCD Import Serum or plasma 1.0 0.6-1.3 creatinine creatinine measurement measurement (mass/volum (mass/volume) Serum or plasma 08/14/2017 N2N/CCD Import Serum or plasma 9.2 8.5-10.1 calcium calcium measurement measurement (mass/volume) (mass/volume) Serum or plasma 08/14/2017 N2N/CCD Import Serum or plasma 36 15-37 aspartate aspartate aminotransferase aminotransferase measure measurement (enzymatic activity/volume) Serum or plasma 08/14/2017 N2N/CCD Import Serum or plasma 78 45-117 alkaline alkaline phosphatase phosphatase measurement ( measurement (enzymatic activity/volume) Serum or plasma 08/14/2017 N2N/CCD Import Serum or plasma 4.1 3.4-5.0 albumin albumin measurement measurement (mass/volume) (mass/volume) Serum carbon 08/14/2017 N2N/CCD Import Serum carbon 28 21-32 dioxide dioxide measurement measurement RDW RBC Auto-Rto 08/14/2017 N2N/CCD Import RDW RBC Auto-Rto 13.1 11.6- 15.8 RDW RBC Auto 08/14/2017 N2N/CCD Import RDW RBC Auto 41.8 36-51 Potassium 08/14/2017 N2N/CCD Import Potassium 4.2 3.5-5.1 SerPl-sCnc SerPl-sCnc Neutrophils/leuk 08/14/2017 N2N/CCD Import Neutrophils/leuk 72.6 33.0- 73.0 NFr Bld Auto NFr Bld Auto Neutrophils # Bld 08/14/2017 N2N/CCD Import Neutrophils # Bld 5.53 1.8- 7.0 Auto Auto Monocytes/leuk NFr 08/14/2017 N2N/CCD Import Monocytes/leuk NFr 7.5 0.0- 10.0 Bld Auto Bld Auto Lymphocytes/leuk 08/14/2017 N2N/CCD Import Lymphocytes/leuk 17.1 Low 20.0 -42.0 NFr Bld Auto NFr Bld Auto Globulin Ser 08/14/2017 N2N/CCD Import Globulin Ser 4.1 1.9-4.3 Calc-mCnc Calc-mCnc Eosinophil/leuk 08/14/2017 N2N/CCD Import Eosinophil/leuk 2.5 0.0-6.6 NFr Bld Auto NFr Bld Auto Chloride 08/14/2017 N2N/CCD Import Chloride 107 98-107 SerPl-sCnc SerPl-sCnc Rapid Influenza A 08/13/2017 [facility] Influenza A NEGATIVE Negative 38 & B Molecular [phone] Molecular Influenza B Molecular NEGATIVE Negative Serum or plasma 08/03/2017 N2N/CCD Import Serum or plasma 1.0 0.6-1.3 creatinine creatinine measurement measurement (mass/volum (mass/volume) Serum or plasma 08/03/2017 N2N/CCD Import Serum or plasma 101 74-106 glucose glucose measurement measurement (mass/volume) (mass/volume) Serum or plasma 08/03/2017 N2N/CCD Import Serum or plasma 8.2 6.4-8.2 protein protein measurement measurement (mass/volume) (mass/volume) Serum or plasma 08/03/2017 N2N/CCD Import Serum or plasma 0.6 0.2-1.0 total bilirubin total bilirubin measurement (mass/ measurement (mass/volume) Serum or plasma 08/03/2017 N2N/CCD Import Serum or plasma 16 7-18 urea nitrogen urea nitrogen measurement measurement (mass/vo (mass/volume) Serum sodium 08/03/2017 N2N/CCD Import Serum sodium 140 136-145 measurement measurement WBC # Bld Auto 08/03/2017 N2N/CCD Import WBC # Bld Auto 7.8 3.4-10.5 Blood hemoglobin 08/03/2017 N2N/CCD Import Blood hemoglobin 15.9 12.8- 17.0 measurement measurement (mass/volume) (mass/volume) Blood erythrocytes 08/03/2017 N2N/CCD Import Blood erythrocytes 5.28 4.20-5.80 automated count automated count (number/volume) (number/volume) Basophils/leuk NFr 08/03/2017 N2N/CCD Import Basophils/leuk NFr 0.4 0.0- 1.1 Bld Auto Bld Auto BUN/Creat SerPl 08/03/2017 N2N/CCD Import BUN/Creat SerPl 16.0 Automated 08/03/2017 N2N/CCD Import Automated 86.4 80.0-96.0 erythrocyte mean erythrocyte mean corpuscular volume corpuscular volume Automated 08/03/2017 N2N/CCD Import Automated 34.9 31.7-36.0 erythrocyte mean erythrocyte mean corpuscular corpuscular hemoglobin hemoglobin concentration measurement (mass/volume) Automated 08/03/2017 N2N/CCD Import Automated 30.1 27.0-33.0 erythrocyte mean erythrocyte mean corpuscular corpuscular hemoglobin hemoglobin (mass per erythrocyte) Automated blood 08/03/2017 N2N/CCD Import Automated blood 9.0 6.6-10.6 platelet mean platelet mean volume measurement volume measurement Automated blood 08/03/2017 N2N/CCD Import Automated blood 257 155-360 platelet count platelet count Automated blood 08/03/2017 N2N/CCD Import Automated blood 2.01 1.0-4.0 lymphocyte count lymphocyte count (number/volume) (number/volume) Automated blood 08/03/2017 N2N/CCD Import Automated blood 45.6 38.0- 48.0 hematocrit (volume hematocrit (volume fraction) fraction) Automated blood 08/03/2017 N2N/CCD Import Automated blood 0.25 0.0-0.5 eosinophil count eosinophil count Automated blood 08/03/2017 N2N/CCD Import Automated blood 0.03 0.0-0.1 basophil count basophil count (count/volume) (count/volume) Anion Gap 08/03/2017 N2N/CCD Import Anion Gap 4 Low 8-16 SerPl-sCnc SerPl-sCnc Albumin/Glob SerPl 08/03/2017 N2N/CCD Import Albumin/Glob SerPl 1.0 Alt SerPl-cCnc 08/03/2017 N2N/CCD Import Alt SerPl-cCnc 50 12-78 CBS W/Automated 08/03/2017 [facility] White Blood Count 7.8 K/uL N 3.4-10.5 [address] [place] [address] [phone] Red Blood Count 5.28 M/uL N 4.20-5.80 Hemoglobin 15.9 gm/dL N 12.8-17.0 Hematocrit 45.6 % N 38.0-48.0 Mean Cell Volume 86.4 fl N 80.0-96.0 Mean Corpuscular HGB 30.1 pg N 27.0-33.0 Mean Corpuscular HGB Conc 34.9 g/dL N 31.7-36.0 Platelet Count 257 K/uL N 155-360 Red Cell Distri Width SD 40.2 fl N 36-51 Red Cell Distri Width %CV 13.0 % N 11.6-15.8 Mean Platelet Volume 9.0 fL N 6.6-10.6 Neut% 63.3 % N 33.0-73.0 Lymph % 25.8 % N 20.0-42.0 [place] % 7.3 % N 0.0-10.0 Eo% 3.2 % N 0.0-6.6 Bas% 0.4 % N 0.0-1.1 Neut# 4.93 K/uL N 1.8-7.0 Lymph # 2.01 K/uL N 1.0-4.0 [place] # 0.57 K/uL N 0.0-0.8 Eos # 0.25 K/uL N 0.0-0.5 Baso # 0.03 K/uL N 0.0-0.1 Laboratory test 08/03/2017 [facility] Troponin-I < 0.015 [address] ng/[place] [address] [phone] Serum or plasma 08/03/2017 N2N/CCD Import Serum or plasma 405 High 39- 308 creatine kinase creatine kinase measurement (enzym measurement (enzymatic activity/volume) Serum or plasma 08/03/2017 N2N/CCD Import Serum or plasma 9.2 8.5-10. calcium calcium 1 measurement measurement (mass/volume) (mass/volume) Serum or plasma 08/03/2017 N2N/CCD Import Serum or plasma 35 15-37 aspartate aspartate aminotransferase aminotransferase measure measurement (enzymatic activity/volume) Serum or plasma 08/03/2017 N2N/CCD Import Serum or plasma 77 45-117 alkaline alkaline phosphatase phosphatase measurement ( measurement (enzymatic activity/volume) Serum or plasma 08/03/2017 N2N/CCD Import Serum or plasma 4.1 3.4-5.0 albumin albumin measurement measurement (mass/volume) (mass/volume) Serum carbon 08/03/2017 N2N/CCD Import Serum carbon 29 21-32 dioxide dioxide measurement measurement RDW RBC Auto-Rto 08/03/2017 N2N/CCD Import RDW RBC Auto-Rto 13.0 11.6- 15 .8 RDW RBC Auto 08/03/2017 N2N/CCD Import RDW RBC Auto 40.2 36-51 Potassium 08/03/2017 N2N/CCD Import Potassium 4.1 3.5-5.1 SerPl-sCnc SerPl-sCnc Neutrophils/leuk 08/03/2017 N2N/CCD Import Neutrophils/leuk 63.3 33.0- 73 NFr Bld Auto NFr Bld Auto .0 Neutrophils # Bld 08/03/2017 N2N/CCD Import Neutrophils # Bld 4.93 1.8- 7.0 Auto Auto Monocytes/leuk NFr 08/03/2017 N2N/CCD Import Monocytes/leuk NFr 7.3 0.0- 10. Bld Auto Bld Auto 0 Lymphocytes/leuk 08/03/2017 N2N/CCD Import Lymphocytes/leuk 25.8 20.0- 42 NFr Bld Auto NFr Bld Auto .0 Globulin Ser 08/03/2017 N2N/CCD Import Globulin Ser 4.1 1.9-4.3 Calc-mCnc Calc-mCnc Eosinophil/leuk 08/03/2017 N2N/CCD Import Eosinophil/leuk 3.2 0.0-6.6 NFr Bld Auto NFr Bld Auto Chloride 08/03/2017 N2N/CCD Import Chloride 107 98-107 SerPl-sCnc SerPl-sCnc Blood monocytes 08/03/2017 N2N/CCD Import Blood monocytes 0.57 0.0-0.8 automated count automated count (number/volume) (number/volume) Potassium 05/02/2017 N2N/CCD Import Potassium 4.3 3.5-5.1 SerPl-sCnc SerPl-sCnc RDW RBC Auto 05/02/2017 N2N/CCD Import RDW RBC Auto 39.8 36-51 RDW RBC Auto-Rto 05/02/2017 N2N/CCD Import RDW RBC Auto-Rto 12.9 11.6- 15 .8 Serum or plasma 05/02/2017 N2N/CCD Import Serum or plasma 3.7 3.4-5.0 albumin albumin measurement measurement (mass/volume) (mass/volume) Serum or plasma 05/02/2017 N2N/CCD Import Serum or plasma 79 45-117 alkaline alkaline phosphatase phosphatase measurement ( measurement (enzymatic activity/volume) Serum or plasma 05/02/2017 N2N/CCD Import Serum or plasma 9.1 8.5-10. calcium calcium 1 measurement measurement (mass/volume) (mass/volume) Serum or plasma 05/02/2017 N2N/CCD Import Serum or plasma 1.0 0.6-1.3 creatinine creatinine measurement measurement (mass/volum (mass/volume) Serum or plasma 05/02/2017 N2N/CCD Import Serum or plasma 92 56-289 lipase measurement lipase measurement (enzymatic acti (enzymatic activity/volume) Serum or plasma 05/02/2017 N2N/CCD Import Serum or plasma 7.9 6.4-8.2 protein protein measurement measurement (mass/volume) (mass/volume) Serum or plasma 05/02/2017 N2N/CCD Import Serum or plasma 0.6 0.2-1.0 total bilirubin total bilirubin measurement (mass/ measurement (mass/volume) Serum or plasma 05/02/2017 N2N/CCD Import Serum or plasma 13 7-18 urea nitrogen urea nitrogen measurement measurement (mass/vo (mass/volume) Sodium SerPl-sCnc 05/02/2017 N2N/CCD Import Sodium SerPl-sCnc 141 136- 145 WBC # Bld Auto 05/02/2017 N2N/CCD Import WBC # Bld Auto 6.7 3.4-10. 5 Ua RFX Micro & 05/02/2017 [facility] Urine Color YELLOW Yellow 41 Culture II [address] [place] [address] [phone] Urine Clarity CLEAR Clear Urine Glucose - Dipstick NEGATIVE mg/dL Negative Urine Bilirubin - Dipstick NEGATIVE Negative Urine Ketone NEGATIVE mg/dL Negative Urine Specific [place] 1.020 N 1.010-1.030 Urine Blood NEGATIVE Negative Urine PH 6.5 N 6.5-7.5 Urine Protein - Dipstick NEGATIVE mg/dL Negative Urine Urobilinogen - Dipstick 0.2 E.U./dL N 0.2-1.0 Urine Nitrite - Dipstick NEGATIVE Negative Urine Leuk Esterase NEGATIVE Negative Source: URINE, CLEAN CAT <SEE NOTE> 42 Color Ur 05/02/2017 N2N/CCD Import Color Ur Yellow Yellow Ketones Ur 05/02/2017 N2N/CCD Import Ketones Ur Negative Negative Strip.auto-mCnc Strip.auto-mCnc Leukocyte esterase 05/02/2017 N2N/CCD Import Leukocyte esterase Negative Negative Ur Ql Strip.auto Ur Ql Strip.auto Nitrite Ur Ql 05/02/2017 N2N/CCD Import Nitrite Ur Ql Negative Negative Strip.auto Strip.auto Prot Ur 05/02/2017 N2N/CCD Import Prot Ur Negative Negative Strip.auto-mCnc Strip.auto-mCnc Specific gravity 05/02/2017 N2N/CCD Import Specific gravity 1.020 1.010- 1.030 of Urine by of Urine by Automated test Automated test strip strip Urine appearance 05/02/2017 N2N/CCD Import Urine appearance Clear Clear determination determination Urine glucose 05/02/2017 N2N/CCD Import Urine glucose Negative Negative measurement by measurement by automated test automated test strip strip (mass/volume) Urine hemoglobin 05/02/2017 N2N/CCD Import Urine hemoglobin Negative Negative detection by detection by automated test automated test strip strip Urine total 05/02/2017 N2N/CCD Import Urine total Negative Negative bilirubin bilirubin detection by detection by automated test automated test strip Urobilinogen Ur 05/02/2017 N2N/CCD Import Urobilinogen Ur 0.2 0.2-1.0 Strip-aCnc Strip-aCnc pH Ur Strip.auto 05/02/2017 N2N/CCD Import pH Ur Strip.auto 6.5 6.5-7.5 CBS W/Automated 05/02/2017 [facility] White Blood Count 6.7 K/uL N 3.4-10.5 Diff [address] [place] [address] [phone] Red Blood Count 5.40 M/uL N 4.20-5.80 Hemoglobin 16.2 gm/dL N 12.8-17.0 Hematocrit 46.0 % N 38.0-48.0 Mean Cell Volume 85.2 fl N 80.0-96.0 Mean Corpuscular HGB 30.0 pg N 27.0-33.0 Mean Corpuscular HGB Conc 35.2 g/dL N 31.7-36.0 Platelet Count 229 K/uL N 150-400 Red Cell Distri Width SD 39.8 fl N 36-51 Red Cell Distri Width %CV 12.9 % N 11.6-15.8 Mean Platelet Volume 9.0 fL N 6.6-10.6 Neut% 62.4 % N 33.0-73.0 Lymph % 25.0 % N 20.0-42.0 [place] % 8.7 % N 0.0-10.0 Eo% 3.6 % N 0.0-6.6 Bas% 0.3 % N 0.0-1.1 Neut# 4.18 K/uL N 1.8-7.0 Lymph # 1.67 K/uL N 1.0-4.0 [place] # 0.58 K/uL N 0.0-0.8 Eos # 0.24 K/uL N 0.0-0.5 Baso # 0.02 K/uL N 0.0-0.1 Comprehensive Metabolic 05/02/2017 [facility] Glucose 104 mg/dL N 74-106 Panel [address] [place] [address] [phone] BUN 13 mg/dL N 7-18 Creatinine 1.0 mg/dL N 0.6-1.3 Glom Filtration Rate, Estimate >60 mL/min >60 If >60 mL/min >60 43 BUN/Creat 13.0 ratio Sodium 141 mmol/L N 136-145 Potassium 4.3 mmol/L N 3.5-5.1 Chloride 108 mmol/L High 98-107 Carbon Dioxide 29 mmol/L N 21-32 Anion Gap 4 mEq/L Low 8-16 Calcium 9.1 mg/dL N 8.5-10.1 Total Protein 7.9 g/dL N 6.4-8.2 Albumin 3.7 g/dL N 3.4-5.0 Globulin 4.2 g/dL N 1.9-4.3 Alb/Glob 0.9 ratio Bilirubin,Total 0.6 mg/dL N 0.2-1.0 Sgot/Ast 34 U/L N 15-37 SGPT/Alt 44 U/L N 12-78 Alkaline Phosphatase 79 U/L N 45-117 Blood monocytes 05/02/2017 N2N/CCD Import Blood monocytes 0.58 0.0-0.8 automated count automated count (number/volume) (number/volume) Blood hemoglobin 05/02/2017 N2N/CCD Import Blood hemoglobin 16.2 12.8- 17.0 measurement measurement (mass/volume) (mass/volume) Blood erythrocytes 05/02/2017 N2N/CCD Import Blood erythrocytes 5.40 4.20-5.80 automated count automated count (number/volume) (number/volume) Basophils/leuk NFr 05/02/2017 N2N/CCD Import Basophils/leuk NFr 0.3 0.0- 1.1 Bld Auto Bld Auto Basophils 05/02/2017 N2N/CCD Import Basophils 0.02 0.0-0.1 [#/volume] in Blood [#/volume] in Blood by Automated count by Automated count BUN/Creat SerPl 05/02/2017 N2N/CCD Import BUN/Creat SerPl 13.0 Automated 05/02/2017 N2N/CCD Import Automated 85.2 80.0-96.0 erythrocyte mean erythrocyte mean corpuscular volume corpuscular volume Automated 05/02/2017 N2N/CCD Import Automated 35.2 31.7-36.0 erythrocyte mean erythrocyte mean corpuscular corpuscular hemoglobin hemoglobin concentration measurement (mass/volume) Automated 05/02/2017 N2N/CCD Import Automated 30.0 27.0-33.0 erythrocyte mean erythrocyte mean corpuscular corpuscular hemoglobin hemoglobin (mass per erythrocyte) Aspartate 05/02/2017 N2N/CCD Import Aspartate 34 15-37 aminotransferase aminotransferase [Enzymatic [Enzymatic activity/vol activity/volume] in Serum or Plasma Anion Gap 05/02/2017 N2N/CCD Import Anion Gap 4 Low 8-16 SerPl-sCnc SerPl-sCnc Albumin/Glob SerPl 05/02/2017 N2N/CCD Import Albumin/Glob SerPl 0.9 Alt SerPl-cCnc 05/02/2017 N2N/CCD Import Alt SerPl-cCnc 44 12-78 Laboratory test 05/02/2017 [facility] Lipase 92 U/L N 56-289 finding [address] [place] [address] [phone] Co2 SerPl-sCnc 05/02/2017 N2N/CCD Import Co2 SerPl-sCnc 29 21-32 Chloride SerPl-sCnc 05/02/2017 N2N/CCD Import Chloride SerPl-sCnc 108 High 98-107 Eosinophil # Bld 05/02/2017 N2N/CCD Import Eosinophil # Bld 0.24 0.0- 0.5 Auto Auto Eosinophil/leuk NFr 05/02/2017 N2N/CCD Import Eosinophil/leuk NFr 3.6 0.0-6.6 Bld Auto Bld Auto Globulin Ser 05/02/2017 N2N/CCD Import Globulin Ser 4.2 1.9-4.3 Calc-mCnc Calc-mCnc Glucose 05/02/2017 N2N/CCD Import Glucose 104 74-106 [Mass/volume] in [Mass/volume] in Serum or Plasma Serum or Plasma Hct VFr Bld Auto 05/02/2017 N2N/CCD Import Hct VFr Bld Auto 46.0 38.0- 48.0 Lymphocytes 05/02/2017 N2N/CCD Import Lymphocytes 1.67 1.0-4.0 [#/volume] in Blood [#/volume] in Blood by Automated count by Automated count Lymphocytes/leuk 05/02/2017 N2N/CCD Import Lymphocytes/leuk 25.0 20.0- 42.0 NFr Bld Auto NFr Bld Auto Monocytes/leuk NFr 05/02/2017 N2N/CCD Import Monocytes/leuk NFr 8.7 0.0- 10.0 Bld Auto Bld Auto Neutrophils # Bld 05/02/2017 N2N/CCD Import Neutrophils # Bld 4.18 1.8- 7.0 Auto Auto Neutrophils/leuk 05/02/2017 N2N/CCD Import Neutrophils/leuk 62.4 33.0- 73.0 NFr Bld Auto NFr Bld Auto PMV Bld Auto 05/02/2017 N2N/CCD Import PMV Bld Auto 9.0 6.6-10.6 Platelets 05/02/2017 N2N/CCD Import Platelets 229 150-400 [#/volume] in Blood [#/volume] in Blood by Automated count by Automated count Laboratory test 01/12/2017 [facility] Gamma Glutamyl 54 U/L N 5-85 44, finding [address] Transpeptidase [address] [place] [address] [phone] CBS W/Automated 01/12/2017 [facility] White Blood Count 7.9 N 3.4-10.[address] K/[place] [address] [phone] Red Blood Count 4.56 M/uL N 4.20-5.80 Hemoglobin 14.0 gm/dL N 12.8-17.0 Hematocrit 40.4 % N 38.0-48.0 Mean Cell Volume 88.6 fl N 80.0-96.0 Mean Corpuscular HGB 30.7 pg N 27.0-33.0 Mean Corpuscular HGB Conc 34.7 g/dL N 31.7-36.0 Platelet Count 300 K/uL N 150-400 Red Cell Distri Width SD 40.0 fl N 36-51 Red Cell Distri Width %CV 12.7 % N 11.6-15.8 Mean Platelet Volume 9.8 fL N 6.6-10.6 Neut% 65.3 % N 33.0-73.0 Lymph % 21.7 % N 20.0-42.0 Henderson % 10.1 % High 0.0-10.0 Eo% 2.5 % N 0.0-6.6 Bas% 0.4 % N 0.0-1.1 Neut# 5.18 K/uL N 1.8-7.0 Lymph # 1.72 K/uL N 1.0-4.0 Henderson # 0.80 K/uL N 0.0-0.8 Eos # 0.20 K/uL N 0.0-0.5 Baso # 0.03 K/uL N 0.0-0.1 Blood monocytes 01/12/2017 N2N/CCD Import Blood monocytes 0.80 0.0-0.8 automated count automated count (number/volume) (number/volume) Blood hemoglobin 01/12/2017 N2N/CCD Import Blood hemoglobin 14.0 12.8- 17.0 measurement measurement (mass/volume) (mass/volume) Blood erythrocytes 01/12/2017 N2N/CCD Import Blood erythrocytes 4.56 4.20-5.80 automated count automated count (number/volume) (number/volume) Basophils/leuk NFr 01/12/2017 N2N/CCD Import Basophils/leuk NFr 0.4 0.0- 1.1 Bld Auto Bld Auto Basophils [#/volume] 01/12/2017 N2N/CCD Import Basophils 0.03 0.0-0.1 in Blood by [#/volume] in Blood Automated count by Automated count BUN/Creat SerPl 01/12/2017 N2N/CCD Import BUN/Creat SerPl 12.2 BUN SerPl-mCnc 01/12/2017 N2N/CCD Import BUN SerPl-mCnc 11 7-18 Automated 01/12/2017 N2N/CCD Import Automated 34.7 31.7-36.0 erythrocyte mean erythrocyte mean corpuscular corpuscular hemoglobin hemoglobin concentration measurement (mass/volume) Automated 01/12/2017 N2N/CCD Import Automated 30.7 27.0-33.0 erythrocyte mean erythrocyte mean corpuscular corpuscular hemoglobin hemoglobin (mass per erythrocyte) Aspartate 01/12/2017 N2N/CCD Import Aspartate 33 15-37 aminotransferase aminotransferase [Enzymatic [Enzymatic activity/vol activity/volume] in Serum or Plasma Anion Gap SerPl-sCnc 01/12/2017 N2N/CCD Import Anion Gap 8 8-16 SerPl-sCnc Albumin/Glob SerPl 01/12/2017 N2N/CCD Import Albumin/Glob SerPl 1.0 Albumin SerPl-mCnc 01/12/2017 N2N/CCD Import Albumin SerPl-mCnc 3.5 3.4- 5.0 Alt SerPl-cCnc 01/12/2017 N2N/CCD Import Alt SerPl-cCnc 38 12-78 Alp SerPl-cCnc 01/12/2017 N2N/CCD Import Alp SerPl-cCnc 73 45-117 Platelets [#/volume] 01/12/2017 N2N/CCD Import Platelets 300 150-400 in Blood by [#/volume] in Blood Automated count by Automated count PMV Bld Auto 01/12/2017 N2N/CCD Import PMV Bld Auto 9.8 6.6-10.6 Neutrophils/leuk NFr 01/12/2017 N2N/CCD Import Neutrophils/leuk 65.3 33.0-73.0 Bld Auto NFr Bld Auto Neutrophils # Bld 01/12/2017 N2N/CCD Import Neutrophils # Bld 5.18 1.8- 7.0 Auto Auto Monocytes/leuk NFr 01/12/2017 N2N/CCD Import Monocytes/leuk NFr 10.1 High 0.0-10.0 Bld Auto Bld Auto MCV RBC Auto 01/12/2017 N2N/CCD Import MCV RBC Auto 88.6 80.0-96.0 Lymphocytes/leuk NFr 01/12/2017 N2N/CCD Import Lymphocytes/leuk 21.7 20.0-42.0 Bld Auto NFr Bld Auto Lymphocytes 01/12/2017 N2N/CCD Import Lymphocytes 1.72 1.0-4.0 [#/volume] in Blood [#/volume] in Blood by Automated count by Automated count Hct VFr Bld Auto 01/12/2017 N2N/CCD Import Hct VFr Bld Auto 40.4 38.0- 48.0 Glucose 01/12/2017 N2N/CCD Import Glucose 100 74-106 [Mass/volume] in [Mass/volume] in Serum or Plasma Serum or Plasma Globulin Ser 01/12/2017 N2N/CCD Import Globulin Ser 3.6 1.9-4.3 Calc-mCnc Calc-mCnc Eosinophil/leuk NFr 01/12/2017 N2N/CCD Import Eosinophil/leuk NFr 2.5 0.0-6.6 Bld Auto Bld Auto Eosinophil # Bld 01/12/2017 N2N/CCD Import Eosinophil # Bld 0.20 0.0- 0.5 Auto Auto Creat SerPl-mCnc 01/12/2017 N2N/CCD Import Creat SerPl-mCnc 0.9 0.6-1.3 Chloride SerPl-sCnc 01/12/2017 N2N/CCD Import Chloride SerPl-sCnc 106 98 -107 Calcium SerPl-mCnc 01/12/2017 N2N/CCD Import Calcium SerPl-mCnc 8.6 8.5- 10.1 Co2 SerPl-sCnc 01/12/2017 N2N/CCD Import Co2 SerPl-sCnc 27 21-32 Comprehensive 01/12/2017 [facility] Glucose 100 N 74-106 Metabolic Panel [address] mg/dL [place], [place] [id number] [phone] BUN 11 mg/dL N 7-18 Creatinine 0.9 mg/dL N 0.6-1.3 Glom Filtration Rate, Estimate >60 mL/min >60 If >60 mL/min >60 46 BUN/Creat 12.2 ratio Sodium 141 mmol/L N 136-145 Potassium 4.5 mmol/L N 3.5-5.1 Chloride 106 mmol/L N 98-107 Carbon Dioxide 27 mmol/L N 21-32 Anion Gap 8 mEq/L N 8-16 Calcium 8.6 mg/dL N 8.5-10.1 Total Protein 7.1 g/dL N 6.4-8.2 Albumin 3.5 g/dL N 3.4-5.0 Globulin 3.6 g/dL N 1.9-4.3 Alb/Glob 1.0 ratio Bilirubin,Total 0.5 mg/dL N 0.2-1.0 Sgot/Ast 33 U/L N 15-37 SGPT/Alt 38 U/L N 12-78 Alkaline Phosphatase 73 U/L N 45-117 Laboratory test 01/12/2017 [facility] HDL Cholesterol 46 mg/dL >40 [address] [place] [address] [phone] Vitamin D,25-Hydroxy 31.3 ng/mL 30.0-100.0 48 Vitamin B12 477 pg/mL N 193-986 49 Direct LDL 01/12/2017 [facility] LDL Chol. 125 mg/dL High 0-99 [address] (Direct) [place] [address] [phone] Laboratory test 01/12/2017 [facility] Triglycerides 109 mg/dL <150 [address] [place] [address] [phone] WBC # Bld Auto 01/12/2017 N2N/CCD Import WBC # Bld Auto 7.9 3.4-10.5 Sodium 01/12/2017 N2N/CCD Import Sodium 141 136-145 SerPl-sCnc SerPl-sCnc Serum or plasma 01/12/2017 N2N/CCD Import Serum or plasma 477 193-986 vitamin B12 vitamin B12 measurement measurement (mass/volu (mass/volume) Serum or plasma 01/12/2017 N2N/CCD Import Serum or plasma 109 <150 triglyceride triglyceride measurement measurement (mass/vol (mass/volume) Serum or plasma 01/12/2017 N2N/CCD Import Serum or plasma 0.5 0.2-1.0 total bilirubin total bilirubin measurement measurement (mass/ (mass/volume) Serum or plasma 01/12/2017 N2N/CCD Import Serum or plasma 54 5-85 gamma glutamyl gamma glutamyl transferase transferase measure measurement (enzymatic activity/volume ) Serum or plasma 01/12/2017 N2N/CCD Import Serum or plasma 125 High 0-99 cholesterol in cholesterol in LDL measurement LDL measurement by by direct assay (mass/volume) Serum or plasma 01/12/2017 N2N/CCD Import Serum or plasma 46 >40 cholesterol in cholesterol in HDL measurement HDL measurement (ma (mass/volume) Serum or plasma 01/12/2017 N2N/CCD Import Serum or plasma 31.3 30.0- 100.0 25-hydroxyvitam 25-hydroxyvitam in D in D measurement (m measurement (mass/volume) RDW RBC 01/12/2017 N2N/CCD Import RDW RBC 12.7 11.6-15.8 Auto-Rto Auto-Rto RDW RBC Auto 01/12/2017 N2N/CCD Import RDW RBC Auto 40.0 36-51 Prot SerPl-mCnc 01/12/2017 N2N/CCD Import Prot SerPl-mCnc 7.1 6.4-8.2 Potassium 01/12/2017 N2N/CCD Import Potassium 4.5 3.5-5.1 SerPl-sCnc SerPl-sCnc Urobilinogen Ur 12/11/2016 N2N/CCD Import Urobilinogen Ur 0.2 0.2-1.0 Strip-aCnc Strip-aCnc Urine total 12/11/2016 N2N/CCD Import Urine total Negative Negative bilirubin bilirubin detection by detection by automated test automated test strip Urine 12/11/2016 N2N/CCD Import Urine Negative Negative hemoglobin hemoglobin detection by detection by automated test automated test strip strip Urine glucose 12/11/2016 N2N/CCD Import Urine glucose Negative Negative measurement by measurement by automated test automated test strip strip (mass/volume) Urine 12/11/2016 N2N/CCD Import Urine Clear Clear appearance appearance determination determination Prot Ur 12/11/2016 N2N/CCD Import Prot Ur Negative Negative Strip.auto-mCnc Strip.auto-mCnc Nitrite Ur Ql 12/11/2016 N2N/CCD Import Nitrite Ur Ql Negative Negative Strip.auto Strip.auto pH Ur 12/11/2016 N2N/CCD Import pH Ur 5.5 Low 6.5-7.5 Strip.auto Strip.auto Leukocyte 12/11/2016 N2N/CCD Import Leukocyte Negative Negative esterase Ur Ql esterase Ur Ql Strip.auto Strip.auto Ketones Ur 12/11/2016 N2N/CCD Import Ketones Ur Trace High Negative Strip.auto-mCnc Strip.auto-mCnc Color Ur 12/11/2016 N2N/CCD Import Color Ur Yellow Yellow Laboratory test 09/13/2016 [facility] Anti-Nuclear Negative Negative 52 finding [address] [facility] Antibodies AU/[place] [address] Direct [phone] Actin (Smooth Muscle) Antibody 7 units 0-19 53 Mitochondrial (M2) Antibodies 3.0 units 0.0-20.0 54 Agwqx-7-Wpojoccrsfc,Serum 129 mg/dL 90-200 Ceruloplasmin 30.9 mg/dL 16.0-31.0 Protein 09/13/2016 [facility] Protein,Total,Serum 7.4 g/dL 6.0-8.5 Electro.,S [address] [place], [place] [id number] [phone] Albumin 3.8 g/dL 2.9-4.4 Suvlk-4-Mdxxpqxd 0.2 g/dL 0.0-0.4 Pyvdr-0-Vbqfqevl 0.6 g/dL 0.4-1.0 Beta Globulin 1.4 g/dL High 0.7-1.3 Gamma Globulin 1.3 g/dL 0.4-1.8 M-Mohamud Not Observed g/dL Not Observed Globulin, Total 3.6 g/dL 2.2-3.9 A/G Ratio 1.1 0.7-1.7 Please Note: (SEE NOTE) 55 P E Interpretation, Serum (SEE NOTE) 56 Laboratory 09/13/2016 [facility] Hepatitis A Nonreactive Nonreactive 57 test finding [address] [place] [address] -IgM [phone] Hepatitis A AB, Total Negative Negative Hepatitis B Core Antibody-IgM Nonreactive Nonreactive 58 Hep B Core AB Total Negative Negative Hepatitis C 09/13/2016 [facility] Hepatitis C Nonreactive Nonreactive Antibody [address] [facility] [place] [address] [phone] Signal/Cutoff ratio < 0.02 <0.80 59 Iron-Tibc-%Sat 09/13/2016 [facility] Serum Iron 75 g/dL N 65-175 [address] [place] [address] [phone] Total Iron Binding Capacity 401 g/dL N 250-450 Transferrin %Saturation 19 % N 12-57 Laboratory test finding 09/13/2016 [facility] Ferritin 85 ng/mL N 26-388 [address] [place] [address] [phone] Hepatitis C Virus Rna (PCR)-QL Negative Negative 60 Liver Function Tests 03/03/2009 [facility] Total Protein 7.4 g/dL 6.3-8.0 [address] [place] [address] [phone] Albumin 3.9 g/dL 3.5-5.0 Bilirubin,Total 1.1 mg/dL 0.2-1.2 Bilirubin,Direct 0.2 mg/dL 0.1-0.4 Bilirubin,Indirect 0.9 mg/dL 0.0-0.9 Sgot/Ast 124 U/L High 16-40 SGPT/Alt 178 U/L High 30-65 Alkaline Phosphatase 87 U/L 50-136 Globulin 3.5 gm/dL 1.9-4.3 Alb/Glob 1.1 1 SORE THROAT, VOMITING 2 Note: Persistent reduction for 3 months or more in an eGFR <60 mL/min/1.73 m2 defines CKD. Patients with eGFR values >/=60 mL/min/1.73 m2 may also have CKD if evidence of persistent proteinuria is present. The original MDRD equation for estimated GFR is not valid for patients less than 18 years of age. Additional information may be found at www.kdoqi.org. 3 Infection due to Strep A cannot be ruled-out because the antigen present in the sample may be below the detection limit of the test. Culture confirmation of negative result is in progress Method: BD Veritor Chromatographic immunoassay 4 NO BETA STREPTOCOCCI ISOLATED 5 VOMITING 6 URINE, CLEAN CATCH 7 CHEST PAIN, TROUBLE SWOLLOWING 8 VOMITING SINCE THIS AM 9 URINE, CLEAN CATCH 10 E27.8 11 Concentrations of Normetanephrine between 146 and 487 pg/mL, and Metanephrine between 63 and 255 pg/mL are considered indeterminate. Follow-up biochemical testing is recommended when patient levels fall within this indeterminate range. These tests include repeat testing of plasma/urinary fractionated metanephrines and plasma catecholamines. Performed at: - [facility] [address] [id number] Freelance Director: Kei London MD, Phone: [phone] 12 Performed at: - [facility] [address] [id number] Freelance Director: Lissett Perez MD, Phone: [phone] 13 FEELS WARM 14 <=0.49 ug/mL - Low likelihood of DIC, DVT or Pulmonary Embolism >0.49 ug/mL - Additional testing should be done to rule out DIC, DVT, or Pulmonary embolism as clinically indicated. ([facility] has established a 97.89% negative predictive value for thrombotic disease when a cutoff value of 0.5 ug/mL is used.) 15 0.0 - 0.045 ng/mL: Normal 0.046 - 0.5 ng/mL: Suggestive 0.6 - 1.5 ng/mL: Consistent 16 Note: Persistent reduction for 3 months or more in an eGFR <60 mL/min/1.73 m2 defines CKD. Patients with eGFR values >/=60 mL/min/1.73 m2 may also have CKD if evidence of persistent proteinuria is present. The original MDRD equation for estimated GFR is not valid for patients less than 18 years of age. Additional information may be found at www.kdoqi.org. 17 0.0 - 0.045 ng/mL: Normal 0.046 - 0.5 ng/mL: Suggestive 0.6 - 1.5 ng/mL: Consistent 18 R10.9 19 Note: Persistent reduction for 3 months or more in an eGFR <60 mL/min/1.73 m2 defines CKD. Patients with eGFR values >/=60 mL/min/1.73 m2 may also have CKD if evidence of persistent proteinuria is present. The original MDRD equation for estimated GFR is not valid for patients less than 18 years of age. Additional information may be found at www.kdoqi.org. 20 This test was developed and its performance characteristics determined by [facility]. It has not been cleared or approved by the Food and Drug Administration. Performed at: [address] [id number] Freelance Director: Kei London MD, Phone: [phone] 21 This test was developed and its performance characteristics determined by [employer]. It has not been cleared or approved by the Food and Drug Administration. 22 POSS REACTION TO MILK,BLURRED VISION,DIZZY 23 Elevated levels of HbA1c suggest the need for more aggressive treatment of glycemia. The [place] [employer] recommends that a primary goal of therapy should be a HbA1c of <7% and that physicians should re-evaluate the treatment regimen in patients with HbA1c values consistently >8%. 24 URINE, CLEAN CATCH 25 K76.0 26 Reference Guidelines*: Normal: ............. < 150 mg/dL Borderline High: .... 150-199 mg/dL High: ............... 200-499 mg/dL Very High: .......... > 500 mg/dL * Source: National Cholesterol Education Program (NCEP) 27 INFCE Result Units: s/co ratio Negative: < 0.8 Indeterminate: 0.8 - 0.9 Positive: > 0.9 The CDC recommends that a positive HCV antibody result be followed up with a HCV Nucleic Acid Amplification test (250254). Performed at: [address] [id number] Freelance Director: Lissett Perez MD, Phone: [phone] 28 Performed at: [address] [id number] Freelance Director: Lissett Perez MD, Phone: [phone] 29 Method: Sediplast Modified Westergren 30 DIARRHEA, POSSIBLE DEHYDRATION 31 URINE, CLEAN CATCH 32 Shiga Toxin 2 Not Detected Method: ImmunoCard Stat/Ehec Rapid Immunochromatographic Assay 33 DIARRHEA 34 URINE, CLEAN CATCH 35 N/V/D 36 URINE, CLEAN CATCH 37 Note: Persistent reduction for 3 months or more in an eGFR <60 mL/min/1.73 m2 defines CKD. Patients with eGFR values >/=60 mL/min/1.73 m2 may also have CKD if evidence of persistent proteinuria is present. The original MDRD equation for estimated GFR is not valid for patients less than 18 years of age. Additional information may be found at www.kdoqi.org. 38 It Technical Specialist: [id number] 39 CP, COLD CHILLS 40 0.0 - 0.045 ng/mL: Normal 0.046 - 0.5 ng/mL: Suggestive 0.6 - 1.5 ng/mL: Consistent 41 VOMITING 42 URINE, CLEAN CATCH 43 Note: Persistent reduction for 3 months or more in an eGFR <60 mL/min/1.73 m2 defines CKD. Patients with eGFR values >/=60 mL/min/1.73 m2 may also have CKD if evidence of persistent proteinuria is present. The original MDRD equation for estimated GFR is not valid for patients less than 18 years of age. Additional information may be found at www.kdoqi.org. 44 Z13.220 K21.9 R94.5 Z13.220 K21.9 R94.5 Z13.21 Z13.220 K21.9 R94.5 Z13.21 45 Is Patient Fasting? Fasting 46 Note: Persistent reduction for 3 months or more in an eGFR <60 mL/min/1.73 m2 defines CKD. Patients with eGFR values >/=60 mL/min/1.73 m2 may also have CKD if evidence of persistent proteinuria is present. The original MDRD equation for estimated GFR is not valid for patients less than 18 years of age. Additional information may be found at www.kdoqi.org. 47 Reference Guidelines*: Low HDL: ..... < 40 mg/dL Normal: ..... 40-60 mg/dL Desirable: ... > 60 mg/dL *The National Cholesterol Education Program(NCEP) 48 Vitamin D deficiency has been defined by the [place] of [employer] and an Endocrine Society practice guideline as a level of serum 25-OH vitamin D less than 20 ng/mL (1,2). The Endocrine Society went on to further define vitamin D insufficiency as a level between 21 and 29 ng/mL (2). 1. IOM ([place] of Medicine). 2010. Dietary reference intakes for calcium and D. [place]: The National Academies Press. 2. Trena MF, Matthew RODNEY, Spencer WAYNE, et al. Evaluation, treatment, and prevention of vitamin D deficiency: an Endocrine Society clinical practice guideline. JCEM. 2010; 96(7):1911-30. Performed at: [address] [id number] Freelance Director: Lissett Perez MD, Phone: [phone] 49 Is Patient Fasting? Fasting 50 Performed at: [address] [id number] Freelance Director: Lissett Perez MD, Phone: [phone] 51 Reference Guidelines*: Normal: ............. < 150 mg/dL Borderline High: .... 150-199 mg/dL High: ............... 200-499 mg/dL Very High: .......... > 500 mg/dL * Source: National Cholesterol Education Program (NCEP) 52 R93.2 53 Negative 0 - 19 Weak positive 20 - 30 Moderate to strong positive >30 Actin Antibodies are found in 52-85% of patients with autoimmune hepatitis or chronic active hepatitis and in 22% of patients with primary biliary cirrhosis. 54 Negative 0.0 - 20.0 Equivocal 20.1 - 24.9 Positive >24.9 Mitochondrial (M2) Antibodies are found in 90-96% of patients with primary biliary cirrhosis. 55 Protein electrophoresis scan will follow via computer, mail, or machine bander and cellophaner helper delivery. 56 The SPE pattern appears essentially unremarkable. Evidence of monoclonal protein is not apparent. 57 IgM antibodies to HAV not detected; does not exclude early acute or recovered HAV infection. 58 IgM anti-HBc not detected. Does not exclude the possibility of exposure to or infection with HBV. 59 Antibodies to HCV not detected; does not exclude early acute HCV infection. 60 Negative: HCV RNA Not Detected Performed at: [address] [id number] Freelance Director: Lissett Perez MD, Phone: [phone] Performed at: [facility] - [facility] [id number] Freelance Director: Kei London MD, Phone: [phone] Procedures Date Code Description Status 05/13/2018 42892 Echocardiogram Complete Completed 04/08/2018 35601 EKG-Tracing And Report Completed 03/27/2018 80593 Destruction Penis Lesion(S) Simple Laser Surgery Completed 03/04/2018 68660 Measurement Post Voiding Residual Urine By Completed Ultrasound,Non-Imaging 03/04/2018 05995 complex uroflowmetry electronic Completed 09/20/2017 49882 Colonoscopy With Biopsy Completed 09/20/2017 17026 EGD With Biopsy Completed 11/07/2016 25240 Bronchospasm Provocation Evaluation Multi Spirometric Completed Determinati 11/07/2016 47454 Spirometry Completed 11/17/2015 12268 Asp./Injection major joint Completed 02/05/2008 87885 Colonoscopy With Polypectomy Completed 02/05/2008 61276 EGD With Biopsy Completed 02/05/2008 36720899 Colonoscopy Completed Encounters Type Date Location Provider Dx Diagnosis Office Visit 06/17/2018 Primary Care Vik De Los Santos, R11.10 Vomiting, 10:40a Office M.D. unspecified K76.0 Fatty (change of) liver, not elsewhere classified K21.0 Gastro-esophageal reflux disease with esophagitis Z79.899 Other long term care pharmacist (current) drug therapy Office Visit 05/07/2018 3:00p Emiliano Villalpando MD R11.10 Vomiting, unspecified K52.832 Lymphocytic colitis Office Visit 04/11/2018 2:30p Urology Solomon L82.1 Other seborrheic Alfonso Bolanos keratosis Office Visit 04/10/2018 10:40a Primary Care Vik De Los Santos, R11.10 Vomiting , Office M.D. 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 aneurysm, without rupture R11.10 Vomiting, unspecified Office Visit 01/31/2018 2:40p Primary Care Vik De Los Santos, R11.10 Vomiting , Office M.D. unspecified K76.0 Fatty (change of) liver, not elsewhere classified R51 Headache N50.89 Other specified disorders of the male genital organs Z79.899 Other long term care pharmacist (current) drug therapy Office Visit 01/11/2018 3:00p MARAH Suarez MD R11.10 Vomiting, unspecified K52.832 Lymphocytic colitis K21.0 Gastro-esophageal reflux disease with esophagitis Office Visit 12/05/2017 10:15a MARAH Suarez MD R11.10 Vomiting, unspecified R10.9 Unspecified abdominal pain K52.832 Lymphocytic colitis K21.0 Gastro-esophageal reflux disease with esophagitis Office Visit 11/09/2017 2:45p MARAH Suarez MD K52.832 Lymphocytic colitis K21.0 Gastro-esophageal reflux disease with esophagitis R51 Headache J45.991 Cough variant asthma Office Visit 11/02/2017 11:00a Primary Care Vik De Los Santos, J01.90 Acute sinusitis, Office M.D. unspecified R51 Headache R03.0 Elevated blood-pressure reading, w/o diagnosis of htn Office Visit 10/31/2017 3:40p Primary Care Vik De Los Santos, R11.10 Vomiting , Office M.D. unspecified K21.0 Gastro-esophageal reflux disease with esophagitis K52.832 Lymphocytic colitis J30.9 Allergic rhinitis, unspecified Office Visit 10/19/2017 1:30p MARAH Suarez MD R51 Headache K52.832 Lymphocytic colitis K21.0 Gastro-esophageal reflux disease with esophagitis J45.991 Cough variant asthma R10.9 Unspecified abdominal pain Office Visit 10/17/2017 10:30a Primary Care Luther, R10.32 Left lower Office Alfonso Oswald quadrant pain Office Visit 10/05/2017 3:15p MARAH Suarez MD K52.832 Lymphocytic colitis K21.0 Gastro-esophageal reflux disease with esophagitis J45.991 Cough variant asthma R11.10 Vomiting, unspecified K76.0 Fatty (change of) liver, not elsewhere classified Office Visit 10/03/2017 2:45p Pulmonology Marquise Nelson, J41.0 Simple chronic MD bronchitis Office Visit 10/02/2017 11:40a Primary Care Miriam De Los Santos1.2 Nausea with Office Alfonso Chery vomiting, unspecified K21.0 Gastro-esophageal reflux disease with esophagitis R19.7 Diarrhea, unspecified Z79.899 Other long-term (current) drug therapy Office Visit 09/27/2017 10:00a Primary Care Luther R11.2 Nausea with Office Alfonso Oswald vomiting, unspecified Office Visit 09/12/2017 4:30p MARAH Suarez MD R93.3 Abnormal findings on dx imaging of prt digestive tract R19.7 Diarrhea, unspecified K76.0 Fatty (change of) liver, not elsewhere classified Office Visit 09/04/2017 9:00a Primary Care Miriam Sloan9.7 Diarrhea, Office Alfonso Oswald unspecified Office Visit 08/29/2017 3:00p MARAH Suarez MD K92.0 Hematemesis J45.991 Cough variant asthma R11.10 Vomiting, unspecified Office Visit 08/15/2017 2:40p Primary Care Vik De Los Santos R11.10 Vomiting , Office M.DLupe unspecified A09 Infectious gastroenteritis and colitis, unspecified K57.30 Dvrtclos of lg int w/o perforation or abscess w/o bleeding I71.2 Thoracic aortic aneurysm, without rupture Office Visit 08/01/2017 2:45p Pulmonology Marquise Nelson MD J45.991 Cough variant asthma J47.9 Bronchiectasis, uncomplicated Office Visit 05/30/2017 3:00p Pulmonology Marquise Nelson, R11.10 Hilda, unspecified J45.991 Cough variant asthma Office Visit 05/04/2017 2:40p MARAH Suarez MD R05 Cough R11.10 Vomiting, unspecified R10.11 Right upper quadrant pain Office Visit 04/18/2017 2:20p Primary Care Vik De Los Santos, F41.9 Anxiety disorder, Office M.D. unspecified R11.10 Vomiting, unspecified Office Visit 03/20/2017 11:00a Primary Care Vik De Los Santos, R11.10 Vomiting , Office M.D. unspecified Z23 Encounter for immunization Office Visit 02/14/2017 2:45p MARAH Suarez MD R93.2 Abnormal findings on dx imaging of liver and biliary tract R11.10 Vomiting, unspecified Office Visit 02/05/2017 11:40a Primary Care Vik De Los Santos, R11.10 Vomiting , Office M.D. unspecified R05 Cough J32.9 Chronic sinusitis, unspecified Office Visit 01/30/2017 3:40p Primary Care Vik De Los Santos J32.9 Chronic sinusitis, Office M.D. unspecified E78.5 Hyperlipidemia, unspecified Office Visit 01/22/2017 10:40a Primary Care Filiberto R51 Headache Office [place] MVirgen. Office Visit 12/05/2016 3:15p Pulmonology Marquise Nelson J47.9 Bronchiectasis, MD uncomplicated Office Visit 10/17/2016 2:00p Pulmonology Marquise Nelson J41.0 Simple chronic MD bronchitis Office Visit 09/13/2016 10:15a MARAH Suarez MD R05 Cough R11.10 Vomiting, unspecified R93.2 Abnormal findings on dx imaging of liver and biliary tract Office Visit 12/16/2015 3:00p Orthopaedic Office Vianey Alba M25.562 Pain in S., [facility] left knee M76.52 Patellar tendinitis, left knee Office Visit 10/20/2015 2:45p Orthopaedic Office Vianey Alba M25.562 Pain in S., RPAC left knee M76.52 Patellar tendinitis, left knee Office Visit 08/11/2009 9:00a Orthopaedic Office Fausto Leroy 845.00 Corina & SMD Lupe Strains Ankle Unspec Site 719.06 Effusion Joint Lower Leg Office Visit 02/20/2008 2:45p Juan Francisco Johnson MD 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 at Mrmghqd3807/2018 2:45 pm - Latha Perdue MD at Cardiology Gczhsn1409/23/2018 - Lavelle Garcia , MDR11.10 Vomiting, ofuiperzskuW98.0 Fatty (change of) liver, not elsewhere [id number] Encounter for screening for cardiovascular disordersNew Labs: CBC W/Automated Diff, Ordered: 09/23/18Comprehensive Metabolic Panel, Ordered: 09/23/18LDL Cholesterol Profile, Ordered: 09/23/18Glycohemoglobin A1c, Ordered: 09/23/18T7/TSH, Ordered: 09/23/18E66.3 Overweight
[2018-10-07 16:17] VITALS: BP 122/83
--- NOTE | 2018-10-07 16:58 | UC ---
Complaint Male HPI - HPI Summary HPI Summary: 48 year old male with long standing history of vomtiing upon waking due to coughing, 2-3 times a week occurring for years, has been following with GI, had a scope but years ago. Patient states had sinus pressure, pain, post-nasal drip which is making symptoms worse. coughing causes vomiting throughout the day no fever, chills. - History of Current Complaint Chief Complaint: UCAbdominalPain Stated Complaint: VOMITING x2 DAYS Time Seen by Provider: 10/07/18 16:54 Hx Obtained From: Patient Onset/Duration: Sudden Onset, Lasting Days Timing: Constant Pain Intensity: 7 - Allergies/Home Medications Allergies/Adverse Reactions: Allergies Allergy/AdvReac Type Severity Reaction Status Date / Time No Known Allergies Allergy Verified 10/07/18 16:10 Home Medications: Home Medications Allergy Shots 1 udc IM WEEKLY 10/07/18 [History Confirmed 10/07/18] PMH/Surg Hx/FS Hx/Imm Hx Previously Healthy: Yes - Surgical History Surgical History: Yes Surgery Procedure, Year, and Place: Nasal Polyps, 2017, Dr. Carey, Cholecystectomy and Umbilical Herniorrhaphy, 2014, [facility]; Endoscopy, 04/29/15 , [facility]; Colonscopy, ~2004, [place] - Family History Known Family History: Positive: None - No history of degenerative neuro conditions, parents living and well. - Social History Alcohol Use: Rare Substance Use Type: None Smoking Status (MU): Never Smoked Tobacco Review of Systems All Other Systems Reviewed And Are Negative: Yes Constitutional: Positive: Negative Skin: Positive: Negative Respiratory: Positive: Cough Cardiovascular: Positive: Negative Gastrointestinal: Positive: Abdominal Pain. Negative: Diarrhea, Nausea Musculoskeletal: Positive: Negative Neurological: Positive: Negative Psychological: Positive: Negative Is Patient Immunocompromised?: No Physical Exam Triage Information Reviewed: Yes Appearance: Well-Appearing, No Pain Distress, Well-Nourished Vital Signs: Initial Vital Signs Temp 98.9 F 10/07/18 16:12 Pulse 84 10/07/18 16:12 Resp 18 10/07/18 16:12 BP 122/83 10/07/18 16:12 Pulse Ox 97 10/07/18 16:12 Vital Signs Reviewed: Yes Eyes: Positive: Conjunctiva Clear ENT: Positive: Pharynx normal, Nasal congestion, Nasal drainage, TMs normal, Sinus tenderness - b/l frontal. Negative: Pharyngeal erythema, TM dull, TM red , Tonsillar swelling, Tonsillar exudate Neck: Positive: Supple, Nontender, Enlarged Nodes @ - b/l submand. Respiratory: Positive: Chest non-tender, Lungs clear, Normal breath sounds, No respiratory distress, No accessory muscle use. Negative: Respiratory distress, Crackles, Rhonchi, Stridor, Wheezing Cardiovascular: Positive: RRR, No Murmur Abdomen Description: Positive: Nontender - epigastric tenderness, No Organomegaly. Negative: Splenomegaly Neurological Exam: Normal Skin Exam: Normal Complaint Male Course/Dx - Course Course Of Treatment: sinusitis, abx given. FOllow up with GI re: cyclic vomiting, epigastric pain, morning cough. - Differential Dx/Diagnosis Provider Diagnosis: Sinusitis Discharge - Sign-Out/Discharge Documenting (check all that apply): Patient Departure All imaging exams completed and their final reports reviewed: No Studies - Discharge Plan Condition: Good Disposition: HOME Prescriptions: Amoxicillin/Clavulanate TAB* [Augmentin TAB 875*] 875 mg PO BID #14 tab Gaviscon CHEW TAB* 2 tab.chew PO Q6H PRN #60 tab.chew PRN Reason: indigestion Patient Education Materials: Sinusitis (ED), Waggoner Esophagus (ED) Referrals: Lavelle Garcia MD [Primary Care Provider] - Additional Instructions: - FOllow up with GI doctor due to increased abdominal pain, vomiting - Antibiotics for sinusitis to help with cough - over the counter antihistamines to decrease sinus congestion - Gaviscon to possibly help with morning cough, indigestion - Billing Disposition and Condition Condition: GOOD Disposition: Home
== END 2018-10-07 17:39 | disposition home or self-care (01) ==
LOC: UCCORT 15:38
DX: J32.9 Chronic sinusitis, unspecified (principal); R11.10 Vomiting, unspecified; R10.9 Unspecified abdominal pain
CPT/HCPCS: 99212; G0463

== ENCOUNTER 2019-01-11 08:20 | Emergency (ER) | payer BC ==
--- OUTSIDE RECORDS SUMMARY | 2019-01-11 08:30 | XMS REPORT | Continuity of Care Document ---
:1970 External Reference #:[id number] Author Name Cici Carbajal M.D. Address [address] [place] [address] Care Team Providers Name Role Phone Lavelle Garcia MD Care Team Information Regulatory Administrator Unavailable Lavelle Garcia MD Primary Care Physician Unavailable Payers Date Identification Numbers Payment Provider Subscriber Policy Number: [id number] [facility] Malik Ann PayID: [id number] [address] [place] [address] Problems Active Problems Provider Date Cough Chuck Suarez MD Onset: 09/13/2016 Vomiting, unspecified Chuck Suarez MD Onset: 09/13/2016 Abnormal findings diagnostic imaging of Chuck Suarez MD Onset: 09/13/2016 liver+biliary tract Adult health examination Vik De Los Santos M.D. Onset: 01/11/2017 Gastroesophageal reflux disease Vik De Los Santos M.D. Onset: 01/11/2017 Bronchiolectasis Vik De Los Santos M.D. Onset: 01/11/2017 Hyperlipidemia screening Vik De Los Santos M.D. Onset: 01/11/2017 Encounter for screening for nutritional Vik De Los Santos M.D. Onset: 01/11/2017 disorder Liver function tests abnormal Vik De Los Santos M.D. Onset: 01/11/2017 Headache Vik De Los Santos M.D. Onset: 01/22/2017 Chronic sinusitis Vik De Los Santos M.D. Onset: 01/30/2017 Hyperlipidemia Vik De Los Santos M.D. Onset: 01/30/2017 Immunization Vik De Los Santos M.D. Onset: 03/20/2017 Anxiety state Vki De Los Santos M.D. Onset: 04/18/2017 Right upper quadrant pain Chuck Suarez MD Onset: 05/04/2017 Infectious colitis, enteritis and Vik De Los Santos M.D. Onset: 08/15/2017 gastroenteritis Diverticular disease of colon Vik De Los Santos M.D. Onset: 08/15/2017 Aneurysm of thoracic aorta Vik De Los Santos M.D. Onset: 08/15/2017 Hematemesis Chuck Suarez MD Onset: 08/29/2017 Cough variant asthma Chuck Suarez MD Onset: 08/29/2017 Diarrhea Darek Sloan M.D. Onset: 09/04/2017 Gastrointestinal tract finding Chuck Suarez MD Onset: 09/12/2017 Chronic nonalcoholic liver disease Chuck Suarez MD Onset: 09/12/2017 Nausea and vomiting Vik De Los Santos M.D. Onset: 10/02/2017 Taking medication Vik De Los Santos M.D. Onset: 10/02/2017 Lymphocytic-plasmacytic colitis Chuck Suarez MD Onset: 10/05/2017 Gastro-esophageal reflux disease with Chuck Suarez MD Onset: 10/19/2017 esophagitis Abdominal pain Chuck Suarez MD Onset: 10/19/2017 Left lower quadrant pain Darek Sloan M.D. Onset: 10/17/2017 Acute sinusitis Vik De Los Santos M.D. Onset: 11/02/2017 Allergic rhinitis Vik De Los Santos M.D. Onset: 10/31/2017 Elevated blood-pressure reading without Vik De Los Santos M.D. Onset: 11/02/2017 diagnosis of hypertension Disorder of male genital organ Vik De Los Santos M.D. Onset: 01/31/2018 Disorder of adrenal gland Cici Carbajal M.D. Onset: 03/04/2018 Senile hyperkeratosis Cici Carbajal M.D. Onset: 04/11/2018 Screening for malignant neoplasm of Cici Carbajal M.D. Onset: 12/30/2018 prostate Inactive Problems Genital warts Cici Carbajal M.D. Onset: 03/04/2018 Inactive: 12/30/2018 Family History Date Family Member(s) Observation Comments [...] Patient has never smoked Smoking Status Reviewed: 12/17/18 Patient has never smoked Exercise Type/Frequency Does not exercise Allergies, Adverse Reactions, Alerts Description No Known Drug Allergies Medications Active Medications SIG Qnty Indications Ordering Provider Date Omeprazole I tablet twice 60caps Lavelle Garcia MD 10/21/[address] Marinelli Sensimist 2 sprays every Unknown day 27.5mcg/[place] Suspension Allergy Injections weekly ( for Unknown molds) History Medications Cyclobenzaprine HCL 1 tab by mouth 21tabs M54.5 Lavelle Garcia, 10/21/2018 - 5mg three times a 12/30/2018 Tablets day as needed Allergy Injections Latha Perdue, 04/08/2018 - MD Unknown Hydrocortisone 2 Times A Day 1units Unknown 03/13/2018 - 2.5% Cream 06/17/2018 Dexamethasone take at 11 at 1tabs Solomon, 03/08/2018 - 1mg Tablets night night [facility], 03/22/2018 before blood M.DLupe test Pantoprazole Sodium 1 by mouth every 90tabs K21.0 Chuck Suarez, 01/11/2018 - 20mg day every MD 06/17/[address] bob Ondansetron 1 tab by mouth 90tabs R11.10 Chuck Suarez, 12/05/2017 - 4mg Tablets three times a 01/11/2018 Dispers day as needed Amoxicillin take 1 tablet 30tabs J01.90 Filiberto, 11/02/2017 - 500mg Tablets daily 3 times a Alfonso Chery Unknown day for 10 days Vitamin B12 1 tab by mouth 30tabs R51 Chuck Suarez 10/19/2017 - 100mcg Tablets every day 09/23/2018 Pantoprazole Sodium 1 by mouth every 90tabs K21.0 Chuck Suarez 10/05/2017 - 40mg day every MD 01/31/2018 Tablets morning Budesonide 2 cap by mouth 90caps K52.832 Chuck Suarez, 10/05/2017 - 3mg Caps DR Workman every day 05/07/2018 Work Note Malik Ann was J41.0 Omar, 10/03/2017 - seen in the MD Marquise Unknown office today. Please excuse him. Ondansetron HCL 1 tab by mouth 30tabs Luther 09/27/2017 - 8mg Tablets every 8 hours as Darek 01/11/2018 needed for M.D. nausea Pantoprazole Sodium 1 by mouth every 90tabs Chuck Suarez, 09/20/2017 - 40mg day every Unknown Tablets morning Dulcolax 4 tablets taken 4tabs R93.3 Chuck Suarez, 09/12/2017 - 5mg Tablets DR joe 8pm the day 09/27/2017 before the procedure Citroma 1 by mouth once 296ml R93.3 Chuck Suarez 09/12/2017 - 1.745GM/30ML Solution 09/27/2017 Golytely drink half the 4000ml R93.3 Chuck Suarez 09/12/2017 - 236gm Solution Rec evening before 09/27/2017 and half the morning of the procedure (1 cup every 10') Flovent HFA inhale 2 puffs 12gm J45.991 Omar, 05/30/2017 - 110mcg/Act twice daily MD Marquise 08/01/2017 Aerosol after albuterol nebulizer treatment*shake well *rinse mouth after use Proair HFA take 2 puffs 8.500gm J45.991 Omar, 05/30/2017 - 108(90Base) every 6 hours as MD Marquise Unknown mcg/Act Aerosol needed for shortness of breath. Hydroxyzine HCL take 1 tablet by 30tabs F41.9 Filiberto, 04/18/2017 - 25mg Tablets mouth 3 times a Alfonso Chery Unknown day as needed for anxiety. Do not drink alcohol while on this medication Ondansetron HCL 1 tab every 8hr 30tabs Filiberto, 03/20/2017 - 4mg Tablets as needed for Alfonso Chery Unknown nausea No Active Medications Unknown 02/05/2017 - 02/05/2017 Ondansetron HCL 1 tab every 6hr 30tabs Filiberto, 02/05/2017 - 4mg Tablets as needed for Alfonso Chery Unknown nausea Methylprednisolone take as directed 1dosepack R51 Filiberto, 01/22/2017 - 4mg TBPK Alfonso Chery 02/05/2017 No Active Medications Unknown 01/11/2017 - 01/22/2017 Proair HFA take 2 puffs 8.500gm J47.9 Kheti, 12/05/2016 - 108(90Base) every 6 hours as MD Marquise Unknown mcg/Act Aerosol needed for cough No Active Medications Unknown 10/17/2016 - 12/05/2016 No Active Medications Unknown 11/17/2015 - 09/13/2016 Nabumetone take 1 tablet by 60tabs Leti, 10/20/2015 - 750mg Tablets mouth 2 times a Alfonso Quintero 11/17/2015 day with food Topiramate 1 tab bid Unknown - 25mg Tablets 10/21/2018 Omeprazole 1 by mouth every Unknown - 20mg Capsules DR day 10/21/2018 Amoxicillin/Clavulanate take 1 tablet by Aurelio, - Potassium mouth twice a MD Godwin 06/17/2018 875-125mg Tablets day for 7 days Prednisone take one tablet Unknown - 20mg Tablets daily 06/17/2018 Pantoprazole Sodium take 1 tablet by Unknown - 20mg mouth every 01/31/[address] morning Ondansetron 1 sl every 8 hrs Unknown - 8mg Tablets prn 03/04/2018 Dispers Metronidazole 1 po qd Unknown - 500mg Tablets 10/02/2017 Ciprofloxacin HCL take 1 tablet by Unknown - 500mg mouth twice a 09/27/2017 Tablets day Oxycodone-Acetaminophen take 1-2 tablets Unknown - by mouth every 4 Unknown 5-325mg Tablets to 6 hours if needed maximum daily d Omeprazole I tablet twice 60caps Unknown - 20mg Capsules DR daily 09/27/2017 Ondansetron HCL take 1 tablet by Unknown - 4mg Tablets mouth every 8 09/04/2017 hours if needed for nausea Fluticasone Propionate Unknown - 02/05/2017 50mcg/Act Suspension Protonix 1 po every day Unknown - 20mg Tablets DR Henriquez Zofran 1 tablet by Unknown - 4mg Tablets mouth every 8 Unknown hours as needed for nausea Amoxicillin Lillie, - 500mg MD Omid 10/19/2015 Omeprazole Syarely, - 20mg MD Terence 10/20/2015 Hydrocodone-Acetaminophe Robenstein, - n DO Siomara 10/19/2015 5-500mg Nortriptyline HCL Jessica, - 50mg Carolina, 10/20/2015 Naproxen Unknown - 500mg 10/19/2015 Medications Administered in Office Medication SIG Qnty Indications Ordering Provider Date Methylprednisolone acetate Vianey Alba, 11/17/2015 (Depomedrol) 80mg injection RPAC Injection Immunizations CPT Code Status Date Vaccine Lot # 60830 Given 03/20/2017 Influenza Virus Vaccine, Quadrivalent, Slit Virus, Im Use 33690 Given 01/11/2017 Tdap injection [id number] Vital Signs Date Vital Result Comment 12/30/2018 2:06pm BP Systolic 131 mmHg BP Diastolic 92 mmHg Body Temperature 98.6 F Heart Rate 79 /min Respiratory Rate 17 /min Height 69 inches 5'9" Weight 191.12 lb BMI (Body Mass Index) 28.2 kg/m2 BSA (Body Surface Area) 2.03 m2 Sharps body weight in kilograms 73 kg O2 % BldC Oximetry 95 % Pain Level 0 11/15/2018 8:38am BP Systolic Sitting Left Arm 112 mmHg BP Diastolic Sitting Left Arm 78 mmHg Heart Rate 85 /min Respiratory Rate 16 /min Height 69 inches 5'9" Weight 194.00 lb BMI (Body Mass Index) 28.6 kg/m2 BSA (Body Surface Area) 2.04 m2 Sharps body weight in kilograms 73 kg O2 Saturation Level with Exercise 97 % 10/21/2018 8:45am BP Systolic Sitting Left Arm 126 mmHg BP Diastolic Sitting Left Arm 78 mmHg Heart Rate 88 /min Respiratory Rate 18 /min Height 69 inches 5'9" Weight 196.00 lb BMI (Body Mass Index) 28.9 kg/m2 BSA (Body Surface Area) 2.05 m2 Sharps body weight in kilograms 73 kg 09/23/2018 9:41am BP Systolic 122 mmHg BP Diastolic 88 mmHg Heart Rate 72 /min Respiratory Rate 18 /min Height 69 inches 5'9" Weight 185.00 lb BMI (Body Mass Index) 27.3 kg/m2 BSA (Body Surface Area) 2.00 m2 Sharps body weight in kilograms 73 kg O2 % BldC Oximetry 96 % Ra 06/17/2018 10:31am BP Systolic Sitting Left Arm 118 mmHg BP Diastolic Sitting Left Arm 84 mmHg Body Temperature 98.0 F Heart Rate 70 /min Respiratory Rate 18 /min Height 69 inches 5'9" Weight 191.00 lb BMI (Body Mass Index) 28.2 kg/m2 BSA (Body Surface Area) 2.03 m2 Sharps body weight in kilograms 73 kg O2 % BldC Oximetry 96 % Ra 05/07/2018 3:18pm BP Systolic Sitting Left Arm 122 mmHg BP Diastolic Sitting Left Arm 90 mmHg Heart Rate 83 /min Respiratory Rate 16 /min Height 69 inches 5'9" Weight 192.00 lb BMI (Body Mass Index) 28.4 kg/m2 BSA (Body Surface Area) 2.03 m2 Sharps body weight in kilograms 73 kg O2 % BldC Oximetry 97 % 04/11/2018 2:19pm BP Systolic 134 mmHg BP Diastolic 88 mmHg Body Temperature 98.1 F Heart Rate 77 /min Respiratory Rate 16 /min Height 69 inches 5'9" Weight 188.25 lb BMI (Body Mass Index) 27.8 kg/m2 BSA (Body Surface Area) 2.01 m2 Sharps body weight in kilograms 73 kg O2 % BldC Oximetry 95 % Pain Level 0 04/10/2018 11:17am BP Systolic Sitting Left Arm 135 mmHg BP Diastolic Sitting Left Arm 90 mmHg Body Temperature 97.3 F Heart Rate 75 /min Respiratory Rate 18 /min Height 69 inches 5'9" Weight 188.00 lb BMI (Body Mass Index) 27.8 kg/m2 BSA (Body Surface Area) 2.01 m2 Sharps body weight in kilograms 73 kg O2 % BldC Oximetry 98 % Ra 04/08/2018 2:52pm BP Systolic Sitting Left Arm 120 mmHg BP Diastolic Sitting Left Arm 65 mmHg Heart Rate 74 /min Respiratory Rate 16 /min Height 69 inches 5'9" Weight 191.00 lb BMI (Body Mass Index) 28.2 kg/m2 BSA (Body Surface Area) 2.03 m2 Sharps body weight in kilograms 73 kg O2 % BldC Oximetry 96 % 03/22/2018 2:57pm BP Systolic Sitting Left Arm 132 mmHg BP Diastolic Sitting Left Arm 95 mmHg Heart Rate 77 /min Respiratory Rate 16 /min Height 69 inches 5'9" Weight 191.00 lb BMI (Body Mass Index) 28.2 kg/m2 BSA (Body Surface Area) 2.03 m2 Sharps body weight in kilograms 73 kg O2 % BldC Oximetry 98 % 03/04/2018 2:55pm BP Systolic 135 mmHg BP Diastolic 92 mmHg Body Temperature 98.0 F Heart Rate 96 /min Respiratory Rate 18 /min Height 69 inches 5'9" Weight 190.00 lb BMI (Body Mass Index) 28.1 kg/m2 BSA (Body Surface Area) 2.02 m2 Sharps body weight in kilograms 73 kg O2 % BldC Oximetry 97 % Pain Level 0 02/18/2018 4:08pm BP Systolic Sitting Left Arm 126 mmHg BP Diastolic Sitting Left Arm 88 mmHg Body Temperature 98.1 F Heart Rate 73 /min Respiratory Rate 16 /min Height 69 inches 5'9" Weight 185.00 lb BMI (Body Mass Index) 27.3 kg/m2 BSA (Body Surface Area) 2.00 m2 Sharps body weight in kilograms 73 kg O2 % BldC Oximetry 95 % Ra 01/31/2018 2:52pm BP Systolic Sitting Left Arm 138 mmHg BP Diastolic Sitting Left Arm 96 mmHg Body Temperature 97.6 F Heart Rate 72 /min Respiratory Rate 20 /min Height 69 inches 5'9" Weight 191.00 lb BMI (Body Mass Index) 28.2 kg/m2 BSA (Body Surface Area) 2.03 m2 Sharps body weight in kilograms 73 kg O2 % BldC Oximetry 96 % 01/11/2018 2:50pm BP Systolic Sitting Right Arm 142 mmHg BP Diastolic Sitting Right Arm 84 mmHg Heart Rate 68 /min Respiratory Rate 20 /min Height 69 inches 5'9" Weight 192.00 lb BMI (Body Mass Index) 28.4 kg/m2 BSA (Body Surface Area) 2.03 m2 Sharps body weight in kilograms 73 kg O2 % BldC Oximetry 96 % Ra Pain Level 8 while vomitting 12/05/2017 10:10am BP Systolic Sitting Left Arm 132 mmHg BP Diastolic Sitting Left Arm 96 mmHg Heart Rate 82 /min Respiratory Rate 18 /min Height 69 inches 5'9" Weight 188.00 lb BMI (Body Mass Index) 27.8 kg/m2 BSA (Body Surface Area) 2.01 m2 Sharps body weight in kilograms 73 kg 11/09/2017 2:45pm BP Systolic Sitting Right Arm 134 mmHg BP Diastolic Sitting Right Arm 82 mmHg Heart Rate 81 /min Respiratory Rate 18 /min Height 69 inches 5'9" Weight 190.00 lb BMI (Body Mass Index) 28.1 kg/m2 BSA (Body Surface Area) 2.02 m2 Sharps body weight in kilograms 73 kg 11/02/2017 10:53am BP Systolic 151 mmHg BP Diastolic 98 mmHg Body Temperature 98.3 F Heart Rate 81 /min Respiratory Rate 16 /min Height 69 inches 5'9" Weight 189.12 lb BMI (Body Mass Index) 27.9 kg/m2 BSA (Body Surface Area) 2.02 m2 Sharps body weight in kilograms 73 kg O2 % BldC Oximetry 97 % 10/31/2017 3:41pm BP Systolic 124 mmHg BP Diastolic 90 mmHg Body Temperature 98.2 F Heart Rate 84 /min Respiratory Rate 16 /min Height 69 inches 5'9" Weight 187.00 lb BMI (Body Mass Index) 27.6 kg/m2 BSA (Body Surface Area) 2.01 m2 Sharps body weight in kilograms 73 kg O2 % BldC Oximetry 95 % On Room Air 10/19/2017 1:23pm BP Systolic Sitting Left Arm 162 mmHg BP Diastolic Sitting Left Arm 96 mmHg Heart Rate 91 /min Respiratory Rate 16 /min Height 69 inches 5'9" Weight 190.00 lb with boots BMI (Body Mass Index) 28.1 kg/m2 BSA (Body Surface Area) 2.02 m2 Sharps body weight in kilograms 73 kg 10/17/2017 10:19am BP Systolic 151 mmHg BP Diastolic 98 mmHg Heart Rate 72 /min Respiratory Rate 14 /min Height 69 inches 5'9" Weight 185.12 lb BMI (Body Mass Index) 27.3 kg/m2 BSA (Body Surface Area) 2.00 m2 Sharps body weight in kilograms 73 kg O2 % BldC Oximetry 97 % 10/05/2017 3:04pm BP Systolic Sitting Left Arm 130 mmHg BP Diastolic Sitting Left Arm 90 mmHg Heart Rate 76 /min Respiratory Rate 16 /min Height 69 inches 5'9" Weight 192.00 lb BMI (Body Mass Index) 28.4 kg/m2 BSA (Body Surface Area) 2.03 m2 Sharps body weight in kilograms 73 kg 10/03/2017 2:49pm BP Systolic Sitting Left Arm 118 mmHg BP Diastolic Sitting Left Arm 88 mmHg Heart Rate 74 /min Respiratory Rate 16 /min Height 69 inches 5'9" Weight 191.00 lb BMI (Body Mass Index) 28.2 kg/m2 BSA (Body Surface Area) 2.03 m2 Sharps body weight in kilograms 73 kg O2 % BldC Oximetry 98 % 10/02/2017 11:39am BP Systolic 137 mmHg BP Diastolic 85 mmHg Heart Rate 72 /min Respiratory Rate 14 /min Height 69 inches 5'9" Weight 190.12 lb BMI (Body Mass Index) 28.1 kg/m2 BSA (Body Surface Area) 2.02 m2 Sharps body weight in kilograms 73 kg O2 % BldC Oximetry 97 % 09/27/2017 9:54am BP Systolic Sitting Left Arm 123 mmHg BP Diastolic Sitting Left Arm 83 mmHg Body Temperature 98.4 F Heart Rate 76 /min Respiratory Rate 18 /min Height 69 inches 5'9" Weight 186.00 lb BMI (Body Mass Index) 27.5 kg/m2 BSA (Body Surface Area) 2.00 m2 Sharps body weight in kilograms 73 kg O2 % BldC Oximetry 94 % 09/12/2017 4:17pm BP Systolic Sitting Left Arm 128 mmHg BP Diastolic Sitting Left Arm 84 mmHg Heart Rate 84 /min Respiratory Rate 16 /min Height 69 inches 5'9" Weight 192.00 lb BMI (Body Mass Index) 28.4 kg/m2 BSA (Body Surface Area) 2.03 m2 Sharps body weight in kilograms 73 kg 09/04/2017 9:06am BP Systolic Sitting Left Arm 122 mmHg BP Diastolic Sitting Left Arm 84 mmHg Body Temperature 97.2 F Heart Rate 72 /min Respiratory Rate 16 /min Height 69 inches 5'9" Weight 196.00 lb with steel toe boots BMI (Body Mass Index) 28.9 kg/m2 BSA (Body Surface Area) 2.05 m2 Sharps body weight in kilograms 73 kg 08/29/2017 3:11pm BP Systolic Sitting Left Arm 122 mmHg BP Diastolic Sitting Left Arm 80 mmHg Heart Rate 74 /min Respiratory Rate 16 /min Height 69 inches 5'9" Weight 196.00 lb BMI (Body Mass Index) 28.9 kg/m2 BSA (Body Surface Area) 2.05 m2 Sharps body weight in kilograms 73 kg 08/15/2017 2:42pm BP Systolic Sitting Right Arm 118 mmHg BP Diastolic Sitting Right Arm 81 mmHg Heart Rate 75 /min Height 69 inches 5'9" Weight 195.00 lb BMI (Body Mass Index) 28.8 kg/m2 BSA (Body Surface Area) 2.04 m2 Sharps body weight in kilograms 73 kg O2 % BldC Oximetry 92 % ra 08/01/2017 2:55pm BP Systolic Sitting Left Arm 136 mmHg BP Diastolic Sitting Left Arm 92 mmHg Heart Rate 72 /min Respiratory Rate 16 /min Height 69 inches 5'9" Weight 201.00 lb BMI (Body Mass Index) 29.7 kg/m2 BSA (Body Surface Area) 2.07 m2 Sharps body weight in kilograms 73 kg O2 % BldC Oximetry 97 % 05/30/2017 3:08pm BP Systolic Sitting Left Arm 128 mmHg BP Diastolic Sitting Left Arm 88 mmHg Heart Rate 71 /min Respiratory Rate 16 /min Height 69 inches 5'9" Weight 198.00 lb BMI (Body Mass Index) 29.2 kg/m2 BSA (Body Surface Area) 2.06 m2 Sharps body weight in kilograms 73 kg O2 % BldC Oximetry 97 % 05/04/2017 3:14pm BP Systolic Sitting Left Arm 120 mmHg BP Diastolic Sitting Left Arm 80 mmHg Heart Rate 70 /min Respiratory Rate 16 /min Height 69 inches 5'9" Weight 193.00 lb BMI (Body Mass Index) 28.5 kg/m2 BSA (Body Surface Area) 2.03 m2 Sharps body weight in kilograms 73 kg 04/18/2017 2:30pm BP Systolic 133 mmHg BP Diastolic 91 mmHg Heart Rate 79 /min Respiratory Rate 14 /min Height 69 inches 5'9" Weight 190.12 lb BMI (Body Mass Index) 28.1 kg/m2 BSA (Body Surface Area) 2.02 m2 Sharps body weight in kilograms 73 kg O2 % BldC Oximetry 96 % 03/20/2017 11:00am BP Systolic 137 mmHg BP Diastolic 89 mmHg Body Temperature 97.6 F Heart Rate 72 /min Respiratory Rate 16 /min Height 69 inches 5'9" Weight 186.25 lb BMI (Body Mass Index) 27.5 kg/m2 BSA (Body Surface Area) 2.00 m2 Sharps body weight in kilograms 73 kg O2 % BldC Oximetry 97 % 02/14/2017 2:57pm BP Systolic Sitting Left Arm 122 mmHg BP Diastolic Sitting Left Arm 80 mmHg Respiratory Rate 1675 /min Height 69 inches 5'9" Weight 189.00 lb BMI (Body Mass Index) 27.9 kg/m2 BSA (Body Surface Area) 2.02 m2 Sharps body weight in kilograms 73 kg 02/05/2017 11:29am BP Systolic 121 mmHg BP Diastolic 86 mmHg Body Temperature 97.7 F Heart Rate 80 /min Respiratory Rate 16 /min Height 69 inches 5'9" Weight 185.00 lb BMI (Body Mass Index) 27.3 kg/m2 BSA (Body Surface Area) 2.00 m2 Sharps body weight in kilograms 73 kg O2 % BldC Oximetry 94 % 01/30/2017 3:01pm BP Systolic 129 mmHg BP Diastolic 83 mmHg Heart Rate 73 /min Respiratory Rate 16 /min Height 69 inches 5'9" Weight 189.00 lb With Boots BMI (Body Mass Index) 27.9 kg/m2 BSA (Body Surface Area) 2.02 m2 Sharps body weight in kilograms 73 kg O2 % BldC Oximetry 97 % 01/22/2017 10:39am BP Systolic Sitting Left Arm 140 mmHg BP Diastolic Sitting Left Arm 88 mmHg Body Temperature 98.0 F Heart Rate 79 /min Height 69 inches 5'9" Weight 185.00 lb BMI (Body Mass Index) 27.3 kg/m2 BSA (Body Surface Area) 2.00 m2 Sharps body weight in kilograms 73 kg O2 % BldC Oximetry 98 % 01/11/2017 2:44pm BP Systolic 125 mmHg BP Diastolic 85 mmHg Body Temperature 97.7 F Heart Rate 79 /min Respiratory Rate 16 /min Height 69 inches 5'9" Weight 186.00 lb BMI (Body Mass Index) 27.5 kg/m2 BSA (Body Surface Area) 2.00 m2 Sharps body weight in kilograms 73 kg O2 % BldC Oximetry 96 % 12/05/2016 3:22pm BP Systolic Sitting Left Arm 128 mmHg BP Diastolic Sitting Left Arm 80 mmHg Heart Rate 77 /min Respiratory Rate 16 /min Height 69 inches 5'9" Weight 192.00 lb BMI (Body Mass Index) 28.4 kg/m2 BSA (Body Surface Area) 2.03 m2 Sharps body weight in kilograms 73 kg O2 [...] Date Facility Test Result H/L Range Note CBC 09/23/[address] White Blood 8.0 K/uL N 3.4-10.5 1 W/Automated [address] [place], [place] [id number] [phone] Red Blood Count 5.30 M/uL N 4.20-5.80 Hemoglobin 15.9 gm/dL N 12.8-17.0 Hematocrit 46.2 % N 38.0-48.0 Mean Cell Volume 87.2 fl N 80.0-96.0 Mean Corpuscular HGB 30.0 pg N 27.0-33.0 Mean Corpuscular HGB Conc 34.4 g/dL N 31.7-36.0 Platelet Count 341 K/uL N 155-360 Red Cell Distri Width SD 41.0 fl N 36-51 Red Cell Distri Width %CV 13.0 % N 11.6-15.8 Mean Platelet Volume 9.0 fL N 6.6-10.6 Neut% 65.3 % N 33.0-73.0 Lymph % 25.3 % N 20.0-42.0 [place] % 7.0 % N 0.0-10.0 Eo% 2.0 % N 0.0-6.6 Bas% 0.4 % N 0.0-1.1 Neut# 5.23 K/uL N 1.8-7.0 Lymph # 2.02 K/uL N 1.0-4.0 [place] # 0.56 K/uL N 0.0-0.8 Eos # 0.16 K/uL N 0.0-0.5 Baso # 0.03 K/uL N 0.0-0.1 Comprehensive Metabolic 09/23/[address] [facility] Glucose 98 mg/dL N 74 -[address] [place] [address] [phone] BUN 14 mg/dL N 7-18 Creatinine 1.0 mg/dL N 0.6-1.3 Glom Filtration Rate, Estimate >60 mL/min >60 If >60 mL/min >60 2 BUN/Creat 14.0 ratio Sodium 139 mmol/L N 136-145 Potassium 4.2 mmol/L N 3.5-5.1 Chloride 108 mmol/L High 98-107 Carbon Dioxide 25 mmol/L N 21-32 Anion Gap 6 mEq/L Low 8-16 Calcium 8.7 mg/dL N 8.5-10.1 Total Protein 8.2 g/dL N 6.4-8.2 Albumin 3.7 g/dL N 3.4-5.0 Globulin 4.5 g/dL High 1.9-4.3 Alb/Glob 0.8 ratio Bilirubin,Total 0.4 mg/dL N 0.2-1.0 Sgot/Ast 26 U/L N 15-37 SGPT/Alt 38 U/L N 12-78 Alkaline Phosphatase 97 U/L N 45-117 LDL Cholesterol 09/23/[address] [facility] [address] Cholesterol 203 mg/dL High < 200 [address] [place] [address] [phone] Triglycerides 155 mg/dL High <150 4 HDL Cholesterol 34 mg/dL Low >40 5 LDL-Cholesterol 138 mg/dL < 100 6 Glycohemoglobin A1c 09/23/[address] [facility] [address] Glycohemoglobin 5.4 % N 4.2-6.[address] (A1c) [place] [address] [phone] eAG 108 mg/dL T7/TSH 09/23/2018 [facility] [address] T3 Uptake 31 % N 31-39 [address] [place] [address] [phone] Thyroxine (T4) 7.8 g/dL N 4.7-13.3 T7 2.42 g/dL Low 5.0-12.0 Thyroid Stim Hormone 2.81 uIU/mL N 0.30-4.20 Basic Metabolic Panel 09/05/2018 [facility] Glucose 97 mg/dL N 74-[address] [place] [address] [phone] BUN 11 mg/dL N 7-18 Creatinine 1.1 mg/dL N 0.6-1.3 Glom Filtration Rate, Estimate >60 mL/min >60 If >60 mL/min >60 9 BUN/Creat 10.0 ratio Sodium 142 mmol/L N 136-145 Potassium 3.8 mmol/L N 3.5-5.1 Chloride 107 mmol/L N 98-107 Carbon Dioxide 27 mmol/L N 21-32 Anion Gap 8 mEq/L N 8-16 Calcium 8.9 mg/dL N 8.5-10.1 Laboratory test 09/05/2018 [facility] Rapid Strep A Negative Negative [address] [place] [address] [phone] Throat Strep Screen NO BETA STREPTOC <SEE NOTE> 11 RDW RBC Auto-Rto 04/12/2018 N2N/CCD Import RDW [...] Calc-mCnc Eosinophil/leuk NFr 04/12/2018 N2N/CCD Import Eosinophil/leuk NFr 2.0 0.0-6.6 Bld Auto Bld Auto Chloride SerPl-sCnc 04/12/2018 N2N/CCD Import Chloride SerPl-sCnc 106 98 -107 Blood monocytes 04/12/2018 N2N/CCD Import Blood monocytes 0.49 0.0-0.8 automated count automated count (number/volume) (number/volume) Blood leukocytes 04/12/2018 N2N/CCD Import Blood leukocytes 6.6 3.4- 10.5 automated count automated count (number/volume) (number/volume) Blood hemoglobin 04/12/2018 N2N/CCD Import Blood hemoglobin 16.4 12.8- 17.0 measurement measurement (mass/volume) (mass/volume) Serum carbon 04/12/2018 N2N/CCD Import Serum carbon 27 21-32 dioxide measurement dioxide measurement Serum or plasma 04/12/2018 N2N/CCD Import Serum or plasma 4.1 3.4-5.0 albumin measurement albumin measurement (mass/volume) (mass/volume) Serum or plasma 04/12/2018 N2N/CCD Import Serum or plasma 77 45-117 alkaline alkaline phosphatase phosphatase measurement ( measurement (enzymatic activity/volume) Serum or plasma 04/12/2018 N2N/CCD Import Serum or plasma 26 15-37 aspartate aspartate aminotransferase aminotransferase measure measurement (enzymatic activity/volume) Serum or plasma 04/12/2018 N2N/CCD Import Serum or plasma 9.3 8.5-10.1 calcium measurement calcium measurement (mass/volume) (mass/volume) Serum or plasma 04/12/2018 N2N/CCD Import Serum or plasma 1.0 0.6-1.3 creatinine creatinine measurement measurement (mass/volum (mass/volume) Serum or plasma 04/12/2018 N2N/CCD Import Serum or plasma 101 74-106 glucose measurement glucose measurement (mass/volume) (mass/volume) Serum or plasma 04/12/2018 N2N/CCD Import Serum or plasma 84 56-289 lipase measurement lipase measurement (enzymatic acti (enzymatic activity/volume) Serum or plasma 04/12/2018 N2N/CCD Import Serum or plasma 8.8 High 6.4- 8.2 protein measurement protein measurement (mass/volume) (mass/volume) Serum or plasma 04/12/2018 N2N/CCD Import Serum or plasma 0.5 0.2-1.0 total bilirubin total bilirubin measurement (mass/ measurement (mass/volume) Serum or plasma 04/12/2018 N2N/CCD Import Serum or plasma 7 7-18 urea nitrogen urea nitrogen measurement measurement (mass/vo (mass/volume) Serum or plasma 04/12/2018 N2N/CCD Import Serum or plasma 7.0 urea urea nitrogen/creatinine nitrogen/creatinine mass rati mass ratio Serum sodium 04/12/2018 N2N/CCD Import Serum sodium 142 136-145 measurement measurement Ua RFX Micro & 04/12/2018 [facility] Urine Color YELLOW Yellow 12 Culture II [address] [place] [id number] [phone] Urine Clarity CLEAR Clear Urine Glucose - Dipstick NEGATIVE mg/dL Negative Urine Bilirubin - Dipstick NEGATIVE Negative Urine Ketone NEGATIVE mg/dL Negative Urine Specific [place] 1.010 N 1.010-1.030 Urine Blood NEGATIVE Negative Urine PH 7.0 N 6.5-7.5 Urine Protein - Dipstick NEGATIVE mg/dL Negative Urine Urobilinogen - Dipstick 0.2 E.U./dL N 0.2-1.0 Urine Nitrite - Dipstick NEGATIVE Negative Urine Leuk Esterase NEGATIVE Negative Source: URINE, CLEAN CAT <SEE NOTE> 13 Color Ur 04/12/2018 N2N/CCD Import Color Ur Yellow Yellow Ketones Ur 04/12/2018 N2N/CCD Import Ketones Ur Negative Negative Strip.auto-mCnc Strip.auto-mCnc Leukocyte esterase 04/12/2018 N2N/CCD Import Leukocyte esterase Negative Negative Ur Ql Strip.auto Ur Ql Strip.auto Nitrite Ur Ql 04/12/2018 N2N/CCD Import Nitrite Ur Ql Negative Negative Strip.auto Strip.auto Prot Ur 04/12/2018 N2N/CCD Import Prot Ur Negative Negative Strip.auto-mCnc Strip.auto-mCnc Specific gravity 04/12/2018 N2N/CCD Import Specific gravity [...] Count 6.6 K/uL N 3.4-10.5 Diff [address] [place] [address] [phone] Red Blood Count 5.34 M/uL N 4.20-5.80 [...] 33.0-73.0 Lymph % 20.5 % N 20.0-42.0 [place] % 7.4 % N 0.0-10.0 Eo% 2.0 % N 0.0-6.6 Bas% 0.5 % N 0.0-1.1 Neut# 4.59 K/uL N 1.8-7.0 Lymph # 1.35 K/uL N 1.0-4.0 [place] # 0.49 K/uL N 0.0-0.8 Eos # [...] measurement Automated erythrocyte 04/12/2018 N2N/CCD Import Automated 30.7 27.0- 33.0 mean corpuscular erythrocyte mean hemoglobin corpuscular hemoglobin (mass per erythrocyte) Automated erythrocyte 04/12/2018 N2N/CCD Import Automated 35.1 31.7- 36.0 mean corpuscular erythrocyte mean hemoglobin corpuscular hemoglobin concentration measurement (mass/volume) Automated erythrocyte 04/12/2018 N2N/CCD Import Automated 87.5 80.0- 96.0 mean corpuscular erythrocyte mean volume corpuscular volume Blood erythrocytes 04/12/2018 N2N/CCD Import Blood erythrocytes 5.34 4.20-5.80 automated count automated count (number/volume) (number/volume) Basophils/leuk NFr 04/12/2018 N2N/CCD Import Basophils/leuk NFr 0.5 0.0- 1.1 Bld Auto Bld Auto Monocytes/leuk NFr 04/07/2018 N2N/CCD Import Monocytes/leuk NFr 7.4 0.0- 10.0 Bld Auto Bld Auto Neutrophils # Bld 04/07/2018 N2N/CCD Import Neutrophils # Bld 4.87 1.8- 7.0 Auto Auto Neutrophils/leuk NFr 04/07/2018 N2N/CCD Import Neutrophils/leuk NFr [...] total 04/07/2018 N2N/CCD Import Serum or plasma 0.6 0.2- 1.0 bilirubin measurement total bilirubin (mass/ measurement (mass/volume) Serum or plasma urea 04/07/2018 N2N/CCD Import Serum or plasma urea 10 7 -18 nitrogen measurement nitrogen measurement (mass/vo (mass/volume) Serum or plasma urea 04/07/2018 N2N/CCD Import Serum or plasma urea 11.1 nitrogen/creatinine nitrogen/creatinine mass rati mass ratio Serum sodium 04/07/2018 N2N/CCD Import Serum sodium 139 136-145 measurement measurement Anion Gap SerPl-sCnc 04/07/2018 N2N/CCD Import Anion Gap SerPl-sCnc 10 8 -16 Albumin/Glob SerPl 04/07/2018 N2N/CCD Import Albumin/Glob SerPl 1.0 Alt SerPl-cCnc 04/07/2018 N2N/CCD Import Alt SerPl-cCnc 44 12-78 CBC W/Automated Diff 04/07/2018 [facility] White Blood Count 8.7 N 3.4-10.[address] K/[place] [address] [phone] Red Blood Count 5.07 M/uL N 4.20-5.80 [...] 33.0-73.0 Lymph % 32.5 % N 20.0-42.0 [place] % 7.4 % N 0.0-10.0 Eo% 3.5 % N 0.0-6.6 Bas% 0.5 % N 0.0-1.1 Neut# 4.87 K/uL N 1.8-7.0 Lymph # 2.82 K/uL N 1.0-4.0 [place] # 0.64 K/uL N 0.0-0.8 Eos # 0.30 K/uL N 0.0-0.5 Baso # 0.04 K/uL N 0.0-0.1 Automated blood 04/07/2018 N2N/CCD Import Automated blood 0.04 0.0-0.1 basophil count basophil count (count/volume) (count/volume) Automated blood 04/07/2018 N2N/CCD Import Automated blood [...] volume platelet mean measurement volume measurement Automated 04/07/2018 N2N/CCD Import Automated 31.0 27.0-33.0 erythrocyte mean erythrocyte mean corpuscular corpuscular hemoglobin hemoglobin (mass per erythrocyte) Lymphocytes/leuk NFr 04/07/2018 N2N/CCD Import Lymphocytes/leuk 32.5 20.0-42.0 Bld Auto NFr Bld Auto Globulin [...] erythrocyte mean corpuscular volume corpuscular volume Automated 04/07/2018 N2N/CCD Import Automated 35.8 31.7-36.0 erythrocyte mean erythrocyte mean corpuscular corpuscular hemoglobin hemoglobin concentration measurement (mass/volume) Ua RFX Micro & 03/19/2018 [facility] Urine Color YELLOW Yellow 15 Culture II [address] [place] [id number] [phone] Urine Clarity CLEAR Clear Urine Glucose - Dipstick NEGATIVE mg/dL Negative Urine Bilirubin - Dipstick NEGATIVE Negative Urine Ketone NEGATIVE mg/dL Negative Urine Specific [place] 1.020 N 1.010-1.030 Urine Blood NEGATIVE Negative Urine PH 6.5 N 6.5-7.5 Urine Protein - Dipstick NEGATIVE mg/dL Negative Urine Urobilinogen - Dipstick 0.2 E.U./dL N 0.2-1.0 Urine Nitrite - Dipstick NEGATIVE Negative Urine Leuk Esterase NEGATIVE Negative Source: URINE, CLEAN CAT <SEE NOTE> 16 Serum sodium 03/19/2018 N2N/CCD Import Serum sodium 142 136-145 measurement measurement Serum or plasma 03/19/2018 N2N/CCD Import Serum or plasma 10.0 urea urea nitrogen/creatinine nitrogen/creatinine mass rati mass ratio Serum or plasma 03/19/2018 N2N/CCD Import Serum or plasma 11 7-18 urea nitrogen urea nitrogen measurement measurement (mass/vo (mass/volume) Serum or plasma 03/19/2018 N2N/CCD Import Serum or plasma 0.8 0.2-1.0 total bilirubin total bilirubin measurement (mass/ measurement (mass/volume) Serum or plasma 03/19/2018 N2N/CCD Import Serum or plasma 7.8 6.4-8.2 protein measurement protein measurement (mass/volume) (mass/volume) Serum or plasma 03/19/2018 N2N/CCD Import Serum or plasma 75 56-289 lipase measurement lipase measurement (enzymatic acti (enzymatic activity/volume) Serum or plasma 03/19/2018 N2N/CCD Import Serum or plasma 104 74-106 glucose measurement glucose measurement (mass/volume) (mass/volume) Serum or plasma 03/19/2018 N2N/CCD Import Serum or plasma 1.1 0.6-1.3 creatinine creatinine measurement measurement (mass/volum (mass/volume) Serum or plasma 03/19/2018 N2N/CCD Import Serum or plasma 9.0 8.5-10.1 calcium measurement calcium measurement (mass/volume) (mass/volume) Serum or plasma 03/19/2018 N2N/CCD Import Serum or plasma 25 15-37 aspartate aspartate aminotransferase aminotransferase measure measurement (enzymatic activity/volume) Color Ur 03/19/2018 N2N/CCD Import Color Ur Yellow Yellow Ketones Ur 03/19/2018 N2N/CCD Import Ketones Ur Negative Negative Strip.auto-mCnc Strip.auto-mCnc Leukocyte esterase 03/19/2018 N2N/CCD Import Leukocyte esterase Negative Negative Ur Ql Strip.auto Ur Ql Strip.auto Nitrite Ur Ql 03/19/2018 N2N/CCD Import Nitrite Ur Ql Negative Negative Strip.auto Strip.auto Prot Ur 03/19/2018 N2N/CCD Import Prot Ur Negative Negative Strip.auto-mCnc Strip.auto-mCnc Specific gravity of 03/19/2018 N2N/CCD Import Specific gravity of 1.020 1.010-1.03 Urine by Automated Urine by Automated 0 test strip test strip Urine appearance 03/19/2018 N2N/CCD Import Urine appearance Clear Clear determination determination Urine glucose 03/19/2018 N2N/CCD Import Urine glucose Negative Negative measurement by measurement by automated test automated test strip strip (mass/volume) Urine hemoglobin 03/19/2018 N2N/CCD Import Urine hemoglobin Negative Negative detection by detection by automated test automated test strip strip Urine total 03/19/2018 N2N/CCD Import Urine total Negative Negative bilirubin detection bilirubin detection by automated test by automated test strip Urobilinogen Ur 03/19/2018 N2N/CCD Import Urobilinogen Ur 0.2 0.2-1.0 Strip-aCnc Strip-aCnc pH Ur Strip.auto 03/19/2018 N2N/CCD Import pH Ur Strip.auto 6.5 6.5-7.5 Alt SerPl-cCnc 03/19/2018 N2N/CCD Import Alt SerPl-cCnc 35 12-78 Albumin/Glob SerPl 03/19/2018 N2N/CCD Import Albumin/Glob SerPl 0.9 Anion Gap 03/19/2018 N2N/CCD Import Anion Gap 5 Low 8-16 SerPl-sCnc SerPl-sCnc Automated blood 03/19/2018 N2N/CCD Import Automated blood 0.02 0.0-0.1 basophil count basophil count (count/volume) (count/volume) Automated blood 03/19/2018 N2N/CCD Import Automated blood 0.30 0.0-0.5 eosinophil count eosinophil count Automated blood 03/19/2018 N2N/CCD Import Automated blood 44.4 38.0- 48.0 hematocrit (volume hematocrit (volume fraction) fraction) CBC W/Automated 03/19/2018 [facility] White Blood Count 8.3 K/uL N 3.4-10.5 Diff [address] [place] [address] [phone] Red Blood Count 5.11 M/uL N 4.20-5.80 [...] 33.0-73.0 Lymph % 19.2 % Low 20.0-42.0 [place] % 8.7 % N 0.0-10.0 Eo% 3.6 % N 0.0-6.6 Bas% 0.2 % N 0.0-1.1 Neut# 5.68 K/uL N 1.8-7.0 Lymph # 1.60 K/uL N 1.0-4.0 [place] # 0.72 K/uL N 0.0-0.8 Eos # 0.30 K/uL N 0.0-0.5 Baso # 0.02 K/uL N 0.0-0.1 Automated blood 03/19/2018 N2N/CCD Import Automated blood 1.60 1.0-4.0 lymphocyte count lymphocyte count (number/volume) (number/volume) Automated blood 03/19/2018 N2N/CCD Import Automated blood 250 155-360 platelet count platelet count Automated blood 03/19/2018 N2N/CCD Import Automated blood 9.0 6.6-10.6 platelet mean platelet mean volume measurement volume measurement Automated 03/19/2018 N2N/CCD Import Automated 30.9 27.0-33.0 erythrocyte mean erythrocyte mean corpuscular corpuscular hemoglobin hemoglobin (mass per erythrocyte) Automated 03/19/2018 N2N/CCD Import Automated 35.6 31.7-36.0 erythrocyte mean erythrocyte mean corpuscular corpuscular hemoglobin hemoglobin concentration measurement (mass/volume) Automated 03/19/2018 N2N/CCD Import Automated 86.9 80.0-96.0 erythrocyte mean erythrocyte mean corpuscular volume corpuscular volume Basophils/leuk NFr 03/19/2018 N2N/CCD Import Basophils/leuk NFr 0.2 0.0- 1.1 Bld Auto Bld Auto Blood erythrocytes 03/19/2018 N2N/CCD Import Blood erythrocytes 5.11 4.20-5.80 automated count automated count (number/volume) (number/volume) Blood hemoglobin 03/19/2018 N2N/CCD Import Blood hemoglobin 15.8 12.8- 17.0 measurement measurement (mass/volume) (mass/volume) Blood leukocytes 03/19/2018 N2N/CCD Import Blood leukocytes 8.3 3.4- 10.5 automated count automated count (number/volume) (number/volume) Blood monocytes 03/19/2018 N2N/CCD Import Blood monocytes 0.72 0.0-0.8 automated count automated count (number/volume) (number/volume) Chloride SerPl-sCnc 03/19/2018 N2N/CCD Import Chloride SerPl-sCnc 108 High 98-107 Eosinophil/leuk NFr 03/19/2018 N2N/CCD Import Eosinophil/leuk NFr 3.6 0.0-6.6 Bld Auto Bld Auto Globulin Ser 03/19/2018 N2N/CCD Import Globulin Ser 4.1 1.9-4.3 Calc-mCnc Calc-mCnc Lymphocytes/leuk 03/19/2018 N2N/CCD Import Lymphocytes/leuk 19.2 Low 20.0 -42.0 NFr Bld Auto NFr Bld Auto Monocytes/leuk NFr 03/19/2018 N2N/CCD Import Monocytes/leuk NFr 8.7 0.0- 10.0 Bld Auto Bld Auto Neutrophils # Bld 03/19/2018 N2N/CCD Import Neutrophils # Bld 5.68 1.8- 7.0 Auto Auto Serum or plasma 03/19/2018 N2N/CCD Import Serum or plasma 73 45-117 alkaline alkaline phosphatase phosphatase measurement ( measurement (enzymatic activity/volume) Serum or plasma 03/19/2018 N2N/CCD Import Serum or plasma 3.7 3.4-5.0 albumin measurement albumin measurement (mass/volume) (mass/volume) Serum carbon 03/19/2018 N2N/CCD Import Serum carbon 29 21-32 dioxide measurement dioxide measurement RDW RBC Auto-Rto 03/19/2018 N2N/CCD Import RDW RBC Auto-Rto 12.6 11.6- 15.8 Neutrophils/leuk 03/19/2018 N2N/CCD Import Neutrophils/leuk 68.3 33.0- 73.0 NFr Bld Auto NFr Bld Auto Potassium 03/19/2018 N2N/CCD Import Potassium 4.1 3.5-5.1 SerPl-sCnc SerPl-sCnc RDW RBC Auto 03/19/2018 N2N/CCD Import RDW RBC Auto 39.2 36-51 Serum or plasma 03/09/2018 N2N/CCD Import Serum or plasma 29 0-145 normetanephrine normetanephrine measurement (mass/ measurement (mass/volume) Serum or plasma 03/09/2018 N2N/CCD Import Serum or plasma 12 0-62 free metanephrine free metanephrine measurement (mas measurement (mass/volume) Metanephrines,Frac, 03/09/2018 [facility] Normetanephrines,Pl 29 0-145 17 Plasma Free [address] asma pg/[place] [address] [phone] Metanephrine, Plasma 12 pg/mL 0-62 18 Laboratory test 03/09/2018 [facility] Cortisol,Am 0.8 g/dL Low 6.2-19.4 19 finding [address] [place] [address] [phone] Urine Dipstick 03/04/2018 [facility] Ua Color yellow Yellow Ua Clarity clearn Clear Ua Leuko neg Negative Ua Nitrite neg Negative Ua Urobilinogen 17 High 0.2 - 1.0 E.U./dL Ua Protein neg Negative Ua PH 6.5 6.5-7.5 Ua Blood neg Negative Ua Specific [place] 1.020 1.010-1.030 Ua Ketones neg Negative Ua Bilirubin neg Negative Ua Glucose neg Negative Neutrophils # Bld 02/14/2018 N2N/CCD Import Neutrophils # Bld 4.66 1.8- 7.0 Auto Auto Neutrophils/leuk 02/14/2018 N2N/CCD Import Neutrophils/leuk 69.8 33.0- 73.0 NFr Bld Auto NFr Bld Auto Potassium 02/14/2018 N2N/CCD Import Potassium 4.0 3.5-5.1 SerPl-sCnc SerPl-sCnc RDW RBC Auto 02/14/2018 N2N/CCD Import RDW RBC Auto 39.3 36-51 RDW RBC Auto-Rto 02/14/2018 N2N/CCD Import RDW RBC Auto-Rto 12.5 11.6- 15.8 Serum carbon 02/14/2018 N2N/CCD Import Serum carbon 25 21-32 dioxide measurement dioxide measurement Serum or plasma 02/14/2018 N2N/CCD Import Serum [...] measurement (mass/ measurement (mass/volume) Serum or plasma 02/14/2018 N2N/CCD Import Serum or plasma 11 7-18 urea nitrogen urea nitrogen measurement measurement (mass/vo (mass/volume) Serum sodium 02/14/2018 N2N/CCD Import Serum sodium 143 136-145 measurement measurement Automated blood 02/14/2018 N2N/CCD Import Automated blood 1.27 1.0-4.0 lymphocyte count lymphocyte count (number/volume) (number/volume) Automated blood 02/14/2018 N2N/CCD Import Automated blood 43.8 38.0- 48.0 hematocrit (volume hematocrit (volume fraction) fraction) Automated blood 02/14/2018 N2N/CCD Import Automated blood 0.16 0.0-0.5 eosinophil count eosinophil count Automated blood 02/14/2018 N2N/CCD Import Automated blood 0.02 0.0-0.1 basophil count basophil count (count/volume) (count/volume) Anion Gap 02/14/2018 N2N/CCD Import Anion Gap 9 8-16 SerPl-sCnc SerPl-sCnc Albumin/Glob SerPl 02/14/2018 N2N/CCD Import Albumin/Glob SerPl 1.0 Alt SerPl-cCnc 02/14/2018 N2N/CCD Import Alt SerPl-cCnc 39 12-78 Laboratory test 02/14/2018 [facility] D-Dimer, 1.39 High 20, finding [address] Quantitative ug/mL 21 [place], [place] [id number] [phone] CBS W/Automated 02/14/2018 [facility] White Blood Count 6.7 N 3.4-10.[address] K/uL [place], [place] [phone] Red Blood Count 5.00 M/uL N 4.20-5.80 [...] 33.0-73.0 Lymph % 19.0 % Low 20.0-42.0 [place] % 8.5 % N 0.0-10.0 Eo% 2.4 % N 0.0-6.6 Bas% 0.3 % N 0.0-1.1 Neut# 4.66 K/uL N 1.8-7.0 Lymph # 1.27 K/uL N 1.0-4.0 [place] # 0.57 K/uL N 0.0-0.8 Eos # 0.16 K/uL N 0.0-0.5 Baso # 0.02 K/uL N 0.0-0.1 Laboratory test finding 02/14/2018 [facility] CK 267 U/L N 39-308 [address] [place] [address] [phone] Troponin-I < 0.015 ng/mL 22 Comprehensive Metabolic 02/14/2018 [facility] Glucose 104 mg/dL N 74-106 Panel [address] [place] [address] [phone] BUN 11 mg/dL N 7-18 Creatinine 1.0 mg/dL N 0.6-1.3 Glom Filtration Rate, Estimate >60 mL/min >60 If >60 mL/min >60 23 BUN/Creat 11.0 ratio Sodium 143 mmol/L N [...] 68 U/L N 45-117 Laboratory test 02/14/2018 [facility] Troponin-I < 0.015 [address] ng/[place] [address] [phone] Automated blood 02/14/2018 N2N/CCD Import Automated blood 238 155- platelet count platelet count 360 Automated blood 02/14/2018 N2N/CCD Import Automated blood 8.8 6.6- platelet mean platelet mean 10.6 volume measurement volume measurement Monocytes/leuk NFr 02/14/2018 N2N/CCD Import Monocytes/leuk 8.5 [...] mean -96. corpuscular volume corpuscular 0 volume Automated 02/14/2018 N2N/CCD Import Automated 35.4 31.7 erythrocyte mean erythrocyte mean -36. corpuscular corpuscular 0 hemoglobin hemoglobin concentration measurement (mass/volume) Automated 02/14/2018 N2N/CCD Import Automated 31.0 27.0 erythrocyte mean erythrocyte mean -33. corpuscular corpuscular 0 hemoglobin hemoglobin (mass per erythrocyte) Comprehensive 12/05/2017 [facility] Glucose 100 mg/dL N 74-1 25 Metabolic Panel [address] [place] [phone] BUN 12 mg/dL N 7-18 Creatinine 0.9 mg/dL N 0.6-1.3 Glom Filtration Rate, Estimate >60 mL/min >60 If >60 mL/min >60 26 BUN/Creat 13.3 ratio Sodium 139 mmol/L N [...] 74 U/L N 45-117 Laboratory test 12/05/2017 [facility] Lipase 72 U/L N 56-[address] [place] [address] [phone] CBS W/Automated 12/05/2017 [facility] White Blood 8.4 K/uL N 3.4-10.[address] [place] [address] [phone] Red Blood Count 5.25 M/uL N 4.20-5.80 [...] 33.0-73.0 Lymph % 18.2 % Low 20.0-42.0 [place] % 7.3 % N 0.0-10.0 Eo% 1.7 % N 0.0-6.6 Bas% 0.4 % N 0.0-1.1 Neut# 6.06 K/uL N 1.8-7.0 Lymph # 1.52 K/uL N 1.0-4.0 [place] # 0.61 K/uL N 0.0-0.8 Eos # 0.14 K/uL N 0.0-0.5 Baso # 0.03 K/uL N 0.0-0.1 Serum or plasma 12/05/2017 N2N/CCD Import Serum or plasma 72 56-289 lipase measurement lipase measurement (enzymatic acti (enzymatic activity/volume) Porphobilinogen 10/26/2017 N2N/CCD Import Porphobilinogen 0.7 0.0-2.0 [Mass/volume] in 24 [Mass/volume] in 24 hour Urine hour Urine 24 hour urine 10/26/2017 N2N/CCD Import 24 hour urine 0.7 0.0-1.5 porphobilinogen porphobilinogen measurement (mass/ti measurement (mass/time) 24 hour urine delta 10/26/2017 N2N/CCD Import 24 hour urine delta 3.2 Undefined aminolevulinate aminolevulinate measurement (m measurement (mass/volume) 24 hour urine delta 10/26/2017 N2N/CCD Import 24 hour urine delta 3.4 0.5-5.1 aminolevulinate aminolevulinate measurement (m measurement (mass/time) Ala Delta, 24 Hour 10/26/2017 [facility] Delta Ala 3.[address]rine [address] mg/[place] [address] [phone] Delta Ala 3.4 mg/24hr 0.5-5.1 27 Porphobilinogen,QN,24HR 10/26/2017 [facility] Porphobilinogen,QN,Urine 0.7 0.0 -2.[address] mg/[place] [address] [phone] Porphobilinogen, 24HR (U) 0.7 mg/24hr 0.0-1.5 28 Monocytes/leuk NFr 10/15/2017 N2N/CCD Import Monocytes/leuk NFr 8.9 0.0- 10.0 Bld Auto Bld Auto Neutrophils # Bld 10/15/2017 N2N/CCD Import Neutrophils # Bld 4.28 1.8- 7.0 Auto Auto Neutrophils/leuk NFr 10/15/2017 N2N/CCD Import Neutrophils/leuk 63.3 33.0-73.0 Bld Auto NFr Bld Auto Potassium SerPl-sCnc 10/15/2017 N2N/CCD Import Potassium 4.1 3.5-5.1 SerPl-sCnc RDW RBC Auto 10/15/2017 N2N/CCD Import RDW RBC Auto 40.3 36-51 RDW RBC Auto-Rto 10/15/2017 N2N/CCD Import RDW RBC Auto-Rto 12.9 11.6- 15.8 Serum carbon dioxide 10/15/2017 N2N/CCD Import Serum carbon 28 21-32 measurement dioxide measurement Serum or plasma 10/15/2017 N2N/CCD Import Serum or plasma 3.9 3.4-5.0 albumin measurement albumin measurement (mass/volume) (mass/volume) Serum or plasma 10/15/2017 [...] Import Serum sodium 143 136-145 measurement measurement Leukocyte esterase 10/15/2017 N2N/CCD Import Leukocyte esterase Negative Negative Ur Ql Strip.auto Ur Ql Strip.auto Ketones Ur 10/15/2017 N2N/CCD Import Ketones Ur Negative Negative Strip.auto-mCnc Strip.auto-mCnc Color Ur 10/15/2017 N2N/CCD Import Color Ur Yellow Yellow Ua RFX Micro & 10/15/2017 [facility] Urine Color YELLOW Yellow 29 Culture II [address] [place], [place] [phone] Urine Clarity CLEAR Clear Urine Glucose - Dipstick NEGATIVE mg/dL Negative Urine Bilirubin - Dipstick NEGATIVE Negative Urine Ketone NEGATIVE mg/dL Negative Urine Specific [place] 1.020 N 1.010-1.030 Urine Blood NEGATIVE Negative Urine PH 6.0 Low 6.5-7.5 Urine Protein - Dipstick NEGATIVE mg/dL Negative Urine Urobilinogen - Dipstick 0.2 E.U./dL N 0.2-1.0 Urine Nitrite - Dipstick NEGATIVE Negative Urine Leuk Esterase NEGATIVE Negative Source: URINE, CLEAN CAT <SEE NOTE> 30 Automated blood 10/15/2017 N2N/CCD Import Automated blood 44.2 38.0- 48.0 hematocrit (volume hematocrit (volume fraction) fraction) Automated blood 10/15/2017 N2N/CCD Import Automated blood 0.16 0.0-0.5 eosinophil count eosinophil count Automated blood 10/15/2017 N2N/CCD Import Automated blood 0.03 0.0-0.1 basophil count basophil count (count/volume) (count/volume) Anion Gap SerPl-sCnc 10/15/2017 N2N/CCD Import Anion Gap 7 Low 8-16 SerPl-sCnc Albumin/Glob SerPl 10/15/2017 N2N/CCD Import Albumin/Glob SerPl 0.9 Alt SerPl-cCnc 10/15/2017 N2N/CCD Import Alt SerPl-cCnc 31 12-78 Glycohemoglobin A1c 10/15/2017 [facility] Glycohemoglobin 5.3 % N 4.2-6.[address] (A1c) [place], [place] [id number] [phone] eAG 105 mg/dL CBS W/Automated Diff 10/15/2017 [facility] White Blood 6.8 K/uL N 3.4-10.[address] [place] [address] [phone] Red Blood Count 5.03 M/uL N 4.20-5.80 [...] 33.0-73.0 Lymph % 25.0 % N 20.0-42.0 [place] % 8.9 % N 0.0-10.0 Eo% 2.4 % N 0.0-6.6 Bas% 0.4 % N 0.0-1.1 Neut# 4.28 K/uL N 1.8-7.0 Lymph # 1.69 K/uL N 1.0-4.0 [place] # 0.60 K/uL N 0.0-0.8 Eos # [...] Nitrite Ur Ql Negative Negative Strip.auto Strip.auto Lymphocytes/leuk 10/15/2017 N2N/CCD Import Lymphocytes/leuk 25.0 20.0- 42.0 NFr Bld Auto NFr Bld Auto Hgb A1c MFr Bld 10/15/2017 N2N/CCD Import [...] 105 average glucose average glucose determination by determination by e estimation from glycated hemoglobin (mass/volume) Blood 10/15/2017 N2N/CCD Import Blood 5.03 4.20-5.80 erythrocytes erythrocytes automated count automated count (number/volume) (number/volume) Basophils/leuk 10/15/2017 N2N/CCD Import Basophils/leuk 0.4 0.0-1.1 NFr Bld Auto NFr Bld Auto BUN/Creat SerPl 10/15/2017 N2N/CCD Import BUN/Creat SerPl 10.0 Automated 10/15/2017 N2N/CCD Import Automated 87.9 80.0-96.0 erythrocyte mean erythrocyte mean corpuscular corpuscular volume volume Automated 10/15/2017 N2N/CCD Import Automated 34.8 31.7-36.0 erythrocyte mean erythrocyte mean corpuscular corpuscular hemoglobin hemoglobin concentration measurement (mass/volume) Automated 10/15/2017 N2N/CCD Import Automated 30.6 27.0-33.0 erythrocyte mean erythrocyte mean corpuscular corpuscular hemoglobin hemoglobin (mass per erythrocyte) Automated blood 10/15/2017 N2N/CCD Import Automated blood 9.1 6.6-10.6 platelet mean platelet mean volume volume measurement measurement Automated blood 10/15/2017 N2N/CCD Import Automated blood 1.69 1.0-4.0 lymphocyte count lymphocyte count (number/volume) (number/volume) Automated blood 10/15/2017 N2N/CCD Import Automated blood 246 155-360 platelet count platelet count Erythrocyte 09/12/2017 N2N/CCD Import Erythrocyte 4 0-15 sedimentation sedimentation rate by 15 minute rate by 15 readin minute reading Laboratory test 09/12/2017 [facility] Triglycerides 220 mg/dL High <150 32, finding [address] [place] [id number] [phone] Hepatitis C Antibody < 0.1 s/corat 0.0-0.9 34 Ceruloplasmin 24.4 mg/dL 16.0-31.0 35 Sedimentation Rate 4 mm/hr N 0-15 36 C-Reactive Protein,Cardiac 0.69 mg/L <3.0 Serum carbon 09/11/2017 N2N/CCD Import Serum carbon 29 21-32 dioxide measurement dioxide measurement Serum or plasma 09/11/2017 N2N/CCD Import Serum or plasma 4.1 3.4-5.0 albumin measurement albumin (mass/volume) measurement (mass/volume) Serum or plasma 09/11/2017 N2N/CCD Import Serum or plasma 75 45-117 alkaline alkaline phosphatase phosphatase measurement ( measurement (enzymatic activity/volume) Serum or plasma 09/11/2017 N2N/CCD Import Serum or plasma 41 High 15-37 aspartate aspartate aminotransferase aminotransferase measure measurement (enzymatic activity/volume) Serum or plasma 09/11/2017 N2N/CCD Import Serum or plasma 9.3 8.5-10.1 calcium measurement calcium (mass/volume) measurement (mass/volume) Serum or plasma 09/11/2017 N2N/CCD Import Serum or plasma 1.0 0.6-1.3 creatinine creatinine measurement measurement (mass/volum (mass/volume) Serum or plasma 09/11/2017 N2N/CCD Import Serum or plasma 108 High 74- 106 glucose measurement glucose (mass/volume) measurement (mass/volume) Serum or plasma 09/11/2017 N2N/CCD Import Serum or plasma 72 56-289 lipase measurement lipase measurement (enzymatic acti (enzymatic activity/volume) Serum or plasma 09/11/2017 N2N/CCD Import Serum or plasma 8.4 High 6.4- 8.2 protein measurement protein (mass/volume) measurement (mass/volume) Serum or plasma 09/11/2017 N2N/CCD Import Serum or plasma 0.8 0.2-1.0 total bilirubin total bilirubin measurement (mass/ measurement (mass/volume) Serum or plasma 09/11/2017 N2N/CCD Import Serum or plasma 13 7-18 urea nitrogen urea nitrogen measurement measurement (mass/vo (mass/volume) Serum sodium 09/11/2017 N2N/CCD Import Serum sodium 142 136-145 measurement measurement Urobilinogen Ur 09/11/2017 N2N/CCD Import Urobilinogen Ur 0.2 0.2-1.0 Strip-aCnc Strip-aCnc Urine total 09/11/2017 N2N/CCD Import Urine total Negative Negative bilirubin detection bilirubin by automated test detection by automated test strip Urine hemoglobin 09/11/2017 N2N/CCD Import Urine hemoglobin Trace Negative detection by detection by automated test automated test strip strip Urine glucose 09/11/2017 N2N/CCD Import Urine glucose Negative Negative measurement by measurement by automated test automated test strip strip (mass/volume) Urine appearance 09/11/2017 N2N/CCD Import Urine appearance Clear Clear determination determination Specific gravity of 09/11/2017 N2N/CCD Import Specific gravity 1.020 1.010-1.03 Urine by Automated of Urine by 0 test strip Automated test strip Prot Ur 09/11/2017 N2N/CCD Import Prot Ur Negative Negative Strip.auto-mCnc Strip.auto-mCnc Nitrite Ur Ql 09/11/2017 N2N/CCD Import Nitrite Ur Ql Negative Negative Strip.auto Strip.auto Leukocyte esterase 09/11/2017 N2N/CCD Import Leukocyte esterase Negative Negative Ur Ql Strip.auto Ur Ql Strip.auto Ketones Ur 09/11/2017 N2N/CCD Import Ketones Ur Negative Negative Strip.auto-mCnc Strip.auto-mCnc Color Ur 09/11/2017 N2N/CCD Import Color Ur Yellow Yellow Ua RFX Micro & 09/11/2017 [facility] Urine Color YELLOW Yellow 37 Culture II [address] [place] [address] [phone] Urine Clarity CLEAR Clear Urine Glucose - Dipstick NEGATIVE mg/dL Negative Urine Bilirubin - Dipstick NEGATIVE Negative Urine Ketone NEGATIVE mg/dL Negative Urine Specific [place] 1.020 N 1.010-1.030 Urine Blood TRACE Negative Urine PH 6.0 Low 6.5-7.5 Urine Protein - Dipstick NEGATIVE mg/dL Negative Urine Urobilinogen - Dipstick 0.2 E.U./dL N 0.2-1.0 Urine Nitrite - Dipstick NEGATIVE Negative Urine Leuk Esterase NEGATIVE Negative Source: URINE, CLEAN CAT <SEE NOTE> 38 pH Ur Strip.auto 09/11/2017 N2N/CCD Import pH Ur Strip.auto 6.0 Low 6.5- 7.5 CBS W/Automated 09/11/2017 [facility] White Blood Count 6.8 K/uL N 3.4-10.5 Diff [address] [place] [address] [phone] Red Blood Count 5.56 M/uL N 4.20-5.80 [...] 33.0-73.0 Lymph % 22.1 % N 20.0-42.0 [place] % 7.2 % N 0.0-10.0 Eo% 3.5 % N 0.0-6.6 Bas% 0.3 % N 0.0-1.1 Neut# 4.57 K/uL N 1.8-7.0 Lymph # 1.51 K/uL N 1.0-4.0 [place] # 0.49 K/uL N 0.0-0.8 Eos # 0.24 K/uL N 0.0-0.5 Baso # 0.02 K/uL N 0.0-0.1 Alt SerPl-cCnc 09/11/2017 N2N/CCD Import Alt SerPl-cCnc 53 12-78 Albumin/Glob 09/11/2017 N2N/CCD Import Albumin/Glob 1.0 SerPl SerPl Anion Gap 09/11/2017 N2N/CCD Import Anion Gap 5 Low 8-16 SerPl-sCnc SerPl-sCnc Automated blood 09/11/2017 N2N/CCD Import Automated blood 0.02 0.0-0.1 basophil count basophil count (count/volume) (count/volume) Automated blood 09/11/2017 N2N/CCD Import Automated blood 0.24 0.0-0.5 eosinophil count eosinophil count Automated blood 09/11/2017 N2N/CCD Import Automated blood 48.1 High 38.0- 48.0 hematocrit hematocrit (volume fraction) (volume fraction) Automated blood 09/11/2017 N2N/CCD Import Automated blood 1.51 1.0-4.0 lymphocyte count lymphocyte count (number/volume) (number/volume) Automated blood 09/11/2017 N2N/CCD Import Automated blood 233 155-360 platelet count platelet count Automated blood 09/11/2017 N2N/CCD Import Automated blood 9.3 6.6-10.6 platelet mean platelet mean volume volume measurement measurement Automated 09/11/2017 N2N/CCD Import Automated 30.6 27.0-33.0 erythrocyte mean erythrocyte mean corpuscular corpuscular hemoglobin hemoglobin (mass per erythrocyte) Automated 09/11/2017 N2N/CCD Import Automated 35.3 31.7-36.0 erythrocyte mean erythrocyte mean corpuscular corpuscular hemoglobin hemoglobin concentration measurement (mass/volume) Automated 09/11/2017 N2N/CCD Import Automated 86.5 80.0-96.0 erythrocyte mean erythrocyte mean corpuscular corpuscular volume volume BUN/Creat SerPl 09/11/2017 N2N/CCD Import BUN/Creat SerPl 13.0 Basophils/leuk 09/11/2017 N2N/CCD Import Basophils/leuk 0.3 0.0-1.1 NFr Bld Auto NFr Bld Auto Blood 09/11/2017 N2N/CCD Import Blood 5.56 4.20-5.80 erythrocytes erythrocytes automated count automated count (number/volume) (number/volume) Blood hemoglobin 09/11/2017 N2N/CCD Import Blood hemoglobin 17.0 12.8- 17.0 measurement measurement (mass/volume) (mass/volume) Blood leukocytes 09/11/2017 N2N/CCD Import Blood leukocytes 6.8 3.4- 10.5 automated count automated count (number/volume) (number/volume) Blood monocytes 09/11/2017 N2N/CCD Import Blood monocytes 0.49 0.0-0.8 automated count automated count (number/volume) (number/volume) Chloride 09/11/2017 N2N/CCD Import Chloride 108 High [...] # Bld 4.57 1.8- 7.0 Auto Auto Neutrophils/leuk 09/11/2017 N2N/CCD Import Neutrophils/leuk 66.9 33.0- 73.0 NFr Bld Auto NFr Bld Auto Potassium 09/11/2017 N2N/CCD Import Potassium 4.1 3.5-5.1 SerPl-sCnc SerPl-sCnc RDW RBC Auto 09/11/2017 N2N/CCD Import RDW RBC Auto 41.0 36-51 RDW RBC Auto-Rto 09/11/2017 N2N/CCD Import RDW RBC Auto-Rto 13.1 11.6- 15.8 Giardia lamblia 09/10/2017 N2N/CCD Import Giardia lamblia [...] 09/10/2017 N2N/CCD Import Stool Escherichia See Note 39 coli Shiga toxin coli Shiga toxin 2 detection by 2 detection by immunoassay Stool Escherichia 09/10/2017 N2N/CCD Import Stool Escherichia Shiga Toxin 1 coli Shiga-like coli Shiga-like Not Detected toxin 1 detectio toxin 1 detection by immunoassay Stool bacteria 09/10/2017 N2N/CCD Import Stool bacteria Organism: No identification by identification by Enteric culture culture Pathogens Isolated Serum sodium 09/07/2017 N2N/CCD Import Serum sodium 142 136-145 measurement measurement Serum or plasma 09/07/2017 N2N/CCD Import Serum or plasma 13 7-18 urea nitrogen urea nitrogen measurement measurement (mass/vo (mass/volume) Serum or plasma 09/07/2017 N2N/CCD Import [...] albumin measurement measurement (mass/volume) (mass/volume) Serum carbon 09/07/2017 N2N/CCD Import Serum carbon 27 21-32 dioxide dioxide measurement measurement Urine total 09/07/2017 N2N/CCD Import Urine total Negative Negative bilirubin bilirubin detection by detection by automated test automated test strip Urine hemoglobin 09/07/2017 N2N/CCD Import Urine hemoglobin Negative Negative detection by detection by automated test automated test strip strip Urine glucose 09/07/2017 N2N/CCD Import Urine glucose Negative Negative measurement by measurement by automated test automated test strip strip (mass/volume) Urine appearance 09/07/2017 N2N/CCD Import Urine appearance Clear Clear determination determination Specific gravity 09/07/2017 N2N/CCD Import Specific gravity 1.010 1.010- 1.0 of Urine by of Urine by 30 Automated test Automated test strip strip Prot Ur 09/07/2017 N2N/CCD Import Prot Ur Negative Negative Strip.auto-mCnc Strip.auto-mCnc Nitrite Ur Ql 09/07/2017 N2N/CCD Import Nitrite Ur Ql Negative Negative Strip.auto Strip.auto Leukocyte 09/07/2017 N2N/CCD Import Leukocyte Negative Negative esterase Ur Ql esterase Ur Ql Strip.auto Strip.auto Ketones Ur 09/07/2017 N2N/CCD Import Ketones Ur Negative Negative Strip.auto-mCnc Strip.auto-mCnc Color Ur 09/07/2017 N2N/CCD Import Color Ur Yellow Yellow Ua RFX Micro & 09/07/2017 [facility] Urine Color YELLOW Yellow 40 Culture II [address] [place] [address] [phone] Urine Clarity CLEAR Clear Urine Glucose - Dipstick NEGATIVE mg/dL Negative Urine Bilirubin - Dipstick NEGATIVE Negative Urine Ketone NEGATIVE mg/dL Negative Urine Specific [place] 1.010 N 1.010-1.030 Urine Blood NEGATIVE Negative Urine PH 6.0 Low 6.5-7.5 Urine Protein - Dipstick NEGATIVE mg/dL Negative Urine Urobilinogen - Dipstick 0.2 E.U./dL N 0.2-1.0 Urine Nitrite - Dipstick NEGATIVE Negative Urine Leuk Esterase NEGATIVE Negative Source: URINE, CLEAN CAT <SEE NOTE> 41 Urobilinogen Ur 09/07/2017 N2N/CCD Import Urobilinogen Ur 0.2 0.2-1.0 Strip-aCnc Strip-aCnc pH Ur Strip.auto 09/07/2017 N2N/CCD Import pH Ur Strip.auto 6.0 Low 6.5- 7.5 CBS W/Automated 09/07/2017 [facility] White Blood Count 8.5 K/uL N 3.4-10.5 Diff [address] [place] [address] [phone] Red Blood Count 5.37 M/uL N 4.20-5.80 [...] 33.0-73.0 Lymph % 17.9 % Low 20.0-42.0 [place] % 7.8 % N 0.0-10.0 Eo% 2.4 % N 0.0-6.6 Bas% 0.2 % N 0.0-1.1 Neut# 6.11 K/uL N 1.8-7.0 Lymph # 1.52 K/uL N 1.0-4.0 [place] # 0.66 K/uL N 0.0-0.8 Eos # 0.20 K/uL N 0.0-0.5 Baso # 0.02 K/uL N 0.0-0.1 Alt SerPl-cCnc 09/07/2017 N2N/CCD Import Alt SerPl-cCnc 43 12-78 Albumin/Glob SerPl 09/07/2017 N2N/CCD Import Albumin/Glob SerPl 0.9 Anion Gap 09/07/2017 N2N/CCD Import Anion Gap 7 Low 8-16 SerPl-sCnc SerPl-sCnc Automated blood 09/07/2017 N2N/CCD Import Automated blood 0.02 0.0-0.1 basophil count basophil count (count/volume) (count/volume) Automated blood 09/07/2017 N2N/CCD Import Automated blood 0.20 0.0-0.5 eosinophil count eosinophil count Automated blood 09/07/2017 N2N/CCD Import Automated blood 46.3 38.0- 48.0 hematocrit (volume hematocrit (volume fraction) fraction) Automated blood 09/07/2017 N2N/CCD Import Automated blood 1.52 1.0-4.0 lymphocyte count lymphocyte count (number/volume) (number/volume) Automated blood 09/07/2017 N2N/CCD Import Automated blood 230 155-360 platelet count platelet count Automated blood 09/07/2017 N2N/CCD Import Automated [...] mean erythrocyte mean corpuscular volume corpuscular volume RDW RBC Auto-Rto 09/07/2017 N2N/CCD Import RDW RBC Auto-Rto 12.8 11.6- 15.8 RDW RBC Auto 09/07/2017 N2N/CCD Import RDW RBC Auto 39.8 36-51 Potassium 09/07/2017 N2N/CCD Import Potassium 3.7 3.5-5.1 SerPl-sCnc SerPl-sCnc Neutrophils/leuk 09/07/2017 N2N/CCD Import Neutrophils/leuk 71.7 33.0- 73.0 NFr Bld Auto NFr Bld Auto Neutrophils # Bld 09/07/2017 N2N/CCD Import Neutrophils # Bld 6.11 1.8- 7.0 Auto Auto Monocytes/leuk NFr 09/07/2017 N2N/CCD Import Monocytes/leuk NFr 7.8 0.0- 10.0 Bld Auto Bld Auto Lymphocytes/leuk 09/07/2017 N2N/CCD Import Lymphocytes/leuk 17.9 Low 20.0 -42.0 NFr Bld Auto NFr Bld Auto Globulin Ser 09/07/2017 N2N/CCD Import Globulin Ser 4.4 High 1.9-4.3 Calc-mCnc Calc-mCnc BUN/Creat SerPl 09/07/2017 N2N/CCD Import BUN/Creat SerPl 14.4 Basophils/leuk NFr 09/07/2017 N2N/CCD Import Basophils/leuk NFr 0.2 0.0- 1.1 Bld Auto Bld Auto Blood erythrocytes 09/07/2017 N2N/CCD Import Blood erythrocytes 5.37 4.20-5.80 automated count automated count (number/volume) (number/volume) Blood hemoglobin 09/07/2017 N2N/CCD Import Blood hemoglobin 16.5 12.8- 17.0 measurement measurement (mass/volume) (mass/volume) Blood leukocytes 09/07/2017 N2N/CCD Import Blood leukocytes 8.5 3.4- 10.5 automated count automated count (number/volume) (number/volume) Blood monocytes 09/07/2017 N2N/CCD Import Blood monocytes 0.66 0.0-0.8 automated count automated count (number/volume) (number/volume) Chloride 09/07/2017 N2N/CCD Import Chloride 108 High 98-107 SerPl-sCnc SerPl-sCnc Eosinophil/leuk 09/07/2017 N2N/CCD Import Eosinophil/leuk 2.4 0.0-6.6 NFr Bld Auto NFr Bld Auto Serum or plasma 08/14/2017 N2N/CCD [...] & 08/14/2017 [facility] Urine Color YELLOW Yellow 42 Culture II [address] [place] [address] [phone] Urine Clarity CLEAR Clear Urine Glucose - Dipstick NEGATIVE mg/dL Negative Urine Bilirubin - Dipstick NEGATIVE Negative Urine Ketone TRACE mg/dL High Negative Urine Specific [place] 1.015 N 1.010-1.030 Urine Blood NEGATIVE Negative Urine PH 6.0 Low 6.5-7.5 Urine Protein - Dipstick NEGATIVE mg/dL Negative Urine Urobilinogen - Dipstick 0.2 E.U./dL N 0.2-1.0 Urine Nitrite - Dipstick NEGATIVE Negative Urine Leuk Esterase NEGATIVE Negative Source: URINE, CLEAN CAT <SEE NOTE> 43 Color Ur 08/14/2017 N2N/CCD Import Color Ur [...] pH Ur Strip.auto 6.0 Low 6.5- 7.5 Comprehensive 08/14/2017 [facility] Glucose 107 mg/dL High 74-106 Metabolic Panel [address] [place], [place] [id number] [phone] BUN 13 mg/dL N 7-18 Creatinine 1.0 mg/dL N 0.6-1.3 Glom Filtration Rate, Estimate >60 mL/min >60 If >60 mL/min >60 44 BUN/Creat 13.0 ratio Sodium 140 mmol/L N [...] 12-78 Alkaline Phosphatase 78 U/L N 45-117 Laboratory test 08/14/2017 [facility] Lipase 88 N 56-[address] [place] [address] [phone] Alt SerPl-cCnc 08/14/2017 N2N/CCD Import Alt SerPl-cCnc 51 12-78 Albumin/Glob SerPl 08/14/2017 N2N/CCD Import Albumin/Glob SerPl 1.0 Anion Gap 08/14/2017 N2N/CCD Import Anion Gap 5 Low 8-16 SerPl-sCnc SerPl-sCnc Automated blood 08/14/2017 N2N/CCD Import Automated blood 0.02 0.0-0.1 basophil count basophil count (count/volume) (count/volume) Automated blood 08/14/2017 N2N/CCD Import Automated blood 0.19 0.0-0.5 eosinophil count eosinophil count Automated blood 08/14/2017 N2N/CCD Import Automated blood 45.8 38.0-48. hematocrit (volume hematocrit (volume 0 fraction) fraction) Automated blood 08/14/2017 N2N/CCD Import Automated blood 1.30 1.0-4.0 lymphocyte count lymphocyte count (number/volume) (number/volume) Automated blood 08/14/2017 N2N/CCD Import Automated blood 236 155-360 platelet count platelet count Automated blood 08/14/2017 N2N/CCD Import Automated blood 9.1 6.6-10.6 platelet mean platelet mean volume measurement volume measurement Automated 08/14/2017 N2N/CCD Import Automated 31.0 27.0-33. erythrocyte mean erythrocyte mean 0 corpuscular corpuscular hemoglobin hemoglobin (mass per erythrocyte) Automated 08/14/2017 N2N/CCD Import Automated 35.2 31.7-36. erythrocyte mean erythrocyte mean 0 corpuscular corpuscular hemoglobin hemoglobin concentration measurement (mass/volume) Automated 08/14/2017 N2N/CCD Import Automated 88.1 80.0-96. erythrocyte mean erythrocyte mean 0 corpuscular volume corpuscular volume BUN/Creat SerPl 08/14/2017 N2N/CCD Import BUN/Creat SerPl 13.0 Basophils/leuk NFr 08/14/2017 N2N/CCD Import Basophils/leuk NFr 0.3 0.0- 1.1 Bld Auto Bld Auto Blood erythrocytes 08/14/2017 N2N/CCD Import Blood erythrocytes 5.20 4.20-5.8 automated count automated count 0 (number/volume) (number/volume) Blood hemoglobin 08/14/2017 N2N/CCD Import Blood hemoglobin 16.1 12.8- 17. measurement measurement 0 (mass/volume) (mass/volume) Blood monocytes 08/14/2017 N2N/CCD Import Blood monocytes 0.57 0.0-0.8 automated count automated count (number/volume) (number/volume) Serum or plasma 08/14/2017 N2N/CCD Import Serum or plasma 88 56-289 lipase measurement lipase measurement (enzymatic acti (enzymatic activity/volume) Serum or plasma 08/14/2017 N2N/CCD Import Serum or plasma 107 High 74- 106 glucose measurement glucose (mass/volume) measurement (mass/volume) Serum or plasma 08/14/2017 N2N/CCD Import Serum or plasma 1.0 0.6-1.3 creatinine creatinine measurement measurement (mass/volum (mass/volume) Serum or plasma 08/14/2017 N2N/CCD Import Serum or plasma 9.2 8.5-10.1 calcium measurement calcium (mass/volume) measurement (mass/volume) Serum or plasma 08/14/2017 N2N/CCD Import Serum or plasma 36 15-37 aspartate aspartate aminotransferase aminotransferase measure measurement (enzymatic activity/volume) Serum or plasma 08/14/2017 N2N/CCD Import Serum or plasma 78 45-117 alkaline alkaline phosphatase phosphatase measurement ( measurement (enzymatic activity/volume) Serum or plasma 08/14/2017 N2N/CCD Import Serum or plasma 4.1 3.4-5.0 albumin measurement albumin (mass/volume) measurement (mass/volume) Serum carbon 08/14/2017 N2N/CCD Import Serum carbon 28 21-32 dioxide measurement dioxide measurement RDW RBC Auto-Rto 08/14/2017 N2N/CCD Import RDW RBC Auto-Rto 13.1 11.6- 15. 8 RDW RBC Auto 08/14/2017 N2N/CCD Import RDW RBC Auto 41.8 36-51 Potassium 08/14/2017 N2N/CCD Import Potassium 4.2 3.5-5.1 SerPl-sCnc SerPl-sCnc Neutrophils/leuk 08/14/2017 N2N/CCD Import Neutrophils/leuk 72.6 33.0- 73. NFr Bld Auto NFr Bld Auto 0 Neutrophils # Bld 08/14/2017 N2N/CCD Import Neutrophils # Bld 5.53 1.8- 7.0 Auto Auto Monocytes/leuk NFr 08/14/2017 N2N/CCD Import Monocytes/leuk NFr 7.5 0.0- 10.0 Bld Auto Bld Auto Lymphocytes/leuk 08/14/2017 N2N/CCD Import Lymphocytes/leuk 17.1 Low 20.0 -42. NFr Bld Auto NFr Bld Auto 0 Globulin Ser 08/14/2017 N2N/CCD Import Globulin Ser 4.1 1.9-4.3 Calc-mCnc Calc-mCnc Eosinophil/leuk NFr 08/14/2017 N2N/CCD Import Eosinophil/leuk 2.5 0.0- 6.6 Bld Auto NFr Bld Auto Chloride SerPl-sCnc 08/14/2017 N2N/CCD Import Chloride 107 98-107 SerPl-sCnc CBS W/Automated 08/14/2017 [facility] White Blood Count 7.6 N 3.4-10.[address] K/[place] [address] [phone] Red Blood Count 5.20 M/uL N 4.20-5.80 [...] 33.0-73.0 Lymph % 17.1 % Low 20.0-42.0 [place] % 7.5 % N 0.0-10.0 Eo% 2.5 % N 0.0-6.6 Bas% 0.3 % N 0.0-1.1 Neut# 5.53 K/uL N 1.8-7.0 Lymph # 1.30 K/uL N 1.0-4.0 [place] # 0.57 K/uL N 0.0-0.8 Eos # 0.19 K/uL N 0.0-0.5 Baso # 0.02 K/uL N 0.0-0.1 Rapid Influenza 08/13/2017 [facility] Influenza A NEGATIVE Negative 45 A & B Molecular [phone] Molecular Influenza B Molecular NEGATIVE Negative Serum or plasma 08/03/2017 N2N/CCD Import Serum or plasma 9.2 8.5-10.1 [...] WBC # Bld Auto 7.8 3.4-10.5 Blood erythrocytes 08/03/2017 N2N/CCD Import Blood erythrocytes [...] White Blood Count 7.8 K/uL N 3.4-10.5 46 Diff [address] [place] [address] [phone] Red Blood Count 5.28 M/uL N 4.20-5.80 [...] 33.0-73.0 Lymph % 25.8 % N 20.0-42.0 [place] % 7.3 % N 0.0-10.0 Eo% 3.2 % N 0.0-6.6 Bas% 0.4 % N 0.0-1.1 Neut# 4.93 K/uL N 1.8-7.0 Lymph # 2.01 K/uL N 1.0-4.0 [place] # 0.57 K/uL N 0.0-0.8 Eos # 0.25 K/uL N 0.0-0.5 Baso # 0.03 K/uL N 0.0-0.1 Laboratory test 08/03/2017 [facility] Troponin-I < 0.015 [address] ng/[place] [address] [phone] Serum or plasma 08/03/2017 N2N/CCD Import Serum or plasma 35 15-37 aspartate aspartate aminotransferase aminotransferase measure measurement (enzymatic activity/volume) Blood hemoglobin 08/03/2017 N2N/CCD Import Blood hemoglobin 15.9 12.8- 17.0 measurement measurement (mass/volume) (mass/volume) Blood monocytes 08/03/2017 N2N/CCD Import Blood monocytes 0.57 0.0-0.8 automated count automated count (number/volume) (number/volume) Chloride 08/03/2017 N2N/CCD Import Chloride 107 98-107 SerPl-sCnc SerPl-sCnc Eosinophil/leuk 08/03/2017 N2N/CCD Import Eosinophil/leuk 3.2 0.0-6.6 NFr Bld Auto NFr Bld Auto Globulin Ser 08/03/2017 N2N/CCD Import Globulin Ser 4.1 1.9-4.3 Calc-mCnc Calc-mCnc Lymphocytes/leuk 08/03/2017 N2N/CCD Import Lymphocytes/leuk 25.8 20.0- 42.0 NFr Bld Auto NFr Bld Auto Monocytes/leuk NFr 08/03/2017 N2N/CCD Import Monocytes/leuk 7.3 0.0- 10.0 Bld Auto NFr Bld Auto Neutrophils # Bld 08/03/2017 N2N/CCD Import Neutrophils # Bld 4.93 1.8- 7.0 Auto Auto Neutrophils/leuk 08/03/2017 N2N/CCD Import Neutrophils/leuk 63.3 33.0- 73.0 NFr Bld Auto NFr Bld Auto Potassium 08/03/2017 N2N/CCD Import Potassium 4.1 3.5-5.1 SerPl-sCnc SerPl-sCnc RDW RBC Auto 08/03/2017 N2N/CCD Import RDW RBC Auto 40.2 36-51 RDW RBC Auto-Rto 08/03/2017 N2N/CCD Import RDW RBC Auto-Rto 13.0 11.6- 15.8 Serum carbon 08/03/2017 N2N/CCD Import Serum carbon 29 21-32 dioxide dioxide measurement measurement Serum or plasma 08/03/2017 N2N/CCD Import Serum or plasma 4.1 3.4-5.0 albumin albumin measurement measurement (mass/volume) (mass/volume) Serum or plasma 08/03/2017 N2N/CCD Import Serum or plasma 77 45-117 alkaline alkaline phosphatase phosphatase measurement ( measurement (enzymatic activity/volume) WBC # Bld Auto 05/02/2017 N2N/CCD Import WBC # Bld Auto 6.7 3.4-10.5 Sodium SerPl-sCnc 05/02/2017 N2N/CCD Import Sodium SerPl-sCnc 141 136- 145 Serum or plasma 05/02/2017 N2N/CCD Import Serum or plasma 13 7-18 urea nitrogen urea nitrogen measurement measurement (mass/vo (mass/volume) Serum or plasma 05/02/2017 N2N/CCD Import Serum or plasma 0.6 0.2-1.0 total bilirubin total bilirubin measurement (mass/ measurement (mass/volume) Serum or plasma 05/02/2017 N2N/CCD Import Serum or plasma 7.9 6.4-8.2 protein protein measurement measurement (mass/volume) (mass/volume) Serum or plasma 05/02/2017 N2N/CCD Import Serum or plasma 92 56-289 lipase measurement lipase (enzymatic acti measurement (enzymatic activity/volume) Serum or plasma 05/02/2017 N2N/CCD Import Serum or plasma 1.0 0.6-1.3 creatinine creatinine measurement measurement (mass/volum (mass/volume) Serum or plasma 05/02/2017 N2N/CCD Import Serum or plasma 9.1 8.5-10.1 calcium calcium measurement measurement (mass/volume) (mass/volume) Serum or plasma 05/02/2017 N2N/CCD Import Serum or plasma 79 45-117 alkaline alkaline phosphatase phosphatase measurement ( measurement (enzymatic activity/volume) Serum or plasma 05/02/2017 N2N/CCD Import Serum or plasma 3.7 3.4-5.0 albumin albumin measurement measurement (mass/volume) (mass/volume) RDW RBC Auto-Rto 05/02/2017 N2N/CCD Import RDW RBC Auto-Rto 12.9 11.6- 15.8 RDW RBC Auto 05/02/2017 N2N/CCD Import RDW RBC Auto 39.8 36-51 Potassium 05/02/2017 N2N/CCD Import Potassium 4.3 3.5-5.1 SerPl-sCnc SerPl-sCnc Platelets 05/02/2017 N2N/CCD Import Platelets 229 150-400 [#/volume] in [#/volume] in Blood by Automated Blood by count Automated count PMV Bld Auto 05/02/2017 N2N/CCD Import PMV Bld Auto 9.0 6.6-10.6 Nitrite Ur Ql 05/02/2017 N2N/CCD Import Nitrite Ur Ql Negative Negative Strip.auto Strip.auto Prot Ur 05/02/2017 N2N/CCD Import Prot Ur Negative Negative Strip.auto-mCnc Strip.auto-mCnc Specific gravity 05/02/2017 N2N/CCD Import Specific gravity 1.020 1.010- 1.0 of Urine by of Urine [...] Ur Strip.auto 6.5 6.5-7.5 CBS W/Automated 05/02/2017 [facility] White Blood Count 6.7 K/uL N 3.4-10.5 48 Diff [address] [place] [address] [phone] Red Blood Count 5.40 M/uL N 4.20-5.80 [...] 33.0-73.0 Lymph % 25.0 % N 20.0-42.0 [place] % 8.7 % N 0.0-10.0 Eo% 3.6 % N 0.0-6.6 Bas% 0.3 % N 0.0-1.1 Neut# 4.18 K/uL N 1.8-7.0 Lymph # 1.67 K/uL N 1.0-4.0 [place] # 0.58 K/uL N 0.0-0.8 Eos # 0.24 K/uL N 0.0-0.5 Baso # 0.02 K/uL N 0.0-0.1 Comprehensive Metabolic 05/02/2017 [facility] Glucose 104 mg/dL N 74-106 Panel [address] [place] [address] [phone] BUN 13 mg/dL N 7-18 Creatinine 1.0 mg/dL N 0.6-1.3 Glom Filtration Rate, Estimate >60 mL/min >60 If >60 mL/min >60 49 BUN/Creat 13.0 ratio Sodium 141 mmol/L N [...] 12-78 Alkaline Phosphatase 79 U/L N 45-117 Laboratory test 05/02/2017 [facility] Lipase 92 U/L N 56-289 finding [address] [place] [address] [phone] Alt SerPl-cCnc 05/02/2017 N2N/CCD Import Alt SerPl-cCnc 44 12-78 Albumin/Glob SerPl 05/02/2017 N2N/CCD Import Albumin/Glob 0.9 SerPl Anion Gap 05/02/2017 N2N/CCD Import Anion Gap 4 Low 8-16 SerPl-sCnc SerPl-sCnc Aspartate 05/02/2017 N2N/CCD Import Aspartate 34 15-37 aminotransferase aminotransferase [Enzymatic [Enzymatic activity/vol activity/volume] in Serum or Plasma Automated 05/02/2017 N2N/CCD Import Automated 30.0 27.0-33.0 erythrocyte mean erythrocyte mean corpuscular corpuscular hemoglobin hemoglobin (mass per erythrocyte) Automated 05/02/2017 N2N/CCD Import Automated 35.2 31.7-36.0 erythrocyte mean erythrocyte mean corpuscular corpuscular hemoglobin hemoglobin concentration measurement (mass/volume) Automated 05/02/2017 N2N/CCD Import Automated 85.2 80.0-96.0 erythrocyte mean erythrocyte mean corpuscular volume corpuscular volume BUN/Creat SerPl 05/02/2017 N2N/CCD Import BUN/Creat SerPl 13.0 Basophils 05/02/2017 N2N/CCD Import Basophils 0.02 0.0-0.1 [#/volume] in [#/volume] in Blood by Automated Blood by count Automated count Neutrophils/leuk 05/02/2017 N2N/CCD Import Neutrophils/leuk 62.4 33.0- 73.0 NFr Bld Auto NFr Bld Auto Neutrophils # Bld 05/02/2017 N2N/CCD Import Neutrophils # Bld 4.18 1.8- 7.0 Auto Auto Monocytes/leuk NFr 05/02/2017 N2N/CCD Import Monocytes/leuk 8.7 0.0- 10.0 Bld Auto NFr Bld Auto Lymphocytes/leuk 05/02/2017 N2N/CCD Import Lymphocytes/leuk 25.0 20.0- 42.0 NFr Bld Auto NFr Bld Auto Lymphocytes 05/02/2017 N2N/CCD Import Lymphocytes 1.67 1.0-4.0 [#/volume] in [#/volume] in Blood by Automated Blood by count Automated count Hct VFr Bld Auto 05/02/2017 N2N/CCD Import Hct VFr Bld Auto 46.0 38.0- 48.0 Glucose 05/02/2017 N2N/CCD Import Glucose 104 74-106 [Mass/volume] in [Mass/volume] in Serum or Plasma Serum or Plasma Globulin Ser 05/02/2017 N2N/CCD Import Globulin Ser 4.2 1.9-4.3 Calc-mCnc Calc-mCnc Eosinophil/leuk 05/02/2017 N2N/CCD Import Eosinophil/leuk 3.6 0.0-6.6 NFr Bld Auto NFr Bld Auto Eosinophil # Bld 05/02/2017 N2N/CCD Import Eosinophil # Bld 0.24 0.0- 0.5 Auto Auto Chloride 05/02/2017 N2N/CCD Import Chloride 108 High 98-107 SerPl-sCnc SerPl-sCnc Leukocyte esterase 05/02/2017 N2N/CCD Import Leukocyte Negative Negative Ur Ql Strip.auto esterase Ur Ql Strip.auto Ketones Ur 05/02/2017 N2N/CCD Import Ketones Ur Negative Negative Strip.auto-mCnc Strip.auto-mCnc Color Ur 05/02/2017 N2N/CCD Import Color Ur Yellow Yellow Ua RFX Micro & 05/02/2017 [facility] Urine Color YELLOW Yellow Culture II [address] [place] [address] [phone] Urine Clarity CLEAR Clear Urine Glucose - Dipstick NEGATIVE mg/dL Negative Urine Bilirubin - Dipstick NEGATIVE Negative Urine Ketone NEGATIVE mg/dL Negative Urine Specific [place] 1.020 N 1.010-1.030 Urine Blood NEGATIVE Negative Urine PH 6.5 N 6.5-7.5 Urine Protein - Dipstick NEGATIVE mg/dL Negative Urine Urobilinogen - Dipstick 0.2 E.U./dL N 0.2-1.0 Urine Nitrite - Dipstick NEGATIVE Negative Urine Leuk Esterase NEGATIVE Negative Source: URINE, CLEAN CAT <SEE NOTE> 50 Basophils/leuk NFr 05/02/2017 N2N/CCD Import Basophils/leuk NFr 0.3 0.0- 1.1 Bld Auto Bld Auto Blood erythrocytes 05/02/2017 N2N/CCD Import Blood erythrocytes 5.40 4.20-5.80 automated count automated count (number/volume) (number/volume) Blood hemoglobin 05/02/2017 N2N/CCD Import Blood hemoglobin 16.2 12.8- 17.0 measurement measurement (mass/volume) (mass/volume) Blood monocytes 05/02/2017 N2N/CCD Import Blood monocytes 0.58 0.0-0.8 automated count automated count (number/volume) (number/volume) Co2 SerPl-sCnc 05/02/2017 N2N/CCD Import Co2 SerPl-sCnc 29 21-32 Serum or plasma 01/12/2017 N2N/CCD Import Serum or plasma 0.5 0.2-1.0 total bilirubin total bilirubin measurement (mass/ measurement (mass/volume) Serum or plasma 01/12/2017 N2N/CCD Import Serum or plasma 109 <150 triglyceride triglyceride measurement measurement (mass/vol (mass/volume) Serum or plasma 01/12/2017 N2N/CCD Import Serum or plasma 477 126-442 vitamin B12 vitamin B12 measurement measurement (mass/volu (mass/volume) Sodium SerPl-sCnc 01/12/2017 N2N/CCD Import Sodium SerPl-sCnc 141 136- 145 WBC # Bld Auto 01/12/2017 N2N/CCD Import WBC # Bld Auto 7.9 3.4-10.5 Laboratory test 01/12/2017 [facility] Triglycerides 109 <150 51, finding [address] mg/dL 52 [place], [place] [id number] [phone] Direct LDL 01/12/2017 [facility] LDL Chol. (Direct) 125 High 0-99 [address] mg/[place] [address] [phone] Laboratory test 01/12/2017 [facility] HDL Cholesterol 46 >40 [address] mg/[place] [address] [phone] Vitamin D,25-Hydroxy 31.3 ng/mL 30.0-100.0 55 Vitamin B12 477 pg/mL N 193986 56 Comprehensive Metabolic 01/12/2017 [facility] Glucose 100 mg/dL N 74-[address] [place], [place] [id number] [phone] BUN 11 mg/dL N 7-18 Creatinine 0.9 mg/dL N 0.6-1.3 Glom Filtration Rate, Estimate >60 mL/min >60 If >60 mL/min >60 57 BUN/Creat 12.2 ratio Sodium 141 mmol/L N [...] 12-78 Alkaline Phosphatase 73 U/L N 45-117 CBS W/Automated Diff 01/12/2017 [facility] White Blood 7.9 K/uL N 3.4-10.[address] Count [place], [place] [address] [phone] Red Blood Count 4.56 M/uL N 4.20-5.80 [...] 33.0-73.0 Lymph % 21.7 % N 20.0-42.0 [place] % 10.1 % High 0.0-10.0 Eo% 2.5 % N 0.0-6.6 Bas% 0.4 % N 0.0-1.1 Neut# 5.18 K/uL N 1.8-7.0 Lymph # 1.72 K/uL N 1.0-4.0 [place] # 0.80 K/uL N 0.0-0.8 Eos # 0.20 K/uL N 0.0-0.5 Baso # 0.03 K/uL N 0.0-0.1 Laboratory test 01/12/2017 [facility] Gamma Glutamyl 54 U/L N 5-85 [address] [place] [address] [phone] Monocytes/leuk 01/12/2017 N2N/CCD Import Monocytes/leuk 10.1 High 0.0- 10.0 NFr Bld Auto NFr Bld Auto MCV RBC Auto 01/12/2017 N2N/CCD Import MCV RBC Auto 88.6 80.0-96.0 Lymphocytes/leuk 01/12/2017 N2N/CCD Import Lymphocytes/leuk 21.7 20.0- 42.0 NFr Bld Auto NFr Bld Auto Lymphocytes 01/12/2017 N2N/CCD Import Lymphocytes 1.72 1.0-4.0 [#/volume] in [#/volume] in Blood by Blood by Automated count Automated count Hct VFr Bld Auto 01/12/2017 N2N/CCD Import Hct VFr Bld Auto 40.4 38.0- 48.0 Glucose 01/12/2017 N2N/CCD Import Glucose 100 74-106 [Mass/volume] in [Mass/volume] in Serum or Plasma Serum or Plasma Globulin Ser 01/12/2017 N2N/CCD Import Globulin Ser 3.6 1.9-4.3 Calc-mCnc Calc-mCnc Eosinophil/leuk 01/12/2017 N2N/CCD Import Eosinophil/leuk 2.5 0.0-6.6 NFr Bld Auto NFr Bld Auto Eosinophil # Bld 01/12/2017 N2N/CCD Import Eosinophil # Bld 0.20 0.0- 0.5 Auto Auto Creat SerPl-mCnc 01/12/2017 N2N/CCD Import Creat SerPl-mCnc 0.9 0.6-1.3 Chloride 01/12/2017 N2N/CCD Import Chloride 106 98-107 SerPl-sCnc SerPl-sCnc Calcium 01/12/2017 N2N/CCD Import Calcium 8.6 8.5-10.1 SerPl-mCnc SerPl-mCnc Co2 SerPl-sCnc 01/12/2017 N2N/CCD Import Co2 SerPl-sCnc 27 21-32 Blood monocytes 01/12/2017 N2N/CCD Import Blood monocytes 0.80 0.0-0.8 automated count automated count (number/volume) (number/volume) Blood hemoglobin 01/12/2017 N2N/CCD Import Blood hemoglobin 14.0 12.8- 17.0 measurement measurement (mass/volume) (mass/volume) Blood 01/12/2017 N2N/CCD Import Blood 4.56 4.20-5.80 erythrocytes erythrocytes automated count automated count (number/volume) (number/volume) Basophils/leuk 01/12/2017 N2N/CCD Import Basophils/leuk 0.4 0.0-1.1 NFr Bld Auto NFr Bld Auto Basophils 01/12/2017 N2N/CCD Import Basophils 0.03 0.0-0.1 [#/volume] in [#/volume] in Blood by Blood by Automated count Automated count BUN/Creat SerPl 01/12/2017 N2N/CCD Import [...] activity/volume] in Serum or Plasma Anion Gap 01/12/2017 N2N/CCD Import Anion Gap 8 8-16 SerPl-sCnc SerPl-sCnc Albumin/Glob 01/12/2017 N2N/CCD Import Albumin/Glob 1.0 SerPl SerPl Albumin 01/12/2017 N2N/CCD Import Albumin 3.5 3.4-5.0 SerPl-mCnc SerPl-mCnc Alt SerPl-cCnc 01/12/2017 N2N/CCD Import Alt SerPl-cCnc 38 12-78 Alp SerPl-cCnc 01/12/2017 N2N/CCD Import Alp SerPl-cCnc 73 45-117 PMV Bld Auto 01/12/2017 N2N/CCD Import PMV Bld Auto 9.8 6.6-10.6 Serum or plasma 01/12/2017 N2N/CCD Import Serum or plasma 54 5-85 gamma glutamyl gamma glutamyl transferase transferase measure measurement (enzymatic activity/volume) Serum or plasma 01/12/2017 N2N/CCD Import Serum or plasma 125 High 0-99 cholesterol in cholesterol in LDL measurement LDL measurement by by direct assay (mass/volume) Serum or plasma 01/12/2017 N2N/CCD Import Serum or plasma 46 >40 cholesterol in cholesterol in HDL measurement HDL measurement (ma (mass/volume) Serum or plasma 01/12/2017 N2N/CCD Import Serum or plasma 31.3 30.0- 100. 25-hydroxyvitami 25-hydroxyvitamin 0 n D measurement D measurement (m (mass/volume) RDW RBC Auto-Rto 01/12/2017 N2N/CCD Import RDW RBC Auto-Rto 12.7 11.6- 15.8 RDW RBC Auto 01/12/2017 N2N/CCD Import RDW RBC Auto 40.0 36-51 Platelets 01/12/2017 N2N/CCD Import Platelets 300 150-400 [#/volume] in [#/volume] in Blood by Blood by Automated count Automated count Potassium 01/12/2017 N2N/CCD Import Potassium 4.5 3.5-5.1 SerPl-sCnc SerPl-sCnc Prot SerPl-mCnc 01/12/2017 N2N/CCD Import Prot SerPl-mCnc 7.1 6.4-8.2 Neutrophils/leuk 01/12/2017 N2N/CCD Import Neutrophils/leuk 65.3 33.0- 73.0 NFr Bld Auto NFr Bld Auto Neutrophils # 01/12/2017 N2N/CCD Import Neutrophils # Bld 5.18 1.8-7.0 Bld Auto Auto Color Ur 12/11/2016 N2N/CCD Import Color Ur Yellow Yellow Ketones Ur 12/11/2016 N2N/CCD Import Ketones Ur Trace High Negative Strip.auto-mCnc Strip.auto-mCnc Leukocyte 12/11/2016 N2N/CCD Import Leukocyte Negative Negative esterase Ur Ql esterase Ur Ql Strip.auto Strip.auto Nitrite Ur Ql 12/11/2016 N2N/CCD Import Nitrite Ur Ql Negative Negative Strip.auto Strip.auto Prot Ur 12/11/2016 N2N/CCD Import Prot Ur Negative Negative Strip.auto-mCnc Strip.auto-mCnc Urine appearance 12/11/2016 N2N/CCD Import Urine appearance Clear Clear determination determination Urine glucose 12/11/2016 N2N/CCD Import Urine glucose Negative Negative measurement by measurement by automated test automated test strip strip (mass/volume) Urine hemoglobin 12/11/2016 N2N/CCD Import Urine hemoglobin Negative Negative detection by detection by automated test automated test strip strip Urine total 12/11/2016 N2N/CCD Import Urine total Negative Negative bilirubin bilirubin detection by detection by automated test automated test strip Urobilinogen Ur 12/11/2016 N2N/CCD Import Urobilinogen Ur 0.2 0.2-1.0 Strip-aCnc Strip-aCnc pH Ur Strip.auto 12/11/2016 N2N/CCD Import pH Ur Strip.auto 5.5 Low 6.5- 7.5 Laboratory test 09/13/2016 [facility] Ferritin 85 ng/mL N 26-388 59 finding [address] [place] [address] [phone] Hepatitis C Virus Rna (PCR)-QL Negative Negative 60 Iron-Tibc-%Sat 09/13/2016 [facility] Serum Iron 75 g/dL N 65-175 [address] [place] [address] [phone] Total Iron Binding Capacity 401 g/dL N 250-450 Transferrin %Saturation 19 % N 12-57 Hepatitis C 09/13/2016 [facility] Hepatitis C Nonreactive Nonreactive Antibody [address] [facility] [place] [address] [phone] Signal/Cutoff ratio < 0.02 <0.80 61 Laboratory 09/13/2016 [facility] Hepatitis A Nonreactive Nonreactive 62 test finding 134 [facility] [place] [address] -IgM [phone] Hepatitis A AB, Total Negative Negative Hepatitis B Core Antibody-IgM Nonreactive Nonreactive 63 Hep B Core AB Total Negative Negative Protein 09/13/2016 [facility] Protein,Total,Serum 7.4 g/dL 6.0-8.5 Electro.,S [address] [facility] [place] [address] [phone] Albumin 3.8 g/dL 2.9-4.4 Blnho-6-Fprwiqoi 0.2 g/dL 0.0-0.4 Gzfss-4-Wuzorici 0.6 g/dL 0.4-1.0 Beta Globulin 1.4 g/dL High 0.7-1.3 Gamma Globulin 1.3 g/dL 0.4-1.8 M-Mohamud Not Observed g/dL Not Observed Globulin, Total 3.6 g/dL 2.2-3.9 A/G Ratio 1.1 0.7-1.7 Please Note: (SEE NOTE) 64 P E Interpretation, Serum (SEE NOTE) 65 Laboratory test 09/13/2016 [facility] Anti-Nuclear Negative Negative finding [address] [facility] Antibodies AU/[place] [address] Direct [phone] Actin (Smooth Muscle) Antibody 7 units 0-19 66 Mitochondrial (M2) Antibodies 3.0 units 0.0-20.0 67 Pdkdd-8-Ttnqzjzpgtp,Serum 129 mg/dL 90-200 Ceruloplasmin 30.9 mg/dL 16.0-31.0 Liver Function Tests 03/03/2009 [facility] Total Protein 7.4 g/dL 6.3-8.[address] [place], [place] [id number] [phone] Albumin 3.9 g/dL 3.5-5.0 Bilirubin,Total 1.1 mg/dL 0.2-1.2 Bilirubin,Direct 0.2 mg/dL 0.1-0.4 Bilirubin,Indirect 0.9 mg/dL 0.0-0.9 Sgot/Ast 124 U/L High 16-40 SGPT/Alt 178 U/L High 30-65 Alkaline Phosphatase 87 U/L 50-136 Globulin 3.5 gm/dL 1.9-4.3 Alb/Glob 1.1 1 Z13.6 2 Note: Persistent reduction for 3 months or more in an eGFR <60 mL/min/1.73 m2 defines CKD. Patients with eGFR values >/=60 mL/min/1.73 m2 may also have CKD if evidence of persistent proteinuria is present. The original MDRD equation for estimated GFR is not valid for patients less than 18 years of age. Additional information may be found at www.kdoqi.org. 3 Reference Guidelines*: Desirable: ........... < 200 mg/dL Borderline High: ..... 200-239 mg/dL High: ................ >=240 mg/dL * The National Cholesterol Education Program (NCEP) 4 Reference Guidelines*: Normal: ............. < 150 mg/dL Borderline High: .... 150-199 mg/dL High: ............... 200-499 mg/dL Very High: .......... > 500 mg/dL * Source: National Cholesterol Education Program (NCEP) 5 Reference Guidelines*: Low HDL: ..... < 40 mg/dL Normal: ..... 40-60 mg/dL Desirable: ... > 60 mg/dL *The National Cholesterol Education Program(NCEP) 6 Reference Guidelines*: Optimal:........... <100 mg/dL Near Optimal....... 100-129 mg/dL Borderline High.... 130-159 mg/dL High............... 160-189 mg/dL Very High.......... >=190 mg/dL * Source: National Cholesterol Education Program (NCEP) 7 Elevated levels of HbA1c suggest the need for more aggressive treatment of glycemia. The [employer] Diabetes [employer] recommends that a primary goal of therapy should be a HbA1c of <7% and that physicians should re-evaluate the treatment regimen in patients with HbA1c values consistently >8%. 8 SORE THROAT, VOMITING 9 Note: Persistent reduction for 3 months or more in an eGFR <60 mL/min/1.73 m2 defines CKD. Patients with eGFR values >/=60 mL/min/1.73 m2 may also have CKD if evidence of persistent proteinuria is present. The original MDRD equation for estimated GFR is not valid for patients less than 18 years of age. Additional information may be found at www.kdoqi.org. 10 Infection due to Strep A cannot be ruled-out because the antigen present in the sample may be below the detection limit of the test. Culture confirmation of negative result is in progress Method: Medicina Chromatographic immunoassay 11 NO BETA STREPTOCOCCI ISOLATED 12 VOMITING 13 URINE, CLEAN CATCH 14 CHEST PAIN, TROUBLE SWOLLOWING 15 VOMITING SINCE THIS AM 16 URINE, CLEAN CATCH 17 E27.8 18 Concentrations of Normetanephrine between 146 and 487 pg/mL, and Metanephrine between 63 and 255 pg/mL are considered indeterminate. Follow-up biochemical testing is recommended when patient levels fall within this indeterminate range. These tests include repeat testing of plasma/urinary fractionated metanephrines and plasma catecholamines. Performed at: - [facility] [id number] Gas Load Dispatcher: Kei London MD, Phone: [phone] 19 Performed at: - [facility] [address] [id number] Gas Load Dispatcher: Lissett Perez MD, Phone: [phone] 20 FEELS WARM 21 <=0.49 ug/mL - Low likelihood of DIC, DVT or Pulmonary Embolism >0.49 ug/mL - Additional testing should be done to rule out DIC, DVT, or Pulmonary embolism as clinically indicated. ([facility] has established a 97.89% negative predictive value for thrombotic disease when a cutoff value of 0.5 ug/mL is used.) 22 0.0 - 0.045 ng/mL: Normal 0.046 - 0.5 ng/mL: Suggestive 0.6 - 1.5 ng/mL: Consistent 23 Note: Persistent reduction for 3 months or more in an eGFR <60 mL/min/1.73 m2 defines CKD. Patients with eGFR values >/=60 mL/min/1.73 m2 may also have CKD if evidence of persistent proteinuria is present. The original MDRD equation for estimated GFR is not valid for patients less than 18 years of age. Additional information may be found at www.kdoqi.org. 24 0.0 - 0.045 ng/mL: Normal 0.046 - 0.5 ng/mL: Suggestive 0.6 - 1.5 ng/mL: Consistent 25 R10.9 26 Note: Persistent reduction for 3 months or more in an eGFR <60 mL/min/1.73 m2 defines CKD. Patients with eGFR values >/=60 mL/min/1.73 m2 may also have CKD if evidence of persistent proteinuria is present. The original MDRD equation for estimated GFR is not valid for patients less than 18 years of age. Additional information may be found at www.kdoqi.org. 27 This test was developed and its performance characteristics determined by [facility]. It has not been cleared or approved by the Food and Drug Administration. Performed at: [address] [id number] Gas Load Dispatcher: Kei London MD, Phone: [phone] 28 This test was developed and its performance characteristics determined by [facility]. It has not been cleared or approved by the Food and Drug Administration. 29 POSS REACTION TO MILK,BLURRED VISION,DIZZY 30 URINE, CLEAN CATCH 31 Elevated levels of HbA1c suggest the need for more aggressive treatment of glycemia. The [employer] Diabetes Association recommends that a primary goal of therapy should be a HbA1c of <7% and that physicians should re-evaluate the treatment regimen in patients with HbA1c values consistently >8%. 32 K76.0 33 Reference Guidelines*: Normal: ............. < 150 mg/dL Borderline High: .... 150-199 mg/dL High: ............... 200-499 mg/dL Very High: .......... > 500 mg/dL * Source: National Cholesterol Education Program (NCEP) 34 INFCE Result Units: s/co ratio Negative: < 0.8 Indeterminate: 0.8 - 0.9 Positive: > 0.9 The CDC recommends that a positive HCV antibody result be followed up with a HCV Nucleic Acid Amplification test (616921). Performed at: [facility] [id number] Gas Load Dispatcher: Lissett Perez MD, Phone: [phone] 35 Performed at: [address] [id number] Gas Load Dispatcher: Lissett Perez MD, Phone: [phone] 36 Method: Sediplast Modified W[place]gren 37 DIARRHEA, POSSIBLE DEHYDRATION 38 URINE, CLEAN CATCH 39 Shiga Toxin 2 Not Detected Method: ImmunoCard Stat/Ehec Rapid Immunochromatographic Assay 40 DIARRHEA 41 URINE, CLEAN CATCH 42 N/V/D 43 URINE, CLEAN CATCH 44 Note: Persistent reduction for 3 months or more in an eGFR <60 mL/min/1.73 m2 defines CKD. Patients with eGFR values >/=60 mL/min/1.73 m2 may also have CKD if evidence of persistent proteinuria is present. The original MDRD equation for estimated GFR is not valid for patients less than 18 years of age. Additional information may be found at www.kdoqi.org. 45 Psychiatric Technician Assistant: [id number] 46 CP, COLD CHILLS 47 0.0 - 0.045 ng/mL: Normal 0.046 - 0.5 ng/mL: Suggestive 0.6 - 1.5 ng/mL: Consistent 48 VOMITING 49 Note: Persistent reduction for 3 months or more in an eGFR <60 mL/min/1.73 m2 defines CKD. Patients with eGFR values >/=60 mL/min/1.73 m2 may also have CKD if evidence of persistent proteinuria is present. The original MDRD equation for estimated GFR is not valid for patients less than 18 years of age. Additional information may be found at www.kdoqi.org. 50 URINE, CLEAN CATCH 51 Z13.220 K21.9 R94.5 Z13.220 K21.9 R94.5 Z13.21 Z13.220 K21.9 R94.5 Z13.21 52 Reference Guidelines*: Normal: ............. < 150 mg/dL Borderline High: .... 150-199 mg/dL High: ............... 200-499 mg/dL Very High: .......... > 500 mg/dL * Source: National Cholesterol Education Program (NCEP) 53 Performed at: RN - [facility] [address] [id number] Gas Load Dispatcher: Lissett Perez MD, Phone: [phone] 54 Reference Guidelines*: Low HDL: ..... < 40 mg/dL Normal: ..... 40-60 mg/dL Desirable: ... > 60 mg/dL *The National Cholesterol Education Program(NCEP) 55 Vitamin D deficiency has been defined by the [place] [employer] and an Endocrine Society practice guideline as a level of serum 25-OH vitamin D less than 20 ng/mL (1,2). The Endocrine Society went on to further define vitamin D insufficiency as a level between 21 and 29 ng/mL (2). 1. IOM ([place] [employer]). 2010. Dietary reference intakes for calcium and D. [place]: The National Academies Press. 2. Trena MF, Matthew RODNEY, Spencer WAYNE, et al. Evaluation, treatment, and prevention of vitamin D deficiency: an Endocrine Society clinical practice guideline. JCEM. 2010; 96(7):1911-30. Performed at: [facility] [id number] Gas Load Dispatcher: Lissett Perez MD, Phone: [phone] 56 Is Patient Fasting? Fasting 57 Note: Persistent reduction for 3 months or more in an eGFR <60 mL/min/1.73 m2 defines CKD. Patients with eGFR values >/=60 mL/min/1.73 m2 may also have CKD if evidence of persistent proteinuria is present. The original MDRD equation for estimated GFR is not valid for patients less than 18 years of age. Additional information may be found at www.kdoqi.org. 58 Is Patient Fasting? Fasting 59 R93.2 60 Negative: HCV RNA Not Detected Performed at: [facility] [address] [place], [place] [id number] Gas Load Dispatcher: Lissett Perez MD, Phone: [phone] Performed at: [facility] [address] [id number] Gas Load Dispatcher: Kei London MD, Phone: [phone] 61 Antibodies to HCV not detected; does not exclude early acute HCV infection. 62 IgM antibodies to HAV not detected; does not exclude early acute or recovered HAV infection. 63 IgM anti-HBc not detected. Does not exclude the possibility of exposure to or infection with HBV. 64 Protein electrophoresis scan will follow via computer, mail, or head of store operations delivery. 65 The SPE pattern appears essentially unremarkable. Evidence of monoclonal protein is not apparent. 66 Negative 0 - 19 Weak positive 20 - 30 Moderate to strong positive >30 Actin Antibodies are found in 52-85% of patients with autoimmune hepatitis or chronic active hepatitis and in 22% of patients with primary biliary cirrhosis. 67 Negative 0.0 - 20.0 Equivocal 20.1 - 24.9 Positive >24.9 Mitochondrial (M2) Antibodies are found in 90-96% of patients with primary biliary cirrhosis. Procedures Date Code Description Status 12/30/2018 79744 Measurement Post Voiding Residual Urine By Completed Ultrasound,Non-Imaging 12/30/2018 64980 complex uroflowmetry electronic Completed 05/13/2018 89794 Echocardiogram Complete Completed 04/08/2018 66132 EKG-Tracing And Report Completed 03/27/2018 83264 Destruction Penis Lesion(S) Simple Laser Surgery Completed 03/04/2018 11524 Measurement Post Voiding Residual Urine By Completed Ultrasound,Non-Imaging 03/04/2018 39686 complex uroflowmetry electronic Completed 09/20/2017 33230 Colonoscopy With Biopsy Completed 09/20/2017 17297 EGD With Biopsy Completed 11/07/2016 58747 Bronchospasm Provocation Evaluation Multi Spirometric Completed Determinati 11/07/2016 16787 Spirometry Completed 11/17/2015 11997 Asp./Injection major joint Completed 02/05/2008 83537 Colonoscopy With Polypectomy Completed 02/05/2008 08119 EGD With Biopsy Completed 02/05/2008 70509226 Colonoscopy Completed Encounters Type Date Location Provider Dx Diagnosis Office Visit 12/30/2018 Urology Cici Carbajal, Z12.5 Encounter for 2:15p M.D. screening for malignant neoplasm of prostate Office Visit 11/15/2018 Cardiology Office Fidel Pepper I71.2 Thoracic aortic 8:20a ELEAZAR Harris aneurysm, without rupture Office Visit 10/21/2018 Family Medicine Lavelle Garcia MD K21.0 Gastro- esophageal 8:30a Obie RENDON reflux disease with esophagitis M54.5 Low back pain R91.8 Other nonspecific abnormal finding of lung field Office Visit 09/23/2018 9:30a Family Medicine Lavelle Garcia, R11.[address], MD unspecified K76.0 Fatty (change of) liver, not elsewhere classified Z13.6 Encounter for screening for cardiovascular disorders E66.3 Overweight Office Visit 06/17/2018 10:40a Primary Care Vik De Los Santos, R11.10 Vomiting Office M.DLupe unspecified K76.0 Fatty (change of) liver, not elsewhere classified K21.0 Gastro-esophageal reflux disease with esophagitis Z79.899 Other skilled nursing (current) drug therapy Office Visit 05/07/2018 3:00p GI Emiliano Bates MD R11.10 Vomiting, unspecified K52.832 Lymphocytic colitis Office Visit 04/11/2018 2:30p Urology Solomon, L82.1 Other seborrheic Alfonso Bolanos keratosis Office [...] with esophagitis Office Visit 03/04/2018 3:15p Urology Cici Carbajal, E27.8 Other specified M.D. disorders of adrenal gland Office Visit 02/18/2018 3:20p Primary Care Vik De Los Santos, I71.2 Thoracic aortic Office M.D. aneurysm, without rupture R11.10 Vomiting, unspecified Office Visit 01/31/2018 2:40p Primary Care Vik De Los Santos, R11.10 Vomiting , Office M.D. unspecified K76.0 Fatty (change of) liver, not elsewhere classified R51 Headache N50.89 Other specified disorders of the male genital organs Z79.899 Other director long term care (current) drug therapy Office Visit 01/11/2018 3:00p [...] pain Office Visit 10/17/2017 10:30a Primary Care Luther R10.32 Left lower Office Alfonso Oswald quadrant pain Office Visit 10/05/2017 3:15p MARAH Suarez MD K52.832 Lymphocytic colitis K21.0 Gastro-esophageal reflux disease with esophagitis J45.991 Cough variant asthma R11.10 Vomiting, unspecified K76.0 Fatty (change of) liver, not elsewhere classified Office Visit 10/03/2017 2:45p Pulmonology Marquise Nelson, J41.0 Simple chronic MD bronchitis Office Visit 10/02/2017 11:40a Primary Care Filiberto R11.2 Nausea with Office Alfonso Chery vomiting, unspecified K21.0 Gastro-esophageal reflux disease with esophagitis R19.7 Diarrhea, unspecified Z79.899 Other director long term care (current) drug therapy Office Visit 09/27/2017 10:00a Primary Care Miriam Sloan1.2 Nausea with Office Alfonso Oswald vomiting, unspecified [...] unspecified Office Visit 08/15/2017 2:40p Primary Care Filiberto, Andras, R11.10 Vomiting , Office M.D. unspecified A09 Infectious gastroenteritis and colitis, unspecified K57.30 Dvrtclos of lg int w/o perforation or abscess w/o bleeding I71.2 Thoracic aortic aneurysm, without rupture Office Visit 08/01/2017 2:45p Pulmonology Marquise Nelson MD J45.991 Cough variant asthma J47.9 Bronchiectasis, uncomplicated Office Visit 05/30/2017 3:00p Pulmonology Marquise Nelson, R11.10 Vomiting, unspecified J45.991 Cough variant asthma Office Visit [...] 10:40a Primary Care Filiberto R51 Headache Office Andras, M.D. Office Visit 12/05/2016 3:15p Pulmonology Marquise Nelson J47.9 Bronchiectasis, MD uncomplicated Office Visit 10/17/2016 2:00p Pulmonology Marquise Nelson J41.0 Simple chronic MD bronchitis Office Visit 09/13/2016 10:15a MARAH Suarez MD R05 Cough R11.10 Vomiting, unspecified R93.2 Abnormal findings on dx imaging of liver and biliary tract Office Visit 12/16/2015 3:00p Orthopaedic Office Vianey Alba M25.562 Pain in S., [facility] left knee M76.52 Patellar tendinitis, left knee Office Visit 10/20/2015 2:45p Orthopaedic Office Vianey Alba M25.562 Pain in S., [facility] left knee M76.52 Patellar tendinitis, left knee Office Visit 08/11/2009 9:00a Orthopaedic Office Fausto Leroy 845.00 Spr[place]an & S.MD Strains Ankle Unspec Site 719.06 Effusion Joint Lower Leg Office Visit 02/20/2008 2:45p Juan Francisco Johnson MD 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 at [facility]05/2020 8:20 am - Fidel Pepper PA at Cardiology [facility]102/17/2019 8:30 am - Lavelle Garcia MD at [facility] RD03/24/2019 9:30 am - Lavelle Garcia MD at [facility]12/30/2018 - Cici Carbajal M.D.Z12.5 Encounter for screening for malignant neoplasm of prostateNew Labs:Prostate Specific Antigen, Ordered: 12/30/18Comments:Patient with a large prostate seen on the CT scan. I will request those images to be sent to me. Discussed prostate cancer screening with the patient and he would like to have screening initiated. We'll check his PSA today.
[2019-01-11 08:41] VITALS: BP 126/89
--- NOTE | 2019-01-11 09:01 | UC ---
Abdominal Pain Male HPI - HPI Summary HPI Summary: 48 yo male with chronic cyclic vomiting symptoms particularly bad the past week one episode of vomiting every AM Sees GI specialist but has not seen him for 2 yrs no diarrhea of chronic abd pain reflux symptoms AM - History of Current Complaint Chief Complaint: UCGI Stated Complaint: VOMITING Time Seen by Provider: 01/11/19 08:48 Hx Obtained From: Patient Onset/Duration: Sudden Onset, Lasting Minutes Timing: Intermittent Episodes Lasting: Severity Initially: Moderate Severity Currently: None Pain Intensity: 0 Pain Scale Used: 0-10 Numeric Location: Other - no pain Character: Burning - in AMs Alleviating Factor(s): Nothing Associated Signs And Symptoms: Positive: Vomiting - Allergies/Home Medications Allergies/Adverse Reactions: Allergies Allergy/AdvReac Type Severity Reaction Status Date / Time No Known Allergies Allergy Verified 01/11/19 08:35 Home Medications: Home Medications Omeprazole CAP (NF) [Prilosec CAP* 20 MG] 20 mg PO BID 01/11/19 [History Confirmed 01/11/19] PMH/Surg Hx/FS Hx/Imm Hx Previously Healthy: Yes - Surgical History Surgical History: Yes Surgery Procedure, Year, and Place: Nasal Polyps, 2016, Dr. Carey, Cholecystectomy and Umbilical Herniorrhaphy, 2014, [place]; Endoscopy, 04/29/15 , [facility]; Colonscopy, ~2004, [place] - Family History Known Family History: Positive: None - No history of degenerative neuro conditions, parents living and well., Hypertension - Social History Alcohol Use: Occasionally Substance Use Type: None Smoking Status (MU): Never Smoked Tobacco Review of Systems All Other Systems Reviewed And Are Negative: Yes Constitutional: Positive: Negative Skin: Positive: Negative Eyes: Positive: Negative ENT: Positive: Negative Respiratory: Positive: Negative Cardiovascular: Positive: Negative Gastrointestinal: Positive: Vomiting Genitourinary: Positive: Negative Motor: Positive: Negative Neurovascular: Positive: Negative Musculoskeletal: Positive: Negative Neurological: Positive: Negative Psychological: Positive: Negative Physical Exam Triage Information Reviewed: Yes Appearance: Well-Appearing, No Pain Distress, Well-Nourished Vital Signs: Initial Vital Signs Temp 98.3 F 01/11/19 08:33 Pulse 74 01/11/19 08:33 Resp 16 01/11/19 08:33 BP 126/89 01/11/19 08:33 Pulse Ox 97 01/11/19 08:33 Vital Signs Reviewed: Yes Eyes: Positive: Conjunctiva Clear ENT: Positive: Hearing grossly normal. Negative: Nasal congestion, Nasal drainage, Trismus, Muffled voice, Hoarse voice Neck: Positive: Supple, Nontender Respiratory: Positive: Lungs clear, Normal breath sounds, No respiratory distress, No accessory muscle use Cardiovascular: Positive: RRR, No Murmur Abdomen Description: Positive: Nontender, No Organomegaly, Soft. Negative: CVA Tenderness (R), CVA Tenderness (L) Bowel Sounds: Positive: Present Musculoskeletal: Positive: ROM Intact, No Edema Neurological: Positive: Alert Psychological Exam: Normal Skin Exam: Normal Abd Pain Male Course/Dx - Differential Dx/Clinical Impression Provider Diagnosis: Acute vomiting, Cyclical vomiting Discharge - Sign-Out/Discharge Documenting (check all that apply): Patient Departure All imaging exams completed and their final reports reviewed: No Studies - Discharge Plan Condition: Stable Disposition: HOME Patient Education Materials: Acute Nausea and Vomiting (ED) Forms: *Work Release Referrals: Lavelle Garcia MD [Primary Care Provider] - Additional Instructions: I suggest you start your zofran take it in the morning about 30 minutes before breakfast try taking 30 ml (2 table spoons) of mylanta or maalox at bedtime follow up with your GI doctor - Billing Disposition and Condition Condition: STABLE Disposition: Home
== END 2019-01-11 09:17 | disposition home or self-care (01) ==
LOC: UCCORT 08:20
DX: R11.10 Vomiting, unspecified (principal); G43.A0 Cyclical vomiting, in migraine, not intractable
CPT/HCPCS: 99211; G0463

== ENCOUNTER 2019-05-17 18:49 | Emergency (ER) | payer BC, OTHER ==
--- OUTSIDE RECORDS SUMMARY | 2019-05-17 19:01 | XMS REPORT | Continuity of Care Document ---
:1970 External Reference #:[id number] Author Name Lavelle Garcia MD Address [address] [place] [id number] Care Team Providers Name Role Phone Parul Blanca MD - Family Medicine Care Team Information Patient Care Provider Lavelle Garcia MD - Family Medicine Care Team Information Patient Care Provider [phone] Problems Active Problems Provider Date Cough Chuck [...] Los Santos M.D. Onset: 03/20/2017 Anxiety state Vik De Los Santos M.D. Onset: 04/18/2017 Right [...] of Cici Carbajal M.D. Onset: 12/30/2018 prostate Social History Type Date Description Comments Sex Unknown Tobacco Use Start: Unknown Never Smoked Cigarettes ETOH Use Occasionally consumes alcohol Recreational Drug Use Denies Drug Use Tobacco Use Start: Unknown Patient has never smoked Smoking Status Reviewed: 03/31/19 Patient has never smoked Exercise Type/Frequency Does not exercise Allergies, Adverse Reactions, Alerts Description No Known Drug Allergies Medications Active Medications SIG Qnty Indications Ordering Provider Date Flonase Sensimist 2 sprays every Unknown day 27.5mcg/[place] Suspension Allergy Injections weekly ( for Unknown molds) History Medications Escitalopram Oxalate 1 by mouth every 30tabs R11.10 Lavelle Garcia, 2018 - 10mg day MD 03/31/2019 Tablets Ondansetron HCL take 1 tablet by 30tabs Lavelle Garcia, 01/10/2019 - 4mg Tablets mouth every 8 MD 03/31/2019 hours as needed for nausea or vomiting Ondansetron place 1 tablet 30tabs R11.10 Keira Burden, 01/08/2019 - 4mg Tablets on the tongue MEDICAL ACCOUNTING CLERK 01/10/2019 Dispers and allow to dissolve twice daily as needed Omeprazole Take 1 capsule 120caps Keira Burden, 10/21/2018 - 20mg Capsules DR by mouth twice MEDICAL ACCOUNTING CLERK 03/31/2019 daily Cyclobenzaprine HCL 1 tab by mouth 21tabs M54.5 Lavelle Garcia, 10/21/2018 - 5mg three times a MD 12/30/2018 Tablets day as needed Medications Administered in Office Medication SIG Qnty Indications Ordering Provider Date Methylprednisolone acetate Vianey Alba, 11/17/2015 (Depomedrol) 80mg injection [facility] Injection Immunizations CPT Code Status Date Vaccine Lot # 16461 Given 03/31/2019 Influenza Virus Vaccine, Quadrivalent, 36 Mos+, [id number] Given 03/20/2017 Influenza Virus Vaccine, Quadrivalent, Slit Virus, Im Use [id number] Given 01/11/2017 Tdap injection [id number] Vital Signs Date Vital Result Comment 03/31/2019 8:14am BP Systolic Sitting Left Arm 118 mmHg BP Diastolic Sitting Left Arm 74 mmHg Body Temperature 97.8 F Heart Rate 70 /min Respiratory Rate 18 /min Height 69 inches 5'9" Weight 189.50 lb BMI (Body Mass Index) 28.0 kg/m2 BSA (Body Surface Area) 2.02 m2 Combs body weight in kilograms 73 kg 02/17/2019 8:13am BP Systolic Sitting Left Arm 124 mmHg BP Diastolic Sitting Left Arm 86 mmHg Body Temperature 97.0 F Heart Rate 86 /min Respiratory Rate 18 /min Height 69 inches 5'9" Weight 191.50 lb BMI (Body Mass Index) 28.3 kg/m2 BSA (Body Surface Area) 2.03 m2 Combs body weight in kilograms 73 kg Results Test Date Facility Test Result H/L Range Note Laboratory test 12/30/2018 [facility] Prostate 1.80 ng/mL < 4.0 1, [address] [place] [address] Antigen [phone] 1 Z12.5 2 THIS ASSAY IS NOT INTENDED A CANCER SCREENING TEST The concentration of PSA in a given specimen, determined with assays from different manufacturers, can vary due to differences in assay methods and reagent specificity. Values obtained from different assay methods cannot be used interchangeably. Method: [employer] [place] Chemiluminescent immunoassay. Procedures Date Code Description Status 12/30/2018 61523 Measurement Post Voiding Residual Urine By Completed Ultrasound,Non-Imaging 12/30/2018 38973 complex uroflowmetry electronic Completed 02/05/2008 24712810 Colonoscopy Completed Medical Devices Description No Information Available Encounters Type Date Location Provider Dx Diagnosis Office Visit 02/17/2019 Family Medicine Lavelle Garcia MD R11.10 Vomiting, 8:30a [address] unspecified M72.2 Plantar fascial fibromatosis K76.0 Fatty (change of) liver, not elsewhere classified L08.9 Local infection of the skin and subcutaneous tissue, unsp Office Visit 01/08/2019 10:00a Family Medicine Keira Burden, R11.10 Vomiting, [address] MEDICAL ACCOUNTING CLERK unspecified L20.9 Atopic dermatitis, unspecified F41.9 Anxiety disorder, unspecified Office Visit 12/30/2018 2:15p Urology Solomon Z12.5 Encounter for Alfonso Bolanos screening for malignant neoplasm of prostate Office Visit 11/15/2018 8:20a Cardiology Office Fidel Pepper I71.2 Thoracic aortic B., PA aneurysm, without rupture Office Visit 10/21/2018 8:30a Family Medicine Lavelle Garcia MD K21.0 Gastro-esophageal [address] reflux disease with esophagitis M54.5 Low back pain R91.8 Other nonspecific abnormal finding of lung field Assessments Date Code Description Provider 03/31/2019 K76.0 Fatty (change of) liver, not elsewhere Lavelle Garcia MD classified 03/31/2019 Z79.899 Other jail (current) drug therapy Lavelle Garcia MD 03/31/2019 Z23 Encounter for immunization Lavelle Garcia MD 03/31/2019 R25.1 Tremor, unspecified Lavelle Garcia MD 03/31/2019 R11.10 Vomiting, unspecified Lavelle Garcia MD 02/17/2019 R11.10 Vomiting, unspecified Lavelle Garcia MD 02/17/2019 M72.2 Plantar fascial fibromatosis Lavelle Garcia MD 02/17/2019 K76.0 Fatty (change of) liver, not elsewhere Lavelle Garcia MD classified 02/17/2019 L08.9 Local infection of the skin and Lavelle Garcia MD subcutaneous tissue, unspecified 01/08/2019 R11.10 Vomiting, unspecified Keira Burden FNP 01/08/2019 L20.9 Atopic dermatitis, unspecified Keira Burden FNP 01/08/2019 F41.9 Anxiety disorder, unspecified Keira Burden FNP 12/30/2018 Z12.5 Encounter for screening for malignant Cici Carbajal M.D. neoplasm of prostate 11/15/2018 I71.2 Thoracic aortic aneurysm, without rupture Fidel Pepper PA 10/21/2018 K21.0 Gastro-esophageal reflux disease with Lavelle Garcia MD esophagitis 10/21/2018 M54.5 Low back pain Lavelle Garcia MD 10/21/2018 R91.8 Other nonspecific abnormal finding of lung Lavelle Garcia MD field Plan of Treatment Future Appointment(s):01/01/2020 9:30 am - Cici Carbajal M.D. at [facility]2105/2020 8:20 am - Fidel Pepper, PA at Cardiology [facility]9801/08/2019 - Keira Burden FNPR11.10 Vomiting, unspecifiedNew Medication:Ondansetron 4 mg - place 1 tablet on the tongue and allow to dissolve twice daily as neededComments :H/o chronic vomiting syndrome for the past 15 years.Discussed electrolyte beverage such as Smart Water to replenishing electrolytes when vomiting.Discussed use of Zofran, for short term nausea. Gave prescription for this. Refilled omeprazole.Call for worsening symptoms.L20.9 Atopic dermatitis, unspecifiedComments:Hydrocortisone cream OTC may help the itchingTry a cream instead of a lotion for hydration.F41.9 Anxiety disorder, unspecified Functional Status Description No Information Available Mental Status Description No Information Available Referrals Description No Information Available
[2019-05-17 19:11] VITALS: BP 139/94
[2019-05-17] MEDS ORDERED: Tetan/Diph/Pertus SYR(Tdap)* 0.5 ML SYR(BOOSTRIX) use SYR contains LATEX IM ONE (19:35)
[2019-05-17] MEDS ORDERED: Lidocaine 1% MPF ** 5 ML VIAL INJ ONE (19:41)
--- NOTE | 2019-05-17 19:50 | UC ---
Skin Complaint HPI - HPI Summary HPI Summary: Pt. has several small lacerations on R hand 2 hrs ago on equipment at work. has some pain. He needs paperwork filled out. Pt is not certain when he had his last tetnus shot. Denies numbness, decr. rom, fever. - History of Current Complaint Chief Complaint: UCLaceration Time Seen by Provider: 05/17/19 19:28 Stated Complaint: INJURY RIGHT HAND Hx Obtained From: Patient Pain Intensity: 5 Pain Scale Used: 0-10 Numeric Location: Discrete Aggravating Factor(s): Touch Alleviating Factor(s): Nothing Associated Signs & Symptoms: Negative: Red Streaks, Joint Swelling - Allergy/Home Medications Allergies/Adverse Reactions: Allergies Allergy/AdvReac Type Severity Reaction Status Date / Time No Known Allergies Allergy Verified 05/17/19 19:11 PMH/Surg Hx/FS Hx/Imm Hx Previously Healthy: Yes - Surgical History Surgical History: Yes Surgery Procedure, Year, and Place: Nasal Polyps, 2016, Dr. Carey, Cholecystectomy and Umbilical Herniorrhaphy, 2014, [place]; Endoscopy, 04/29/15 , [place]; Colonscopy, ~2004, [place] - Family History Known Family History: Positive: None - No history of degenerative neuro conditions, parents living and well., Hypertension - Social History Alcohol Use: Occasionally Substance Use Type: None Smoking Status (MU): Never Smoked Tobacco Review of Systems All Other Systems Reviewed And Are Negative: Yes Constitutional: Negative: Fever, Chills, Fatigue Skin: Positive: Other - laceration. Negative: Bruising Respiratory: Positive: Negative Cardiovascular: Positive: Negative Musculoskeletal: Negative: Arthralgia, Edema, Myalgia Neurological: Negative: Weakness, Paresthesia, Numbness Physical Exam Triage Information Reviewed: Yes Appearance: Well-Appearing Vital Signs: Initial Vital Signs Temp 98.2 F 05/17/19 19:07 Pulse 75 05/17/19 19:07 Resp 16 05/17/19 19:07 BP 139/94 05/17/19 19:07 Pulse Ox 99 05/17/19 19:07 Vital Signs Reviewed: Yes Respiratory: Positive: No respiratory distress Skin: Positive: Other - 3cm laceration on R middle finger , <2cm laceration on R index, R 4th digit also has smaller laceration. Laceration Repair - Laceration Repair 1 Description: Linear Laceration Size After Repair: Length (cm) - 3 Modified For Repair: No Type Injection: Digital Anesthesia Used: 2.0% Lido Additive Used (in ml): Epi Cleansing Completed Via Routine Prep: Yes Closure Material: Skin Adhesive - 4 sutures, SteriStrips - on R index and R 4th digit Closure Method: Single Layer Suture Of: Skin Suture Type: Nylon Diagnostics - Radiology No standard instances Radiology Interpretation Completed By: ED Physician Summary of Radiographic Findings: NO obvious fx Course/Dx - Course Course Of Treatment: Lac repair on pt who cut himself at work w/ equipment. Laceration was bleeding but hemostasis achieved. Superficial. No tingling/numbness and repair went well. Area was cleaned and draped in sterile fashion. R index we used 4-0 suture simple interrupted, 4 sutures. R index and R 4th digit we used steri strips as they were not as deep. Vitals are good. Tdap given today. area was dressed afterwards. - Differential Diagnoses - Skin Complaint Differential Diagnoses: Other - Diagnoses Provider Diagnosis: Laceration Discharge ED - Sign-Out/Discharge Documenting (check all that apply): Patient Departure All imaging exams completed and their final reports reviewed: No - Discharge Plan Condition: Good Disposition: HOME Patient Education Materials: Care For Your Stitches (ED) Referrals: Lavelle Garcia MD [Primary Care Provider] - Additional Instructions: If swelling and purulent material please return. These need to be removed in 10 days. - Billing Disposition and Condition Condition: GOOD Disposition: Home
[2019-05-17] MEDS ORDERED: Benzoin Compound STICK TOPICAL ONE (20:19)
--- NOTE | 2019-05-18 07:22 | UC ---
- Progress Note Progress Note: Secondary School Teacher Librarian: Graham Becerril Daniel, ([id number]) Barrel Turner: SUNSHINE (DOMANCE) Report Date: 05/17/2019 19:49:00 Report Status: Final Start of Report Content ===== Patient Name: BISMARK HERNANDEZ Medical Record#: [id number] Ordering Physician: Roma BUSH Acct.#: [id number] : 1970 Age: 48 Sex: M Location: [facility] Exam Date: 05/17/191948 ADM Status: [facility] ER Order Information: FINGER RIGHT MIDDLE Accession Number: [id number] CPT: 33440 HISTORY: deep laceration . COMPARISONS: None relevant available at the time of dictation. VIEWS: 3, Frontal, lateral, and oblique views of the third digit of the right hand FINDINGS: BONE DENSITY: Normal. BONES: There is no displaced fracture. JOINTS: There is no arthropathy. ALIGNMENT: There is no dislocation. SOFT TISSUES: Unremarkable. OTHER FINDINGS: None. IMPRESSION: NO ACUTE OSSEOUS INJURY. IF SYMPTOMS PERSIST, RECOMMEND REPEAT IMAGING. R1NF Preliminary Imaging Read [id number] Dictated By: Graham Becerril MD Dictated Date/Time: 05/18/19713 Transcribed Date/Time: 05/18/19713 Copy to: CC:Lavelle Garcia MD; Roma BUSH ; Kaylene Stout MD Imaging - [facility] Imaging - [facility] [address] [address] ph [phone] ph ) ph ([phone]) End of Report Content === Course/Dx - Diagnoses Provider Diagnoses: Laceration Discharge ED - Sign-Out/Discharge Documenting (check all that apply): Post-Discharge Follow Up All imaging exams completed and their final reports reviewed: Yes - Discharge Plan Condition: Good Disposition: HOME Patient Education Materials: Care For Your Stitches (ED) Referrals: Lavelle Garcia MD [Primary Care Provider] - Additional Instructions: If swelling and purulent material please return. These need to be removed in 10 days. - Billing Disposition and Condition Condition: GOOD Disposition: Home
== END 2019-05-17 20:34 | disposition home or self-care (01) ==
LOC: UCCORT 18:49
DX: S61.411A Laceration without foreign body of right hand, initial encounter (principal); X58.XXXA Exposure to other specified factors, initial encounter; Y92.9 Unspecified place or not applicable; Y99.0 Civilian activity done for income or pay
CPT/HCPCS: 12002; 73140; 90715; 99211; G0463

== ENCOUNTER 2019-07-07 10:46 | Emergency (ER) | payer OTHER ==
--- OUTSIDE RECORDS SUMMARY | 2019-07-07 11:06 | XMS REPORT | Continuity of Care Document ---
:1970 External Reference #:[id number] Author Name Lavelle Garcia MD Address [address] [place] [id number] Care Team Providers Name Role Phone Parul Blanca MD - Family Medicine Care Team Information Cardiology Coordinator Lavelle Garcia MD - Family Medicine Care Team Information Cardiology Coordinator Problems Active Problems Provider Date Cough Chuck [...] Patient has never smoked Smoking Status Reviewed: 05/28/19 Patient has never smoked Exercise Type/Frequency Does not exercise Allergies, Adverse Reactions, Alerts Description No Known Drug Allergies Medications Active Medications SIG Qnty Indications Ordering Provider Date Flonase Sensimist 2 sprays every Unknown day 27.5mcg/Newman Suspension Allergy Injections weekly ( for Unknown molds) History Medications Escitalopram Oxalate 1 by mouth every 30tabs R11.10 Lavelle Garcia MD 2018 - day 03/31/2019 10mg Tablets Ondansetron HCL take 1 tablet by 30tabs Lavelle Garcia MD 01/10/2019 - 4mg mouth every 8 03/31/2019 Tablets hours as needed for nausea or vomiting Ondansetron place 1 tablet on 30tabs R11.10 Keira Burden, 01/08/2019 - 4mg Tablets the tongue and ARCHEOLOGIST CLASSICAL 01/10/2019 Dispers allow to dissolve twice daily as needed Medications Administered in Office Medication SIG Qnty Indications Ordering Provider Date Methylprednisolone acetate Vianey Alba, 11/17/2015 (Depomedrol) 80mg injection RPAC Injection Immunizations CPT Code Status Date Vaccine Lot # [id number] Given 03/31/2019 Influenza Virus Vaccine, Quadrivalent, 36 Mos+, [id number] Given 03/20/2017 Influenza Virus Vaccine, Quadrivalent, Slit Virus, Im Use [id number] Given 01/11/2017 Tdap injection [id number] Vital Signs Date Vital Result Comment 05/28/2019 8:11am BP Systolic 130 mmHg BP Diastolic 85 mmHg 05/28/2019 7:52am BP Systolic 158 mmHg BP Diastolic 94 mmHg Body Temperature 97.9 F Heart Rate 88 /min Respiratory Rate 16 /min Height 70 inches 5'10" Weight 194.12 lb BMI (Body Mass Index) 27.9 kg/m2 BSA (Body Surface Area) 2.06 m2 [place] body weight in kilograms 75 kg O2 % BldC Oximetry 96 % Results Test Acquired Date Facility Test Result H/L Range Note LDL Cholesterol 03/31/[address] [facility] [address] Cholesterol 218 mg/dL High < 200 1, 2 [address] [place] [address] [phone] Triglycerides 154 mg/dL High <150 3 HDL Cholesterol 41 mg/dL >40 4 LDL-Cholesterol 146 mg/dL < 100 5 Laboratory test 12/30/2018 [facility] Prostate 1.80 ng/mL < 4.0 6, [address] [place] [address] Antigen [phone] 1 Z79.899 2 Reference Guidelines*: Desirable: ........... < 200 mg/dL Borderline High: ..... 200-239 mg/dL High: ................ >= 240 mg/dL * The National Cholesterol Education Program (NCEP) 3 Reference Guidelines*: Normal: ............. < 150 mg/dL Borderline High: .... 150-199 mg/dL High: ............... 200-499 mg/dL Very High: .......... > 500 mg/dL * Source: National Cholesterol Education Program (NCEP) 4 Reference Guidelines*: Low HDL: ..... < 40 mg/dL Normal: ..... 40-60 mg/dL Desirable: ... > 60 mg/dL *The National Cholesterol Education Program(NCEP) 5 Reference Guidelines*: Optimal:........... <100 mg/dL Near Optimal....... 100-129 mg/dL Borderline High.... 130-159 mg/dL High............... 160-189 mg/dL Very High.......... >=190 mg/dL * Source: National Cholesterol Education Program (NCEP) 6 Z12.5 7 THIS ASSAY IS NOT INTENDED A CANCER SCREENING TEST The concentration of PSA in a given specimen, determined with assays from different manufacturers, can vary due to differences in assay methods and reagent specificity. Values obtained from different assay methods cannot be used interchangeably. Method: Siemens RealtimeBoard [place] Chemiluminescent immunoassay. Procedures Date Code Description Status 12/30/2018 24660 Measurement Post Voiding Residual Urine By Completed Ultrasound,Non-Imaging 12/30/2018 41505 complex uroflowmetry electronic Completed 02/05/2008 12377091 Colonoscopy Completed Medical Devices Description No Information Available Encounters Type Date Location Provider Dx Diagnosis Office Visit 05/28/2019 Family Medicine Lavelle Garcia MD S61.214D Laceration w/o fb 7:50a [address] of r rng fngr w/o damage to nail, subs Office Visit 03/31/2019 Family Medicine Lavelle Garcia MD K76.0 Fatty ( change of) 8:30a [address] liver, not elsewhere classified R25.1 Tremor, unspecified R11.10 Vomiting, unspecified Z79.899 Other fdc (current) drug therapy Z23 Encounter for immunization Office Visit 02/17/2019 8:30a Family Medicine Lavelle Garcia, R11.10 Vomiting, [address] RD unspecified M72.2 Plantar fascial fibromatosis K76.0 Fatty (change of) liver, not elsewhere classified L08.9 Local infection of the skin and subcutaneous tissue, unsp Office Visit 01/08/2019 10:00a Family Medicine Keira Burden, R11.10 Vomiting, [address] RD ARCHEOLOGIST CLASSICAL unspecified L20.9 Atopic dermatitis, unspecified F41.9 Anxiety disorder, unspecified Office Visit 12/30/2018 2:15p Urology Cici Carbajal, Z12.5 Encounter for M.D. screening for malignant neoplasm of prostate Assessments Date Code Description Provider 05/28/2019 S61.214D Laceration without foreign body of right Lavelle Garcia MD ring finger without damage to nail, subsequent encounter 03/31/2019 K76.0 Fatty (change of) liver, not elsewhere Lavelle Garcia MD classified 03/31/2019 R25.1 Tremor, unspecified Lavelle Garcia MD 03/31/2019 R11.10 Vomiting, unspecified Lavelle Garcia MD 03/31/2019 Z79.899 Other oil heaterman (current) drug therapy Lavelle Garcia MD 03/31/2019 Z23 Encounter for immunization Lavelle Garcia MD 02/17/2019 R11.10 Vomiting, unspecified Lavelle Garcia MD 02/17/2019 M72.2 Plantar fascial fibromatosis Lavelle Garcia MD 02/17/2019 K76.0 Fatty (change of) liver, not elsewhere Lavelle Garcia MD classified 02/17/2019 L08.9 Local infection of the skin and Lavelle Garcia MD subcutaneous tissue, unspecified 01/08/2019 R11.10 Vomiting, unspecified Keira Burden, ARCHEOLOGIST CLASSICAL 01/08/2019 L20.9 Atopic dermatitis, unspecified Keira Burden FNP 01/08/2019 F41.9 Anxiety disorder, unspecified Keira Burden FNP 12/30/2018 Z12.5 Encounter for screening for malignant Cici Carbajal M.D. neoplasm of prostate Plan of Treatment Future Appointment(s):09/29/2019 7:50 am - Lavelle Garcia MD at [facility] [address]/01/2020 9:30 am - Cici Carbajal M.D. at [facility]9411/17/2019 8:20 am - Fidel Pepper PA at Cardiology [place]3301/08/2019 - Keira Burden FNPR11.10 Vomiting, unspecifiedNew Medication:Ondansetron 4 mg - place 1 tablet on the tongue and allow to dissolve twice daily as neededComments:H/o chronic vomiting syndrome for the past 15 [...]
--- OUTSIDE RECORDS SUMMARY | 2019-07-07 11:06 | XMS REPORT | Continuity of Care Document ---
:1970 External Reference #:[id number] Author Name SARWAT Lovell (transmitted by agent of provider Prasanna Perdue) Address [address] [place] [address] Care Team Providers Name Role Phone Vik De Los Santos MD - Internal Medicine Care Team Information Contract Graphic Designer Unavailable Problems Active Problems Provider Date Dietetic gastroenteritis Prasanna Perdue MD Onset: 09/11/2017 Allergy to other foods Prasanna Perdue MD Onset: 09/11/2017 Allergic rhinitis due to pollen Prasanna Perdue MD Onset: 10/23/2017 Allergic rhinitis Prasanna Perdue MD Onset: 10/23/2017 Uncomplicated moderate persistent asthma Prasanna Perdue MD Onset: Mild intermittent asthma ELEAZAR Perez Onset: 05/14/2018 Social History Type Date Description Comments Sex Unknown Tobacco Use Start: Unknown No Second Hand Smoke Exposure Tobacco Use Start: Unknown Patient has never smoked Smoking Status Reviewed: 05/20/19 Patient has never smoked Allergies, Adverse Reactions, Alerts Description No Known Drug Allergies Medications Active Medications SIG Qnty Indications Ordering Provider Date Proair HFA inhale 2 puffs 1units Prasanna Serrano q4 hours as MD Iron 108(90Base) mcg/Act needed Aerosol Medications Administered in Office Medication SIG Qnty Indications Ordering Provider Date Allergy Injection 2 Or More Prasanna Perdue MD 05/08/2019 Injection Allergy Injection 2 Or More Prasanna Perdue MD 04/24/2019 Injection Allergy Injection 2 Or More Prasanna Perdue MD 04/10/2019 Injection Allergy Injection 2 Or More Prasanna Perdue MD 03/27/2019 Injection Allergy Injection 2 Or More Prasanna Perdue MD 03/06/2019 Injection Allergy Injection 2 Or More Prasanna Perdue MD 02/13/2019 Injection Allergy Injection 2 Or More Prasanna Perdue MD 01/30/2019 Injection Allergy Injection 2 Or More Prasanna Perdue MD 01/16/2019 Injection Allergy Injection 2 Or More Prasanna Perdue MD 01/02/2019 Injection Allergy Injection 2 Or More Prasanna Perdue MD 12/19/2018 Injection Allergy Injection 2 Or More Prasanna Perdue MD 12/05/2018 Injection Allergy Injection 2 Or More Prasanna Perdue MD 11/14/2018 Injection Allergy Injection 2 Or More Prasanna Perdue MD 11/07/2018 Injection Allergy Injection 2 Or More Prasanna Perdue MD 10/31/2018 Injection Allergy Injection 2 Or More Prasanna Perdue MD 10/24/2018 Injection Allergy Injection 2 Or More Prasanna Perdue MD 10/17/2018 Injection Allergy Injection 2 Or More Prasanna Perdue MD 10/03/2018 Injection Allergy Injection 2 Or More Prasanna Perdue MD 09/26/2018 Injection Allergy Injection 2 Or More Prasanna Perdue MD 09/12/2018 Injection Allergy Injection 2 Or More Prasanna Perdue MD 09/05/2018 Injection Allergy Injection 2 Or More Prasanna Perdue MD 08/27/2018 Injection Allergy Injection 2 Or More Prasanna Perdue MD 07/11/2018 Injection Allergy Injection 2 Or More Prasanna Perdue MD 06/20/2018 Injection Allergy Injection 2 Or More Prasanna Perdue MD 06/13/2018 Injection Allergy Injection 2 Or More Prasanna Perdue MD 05/28/2018 Injection Allergy Injection 2 Or More Prasanna Perdue MD 05/23/2018 Injection Allergy Injection 2 Or More Prasanna Perdue MD 05/14/2018 Injection Allergy Injection 2 Or More Prasanna Perdue MD 04/23/2018 Injection Allergy Injection 2 Or More Prasanna Perdue MD 04/16/2018 Injection Allergy Injection 2 Or More Prasanna Perdue MD 04/02/2018 Injection Allergy Injection 2 Or More Prasanna Perdue MD 03/26/2018 Injection Allergy Injection 2 Or More Prasanna Perdue MD 03/05/2018 Injection Allergy Injection 2 Or More Prasanna Perdue MD 02/26/2018 Injection Allergy Injection 2 Or More Prasanna Perdue MD 02/19/2018 Injection Allergy Injection 2 Or More Prasanna Perdue MD 02/05/2018 Injection Allergy Injection 2 Or More Prasanna Perdue MD 01/22/2018 Injection Allergy Injection 2 Or More Prasanna Perdue MD 01/17/2018 Injection Allergy Injection 2 Or More Prasanna Perdue MD 01/08/2018 Injection Allergy Injection 2 Or More Prasanna Perdue MD 01/01/2018 Injection Allergy Injection 2 Or More Prasanna Perdue MD 12/25/2017 Injection Allergy Injection 2 Or More Prasanna Perdue MD 12/18/2017 Injection Allergy Injection 2 Or More Prasanna Perdue MD 12/11/2017 Injection Allergy Injection 2 Or More Prasanna Perdue MD 12/04/2017 Injection Allergy Injection 2 Or More Prasanna Perdue MD 11/27/2017 Injection Allergy Injection 2 Or More Prasanna Perdue MD 11/20/2017 Injection Allergy Injection 2 Or More Prasanna Perdue MD 11/13/2017 Injection Allergy Injection 2 Or More Prasanna Perdue MD 11/06/2017 Injection Immunizations Description No Information Available Vital Signs Date Vital Result Comment 05/20/2019 9:32am BP Systolic 122 mmHg BP Diastolic 82 mmHg Height 70 inches 5'10" Weight 180.00 lb BMI (Body Mass Index) 25.8 kg/m2 Heart Rate 69 /min Respiratory Rate 18 /min O2 % BldC Oximetry 97 % 11/14/2018 9:35am BP Systolic 118 mmHg BP Diastolic 72 mmHg Height 70 inches 5'10" Weight 194.00 lb BMI (Body Mass Index) 27.8 kg/m2 Heart Rate 68 /min Respiratory Rate 18 /min Body Temperature 97.5 F O2 % BldC Oximetry 95 % Results Description No Information Available Procedures Date Code Description Status 05/08/2019 77373 Allergy Injection 2 Or More Completed 04/24/2019 25738 Allergy Injection 2 Or More Completed 04/10/2019 65899 Allergy Injection 2 Or More Completed 03/27/2019 06454 Allergy Injection 2 Or More Completed 03/06/2019 29174 Allergy Injection 2 Or More Completed 02/13/2019 88937 Allergy Injection 2 Or More Completed 01/30/2019 85952 Allergy Injection 2 Or More Completed 01/23/2019 98312 Allergy Antigens Single Or Multiple Completed 01/16/2019 51015 Allergy Injection 2 Or More Completed 01/02/2019 98356 Allergy Injection 2 Or More Completed 12/19/2018 14991 Allergy Injection 2 Or More Completed 12/05/2018 10983 Allergy Injection 2 Or More Completed Medical Devices Description No Information Available Encounters Type Date Location Provider Dx Diagnosis Office Visit 05/20/2019 Alex Garay J45.20 Mild intermittent 9:30a [place], asthma, uncomplicated RPA-C J30.1 Allergic rhinitis due to pollen J30.89 Other allergic rhinitis Assessments Date Code Description Provider 05/20/2019 J45.20 Mild intermittent asthma, Lynn Victorstermacher, RPA-C uncomplicated 05/20/2019 J30.1 Allergic rhinitis due to pollen Lynn Victorstrefugio RPA -C 05/20/2019 J30.89 Other allergic rhinitis Lynn Victorstrefugio, RPA-C 05/08/2019 J45.40 Moderate persistent asthma, Prasanna Perdue MD uncomplicated 05/08/2019 J30.1 Allergic rhinitis due to pollen Prasanna Perdue MD 05/08/2019 J30.89 Other allergic rhinitis Prasanna Perdue MD 04/24/2019 J45.40 Moderate persistent asthma, Prasanna Perdue MD uncomplicated 04/24/2019 J30.1 Allergic rhinitis due to pollen Prasanna Perdue MD 04/24/2019 J30.89 Other allergic rhinitis Prasanna Perdue MD 04/10/2019 J45.40 Moderate persistent asthma, Prasanna Perdue MD uncomplicated 04/10/2019 J30.1 Allergic rhinitis due to pollen Prasanna Perdue MD 04/10/2019 J30.89 Other allergic rhinitis Prasanna Perdue MD 03/27/2019 J45.40 Moderate persistent asthma, Prasanna Perdue MD uncomplicated 03/27/2019 J30.1 Allergic rhinitis due to pollen Prasanna Perdue MD 03/27/2019 J30.89 Other allergic rhinitis Prasanan Perdue MD 03/06/2019 J45.40 Moderate persistent asthma, Prasanna Perdue MD uncomplicated 03/06/2019 J30.1 Allergic rhinitis due to pollen Prasanna Perdue MD 03/06/2019 J30.89 Other allergic rhinitis Prasanna Perdue MD 02/13/2019 J45.20 Mild intermittent asthma, Prasanna Perdue MD uncomplicated 02/13/2019 J30.1 Allergic rhinitis due to pollen Prasanna Perdue MD 02/13/2019 J30.89 Other allergic rhinitis Prasanna Perdue MD 01/30/2019 J45.20 Mild intermittent asthma, Prasanna Perdue MD uncomplicated 01/30/2019 J30.1 Allergic rhinitis due to pollen Prasanna Perdue MD 01/30/2019 J30.89 Other allergic rhinitis Prasanna Perdue MD 01/23/2019 J30.1 Allergic rhinitis due to pollen Prasanna Perdue MD 01/23/2019 J30.89 Other allergic rhinitis Prasanna Perdue MD 01/16/2019 J45.20 Mild intermittent asthma, Prasanna Perdue MD uncomplicated 01/16/2019 J30.1 Allergic rhinitis due to pollen Prasanna Perdue MD 01/16/2019 J30.89 Other allergic rhinitis Prasanna Perdue MD 01/02/2019 J45.40 Moderate persistent asthma, Prasanna Perdue MD uncomplicated 01/02/2019 J30.1 Allergic rhinitis due to pollen Prasanna Perdue MD 01/02/2019 J30.89 Other allergic rhinitis Prasanna Perdue MD 12/19/2018 J45.40 Moderate persistent asthma, Prasanna Perdue MD uncomplicated 12/19/2018 J30.1 Allergic rhinitis due to pollen Prasanna Perdue MD 12/19/2018 J30.89 Other allergic rhinitis Prasanna Perdue MD 12/05/2018 J45.40 Moderate persistent asthma, Prasanna Perdue MD uncomplicated 12/05/2018 J30.1 Allergic rhinitis due to pollen Prasanna Perdue MD 12/05/2018 J30.89 Other allergic rhinitis Prasanna Perdue MD Plan of Treatment Future Appointment(s):11/18/2019 8:30 am - ELEAZAR Perez at [id number] 1:05 pm - Injection 1 at [facility]b31/12/2019 - Lynn Ferreira, [facility]- CJ45.20 Mild intermittent asthma, uncomplicatedComments:Patient has been asymptomatic with his asthma. He is requesting a renewal of his ProAir inhaler to carry with him during deer hunting season. I will renew that prescription today. No need to restart Flovent at this time. I will repeat PFT/NIOX at his 6 month follow-up visit.Follow up:6 months - w/PFT and NIOX prior to xfgrnE86.1 Allergic rhinitis due to pollenComments:Allergic rhinitis well controlled with immunotherapy. Patient reports a significant improvement in his seasonal allergy symptoms since starting injections. Continuation of immunotherapy is recommended. Patient continues use of Budesonide/Saline sinus rinses 2-3x/week as directed by Dr. Carey. Korey had no return of nasal polyps following his surgery. I have advised him to contact the office ifsymptoms of sinus pain/ pressure, nasal congestion or changes in his smell/taste occur. These are signs his polyps may have returned and he would be an excellent candidate for Dupixent.Follow up:6 months.J30.89 Other allergic rhinitis Functional Status Description No Information Available Mental Status Description No Information Available Referrals Description No Information Available
[2019-07-07 11:27] VITALS: BP 141/93
--- NOTE | 2019-07-07 12:12 | UC ---
Skin Complaint HPI - HPI Summary HPI Summary: Pt presents with c/o sudden onset of swelling, tenderness of right midlle finger at previous laceration site 2 months ago. Pt had laceration sutured here and denies re-injury. Pt states that he took glove off yesterday at work and noticed that right middle finger at laceration site was bleeding, swollen, and mildly erythematous. Pt woke this morning and noticed increased swelling at site and now along right forearm. - History of Current Complaint Chief Complaint: UCSkin Time Seen by Provider: 07/07/19 11:43 Stated Complaint: RT HAND,MIDDLE FINGER PAIN Hx Obtained From: Patient Onset/Duration: Sudden Onset, Lasting Days, Still Present, Worse Since - onset Skin Exposure Onset/Duration: Days Ago - 1 Timing: Constant Onset Severity: Mild Current Severity: Moderate Pain Intensity: 0 Location: Discrete - right middle finger Character: Pain, Redness, Raised, Painful Aggravating Factor(s): Touch Alleviating Factor(s): Nothing Related History: Trauma - hx of laceration at site - Allergy/Home Medications Allergies/Adverse Reactions: Allergies Allergy/AdvReac Type Severity Reaction Status Date / Time No Known Allergies Allergy Verified 07/07/19 11:23 PMH/Surg Hx/FS Hx/Imm Hx Previously Healthy: Yes - Surgical History Surgical History: Yes Surgery Procedure, Year, and Place: Nasal Polyps, 2017, Dr. Carey. Cholecystectomy and Umbilical Herniorrhaphy, 2014, [facility];. Endoscopy, , [facility];. Colonscopy, ~2004, [place] - Family History Known Family History: Positive: None - No history of degenerative neuro conditions, parents living and well., Hypertension - Social History Occupation: Employed Full-time Lives: With Family Alcohol Use: Occasionally Substance Use Type: None Smoking Status (MU): Never Smoked Tobacco Have You Smoked in the Last Year: No Review of Systems All Other Systems Reviewed And Are Negative: Yes Constitutional: Positive: Negative Skin: Positive: Other - swelling and erythema, hematoma along past suture site ENT: Positive: Negative Respiratory: Positive: Negative Cardiovascular: Positive: Negative Gastrointestinal: Positive: Negative Genitourinary: Positive: Negative Motor: Positive: Negative Neurovascular: Positive: Negative Musculoskeletal: Positive: Edema - right middle finger posterior at MIP joint Neurological: Positive: Negative Psychological: Positive: Negative Is Patient Immunocompromised?: No Physical Exam Triage Information Reviewed: Yes Appearance: Well-Appearing Vital Signs: Initial Vital Signs Temp 97.8 F 07/07/19 11:23 Pulse 75 07/07/19 11:23 Resp 16 07/07/19 11:23 BP 141/93 07/07/19 11:23 Pulse Ox 95 07/07/19 11:23 Vital Signs Reviewed: Yes Eye Exam: Normal ENT Exam: Normal Dental Exam: Normal Neck exam: Normal Respiratory Exam: Normal Respiratory: Positive: No respiratory distress Musculoskeletal: Positive: Edema @ - mild swelling right middle finger, at mip and mild erythema and red streaking from sutre site. Diagnostics - Radiology No standard instances Radiology Interpretation Completed By: Radiologist - negative for FB or osteomylitis, no bone erosion Course/Dx - Differential Diagnoses - Skin Complaint Differential Diagnoses: Abscess, Cellulitis - Diagnoses Provider Diagnosis: Wound infection Discharge ED - Sign-Out/Discharge Documenting (check all that apply): Patient Departure All imaging exams completed and their final reports reviewed: Yes - Discharge Plan Condition: Stable Disposition: HOME Prescriptions: Cephalexin CAP* [Keflex 500 CAP*] 500 mg PO Q6H #40 cap Patient Education Materials: Wound Infection (ED) Referrals: Lavelle Garcia MD [Primary Care Provider] - 7 Days Yao Saunders MD [Medical Doctor] - - Billing Disposition and Condition Condition: STABLE Disposition: Home
== END 2019-07-07 12:21 | disposition home or self-care (01) ==
LOC: UCCORT 10:46
DX: S61.212D Laceration without foreign body of right middle finger without damage to nail, subsequent encounter (principal); L03.011 Cellulitis of right finger; X58.XXXD Exposure to other specified factors, subsequent encounter
CPT/HCPCS: 73140; 99212; G0463